=== PATIENT | female | born 1945 | race Caucasian/White ===

== ENCOUNTER 2018-03-20 14:24 | Outpatient (REF) | payer MEDICAID, SELFPAY ==
[2018-03-20 21:57] LABS: Abs Immature Grans 0.01 k/cumm (0.0-0.09); Absolute Basophil Count 0.04 k/cumm (0.0-0.2); Absolute Eosinophil Count 0.07 k/cumm (0.0-0.7); Absolute Lymphocyte Count 1.84 k/cumm (1.2-3.4); Absolute Monocyte Count 0.64 k/cumm (0.11-0.7); Absolute Neutrophil Count 4.08 k/cumm (1.2-6.7); Basophils % 0.6; HCT 48.3 % (36.0-46.0); HGB 15.4 g/dL (12.0-15.5); Immature Grans % 0.1; Lymphocytes % 27.5; Mean Corp. HGB Concentration 31.9 g/dL (32.0-36.0); Mean Corpuscular Hemoglobin 30.2 pg (27.0-33.0); Mean Corpuscular Volume 94.7 fL (80-95); Mean Platelet Volume 11.5 fL (8.0-11.0); Monocytes % 9.6; Neutrophils % 61.2; Platelet Count 162 x1000/uL (130-400); RBC Distribution Width 14.6 % (11.7-14.6); White Blood Cell Count 6.68 k/cumm (4.4-10.8)
[2018-03-20 22:22] LABS: ALT 25 U/L (12-78); AST 19 U/L (15-37); Albumin 3.6 g/dL (3.4-5.0); Alkaline Phosphatase 115 U/L (46-116); Anion Gap 8.5 mmol/L (3-11); BUN 20 mg/dL (7-18); Bilirubin, Total 0.3 mg/dL (0.2-1.0); CO2 30.5 mmol/L (21.0-32.0); CREATININE 0.79 mg/dL (0.55-1.02); Calcium 9.3 mg/dL (8.5-10.1); Chloride 104 mmol/L (98-107); Glucose 116 mg/dL (70-100); Potassium 4.1 mmol/L (3.5-5.1); Sodium 143 mmol/L (136-145); Total Protein 7.4 g/dL (6.4-8.2)
== END 2018-03-20 14:44 ==
LOC: NCHCN 14:24
PROVIDERS: PCP Family Medicine; Visit Provider Nurse Practitioner
DX: R63.0 Anorexia (principal); J06.9 Acute upper respiratory infection, unspecified
CPT/HCPCS: 80053; 85025

== ENCOUNTER 2018-03-21 15:18 | Outpatient (CLI) | payer MEDICAID, SELFPAY ==
--- NOTE | 2018-03-21 14:50 | DI.RAD_ITS ---
SYMPTOMS/DIAGNOSIS: RECENT UPPER RESPIRATORY INFECTION, J06.9 PA AND LATERAL CHEST: Comparison is made with November,. The heart size is normal. The aorta is tortuous but normal in diameter. The lungs appear clear. No infiltrate, effusion or pulmonary edema is seen. IMPRESSION: No acute abnormality.
== END 2018-03-21 15:38 ==
PROVIDERS: PCP Family Medicine; Visit Provider Nurse Practitioner
DX: J06.9 Acute upper respiratory infection, unspecified (principal)
CPT/HCPCS: 71046

== ENCOUNTER 2018-03-21 18:14 | Outpatient (REF) | payer MEDICAID, SELFPAY ==
[2018-03-21 21:02] LABS: Bilirubin Negative (Negative); Blood Moderate (Negative); Clarity Clear; Glucose Negative (Negative); Ketones Negative (Negative); Leukocyte Esterase Negative (Negative); Nitrite Negative (Negative); Specific Gravity >= 1.030 (1.005-1.025); Urobilinogen 0.2 EU/dL (Up TO 0.2); pH 5.5 (5-8)
[2018-03-21 21:16] LABS: Bacteria Moderate HPF (Negative); Epithelial Cells Moderate HPF (Negative); RBC 0-2 (0-2); WBC 0-2 HPF (0-5)
[2018-03-21 21:17] LABS: C & S Indicated? No/Sq. Contamination; Crystals Many Calcium Oxalate HPF (Negative); Mucus Moderate (Negative)
== END 2018-03-21 18:34 ==
LOC: NCHCN 18:14
PROVIDERS: PCP Family Medicine; Visit Provider Nurse Practitioner
DX: R63.0 Anorexia (principal)
CPT/HCPCS: 81003; 81015

== ENCOUNTER 2018-04-23 15:19 | Outpatient (CLI) | payer MEDICAID, SELFPAY ==
--- NOTE | 2018-04-23 15:24 | DI.RAD_ITS ---
SYMPTOM/DIAGNOSIS: RT XR ANKLE T14.90XA RIGHT ANKLE: Three views were obtained. The ankle mortise appears well maintained. There are minimal degenerative changes of the joints of the ankle. No other significant bony abnormality seen.
== END 2018-04-23 15:39 ==
PROVIDERS: PCP Family Medicine; Visit Provider Nurse Practitioner
DX: M25.571 Pain in right ankle and joints of right foot (principal); M19.071 Primary osteoarthritis, right ankle and foot
CPT/HCPCS: 73610

== ENCOUNTER 2018-06-25 09:02 | Emergency (ER) | payer MEDICAID, SELFPAY ==
--- NOTE | 2018-06-25 08:57 | ED.GENADUL_ITS ---
Discharge Plan Disposition Patient Disposition: HOME Condition: Good Discharge Details Chief Complaint: Laceration Clinical Impression: Laceration, Fall Reason For Visit: MEGAN Primary Care Provider: Heather Rinaldi ED Provider: Harrison Ceja Home Meds and New Rx's Prescriptions: No Action food supplemt, lactose-reduced [Ensure High Protein] liquid 120 ml PO DAILY RF: 0 acetaminophen 325 mg capsule 650 mg PO TID PRNRF: 0 trazodone 50 MG tablet 50 mg PO TID RF: 0 omeprazole 40 MG capsule,delayed release(DR/EC) 40 mg PO HS RF: 0 lorazepam 0.5 MG tablet 0.5 mg PO TID RF: 0 divalproex 125 MG tablet,delayed release (DR/EC) 2 tab PO BID RF: 0 docusate sodium [Colace] 100 MG capsule 100 mg PO PRN PRNRF: 0 cholecalciferol (vitamin D3) 1,000 UNITS tablet 2 tab PO QAM RF: 0 Discharge Instructions Instructions: Care For Your Stitches (ED), Laceration (ED) Additional Instructions: Please return in 7-10 days to have your sutures reevaluated and potentially removed. If you notice any redness, drainage, or other significant abnormalities please return immediately for reassessment. If you notice any worsening of your symptoms, or any new symptoms such as vomiting, diarrhea, fever, chills, shortness of breath, chest pain, numbness, weakness, or fainting , please return immediately to the emergency department for reevaluation. Please follow up with your primary care provider as soon as possible for reassessment and reevaluation. As always, it was a pleasure participating in your medical care today. Referrals: Heather Rinaldi [Primary Care Provider] - Medical Decision Making This is a 72-year-old female who presents today for follow-up. She had a mechanical trip and fall and hit the windowsill on her left forehead. A linear laceration is present over the left forehead just below the hairline. She suffered no loss of consciousness per the home health care provider. The patient has no complaints, and at baseline is pleasantly demented. She follows all commands at this time, demonstrates a GCS of 15. No focal neurologic deficits that can be appreciated on exam. Tetanus is up-to-date. We will suture the laceration site, get a CT to rule out any acute bleed. 10:07am Patient CT scan results have returned and per Dr. Amaya there is no acute process, fracture, or bleed noted on the CT head or C-spine of the patient. Patient's laceration has been repaired with 7 simple interrupted sutures. She is tolerated this well. No neurologic deficits, no concerning physical exam findings aside for the laceration. No evidence of altered mental status or significant concussion. She is not on blood thinners. This time I feel that her clinical history is consistent with a mechanical fall, and subsequent laceration. The patient's care provider and health specialists are both at bedside. I had a long and thorough discussion with him regarding the plan for the patient the need for return for suture removal. As well as red flags which to return. I have extensively reviewed the treatment plan and discharge instructions with the patient and their family. I have addressed all patient concerns at this time. The patient and family was made aware of what symptoms to monitor for that would warrant a return to the emergency department. Discussed the plan with the patient and family, they demonstrate verbal understanding and agreement with our assessment and plan at this time. Procedure: Suture Patient was positioned appropriately, 10cc lidocaine with/without epinephrine> was used as a local anesthetic. Copious amounts of normal saline used for irrigation. Patient was sterile draped with wound exposed. 5-0 Ethilon 7 simple interrupted sutures were placed with good approximation. Wound dressed with sterile gauze. Estimated Blood Loss: 1ml The patient tolerated the procedure well and there were no complications. HPI General Date/Time Provider Initiated Documentation: 06/25/18 09:07 . HPI Narrative: This is a 72-year-old female with a past medical history of Alzheimer's, previous CVA, hypertension, is on no blood thinners, who presents t [facility] for evaluation of fall. Patient was at home when she tripped on a towel, she hit her left forehead on the window sill. It was witnessed by her home care provider. Per the home care provider she had no loss of consciousness. She had some difficulty ambulating around after this event, but otherwise has no complaints. Bleeding was controlled by the time EMS arrived. She has a notable laceration on her left forehead. No other complaints, no other modifying factors at this time. Tetanus is up-to-date. She is on no blood thinners. Related Data Home Medications Medication Instructions Recorded Confirmed divalproex 2 tab PO BID 09/30/17 06/25/18 docusate sodium [Colace] 100 mg PO PRN PRN 09/30/17 06/25/18 lorazepam 0.5 mg PO TID 09/30/17 06/25/18 omeprazole 40 mg PO HS 09/30/17 06/25/18 trazodone 50 mg PO TID 09/30/17 06/25/18 cholecalciferol (vitamin D3) 2 tab PO QAM 11/21/17 06/25/18 acetaminophen 325 mg capsule 650 mg PO TID PRN cap 05/14/18 06/25/18 food supplement, lactose-reduced 120 ml PO DAILY ml 05/14/18 06/25/18 oral liquid Allergies Allergy/AdvReac Type Severity Reaction Status Date / Time No Known Allergies Allergy Unverified 06/25/18 09:15 Review of Systems Review of Systems All systems reviewed & are unremarkable except as noted in HPI and below PFSH Social History Smoking/Tobacco Use Status: Unknown Exam Narrative Exam Narrative: 1.Const: Well-nourished, Well-developed, appearing stated age 2.Eyes: PERRL, no conjunctival injection, and symmetrical lids. 3.ENT: Atraumatic external nose and ears. Moist MM. Neck: Symmetric, trachea midline, No thyromegaly. Patient demonstrates intact dentition with no signs of tooth avulsion or fracture, no signs of jaw deformity, no evidence of a LeFort's fracture, with an intact palate, nose and orbital region. There is no evidence of a nasal septal hematoma. No proptosis. Jaw closes symmetrically. Airway is clear. There is no evidence of raccoon eyes, olguin sign, CSF rhinorrhea, mastoid tenderness, cranial crepitus, hemotympanum, exophthalmos, or hyphema. 4.CVS: +S1/S2, No murmurs or gallops. Peripheral pulses 2+ and equal in all extremities. Brisk capillary refill in all extremities. 5.RESP: Unlabored respiratory effort. Clear to auscultation bilaterally. No wheezes rales or rhonchi 6.GI: Soft, Nontender/Nondistended, No hepatosplenomegaly. No guarding or rebound. 7.MSK: Normocephalic/Atraumatic, Extremities w/o deformity or ttp No cyanosis or clubbing, no midline tenderness to palpation over the CTLS spine. Normal ROM in flexion, extension, side bend, and rotation. Patient has +5 out of 5 strength in the lower extremities in dorsiflexion and plantarflexion, knee flexion and extension, hip flexion and extension. There is +2 over 2 dorsalis pedis pulses bilaterally. There is normal sensation to the skin with light touch at the foot, knee, and hip. Normal saddle sensation. Good sensation over the deep sural nerve area bilaterally. Rectal exam deferred. Reflexes are +2 over 4 in the patellar reflex bilaterally. +5 out of 5 strength in the medial, ulnar, radial nerve distribution bilaterally in the hands as well as intact light touch sensation to these dermatomes on the hands 8.Skin: Warm, Dry. Notable linear laceration over the patient's left forehead just below the hairline. This is linear, and roughly 4-1/2-5 cm in length. No evidence of calvarial involvement. 9.Neuro: e marketing specialist II-XII grossly intact. Sensation grossly intact, no focal neurologic deficits. Exam is slightly limited by the patient's mental baseline with her Alzheimer's. 10.Psych: (AAO) x3. Appropriate mood and affect. Pleasantly demented.
[2018-06-25 09:04] VITALS: BP 147/91; PULSE 91; RESP 16; TEMP 36.7; O2SAT 92
--- NOTE | 2018-06-25 09:07 | DI.CT_ITS ---
SYMPTOM/DIAGNOSIS: FELL, ? BLEED, FOREHEAD LACERATION NONCONTRAST HEAD CT: The exam is somewhat limited by patient motion. There are no prior comparison exams. Atrophy is seen. There is ventricular dilatation proportional to the degree of atrophy. White matter changes are seen consistent with small vessel disease. IMPRESSION: Limited exam due to patient motion. Small hemorrhages could be missed, especially along the sulci. No acute abnormality is identified. CERVICAL SPINE CT: There is no evidence of fracture. The alignment is normal. Degenerative disc changes are seen greatest at C 5-6 and C 6-7. Face degenerative changes are also present, greater on the right side. The airway appears intact. The visualized portions of the upper lobes appear clear. IMPRESSION: Degenerative changes. No acute abnormality.
[2018-06-25 10:16] VITALS: BP 164/85; PULSE 74; RESP 14; TEMP 37.8; O2SAT 94
== END 2018-06-25 10:23 | disposition home or self-care (01) ==
PROVIDERS: Emergency Provider Student in an Organized Health Care Education/Training Program; PCP Family Medicine
DX: S01.81XA Laceration without foreign body of other part of head, initial encounter (principal); W01.198A Fall on same level from slipping, tripping and stumbling with subsequent striking against other object, initial encounter; I10 Essential (primary) hypertension
CPT/HCPCS: 12002; 99284; 70450; 72125

== ENCOUNTER 2018-07-04 16:55 | Emergency (ER) | payer MEDICAID, MEDICARE, SELFPAY ==
--- NOTE | 2018-07-04 17:14 | W.ED.GENAD ---
Discharge Plan Disposition Patient Disposition: HOME Condition: Stable Discharge Details Chief Complaint: SutureRem Clinical Impression: Visit for suture removal Primary Care Provider: Heather Rinaldi ED Provider: Anastasiia Lantigua Home Meds and New Rx's Prescriptions: Continued food supplemt, lactose-reduced [Ensure High Protein] liquid 120 ml PO DAILY RF: 0 acetaminophen 325 mg capsule 650 mg PO TID PRNRF: 0 trazodone 50 MG tablet 50 mg PO TID RF: 0 omeprazole 40 MG capsule,delayed release(DR/EC) 40 mg PO HS RF: 0 lorazepam 0.5 MG tablet 0.5 mg PO TID RF: 0 divalproex 125 MG tablet,delayed release (DR/EC) 2 tab PO BID RF: 0 docusate sodium [Colace] 100 MG capsule 100 mg PO PRN PRNRF: 0 cholecalciferol (vitamin D3) 1,000 UNITS tablet 2 tab PO QAM RF: 0 Discharge Instructions Instructions: Stitches Removal (ED) Additional Instructions: Keep wound clean and dry. Cover wound with bandage if any risk of infection. If you notice any redness or swelling or pain, apply antibiotic ointment. Follow-up with primary care doctor in 1 week for reevaluation. Return immediately to the emergency department any worsening or new concerning symptoms. Discharge Data Discharge Date/Time-TO BE ENTERED AT DEPARTURE: 07/04/18 17:25 Discharge Physician: Anastasiia Lantigua Medical Decision Making 72-year-old female who presents for suture removal for forehead laceration status post mechanical fall 9 days ago. Denies any complaints of headache or infection. [address] No evidence of infection. 7 sutures were removed by nurse at bedside. Instructed on importance of wound care and that wound is most vulnerable once sutures removed. Instructed to return to the ED with any worsening or new concerning symptoms. HPI General Mode of arrival: ambulatory. Date/Time Provider Initiated Documentation: 07/04/18 17:07. Limitations to Documentation: no limitations. Information obtained by: patient. HPI Narrative: Patient is a 72-year-old female w/ a h/o dementia who presents with caregiver for suture removal of forehead laceration status post mechanical fall 9 days ago. Denies any complaints of headache or infection. Related Data Home Medications Medication Instructions Recorded Confirmed divalproex 2 tab PO BID 09/30/17 06/25/18 docusate sodium [Colace] 100 mg PO PRN PRN 09/30/17 06/25/18 lorazepam 0.5 mg PO TID 09/30/17 06/25/18 omeprazole 40 mg PO HS 09/30/17 06/25/18 trazodone 50 mg PO TID 09/30/17 06/25/18 cholecalciferol (vitamin D3) 2 tab PO QAM 11/21/17 06/25/18 acetaminophen 325 mg capsule 650 mg PO TID PRN cap 05/14/18 06/25/18 food supplement, lactose-reduced 120 ml PO DAILY ml 05/14/18 06/25/18 oral liquid Allergies Allergy/AdvReac Type Severity Reaction Status Date / Time No Known Allergies Allergy Unverified 06/25/18 09:15 General Stated Complaint: SutureRem GOLDIE: 5 Review of Systems Review of Systems All systems reviewed & are unremarkable except as noted in HPI and below PFSH Medical History Chronic colitis (Acute) Vitamin B 12 deficiency (Acute) Anxiety (Chronic) CVA (cerebral vascular accident) (Chronic) Dementia (Chronic) Depression (Chronic) HTN (hypertension) (Chronic) Surgical History Surgical history unknown (Acute) Social History Smoking/Tobacco Use Status: Never alcohol intake: never substance use type: does not use Exam Const General: cooperative, healthy appearing and no acute distress [facility] Head images: 1. 3cm straight laceration healing well with [address] No erythema, edema, ecchymoses, drainage or bleeding. Ears: hearing grossly normal bilaterally General nose exam: external nose normal Face and sinus: normal facial exam Eyes General: appearance normal, both eyes and all related structures Neck Neck: normal visual inspection Resp Effort & Inspection: normal respiratory effort and able to speak in complete sentences Cardio Rate: regular rate Skin General skin exam: no rashes or lesions noted Neuro General: alert, awake and oriented x3 Motor: muscle tone normal throughout Extrem General: full ROM Psych Appearance: grossly normal Affect: other (flat affect)
[2018-07-04 17:16] VITALS: BP 157/84; PULSE 91; RESP 18; TEMP 36.8; O2SAT 95
== END 2018-07-04 17:25 | disposition home or self-care (01) ==
LOC: ER 17:29
PROVIDERS: Emergency Provider Physician Assistant; PCP Family Medicine
DX: S01.81XD Laceration without foreign body of other part of head, subsequent encounter (principal); W01.198A Fall on same level from slipping, tripping and stumbling with subsequent striking against other object, initial encounter

== ENCOUNTER 2018-08-07 11:13 | Outpatient (REF) | payer MEDICAID, SELFPAY ==
[2018-08-07 22:03] LABS: Vitamin B12 465 pg/mL (193-986)
== END 2018-08-07 11:33 ==
LOC: NCHCN 11:13
PROVIDERS: PCP Family Medicine; Visit Provider Family Medicine
DX: F02.80 Dementia in other diseases classified elsewhere, unspecified severity, without behavioral disturbance, psychotic disturbance, mood disturbance, and anxiety (principal); E53.8 Deficiency of other specified B group vitamins
CPT/HCPCS: 82607

== ENCOUNTER 2018-09-06 17:05 | Inpatient (IN) | payer MEDICARE, MEDICAID, SELFPAY ==
[2018-09-06] VITALS (30 sets, daily range): BP systolic 76–183; BP diastolic 42–118; PULSE 67–123; RESP 2–31; TEMP 36.7–37.7; O2SAT 83–100
--- NOTE | 2018-09-06 17:15 | NUR.NOTE ---
entrepreneur of pt has brought in pt because of SOB with exercise and hypertension
--- NOTE | 2018-09-06 17:21 | DI.RAD_ITS ---
SYMPTOM/DIAGNOSIS: SOB AP AND LATERAL CHEST: There is a mild biconvex thoracolumbar scoliosis. Heart is not enlarged. The lungs are grossly clear. No pleural effusion is seen. CONCLUSION: No evidence of acute disease.
--- NOTE | 2018-09-06 17:27 | W.ED.GENAD ---
Discharge Plan Disposition Patient Disposition: [facility] Condition: Fair Discharge Details Chief Complaint: RespSymp Clinical Impression: COPD with acute exacerbation Primary Care Provider: Heather Rinaldi ED Provider: Anastasiia Lantigua Home Meds and New Rx's Prescriptions: No Action food supplemt, lactose-reduced [Ensure High Protein] liquid 120 ml PO DAILY RF: 0 acetaminophen 325 mg capsule 650 mg PO TID PRNRF: 0 quetiapine [Seroquel] 25 mg tablet 25 mg PO DIRECTED Qty: 90 RF: 5 lorazepam 0.5 mg tablet 0.5 mg PO .COMPLEX RF: 0 trazodone 50 mg tablet 50 mg PO DIRECTED RF: 0 omeprazole 40 MG capsule,delayed release(DR/EC) 40 mg PO HS RF: 0 docusate sodium [Colace] 100 MG capsule 100 mg PO PRN PRNRF: 0 cholecalciferol (vitamin D3) 1,000 UNITS tablet 2 tab PO QAM RF: 0 doxycycline hyclate 100 mg Tablet 100 mg PO BID RF: 0 Medical Decision Making 73-year-old female with a history of COPD, dementia, CVA, hypertension who presents with shortness of breath for the past few days and worse since yesterday. Mild labored breathing. Temp 99.8. Respiratory rate noted to be 20 on arrival but appears increased upon my evaluation. O2 saturation 95% on room air. Diminished breath sounds with minimal wheezing and rhonchi throughout. Wet sounding breath sounds in upper airways. EKG notes a rate of 97, sinus, no acute ST findings. 1829 --labs and imaging reviewed. Normal white blood cell count. Normal electrolytes. Troponin negative. BNP 568. Chest x-ray negative. 1839 --reassessment notes increasing wheezing and rhonchi. Patient still with some tachypnea. Will give a 7.5 mg neb and reassess. 1934 --patient still tachypneic after 7.5 mg neb. Her bowel sounds are improved. Will place on BiPAP and admit for acute COPD exacerbation. 1949 --d/w hospitalist - accepts pt for admission. We will give a dose of Levaquin. Medical Records Medical records reviewed: Yes I reviewed the patient's medical records. Imaging Data Radiologic Study: Radiologist's impression: Patient Name: Valentin DOE #: [id number]: ER Ordering Provider: : REG ER Primary Care Provider: Heather Rinaldi Date of Exam: 09/06/18Sex: F : 4Age: 73 XR Chest, 2 Views EXAM DATE/TIME: 09/06/2018 5:24 PM FINDINGS: Lungs: Right basilar atelectasis . No focal opacity Pleural space: Unremarkable. No pleural effusion. No pneumothorax. Heart/Mediastinum: Unremarkable. No cardiomegaly. Vasculature: Tortuous aorta Bones/joints: Unremarkable. Other findings: Patient is leaning to the right IMPRESSION: No focal opacity Lab Data Lab results reviewed: Yes I reviewed the patient's lab results. Laboratory Tests Range/Units 09/06/18 09/06/18 09/06/18 17:30 17:30 17:30 WBC (4.4-10.8) k/cumm 5.59 RBC (4.00-5.20) m/cumm 5.50 H Hgb (12.0-15.5) g/dL 16.8 H Hct (36.0-46.0) % 50.9 H MCV (80-95) fL 92.5 MCH (27.0-33.0) pg 30.5 MCHC (32.0-36.0) g/dL 33.0 RDW (11.7-14.6) % 14.3 Plt Count (130-400) x1000/uL 198 MPV (8.0-11.0) fL 10.8 Immature Gran % 0.2 Neutrophils % 69.7 Lymphocytes % 18.8 Monocytes % 10.7 Eosinophils % 0.2 Basophils % 0.4 Absolute Neutrophils (1.2-6.7) k/cumm 3.90 Absolute Lymphocytes (1.2-3.4) k/cumm 1.05 L Absolute Monocytes (0.11-0.7) k/cumm 0.60 Absolute Eosinophils (0.0-0.7) k/cumm 0.01 Absolute Basophils (0.0-0.2) k/cumm 0.02 Sodium (136-145) mmol/L 140 Potassium (3.5-5.1) mmol/L 4.0 Chloride (98-107) mmol/L 101 Carbon Dioxide (21.0-32.0) mmol/L 29.6 Anion Gap (3-11) mmol/L 9.4 BUN (7-18) mg/dL 19 H Creatinine (0.55-1.02) mg/dL 0.97 Estimated GFR/1.73 m2 (mL/min/1.73m2) 55.98 Glucose (70-100) mg/dL 147 H Calcium (8.5-10.1) mg/dL 9.4 Magnesium (1.8-2.4) mg/dL 1.8 Total Bilirubin (0.2-1.0) mg/dL 0.3 AST (15-37) U/L 23 ALT (12-78) U/L 29 Alkaline Phosphatase (46-116) U/L 171 H Troponin I (0.00-0.06) ng/mL < 0.02 NT-Pro-B Natriuret Pep ( - 299) pg/mL 568 H Total Protein (6.4-8.2) g/dL 8.2 Albumin (3.4-5.0) g/dL 3.8 ECG Data Attestation: I personally reviewed and interpreted this ECG (s) as follows: Interpretation: Rate of 97, sinus, no acute ST elevation or depression. QTc 432. QRS 86. HPI General Mode of arrival: ambulatory. Date/Time Provider Initiated Documentation: 09/06/18 17:21. Limitations to Documentation: no limitations. Information obtained by: patient and family (animal caretaker). HPI Narrative: Patient is a 73-year-old female with history of CVA, hypertension, anxiety depression, GERD, dementia and COPD who presents with shortness of breath for the past few days, and worse since last night. Patient did receive the flu shot this year. Caregiver whom patient lives with states that she has been eating and drinking normally. She admits to congested cough. She denies any known fever, vomiting, diarrhea or chest pain. Related Data Home Medications Medication Instructions Recorded Confirmed docusate sodium [Colace] 100 mg PO PRN PRN 09/30/17 09/06/18 omeprazole 40 mg PO HS 09/30/17 09/06/18 cholecalciferol (vitamin D3) 2 tab PO QAM 11/21/17 09/06/18 acetaminophen 325 mg capsule 650 mg PO TID PRN cap 05/14/18 09/06/18 food supplement, lactose-reduced 120 ml PO DAILY ml 05/14/18 09/06/18 oral liquid lorazepam 0.5 mg tablet 0.5 mg PO .COMPLEX 08/25/18 09/06/18 quetiapine 25 mg tablet 25 mg PO DIRECTED #90 tab 08/25/18 09/06/18 trazodone 50 mg tablet 50 mg PO DIRECTED tab 08/25/18 09/06/18 doxycycline hyclate 100 mg PO BID 09/06/18 09/06/18 Previous Rx's Medication Instructions Recorded quetiapine 25 mg tablet 25 mg PO DIRECTED #90 tab 08/25/18 Allergies Allergy/AdvReac Type Severity Reaction Status Date / Time No Known Allergies Allergy Unverified 09/06/18 17:18 General Stated Complaint: RespSymp GOLDIE: 3 Review of Systems Review of Systems All systems reviewed & are unremarkable except as noted in HPI and below Constitutional Reports as per HPI, Denies chills and Denies fever(s) Eyes Denies blurry vision ENT Denies dizziness, Denies sore throat and Denies throat swelling Cardiovascular Denies chest pain and Reports dyspnea Respiratory Denies cough and Reports dyspnea Gastrointestinal Denies abdominal pain, Denies diarrhea and Denies vomiting Genitourinary Denies hematuria and Denies dysuria Musculoskeletal Denies back pain and Denies numbness Integumentary/Breasts Denies lesions and Denies rash Neurologic Denies dizziness, Denies focal weakness and Denies numbness Allergic/Immunologic Denies throat swelling [facility] Medical History GERD (gastroesophageal reflux disease) (Chronic) Alzheimer's dementia (Chronic) Drug-induced Parkinsonism (Acute) Chronic colitis (Acute) Vitamin B 12 deficiency (Acute) Anxiety (Chronic) CVA (cerebral vascular accident) (Chronic) Depression (Chronic) HTN (hypertension) (Chronic) Dementia (Resolved) Surgical History Surgical history unknown (Acute) Social History Smoking/Tobacco Use Status: Former Tobacco Use Alcohol Intake: never Substance use type: does not use Household members: caregiver Number of Children: 3 current occupation: Nurse Do you feel safe in your relationship?: Yes Additional Social history: Has 2 children in [place] who are her guardians. Has another son in [place] who is not in charge of care. Has lives with caregiver Makayla since Jun 2017. Attends [employer] 5 days per week. CM is Meliza. Exam Const General: cooperative and no acute distress Orientation: alert and awake HENMT Head: normal to inspection Ears: hearing grossly normal bilaterally, external ears normal and TM's normal bilaterally General nose exam: external nose normal Face and sinus: normal facial exam Mouth: oral mucosae normal Teeth and gingiva: dentition normal Throat: posterior oropharynx normal Eyes General: appearance normal, both eyes and all related structures Eyelids: eyelids normal EOM: EOM intact bilaterally Neck Neck: normal visual inspection Lymphatic: no lymphadenopathy noted Chest Chest: normal inspection of the chest Resp Effort & Inspection: audible wheezes, tachypneic and other (wet lung sounds) Auscultation: diminished lung sounds bilaterally, rhonchi and wheezes Cardio Rate: regular rate Rhythm: regular rhythm GI Inspection: normal to inspection Palpation: soft, not firm, no guarding, no hepatosplenomegaly, no masses and nontender Auscultation: normal bowel sounds Skin General skin exam: no rashes or lesions noted Neuro General: alert and awake Cognition: normal cognition Speech: speech normal Gait: normal gait Motor: muscle tone normal throughout Sensory Exam: no sensory deficits noted Extrem General: normal to inspection, full ROM, normal capillary refill and no edema Psych Appearance: grossly normal Mental Status: mental status grossly normal Speech and Movement: speech and movement normal Affect: normal affect Thought Process: normal Course Vital Signs Temperature 99.8 F H 09/06/18 17:16 Pulse 96 H 09/06/18 17:16 Respiratory Rate 09/06/18 17:16 Blood Pressure 167/118 H 09/06/18 17:16 Pulse Oximetry 95 09/06/18 17:16 Temperature 99.8 F H 09/06/18 17:16 Temperature Source Skin 09/06/18 17:16 Pulse 96 H 09/06/18 17:16 Respiratory Rate 09/06/18 17:16 Blood Pressure 167/118 H 09/06/18 17:16 Blood Pressure Position Sitting 09/06/18 17:16 Pulse Oximetry 95 09/06/18 17:16 Oxygen Delivery Method Bi-pap 09/06/18 17:16 Oxygen Flow Rate 0 09/06/18 17:16 Pain Level 0 09/06/18 17:16
[2018-09-06 17:53] LABS: Abs Immature Grans 0.01 k/cumm (0.0-0.09); Absolute Basophil Count 0.02 k/cumm (0.0-0.2); Absolute Eosinophil Count 0.01 k/cumm (0.0-0.7); Absolute Lymphocyte Count 1.05 k/cumm (1.2-3.4); Basophils % 0.4; Eosinophils % 0.2; HCT 50.9 % (36.0-46.0); HGB 16.8 g/dL (12.0-15.5); Immature Grans % 0.2; Lymphocytes % 18.8; Mean Corpuscular Hemoglobin 30.5 pg (27.0-33.0); Mean Corpuscular Volume 92.5 fL (80-95); Mean Platelet Volume 10.8 fL (8.0-11.0); Monocytes % 10.7; Neutrophils % 69.7; Platelet Count 198 x1000/uL (130-400); RBC Distribution Width 14.3 % (11.7-14.6); White Blood Cell Count 5.59 k/cumm (4.4-10.8)
[2018-09-06 18:10] LABS: ALT 29 U/L (12-78); AST 23 U/L (15-37); Albumin 3.8 g/dL (3.4-5.0); Alkaline Phosphatase 171 U/L (46-116); Anion Gap 9.4 mmol/L (3-11); BUN 19 mg/dL (7-18); Bilirubin, Total 0.3 mg/dL (0.2-1.0); CO2 29.6 mmol/L (21.0-32.0); CREATININE 0.97 mg/dL (0.55-1.02); Calcium 9.4 mg/dL (8.5-10.1); Chloride 101 mmol/L (98-107); Estimated GFR 55.98 (mL/min/1.73m2); Glucose 147 mg/dL (70-100); Sodium 140 mmol/L (136-145); Total Protein 8.2 g/dL (6.4-8.2)
[2018-09-06 18:16] LABS: Magnesium 1.8 mg/dL (1.8-2.4); NT-proBNP 568 pg/mL
[2018-09-06 18:18] LABS: Troponin I < 0.02 ng/mL (0.00-0.06)
--- NOTE | 2018-09-06 18:27 | DI.VRAD_ITS ---
EXAM: XR Chest, 2 Views EXAM DATE/TIME: 09/06/2018 5:24 PM CLINICAL HISTORY: 73 years old, female; Signs and symptoms; Cough and shortness of breath and wheezing TECHNIQUE: Imaging protocol: XR of the chest, 2 views. COMPARISON: CR XR CHEST 2V PA LATERAL 03/21/2018 2:44 PM FINDINGS: Lungs: Right basilar atelectasis . No focal opacity Pleural space: Unremarkable. No pleural effusion. No pneumothorax. Heart/Mediastinum: Unremarkable. No cardiomegaly. Vasculature: Tortuous aorta Bones/joints: Unremarkable. Other findings: Patient is leaning to the right IMPRESSION: No focal opacity Dictated and Authenticated by: Nicholas Trejo MD. Ordering:TERRY Laurent MD
[2018-09-06] MEDS: Albuterol/Ipratropium 3 ML UPD VIAL UPD ×2 (18:43→22:51)
[2018-09-06] MEDS: methylPREDNISolone SUCC 125 MG VIAL IVP (18:44)
[2018-09-06] MEDS: Albuterol 2.5 MG/3 ML INH SOLN VIAL 7.5 MG UPD ×2 (18:45→20:31)
[2018-09-06 20:23] LABS: Lactate-non-spesis 2.6 mmol/l (0.6-1.4)
[2018-09-06] MEDS: levoFLOXacin 750 MG/150 ML BAG 100 MG IVPB (20:31)
--- NOTE | 2018-09-06 21:08 | HPE_ITS ---
Date of service: 09/06/18 Time of Service: 21:07 Assessment and Plan (1) Bronchopneumonia: Current visit: Yes Status: Acute Although no distinct consolidation is seen on her CXR, she has right basilar atelectasis, low grade fever, elevated blood lactate in setting of purulent cough. At minimum she has COPD exacerbation w/ acute bacterial bronchitis and I suspect she has incipient pneumonia. Patient's severe dyspnea and bronchospasm will continue to be treated w/ scheduled and prn nebulized bronchodilators, iv corticosteroids, and parenteral antibiotics will be given for bronchopneumonia in setting of COPD. I have changed her Levaquin to Cefepime for continued coverage of gram negatives, I have ordered doxycycline. I have not ordered Vancomycin as she has not had hx of MRSA and not been recently institutionalized. I will keep her on BIPAP overnight and try to wean her off this in the a.m. for now will keep npo except ice chips and meds. I will ask S.T. to evaluate her in the a.m. for possible dysphagia given her Parkinsonism although there has been no clear hx of aspiration/choking. (2) COPD (chronic obstructive pulmonary disease): Current visit: Yes Status: Suspected iv corticosteroids, aerosolized B.D. and antibiotics as above (3) Alzheimer's dementia: Current visit: No Status: Chronic continue current meds for her behavioral issues (Seroquel and Trazodone) (4) GERD (gastroesophageal reflux disease): Current visit: No Status: Chronic cont. her home dose of omeprazole; consult S.T. to evaluate for any potential dysphagia related to her P.D. 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 Patient developed cough last week that became progressively worse and developed into productive cough of purulent green sputum along w/ low grade fevers to 100 as well as dyspnea. She saw her PCP last and was prescribed doxycycline but despite this her cough and dyspnea have become worse. Upon presentation she hypoxic (SPO2 89%), tachypneic RR 30 and tachycardic 100. Workup in the ER included CXR that shows flattening of her diaphragms and right basilar atelectasis but no focal consolidation, pleural effusions or cardiomegaly. Labs including CBC, CMP were unremarkable except she has an elevated blood lactate of 2.6 without an increased anion gap. BNP was 568 and troponin was <0.02. WBC were 5890. Treatment in the ER included DuoNeb and albuterol aerosol treatments, Solumedrol 125 mg IVP, and Levaquin 750 mg IVPB. Because of her increased workup of breathing and persistent hypoxemia on supplemental nasl oxygen, she was put on BIPAP mask which improved her dyspnea and hypoxemia. She is now admitted to ICU for aggressive pulmonary toiletry, DuoNeb treatments and parenteral antibiotics. Because of her use of Seroquel and Trazodone, I have switched her Levaquin to Cefepime and Doxycycline. Review of Systems Review of Systems Unobtainable due to mental condition [facility] Medical History GERD (gastroesophageal reflux disease) (Chronic) Alzheimer's dementia (Chronic) Drug-induced Parkinsonism (Acute) Chronic colitis (Acute) Vitamin B 12 deficiency (Acute) Anxiety (Chronic) CVA (cerebral vascular accident) (Chronic) Depression (Chronic) HTN (hypertension) (Chronic) Dementia (Resolved) Surgical History Surgical history unknown (Acute) Social History Smoking/Tobacco Use Status: Former Tobacco Use Alcohol Intake: never Substance use type: does not use Household members: caregiver Number of Children: 3 current occupation: Nurse Do you feel safe in your relationship?: Yes Additional Social history: Has 2 children in [place] who are her guardians. Has another son in [place] who is not in charge of care. Has lives with caregiver Ozzie galindo since Jun 2017. Attends [employer] 5 days per week. TRISTAN is Meliza. Meds Home Medications Medication Instructions Recorded Confirmed Type docusate sodium [Colace] 100 mg PO PRN PRN 09/30/17 09/06/18 History omeprazole 40 mg PO HS 09/30/17 09/06/18 History cholecalciferol (vitamin D3) 2 tab PO QAM 11/21/17 09/06/18 History acetaminophen 325 mg capsule 650 mg PO TID PRN cap 05/14/18 09/06/18 History food supplement, lactose-reduced 120 ml PO DAILY ml 05/14/18 09/06/18 History oral liquid lorazepam 0.5 mg tablet 0.5 mg PO .COMPLEX 08/25/18 09/06/18 History quetiapine 25 mg tablet 25 mg PO DIRECTED #90 tab 08/25/18 09/06/18 Rx trazodone 50 mg tablet 50 mg PO DIRECTED tab 08/25/18 09/06/18 History doxycycline hyclate 100 mg PO BID 09/06/18 09/06/18 History Allergies Allergy/AdvReac Type Severity Reaction Status Date / Time No Known Allergies Allergy Unverified 09/06/18 17:18 Exam Const General: cooperative and ill appearing acutely Nutritional Appearance: average body habitus Orientation: alert, awake and oriented to person Limitations: behavioral limitations HENMT Head: normal to inspection, no palpable skull fracture, normocephalic and at raumatic Face and sinus: normal facial exam Mouth: other (oropharynx not examined d/t patient being on bipap) Neck Neck: normal visual inspection, full ROM, no lymphadenopathy, trachea midline, supple, no JVD and other (not using accessory muscles) Thyroid: thyroid normal Carotids: normal carotid upstroke Resp Effort & Inspection: tachypneic and no use of accessory muscles Auscultation: rhonchi upper bilaterally and lower bilaterally and wheezes scattered wheezes Cardio Jugular venous pressure: no JVD Palpation: normal PMI Rate: regular rate Rhythm: regular rhythm Heart Sounds: no murmurs Pulses: posterior tibial pulses present bilaterally diminished and dorsalis pedis pulses present bilaterally diminished GI Inspection: normal to inspection Palpation: soft, no hepatosplenomegaly, no guarding and nontender Percussion: normal to percussion Auscultation: normal bowel sounds Back/Spine/Pelvis Back: no CVA tenderness Cervical Spine: normal cervical lordosis Thoracic/Lumbar Spine: thoracic and lumbar spine normal to inspection Skin General skin exam: no rashes or lesions noted, elasticity normal and turgor normal Neuro General: alert, awake, oriented Patient Orientation: Person, moves all extremities and confused Cranial Nerves: no nystagmus Cognition: abnormal cognition Speech: speech normal Motor: muscle tone normal throughout, strength 5/5 throughout and tremor bilateral upper extremity Sensory Exam: no sensory deficits noted Extrem General: normal to inspection, full ROM and no clubbing, cyanosis or edema Psych Appearance: well kempt Speech and Movement: restless and slowed movement Mood: anxious mood Affect: anxious affect Attitude: cooperative Thought Process: other Other: unable to assess her thought processes, content nor her insight and judg ement; her cognition is impaired to point that she is unable to carry any meaningful conversation Results Imaging Chest x-ray: report reviewed (FINDINGS: Lungs: Right basilar atelectasis . No focal opacity Pleural space: Unremarkable. No pleural effusion. No pneumothorax. Heart/Mediastinum: Unremarkable. No cardiomegaly. Vasculature: Tortuous aorta Bones/joints: Unremarkable. Other findings: Patient is leaning to the right I) and image reviewed Labs : 09/06/18 17:30 09/06/18 17:30 Laboratory Results - last 24 hr 09/06/18 09/06/18 09/06/18 17:30 17:30 17:30 WBC 5.59 RBC 5.50 H Hgb 16.8 H Hct 50.9 H MCV 92.5 MCH 30.5 MCHC 33.0 RDW 14.3 Plt Count 198 MPV 10.8 Immature Gran % 0.2 Neutrophils % 69.7 Lymphocytes % 18.8 Monocytes % 10.7 Eosinophils % 0.2 Basophils % 0.4 Absolute Neutrophils 3.90 Absolute Lymphocytes 1.05 L Absolute Monocytes 0.60 Absolute Eosinophils 0.01 Absolute Basophils 0.02 Sodium 140 Potassium 4.0 Chloride 101 Carbon Dioxide 29.6 Anion Gap 9.4 BUN 19 H Creatinine 0.97 Estimated GFR/1.73 m2 55.98 Glucose 147 H Lactate Calcium 9.4 Magnesium 1.8 Total Bilirubin 0.3 AST 23 ALT 29 Alkaline Phosphatase 171 H Troponin I < 0.02 NT-Pro-B Natriuret Pep 568 H Total Protein 8.2 Albumin 3.8 09/06/18 20:02 WBC RBC Hgb Hct MCV MCH MCHC RDW Plt Count MPV Immature Gran % Neutrophils % Lymphocytes % Monocytes % Eosinophils % Basophils % Absolute Neutrophils Absolute Lymphocytes Absolute Monocytes Absolute Eosinophils Absolute Basophils Sodium Potassium Chloride Carbon Dioxide Anion Gap BUN Creatinine Estimated GFR/1.73 m2 Glucose Lactate 2.6 H Calcium Magnesium Total Bilirubin AST ALT Alkaline Phosphatase Troponin I NT-Pro-B Natriuret Pep Total Protein Albumin Last Vital Signs Temp 37.7 C H 09/06/18 17:16 Pulse 115 H 09/06/18 20:33 Resp 31 H 09/06/18 20:33 BP 159/82 H 09/06/18 19:01 Pulse Ox 97 09/06/18 20:33
[2018-09-06] MEDS: Lactated Ringers 1,000 ML 100 ML IV (22:49)
[2018-09-06] MEDS: Enoxaparin 40 MG/0.4 ML SYR SC (22:51)
[2018-09-06] MEDS: Acetaminophen 325 MG TAB PO (22:53)
[2018-09-06] MEDS: LORazepam 0.5 MG TAB PO (22:55)
[2018-09-06] MEDS: QUEtiapine 25 MG TAB PO (22:55)
[2018-09-06] MEDS: DOXYCYCLINE 100 MG in Normal Saline 100 ML IVPB (23:01)
[2018-09-06] MEDS: Benzonatate 200 MG CAP PO (23:05)
[2018-09-06] MEDS: guaiFENesin 600 MG TABCR 1200 MG PO (23:09)
[2018-09-06] MEDS: Omeprazole 20 MG CAPCR 40 MG PO (23:44)
[2018-09-06] MEDS: CEFEPIME 2 GM in Normal Saline 100 ML IVPB (23:48)
[2018-09-06] MEDS: Hydrocortisone SOD SUC. 100 MG VIAL 50 MG IVP (23:50)
[2018-09-07] VITALS (51 sets, daily range): BP systolic 80–165; BP diastolic 51–125; PULSE 82–123; RESP 4–33; TEMP 36.6–37.3; O2SAT 3–99
[2018-09-07 00:10] LABS: Lactate 3.8 mmol/L (0.6-1.4)
[2018-09-07 00:25] LABS: Troponin I < 0.02 ng/mL (0.00-0.06)
[2018-09-07] MEDS: Normal Saline 500 ML IV (01:45)
[2018-09-07] MEDS: Albuterol/Ipratropium 3 ML UPD VIAL UPD ×2 (03:40→17:02)
[2018-09-07 05:55] LABS: Lactate-non-spesis 2.2 mmol/l (0.6-1.4)
[2018-09-07 05:57] LABS: Abs Immature Grans 0.01 k/cumm (0.0-0.09); Absolute Eosinophil Count 0.01 k/cumm (0.0-0.7); Absolute Lymphocyte Count 0.75 k/cumm (1.2-3.4); Absolute Monocyte Count 0.09 k/cumm (0.11-0.7); Eosinophils % 0.3; HCT 40.5 % (36.0-46.0); HGB 13.2 g/dL (12.0-15.5); Immature Grans % 0.3; Lymphocytes % 25.3; Mean Corp. HGB Concentration 32.6 g/dL (32.0-36.0); Mean Corpuscular Hemoglobin 30.6 pg (27.0-33.0); Mean Platelet Volume 10.4 fL (8.0-11.0); Neutrophils % 71.1; Platelet Count 169 x1000/uL (130-400); RBC 4.31 m/cumm (4.00-5.20); RBC Distribution Width 14.4 % (11.7-14.6); White Blood Cell Count 2.96 k/cumm (4.4-10.8)
[2018-09-07 06:12] LABS: Anion Gap 9.4 mmol/L (3-11); BUN 23 mg/dL (7-18); CO2 25.6 mmol/L (21.0-32.0); CREATININE 1.17 mg/dL (0.55-1.02); Calcium 8.4 mg/dL (8.5-10.1); Chloride 106 mmol/L (98-107); Estimated GFR 45.09 (mL/min/1.73m2); Glucose 161 mg/dL (70-100); Potassium 4.1 mmol/L (3.5-5.1); Sodium 141 mmol/L (136-145)
[2018-09-07] MEDS: Hydrocortisone SOD SUC. 100 MG VIAL 50 MG IVP ×2 (06:32→12:14)
--- NOTE | 2018-09-07 07:29 | PDOC.CMIN ---
- If Service Date Differs Date of service: 09/07/18 Time of Service: 07:29 Care Management Initial Assess REASON FOR HOSPITALIZATION:: Bronchopneumonia, COPD PAST MEDICAL HISTORY/PAST SURGICAL HISTORY:: GERD (gastroesophageal reflux disease) (Chronic). Alzheimer's dementia (Chronic). Drug-induced Parkinsonism (Acute). Chronic colitis (Acute). Vitamin B 12 deficiency (Acute). Anxiety (Chronic). CVA (cerebral vascular accident) (Chronic). Depression (Chronic). HTN (hypertension) (Chronic). Dementia (Resolved) PREVIOUS FUNCTIONAL STATUS/SOCIAL/FAMILY SUPPORTS:: Jayne Sandoval) resides with her caregiver Makayla in [facility]. CM spoke with Makayla in regards to current home situation. Makayla reports that Sherine has resided with her for over a year and that she has another person that she cares for in the home. At baseline Makayla provides the majority of the care for Sherine, and states that she does ambulate independently without ambulatory aids. Sherine has a son and daughter whom reside in [place], whom are her guardians, as well as a son in [place]. CURRENT FUNCTIONAL STATUS:: Currently Sherine is lying in bed with the bipap on. She attempts to speak with this proposal manager writer through the bipap and nods her head when CM asks how she is doing. ADVANCE DIRECTIVES:: Guardians - Chen Keith (Children). CM obtained guardianship paperwork, faxed to access and placed a copy on physical chart. Has patient been provided with information about the portal?: Yes Did the patient sign up for the portal?: No CODE STATUS:: Full Code INSURANCE COVERAGE / FINANCIAL ISSUES:: MARTA KAUFFMAN CURRENT HOME/COMMUNITY SERVICES/EQUIPMENT:: Currently Jayne receives all care needs through her caregiver Makayla. Makayla reports that she has a gait belt, though this does not need to be used often. PRIMARY CARE PHYSICIAN:: Heather Rinaldi POTENTIAL DISCHARGE NEEDS:: F/U appointment with PCP PATIENT/FAMILY EDUCATION NEEDS:: Review DC instructions, any limitations, and ongoing DC planning discussion. Discuss 'Ask Me three' ANTICIPATED BARRIERS TO DISCHARGE:: None identified at this time. TRANSPORTATION:: Via private vehicle with caregiver Makayla PLAN:: Sherine will return home to her caregiver Makayla's with no anticipated services. She will F/U with PCP and plan of care as prescribed. Makayla to transport home when ready
--- NOTE | 2018-09-07 07:33 | INITIAL_ITS ---
- If Service Date Differs Date of service: 09/07/18 Time of Service: 07:29 Care Management Initial Assess REASON FOR HOSPITALIZATION:: Bronchopneumonia, COPD PAST MEDICAL HISTORY/PAST SURGICAL HISTORY:: GERD (gastroesophageal reflux disease) (Chronic). Alzheimer's dementia (Chronic). Drug-induced Parkinsonism (Acute). Chronic colitis (Acute). Vitamin B 12 deficiency (Acute). Anxiety (Chronic). CVA (cerebral vascular accident) (Chronic). Depression (Chronic). HTN (hypertension) (Chronic). Dementia (Resolved) PREVIOUS FUNCTIONAL STATUS/SOCIAL/FAMILY SUPPORTS:: Jayne Sandoval) resides with her caregiver Makayla in [facility]. CM spoke with Makayla in regards to current home situation. Makayla reports that Sherine has resided with her for over a year and that she has another person that she cares for in the home. At baseline Makayla provides the majority of the care for Sherine, and states that she does ambulate independently without ambulatory aids. Sherine has a son and daughter whom reside in [place], whom are her guardians, as well as a son in [place]. CURRENT FUNCTIONAL STATUS:: Currently Sherine is lying in bed with the bipap on. She attempts to speak with this engineering technical writer through the bipap and nods her head when CM asks how she is doing. ADVANCE DIRECTIVES:: Guardians - Chen Keith (Children). CM obtained guardianship paperwork, faxed to access and placed a copy on physical chart. Has patient been provided with information about the portal?: Yes Did the patient sign up for the portal?: No CODE STATUS:: Full Code INSURANCE COVERAGE / FINANCIAL ISSUES:: MARTA KAUFFMAN CURRENT HOME/COMMUNITY SERVICES/EQUIPMENT:: Currently Jayne receives all care needs through her caregiver Makayla. Makayla reports that she has a gait belt, though this does not need to be used often. PRIMARY CARE PHYSICIAN:: Heather Rinaldi POTENTIAL DISCHARGE NEEDS:: F/U appointment with PCP PATIENT/FAMILY EDUCATION NEEDS:: Review DC instructions, any limitations, and on going DC planning discussion. Discuss 'Ask Me three' ANTICIPATED BARRIERS TO DISCHARGE:: None identified at this time. TRANSPORTATION:: Via private vehicle with caregiver Makayla PLAN:: Sherine will return home to her caregiver Makayla's with no anticipated services. She will F/U with PCP and plan of care as prescribed. Makayla to transport home when ready
[2018-09-07] MEDS: Benzonatate 200 MG CAP PO ×3 (09:24→20:10)
[2018-09-07] MEDS: guaiFENesin 600 MG TABCR 1200 MG PO ×2 (09:24→20:11)
[2018-09-07] MEDS: QUEtiapine 25 MG TAB PO ×2 (09:25→20:11)
[2018-09-07] MEDS: DOXYCYCLINE 100 MG in Normal Saline 100 ML IVPB ×2 (09:54→21:42)
--- NOTE | 2018-09-07 11:14 | W.PM.PROGNOT ---
Date of Service Date of service: 09/07/18 Time of Service: 11:14 Assessment and Plan (1) Tracheobronchitis: Current visit: Yes Status: Acute No evidence of definitive infiltrate, although CXR with noted right basilar atelectasis. Patient however presented with low grade fevers, hypoxia, tachycardia, tachypnea, and elevated lactate. Suspect either bacterial Tracheobronchitis or Pneumonia. Continue initiated antibiotics with Ceftriaxone and continuation of Doxycycline, and await Sputum and Blood culture results. Continue stress dose steroids and nebs as well as patient appears to have an acute exacerbation of likely underlying COPD. Utilize BiPAP as needed. Speech eval to ensure lack of aspiration/dysphagia given underlying Parkinsonism. (2) COPD (chronic obstructive pulmonary disease): Current visit: Yes Status: Suspected Treatment as above. (3) Alzheimer's dementia: Current visit: No Status: Chronic Underlying dementia noted. Apparent concurrent neuropsychiatric symptoms as well as underlying history of anxiety and bipolar disorder. Continue home regimen of low dose Lorazepam, Seroquel, and Trazodone. 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 (5) GERD (gastroesophageal reflux disease): Current visit: No Status: Chronic Continue PPI therapy. (6) DVT prophylaxis: Current visit: Yes Status: Acute SC Lovenox. (7) Advanced directives, counseling/discussion: Current visit: Yes Status: Acute Full Code. Will discuss with DPOA (children) when able. Subjective Interval history since last seen: 73 year old woman with a prior history of tobacco abuse and dementia, admitted from [facility] Emergency Department with a diagnosis of COPD exacerbation in the setting of potential bacterial Tracheobronchitis. Ms. 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 She lives with a caregiver due to her disability from Parkinsonism - she reportedly has ambulatory dysfunction, tremors, and inability to bathe or feed herself. She also has cognitive dysfunction in the form of Alzheimer's Dementia. She presented to the ED with complaints of a worsening cough over the prior week, with reported purulent appearing sputum, low grade fevers, and dyspnea. She saw her PCP last and was prescribed doxycycline, but with reported continued symptoms despite this. Upon evaluation she was found to be tachycardic, tachypneic, and hypoxic, with an elevated lactate. The remainder of her blood work was unremarkable, as was her CXR. The patient was admitted for further evaluation and treatment. Exam Narrative Exam Narrative: General: Patient is ill appearing but not toxic, awake and alert, oriented to person only. Neck: Supple CV: Distant heart sounds. Regular, tachycardic, S1S2, No rubs, murmurs, or gallops. Pulmonary: Decreased breath sounds with scattered rhonchi and wheezing on exam limited by poor inspiratory effort and cooperation Abdomen: + Bowel Sounds, soft, nontender, nondistended Vascular: No lower extremity edema Objective Objective Clinical Data: Abnormal lab results 09/06/18 09/06/18 09/06/18 Range/Units 17:30 17:30 17:30 WBC (4.4-10.8) k/cumm RBC 5.50 H (4.00-5.20) m/cumm Hgb 16.8 H (12.0-15.5) g/dL Hct 50.9 H (36.0-46.0) % Absolute Lymphocytes 1.05 L (1.2-3.4) k/cumm Absolute Monocytes (0.11-0.7) k/cumm BUN 19 H (7-18) mg/dL Creatinine (0.55-1.02) mg/dL Glucose 147 H (70-100) mg/dL Lactate (0.6-1.4) mmol/l Calcium (8.5-10.1) mg/dL Alkaline Phosphatase 171 H (46-116) U/L NT-Pro-B Natriuret Pep 568 H ( - 299) pg/mL 09/06/18 09/06/18 09/07/18 Range/Units 20:02 23:00 05:46 WBC (4.4-10.8) k/cumm RBC (4.00-5.20) m/cumm Hgb (12.0-15.5) g/dL Hct (36.0-46.0) % Absolute Lymphocytes (1.2-3.4) k/cumm Absolute Monocytes (0.11-0.7) k/cumm BUN 23 H (7-18) mg/dL Creatinine 1.17 H (0.55-1.02) mg/dL Glucose 161 H (70-100) mg/dL Lactate 2.6 H 3.8 H* (0.6-1.4) mmol/l Calcium 8.4 L (8.5-10.1) mg/dL Alkaline Phosphatase (46-116) U/L NT-Pro-B Natriuret Pep ( - 299) pg/mL 09/07/18 09/07/18 Range/Units 05:46 05:46 WBC 2.96 L D (4.4-10.8) k/cumm RBC (4.00-5.20) m/cumm Hgb (12.0-15.5) g/dL Hct (36.0-46.0) % Absolute Lymphocytes 0.75 L (1.2-3.4) k/cumm Absolute Monocytes 0.09 L (0.11-0.7) k/cumm BUN (7-18) mg/dL Creatinine (0.55-1.02) mg/dL Glucose (70-100) mg/dL Lactate 2.2 H (0.6-1.4) mmol/l Calcium (8.5-10.1) mg/dL Alkaline Phosphatase (46-116) U/L NT-Pro-B Natriuret Pep ( - 299) pg/mL Vital Signs Temperature 37.2 C 09/07/18 09:49 Temperature Source Tympanic 09/07/18 09:49 Pulse 107 H 09/07/18 10:22 Pulse 87 09/07/18 09:01 Respiratory Rate 23 09/07/18 10:22 Respiratory Effort 09/07/18 04:00 Respiratory Depth Normal 09/07/18 04:00 Respiratory Pattern Normal 09/07/18 04:00 Blood Pressure 119/76 09/07/18 09:01 Blood Pressure Mean 84 09/07/18 09:01 Blood Pressure Position Supine 09/07/18 04:00 Pulse Oximetry 95 09/07/18 06:08 Oxygen Delivery Method Bi-pap 09/07/18 04:00 Oxygen Flow Rate 0 09/06/18 17:16 Fraction of Inspired Oxygen (FIO2) 30 09/07/18 10:22 Pain Level 0 09/07/18 04:00 Intake & Output 09/06/18 09/06/18 09/07/18 11:59 23:59 11:59 Intake Total 150 / 150 900 / 900 Balance 150 / 150 900 / 900 Weight 53.2 kg 54.5 kg Intake: IV 150 / 150 900 / 900 Other: Urine Odor Normal Normal Comment Skin care done s/p urinary incont. Voiding Methods Bedside Commode Incontinent Incontinent Laboratory Results WBC 2.96 k/cumm (4.4-10.8) L D 09/07/18 05:46 RBC 4.31 m/cumm (4.00-5.20) 09/07/18 05:46 Hgb 13.2 g/dL (12.0-15.5) D 09/07/18 05:46 Hct 40.5 % (36.0-46.0) D 09/07/18 05:46 MCV 94.0 fL (80-95) 09/07/18 05:46 MCH 30.6 pg (27.0-33.0) 09/07/18 05:46 MCHC 32.6 g/dL (32.0-36.0) 09/07/18 05:46 RDW 14.4 % (11.7-14.6) 09/07/18 05:46 Plt Count 169 x1000/uL (130-400) 09/07/18 05:46 MPV 10.4 fL (8.0-11.0) 09/07/18 05:46 Immature Gran % 0.3 09/07/18 05:46 Neutrophils % 71.1 09/07/18 05:46 Lymphocytes % 25.3 09/07/18 05:46 Monocytes % 3.0 09/07/18 05:46 Eosinophils % 0.3 09/07/18 05:46 Basophils % 0.0 09/07/18 05:46 Absolute Neutrophils 2.10 k/cumm (1.2-6.7) 09/07/18 05:46 Absolute Lymphocytes 0.75 k/cumm (1.2-3.4) L 09/07/18 05:46 Absolute Monocytes 0.09 k/cumm (0.11-0.7) L 09/07/18 05:46 Absolute Eosinophils 0.01 k/cumm (0.0-0.7) 09/07/18 05:46 Absolute Basophils 0.00 k/cumm (0.0-0.2) 09/07/18 05:46 Sodium 141 mmol/L (136-145) 09/07/18 05:46 Potassium 4.1 mmol/L (3.5-5.1) 09/07/18 05:46 Chloride 106 mmol/L (98-107) 09/07/18 05:46 Carbon Dioxide 25.6 mmol/L (21.0-32.0) 09/07/18 05:46 Anion Gap 9.4 mmol/L (3-11) 09/07/18 05:46 BUN 23 mg/dL (7-18) H 09/07/18 05:46 Creatinine 1.17 mg/dL (0.55-1.02) H 09/07/18 05:46 Estimated GFR/1.73 m2 45.09 (mL/min/1.73m2) 09/07/18 05:46 Glucose 161 mg/dL (70-100) H 09/07/18 05:46 Lactate 2.2 mmol/l (0.6-1.4) H 09/07/18 05:46 Calcium 8.4 mg/dL (8.5-10.1) L 09/07/18 05:46 Magnesium 1.8 mg/dL (1.8-2.4) 09/06/18 17:30 Total Bilirubin 0.3 mg/dL (0.2-1.0) 09/06/18 17:30 AST 23 U/L (15-37) 09/06/18 17:30 ALT 29 U/L (12-78) 09/06/18 17:30 Alkaline Phosphatase 171 U/L (46-116) H 09/06/18 17:30 Troponin I < 0.02 ng/mL (0.00-0.06) 09/06/18 23:00 NT-Pro-B Natriuret Pep 568 pg/mL (-299) H 09/06/18 17:30 Total Protein 8.2 g/dL (6.4-8.2) 09/06/18 17:30 Albumin 3.8 g/dL (3.4-5.0) 09/06/18 17:30
[2018-09-07] MEDS: traZODone 50 MG TAB PO (12:15)
[2018-09-07] MEDS: cefTRIAXone 2 GM/50 ML BAG IVPB (12:15)
[2018-09-07 15:07] LABS: Lactate-non-spesis 1.5 mmol/l (0.6-1.4)
[2018-09-07] MEDS: Enoxaparin 40 MG/0.4 ML SYR SC (20:10)
[2018-09-07] MEDS: Normal Saline Flush 10 ML SYR IVP (21:42)
[2018-09-07] MEDS: Omeprazole 20 MG CAPCR 40 MG PO (21:42)
[2018-09-07] MEDS: LORazepam 0.5 MG TAB PO (21:42)
[2018-09-08] VITALS (41 sets, daily range): BP systolic 114–174; BP diastolic 61–96; PULSE 67–145; RESP 14–31; TEMP 36.4–37.2; O2SAT 88–99
[2018-09-08] MEDS: Hydrocortisone SOD SUC. 100 MG VIAL 50 MG IVP ×2 (02:57→07:39)
[2018-09-08 06:22] LABS: Abs Immature Grans 0.01 k/cumm (0.0-0.09); Absolute Basophil Count 0.01 k/cumm (0.0-0.2); Absolute Lymphocyte Count 1.37 k/cumm (1.2-3.4); Absolute Monocyte Count 0.63 k/cumm (0.11-0.7); Absolute Neutrophil Count 7.26 k/cumm (1.2-6.7); Basophils % 0.1; HCT 42.7 % (36.0-46.0); HGB 13.8 g/dL (12.0-15.5); Immature Grans % 0.1; Lymphocytes % 14.8; Mean Corp. HGB Concentration 32.3 g/dL (32.0-36.0); Mean Corpuscular Hemoglobin 30.7 pg (27.0-33.0); Mean Corpuscular Volume 94.9 fL (80-95); Monocytes % 6.8; Neutrophils % 78.2; Platelet Count 173 x1000/uL (130-400); RBC Distribution Width 14.8 % (11.7-14.6); White Blood Cell Count 9.28 k/cumm (4.4-10.8)
[2018-09-08 06:30] LABS: Anion Gap 7.7 mmol/L (3-11); BUN 21 mg/dL (7-18); CO2 29.3 mmol/L (21.0-32.0); CREATININE 0.83 mg/dL (0.55-1.02); Calcium 8.7 mg/dL (8.5-10.1); Chloride 110 mmol/L (98-107); Glucose 110 mg/dL (70-100); Magnesium 1.8 mg/dL (1.8-2.4); Potassium 4.1 mmol/L (3.5-5.1); Sodium 147 mmol/L (136-145)
[2018-09-08] MEDS: Normal Saline Flush 10 ML SYR IVP ×2 (08:59→14:56)
[2018-09-08] MEDS: QUEtiapine 25 MG TAB PO ×2 (09:00→20:50)
[2018-09-08] MEDS: Normal Saline 1,000 ML 75 ML IV (09:00)
[2018-09-08] MEDS: Benzonatate 200 MG CAP PO ×3 (09:00→20:49)
[2018-09-08] MEDS: guaiFENesin 600 MG TABCR 1200 MG PO ×2 (09:00→20:50)
[2018-09-08] MEDS: Magnesium Oxide 400 MG TAB PO (09:00)
--- NOTE | 2018-09-08 10:23 | W.SPEECHEVAL ---
Date of service: 09/08/18 Time of Service: 07:00 Speech Therapy Evaluation Note: ORDERING PROVIDER:Dr. Jorge BACKGROUND This is a 73 year old female who presented to the ED on 09/06/18 with a multi-day h/o cough with subsequent fever and dyspnea. A CXR showed right basilar atelectasis but no focal opacity. She was admitted to the ICU for tx of a COPD exacerbation and possible tracheobronchitis or pneumonia. PMH: Alzheimer's disease, bipolar disorder, anxiety disorder, depression, drug-induced Parkinsonism, GERD, HTN, colitis, h/o smoking, h/o CVA. The patient (pt) is unable to give any additional background information regarding p.o. consistencies taken in the weeks prior to this admission due to her dementia. OBJECTIVE Nursing reports: - T: 36.6 - O2 sat: 97% on 2L via NC - LS: bilateral (B) expiratory rhonchi in the presence of ABX - Pt is npo. The pt is sitting up in bed twirling her ID bracelet around in her fingers. She greets me with slightly delayed direct eye contact and an appropriate verbal greeting. There is a paucity of conversational speech. She initially attempts to answer questions but her responses are always off-topic and consist of unfinished sentences. She is A & O x 1 (person) and able to follow 1-step directions only occasionally. Oral Sensorimotor Exam The pt is totally edentulous but has both a full upper denture (FUD) and a full lower denture (FLD). The dentures are in very good condition. It looks like there is left-over denture adhesive in the FUD as I take them out of the denture cup. Once cleaned they are assessed for fit, which is quite good. Consequently, no adhesive is put in for this visit. The FLD fits as expected. The pt appears comfortable with both dentures in place and occlusal bite is good. Most of the remainder of this exam is unable to be done due to the pt's inability to follow directions, however, the following is noted. The smile is symmetrical. No lingual deviation is seen on protrusion in a setting of very limited excursion. Speech intelligibility to this unfamiliar listener in a setting of mild background noise is 100% despite mildly decreased vocal intensity. Vocal quality is WNL. The pt is noted to produce an occasional wet-sounding nonproductive cough. Swallowing: - Honey-thick liquid: Good bolus control & posterior oral transit (POT), no willi signs/symptoms (s/s) aspiration/penetration (A/P); oral clearance 100%; no oral escape. These results are true for single swallows by cup. The pt is unresponsive to requests for consecutive swallows. - [place]-thick liquid: Results are the same as for Honey-thick liquid. These results are true for single swallows by cup & straw. - Thin liquid: Results are the same as for [place]--thick liquid, again, for single swallows by cup & straw. - Puree food: Good bolus control & linguopalatal bolus compression; POT WNL; no willi s/s A/P; oral clearance 100%; no oral escape. - Mechanically Altered food: Good mastication quality, bolus control & POT; no willi s/s A/P; oral clearance 100%; no oral escape. - Dysphagia Advanced food: Decreased mastication quality with use of increased mastication time; decreased bolus control; POT mildly delayed; no willi s/s A/P; oral clearance 80%; no oral escape. Pt is observed to self-feed finger-food with her RUE, but responds inappropriately to cueing for self-feeing with use of regular utensil. Self-feeding of liquids is inconsistent. INTERPRETATION Pt shows a mild-moderate oral-prep dysphagia due primarily to severe dementia and secondarily to having full upper and lower dentures. RECOMMENDATIONS 1. Change to p.o. with the following consistencies: a) Thin liquids b) Mechanically Altered diet with moistened fine-chopped meats c) crushed pills in puree, dissolved pills or nonoral meds 2. Aided feeding 3. Speech therapy to monitor pt's toleration of above p.o. consistencies. Thank you for referring this pt.
--- NOTE | 2018-09-08 10:26 | CMPROGNOTE_ITS ---
- If Service Date Differs Date of service: 09/08/18 Time of Service: 10:25 Care Management Progress Note S/O: Jayne Basurto is sitting up in bed this morning. She is sleeping when this blurb writer visits, though easily awakes. Sherine is receptive to conversation this morning, and is pleasant throughout visit. Her caregiver Makayla called the nursing staff this morning for an update. No change in DC plan. A: 73 y/o female admitted 09/06/18 for Acute COPD Exacerbation P: Sherine will return to her caregiver Makayla's home once medically cleared. She will F/U with PCP and plan of care as prescribed. Makayla to transport when ready.
[2018-09-08] MEDS: DOXYCYCLINE 100 MG in Normal Saline 100 ML IVPB ×2 (10:56→21:00)
--- NOTE | 2018-09-08 11:04 | EVALE_ITS ---
Date of service: 09/08/18 Time of Service: 07:00 Speech Therapy Evaluation Note: ORDERING PROVIDER:Dr. Jorge BACKGROUND This is a 73 year old female who presented to the ED on 09/06/18 with a multi-day h/o cough with subsequent fever and dyspnea. A CXR showed right basilar atelectasis but no focal opacity. She was admitted to the ICU for tx of a COPD exacerbation and possible tracheobronchitis or pneumonia. PMH: Alzheimer's disease, bipolar disorder, anxiety disorder, depression, drug- induced Parkinsonism, GERD, HTN, colitis, h/o smoking, h/o CVA. The patient (pt) is unable to give any additional background information regarding p.o. consistencies taken in the weeks prior to this admission due to her dementia. OBJECTIVE Nursing reports: - T: 36.6 - O2 sat: 97% on 2L via NC - LS: bilateral (B) expiratory rhonchi in the presence of ABX - Pt is npo. The pt is sitting up in bed twirling her ID bracelet around in her fingers. She greets me with slightly delayed direct eye contact and an appropriate verbal greeting. There is a paucity of conversational speech. She initially attempts to answer questions but her responses are always off-topic and consist of unfinished sentences. She is A & O x 1 (person) and able to follow 1-step directions only occasionally. Oral Sensorimotor Exam The pt is totally edentulous but has both a full upper denture (FUD) and a full lower denture (FLD). The dentures are in very good condition. It looks like there is left-over denture adhesive in the FUD as I take them out of the denture cup. Once cleaned they are assessed for fit, which is quite good. Consequently, no adhesive is put in for this visit. The FLD fits as expected. The pt appears comfortable with both dentures in place and occlusal bite is good. Most of the remainder of this exam is unable to be done due to the pt's inability to follow directions, however, the following is noted. The smile is symmetrical. No lingual deviation is seen on protrusion in a setting of very limited excursion. Speech intelligibility to this unfamiliar listener in a setting of mild background noise is 100% despite mildly decreased vocal intensity. Vocal quality is WNL. The pt is noted to produce an occasional wet- sounding nonproductive cough. Swallowing: - Honey-thick liquid: Good bolus control & posterior oral transit (POT), no willi signs/symptoms (s/s) aspiration/penetration (A/P); oral clearance 100%; no oral escape. These results are true for single swallows by cup. The pt is unresponsive to requests for consecutive swallows. - [place]-thick liquid: Results are the same as for Honey-thick liquid. These results are true for single swallows by cup & straw. - Thin liquid: Results are the same as for [place]--thick liquid, again, for single swallows by cup & straw. - Puree food: Good bolus control & linguopalatal bolus compression; POT WNL; no willi s/s A/P; oral clearance 100%; no oral escape. - Mechanically Altered food: Good mastication quality, bolus control & POT; no willi s/s A/P; oral clearance 100%; no oral escape. - Dysphagia Advanced food: Decreased mastication quality with use of increased mastication time; decreased bolus control; POT mildly delayed; no willi s/s A/P; oral clearance 80%; no oral escape. Pt is observed to self-feed finger-food with her RUE, but responds inappropriately to cueing for self-feeing with use of regular utensil. Self- feeding of liquids is inconsistent. INTERPRETATION Pt shows a mild-moderate oral-prep dysphagia due primarily to severe dementia and secondarily to having full upper and lower dentures. RECOMMENDATIONS 1. Change to p.o. with the following consistencies: a) Thin liquids b) Mechanically Altered diet with moistened fine-chopped meats c) crushed pills in puree, dissolved pills or nonoral meds 2. Aided feeding 3. Speech therapy to monitor pt's toleration of above p.o. consistencies. Thank you for referring this pt.
[2018-09-08] MEDS: cefTRIAXone 2 GM/50 ML BAG IVPB (12:07)
[2018-09-08] MEDS: traZODone 50 MG TAB PO (12:08)
--- NOTE | 2018-09-08 13:34 | PHARADMIT ---
Addendum entered by Shona Dunn 09/14/18 11:55: Pharmacy Note Subjective MEDS CRUSHED PER SPEECH REPORT Objective BP 162/89, Afebrile, Sats 91% on zero to 2 L oxygen/min lytes ok Assessment Repeat chest xray today: negative Amlodipine dose increase few days ago Tapering steroids but currently 40mg po BID, Anbx therapy complete IVF's dc'd Plan SNF referrals Addendum entered by Bea Randolph 09/09/18 15:39: Pharmacy Note Subjective improving per morning report Objective BP-178/108 HR-102 RR-27 weight-55.3(up) Assessment abx continue; day 3 ceftriaxone and day 6 of doxycycline BC- no growth @48 hours duonebs and levalbuterol ordered PRN, budesonide scheduled Q12H, one time lasix drip ordered Plan continue to watch VS, labs and for med changes Original Note: Admission Pharmacy Clinical Review Acute COPD exacerbation, h/o dementia Code Status Full Code Current Weight 54.5 kg Renally Cleared and Narrow Therapeutic Index Meds Crcl ~50.30 mL/min current meds okay QTc Value / Action Taken QTc 432 BP Control, Fever BP 171/93 afebrile Electrolytes reviewed Na 147 Cl 110 DVT Prophylaxis enoxaparin Opiate Usage / Scheduled Bowel Regimen Ordered no/prn Plt/SCr for Heparin / Enoxaparin plt 173 SCr 0.83 INR for Warfarin n/a H/H stable, WBC/Bands h/h 13.8/42.7 wbc 9.28 Antibiotic appropriateness ceftriaxone (day 2) and doxycycline (day 3 starts late tonight) Cultures and Sensitivities blood cultures no growth @24 hours rapid flu negative Surgical ABX d/c within 24 hr n/a DM control / Insulin Dosing BG 110 Heart Failure (Check EF%) (MILAN's, B-Block, Diuretics) none IV to PO Switch n/a Home Meds Reviewed yes Home Meds Not Ordered cholecalciferol Comments
[2018-09-08] MEDS: methylPREDNISolone SUCC 40 MG VIAL IVP ×2 (14:55→20:58)
--- NOTE | 2018-09-08 16:58 | PGE_ITS ---
Date of Service Date of service: 09/08/18 Time of Service: 16:51 Assessment and Plan (1) Tracheobronchitis: Current visit: Yes Status: Acute No evidence of definitive infiltrate, although CXR with noted right basilar atelectasis. Patient however presented with low grade fevers, hypoxia, tachycardia, tachypnea, and elevated lactate. Suspect either bacterial Tracheobronchitis or Pneumonia. Continue antibiotics with Ceftriaxone and continuation of Doxycycline, and await Sputum and Blood culture results. Continue but change steroids to Solumedrol, and continue nebs as well as patient appears to have an acute exacerbation of likely underlying COPD. Utilize BiPAP as needed. Speech evaluation provided and diet changed accordingly to ensure lack of aspiration/dysphagia given underlying Parkinsonism. (2) COPD (chronic obstructive pulmonary disease): Current visit: Yes Status: Suspected Treatment as above. (3) Alzheimer's dementia: Current visit: No Status: Chronic Underlying dementia noted. Apparent concurrent neuropsychiatric symptoms as well as underlying history of anxiety and bipolar disorder. Continue home regimen of low dose Lorazepam, Seroquel, and Trazodone. 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 (5) GERD (gastroesophageal reflux disease): Current visit: No Status: Chronic Continue PPI therapy. (6) DVT prophylaxis: Current visit: Yes Status: Acute SC Lovenox. (7) Advanced directives, counseling/discussion: Current visit: Yes Status: Acute Full Code. Will discuss with DPOA (children) who live out of state when able - Full Code status is accurate per discussion with caregiver. Subjective Interval history since last seen: 73 year old woman with a prior history of tobacco abuse and dementia, admitted from [facility] Emergency Department with a diagnosis of COPD exacerbation in the setting of potential bacterial Tracheobronchitis. Ms. 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 She lives with a caregiver due to her disability from Parkinsonism - she reportedly has ambulatory dysfunction, tremors, and inability to bathe or feed herself. She also has cognitive dysfunction in the form of Alzheimer's Dementia. She presented to the ED with complaints of a worsening cough over the prior week, with reported purulent appearing sputum, low grade fevers, and dyspnea. She saw her PCP last and was prescribed doxycycline, but with reported continued symptoms despite this. Upon evaluation she was found to be tachycardic, tachypneic, and hypoxic, with an elevated lactate. The remainder of her blood work was unremarkable, as was her CXR. The patient was admitted for further evaluation and treatment. SThe patient initially required BiPAP, but has since improved and remains on supplemental oxygen. No overnight events reported. Remains afebrile. Exam Narrative Exam Narrative: General: Patient is ill appearing but not toxic, awake and alert, oriented to person only. Neck: Supple CV: Distant heart sounds. Regular, tachycardic, S1S2, No rubs, murmurs, or gallops. Pulmonary: Improved air entry with present breath sounds, with scattered rhonchi and wheezing. Mild bibasilar crackles. Abdomen: + Bowel Sounds, soft, nontender, nondistended Vascular: No lower extremity edema Objective Objective Clinical Data: Abnormal lab results 09/08/18 09/08/18 Range/Units 05:40 05:40 RDW 14.8 H (11.7-14.6) % Absolute Neutrophils 7.26 H (1.2-6.7) k/cumm Sodium 147 H (136-145) mmol/L Chloride 110 H (98-107) mmol/L BUN 21 H (7-18) mg/dL Glucose 110 H D (70-100) mg/dL Vital Signs Temperature 36.5 C 09/08/18 15:15 Temperature Source Temporal Artery Scan 09/08/18 11:55 Pulse 82 09/08/18 15:02 Pulse 80 09/08/18 15:02 Respiratory Rate 26 H 09/08/18 15:02 Respiratory Effort 09/08/18 15:15 Respiratory Depth Normal 09/08/18 15:15 Respiratory Pattern Normal 09/08/18 15:15 Blood Pressure 162/87 H 09/08/18 15:02 Blood Pressure Mean 105 09/08/18 15:02 Blood Pressure Position Supine 09/08/18 00:00 Pulse Oximetry 95 09/08/18 15:02 Oxygen Delivery Method Nasal Cannula 09/08/18 11:55 Oxygen Flow Rate 1 09/08/18 11:55 Fraction of Inspired Oxygen (FIO2) 30 09/07/18 10:22 Pain Level 0 09/08/18 15:15 Intake & Output 03/09/08/18 09/08/18 23:59 11:59 23:59 Intake Total 150 / 2150 255 / 255 Output Total 285 / 285 Balance 150 / 0 255 / -30 -285 / -30 Weight 54.5 kg Intake: IV 150 / 0 255 / 255 Output: Urine 285 / 285 Other: Comment Incontinent large amounts. Incontinent large amounts. Stool Occult Blood Negative Stool Size Moderate Stool Characteristics Soft Voiding Methods Incontinent Incontinent Laboratory Results WBC 9.28 k/cumm (4.4-10.8) D 09/08/18 05:40 RBC 4.50 m/cumm (4.00-5.20) 09/08/18 05:40 Hgb 13.8 g/dL (12.0-15.5) 09/08/18 05:40 Hct 42.7 % (36.0-46.0) 09/08/18 05:40 MCV 94.9 fL (80-95) 09/08/18 05:40 MCH 30.7 pg (27.0-33.0) 09/08/18 05:40 MCHC 32.3 g/dL (32.0-36.0) 09/08/18 05:40 RDW 14.8 % (11.7-14.6) H 09/08/18 05:40 Plt Count 173 x1000/uL (130-400) 09/08/18 05:40 MPV 11.0 fL (8.0-11.0) 09/08/18 05:40 Immature Gran % 0.1 09/08/18 05:40 Neutrophils % 78.2 09/08/18 05:40 Lymphocytes % 14.8 09/08/18 05:40 Monocytes % 6.8 09/08/18 05:40 Eosinophils % 0.0 09/08/18 05:40 Basophils % 0.1 09/08/18 05:40 Absolute Neutrophils 7.26 k/cumm (1.2-6.7) H 09/08/18 05:40 Absolute Lymphocytes 1.37 k/cumm (1.2-3.4) 09/08/18 05:40 Absolute Monocytes 0.63 k/cumm (0.11-0.7) 09/08/18 05:40 Absolute Eosinophils 0.00 k/cumm (0.0-0.7) 09/08/18 05:40 Absolute Basophils 0.01 k/cumm (0.0-0.2) 09/08/18 05:40 Sodium 147 mmol/L (136-145) H 09/08/18 05:40 Potassium 4.1 mmol/L (3.5-5.1) 09/08/18 05:40 Chloride 110 mmol/L (98-107) H 09/08/18 05:40 Carbon Dioxide 29.3 mmol/L (21.0-32.0) 09/08/18 05:40 Anion Gap 7.7 mmol/L (3-11) 09/08/18 05:40 BUN 21 mg/dL (7-18) H 09/08/18 05:40 Creatinine 0.83 mg/dL (0.55-1.02) 09/08/18 05:40 Estimated GFR/1.73 m2 >= 60.00 (mL/min/1.73m2) 09/08/18 05:40 Glucose 110 mg/dL (70-100) H D 09/08/18 05:40 Lactate 1.5 mmol/l (0.6-1.4) H 09/07/18 14:37 Calcium 8.7 mg/dL (8.5-10.1) 09/08/18 05:40 Magnesium 1.8 mg/dL (1.8-2.4) 09/08/18 05:40 Total Bilirubin 0.3 mg/dL (0.2-1.0) 09/06/18 17:30 AST 23 U/L (15-37) 09/06/18 17:30 ALT 29 U/L (12-78) 09/06/18 17:30 Alkaline Phosphatase 171 U/L (46-116) H 09/06/18 17:30 Troponin I < 0.02 ng/mL (0.00-0.06) 09/06/18 23:00 NT-Pro-B Natriuret Pep 568 pg/mL (-299) H 09/06/18 17:30 Total Protein 8.2 g/dL (6.4-8.2) 09/06/18 17:30 Albumin 3.8 g/dL (3.4-5.0) 09/06/18 17:30
[2018-09-08] MEDS: Normal Saline 1,000 ML 100 ML IV (20:49)
[2018-09-08] MEDS: Enoxaparin 40 MG/0.4 ML SYR SC (20:50)
[2018-09-08] MEDS: LORazepam 0.5 MG TAB PO (20:57)
[2018-09-08] MEDS: Omeprazole 20 MG CAPCR 40 MG PO (20:58)
[2018-09-09] VITALS (37 sets, daily range): BP systolic 118–194; BP diastolic 61–108; PULSE 60–117; RESP 17–35; TEMP 36.9; O2SAT 84–96
[2018-09-09] MEDS: methylPREDNISolone SUCC 40 MG VIAL IVP ×3 (05:22→22:00)
[2018-09-09 07:20] LABS: Abs Immature Grans 0.01 k/cumm (0.0-0.09); Absolute Basophil Count 0.01 k/cumm (0.0-0.2); Absolute Eosinophil Count 0.02 k/cumm (0.0-0.7); Absolute Lymphocyte Count 1.14 k/cumm (1.2-3.4); Absolute Monocyte Count 0.21 k/cumm (0.11-0.7); Absolute Neutrophil Count 3.54 k/cumm (1.2-6.7); Basophils % 0.2; Eosinophils % 0.4; HCT 46.1 % (36.0-46.0); HGB 14.9 g/dL (12.0-15.5); Immature Grans % 0.2; Lymphocytes % 23.1; Mean Corp. HGB Concentration 32.3 g/dL (32.0-36.0); Mean Corpuscular Hemoglobin 30.1 pg (27.0-33.0); Mean Corpuscular Volume 93.1 fL (80-95); Mean Platelet Volume 10.7 fL (8.0-11.0); Monocytes % 4.3; Neutrophils % 71.8; Platelet Count 227 x1000/uL (130-400); RBC 4.95 m/cumm (4.00-5.20); RBC Distribution Width 14.6 % (11.7-14.6); White Blood Cell Count 4.93 k/cumm (4.4-10.8)
[2018-09-09 07:32] LABS: BUN 18 mg/dL (7-18); CO2 27.4 mmol/L (21.0-32.0); CREATININE 0.75 mg/dL (0.55-1.02); Calcium 8.5 mg/dL (8.5-10.1); Glucose 133 mg/dL (70-100)
[2018-09-09 07:59] LABS: Anion Gap 10.6 mmol/L (3-11); Chloride 106 mmol/L (98-107); Potassium 3.5 mmol/L (3.5-5.1); Sodium 144 mmol/L (136-145)
--- NOTE | 2018-09-09 08:45 | PDOC.CMPRO ---
Care Management Progress Note S/O: Jayne was lying in bed, oxygen on when CM met with her. She was pleasant in interaction and shared no concerns at this time. She felt she was much improved and reported feeling better. CM will continue to follow. A: 73 year old female admitted to [facility] 09/06/18 for Acute COPD Exacerbation P: Sherine will return to her caregiver, Makayla's home once medically cleared. She will follow up with her PCP and plan of care as prescribed. Makayla will transport via private vehicle.
[2018-09-09] MEDS: Benzonatate 200 MG CAP PO ×2 (09:20→19:48)
[2018-09-09] MEDS: guaiFENesin 600 MG TABCR 1200 MG PO ×2 (09:20→19:48)
[2018-09-09] MEDS: QUEtiapine 25 MG TAB PO ×2 (09:20→19:53)
[2018-09-09] MEDS: DOXYCYCLINE 100 MG in Normal Saline 100 ML IVPB ×2 (09:21→23:00)
[2018-09-09] MEDS: Normal Saline 1,000 ML 100 ML IV (09:35)
--- NOTE | 2018-09-09 10:53 | W.SPEECHPG ---
Date of service: 09/09/18 Time of Service: 10:15 Speech Therpy Note Note: SUBJECTIVE Patient (pt) greets me with delayed direct eye contact, a smile and an appropriate intelligible verbal greeting. OBJECTIVE - T: 36.1 - O2 sat: 95% 1L NC - LS: diminished bilaterally in the presence of ABX - Nursing gave pt whole pills in puree this morning and felt it went well. - Nursing did not give pt some of her breakfast meal because she felt she wouldn't tolerate it well; instead she gave her Ensure, orange juice. Swallowing - Thin liquid: Good bolus control & posterior oral transit (POT); no willi signs/symptoms (s/s) aspiration/penetration (A/P); oral clearance 100%; no oral escape. These results are true for single swallows by cup. - Puree food: Good bolus control & linguopalatal bolus compression; no willi s/s A/P; oral clearance 100%; no oral escape. - Mechanically Altered food: Good mastication quality, bolus control & POT; no willi s/s A/P; oral clearance 100%; no oral escape. - Moistened fine-chopped meat: Results are the same as for M. A. food. - Trial Dysphagia Advanced food: Decreased mastication quality despite use of increased mastication time; I removed bolus from pt's mouth. During the period of p.o. intake, a medium-sized whole pill was discovered underneath the pt's full lower denture. The pt showed no awareness of this. Her full upper denture remained in place throughout the visit, despite talking, eating & drinking. Nursing is instructed in yesterday's evaluation recommendation of pills either crushed in puree or dissolved or nonoral meds. Also, instructed nursing in pt's continued ability to tolerate Mechanically Altered food. ASSESSMENT Pt continues to tolerate current p. o. consistencies of Thin liquids and a Mechanically Altered diet with moistened fine-chopped meats. She will not be able to tolerate a diet advancement to Dysphagia Advanced due primarily to her dementia and secondarily to her full upper and lower dentures. PLAN 1. Continue current p.o. consistencies: a) Thin liquids b) Mechanically Altered diet with moistened fine-chopped meats c) pills either crushed in puree or dissolved or nonoral meds 2. Continue aided feeding. 3. d/c ST at this time
[2018-09-09] MEDS: traZODone 50 MG TAB PO (12:58)
[2018-09-09] MEDS: cefTRIAXone 2 GM/50 ML BAG IVPB (12:58)
--- NOTE | 2018-09-09 13:33 | W.PM.PROGNOT ---
Date of Service Date of service: 09/09/18 Time of Service: 13:33 Assessment and Plan (1) Tracheobronchitis: Current visit: Yes Status: Acute No evidence of definitive infiltrate, although CXR with noted basilar atelectasis. Patient however presented with low grade fevers, hypoxia, tachycardia, tachypnea, and elevated lactate. Suspect either bacterial Tracheobronchitis or Pneumonia. Continue antibiotics with Ceftriaxone and continuation of Doxycycline (day #3 for CTx, #6 for Doxy). Blood cultures remain negative. Continue steroids with Solumedrol and nebs as well as patient appears to have an acute exacerbation of likely underlying COPD. Utilize BiPAP as needed. Speech evaluation provided and diet changed accordingly to ensure lack of aspiration/dysphagia given underlying Parkinsonism. (2) COPD (chronic obstructive pulmonary disease): Current visit: Yes Status: Suspected Treatment as above. (3) Alzheimer's dementia: Current visit: No Status: Chronic Underlying dementia noted. Apparent concurrent neuropsychiatric symptoms as well as underlying history of anxiety and bipolar disorder. Continue home regimen of low dose Lorazepam, Seroquel, and Trazodone. 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 (5) GERD (gastroesophageal reflux disease): Current visit: No Status: Chronic Continue PPI therapy. (6) DVT prophylaxis: Current visit: Yes Status: Acute SC Lovenox. (7) Advanced directives, counseling/discussion: Current visit: Yes Status: Acute Full Code. Will discuss with DPOA (children) who live out of state when able - Full Code status is accurate per discussion with caregiver. Subjective Interval history since last seen: 73 year old woman with a prior history of tobacco abuse and dementia, admitted from [facility] Emergency Department with a diagnosis of COPD exacerbation in the setting of potential bacterial Tracheobronchitis. Ms. 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 She lives with a caregiver due to her disability from Parkinsonism - she reportedly has ambulatory dysfunction, tremors, and inability to bathe or feed herself. She also has cognitive dysfunction in the form of Alzheimer's Dementia. She presented to the ED with complaints of a worsening cough over the prior week, with reported purulent appearing sputum, low grade fevers, and dyspnea. She saw her PCP last and was prescribed doxycycline, but with reported continued symptoms despite this. Upon evaluation she was found to be tachycardic, tachypneic, and hypoxic, with an elevated lactate. The remainder of her blood work was unremarkable, as was her CXR. The patient was admitted for further evaluation and treatment. Ms. Osorio initially required BiPAP, but has since improved and remains on supplemental oxygen. Her exam has improved this morning, but she is still requiring O2. No overnight events reported. Remains afebrile. Exam Narrative Exam Narrative: General: Patient is ill appearing but not toxic, awake and alert, oriented to person only. Neck: Supple CV: Distant heart sounds. Regular, tachycardic, S1S2, No rubs, murmurs, or gallops. Pulmonary: Improved air entry, with scattered though improved wheezing. Mild left basilar crackles. Abdomen: + Bowel Sounds, soft, nontender, nondistended Vascular: No lower extremity edema Objective Objective Clinical Data: Abnormal lab results 09/09/18 09/09/18 Range/Units 06:10 06:10 Hct 46.1 H (36.0-46.0) % Absolute Lymphocytes 1.14 L (1.2-3.4) k/cumm Glucose 133 H (70-100) mg/dL Vital Signs Temperature 37.2 C 09/08/18 23:00 Temperature Source Tympanic 09/08/18 23:00 Pulse 93 H 09/09/18 13:01 Pulse Rhythm Regular 09/09/18 00:00 Pulse 93 H 09/09/18 13:01 Respiratory Rate 19 09/09/18 13:01 Respiratory Effort 09/09/18 12:13 Respiratory Depth Normal 09/09/18 12:13 Respiratory Pattern Normal 09/09/18 00:00 Blood Pressure 155/87 H 09/09/18 13:01 Blood Pressure Mean 104 09/09/18 13:01 Blood Pressure Position Supine 09/08/18 00:00 Pulse Oximetry 95 09/09/18 13:03 Oxygen Delivery Method Nasal Cannula 09/09/18 13:03 Oxygen Flow Rate 1 09/09/18 13:03 Fraction of Inspired Oxygen (FIO2) 30 09/07/18 10:22 Pain Level 0 09/08/18 15:15 Intake & Output 09/08/18 09/09/18 09/09/18 23:59 11:59 23:59 Intake Total 1075 / 1510 1400 / 1690 290 / 1690 Output Total 285 / 285 Balance 790 / 1225 1400 / 1690 290 / 1690 Weight 55.3 kg Intake: IV 955 / 1210 1000 / 1050 50 / 1050 Oral 120 / 300 400 / 640 240 / 640 Output: Urine 285 / 285 Other: Comment Incontinent large amounts. large incontinence in attends Large amount of urine incontinence,saturating diaper. Stool Size Moderate Stool Characteristics Soft Brown Voiding Methods Diaper Diaper Diaper Incontinent Incontinent Incontinent Laboratory Results WBC 4.93 k/cumm (4.4-10.8) D 09/09/18 06:10 RBC 4.95 m/cumm (4.00-5.20) 09/09/18 06:10 Hgb 14.9 g/dL (12.0-15.5) 09/09/18 06:10 Hct 46.1 % (36.0-46.0) H 09/09/18 06:10 MCV 93.1 fL (80-95) 09/09/18 06:10 MCH 30.1 pg (27.0-33.0) 09/09/18 06:10 MCHC 32.3 g/dL (32.0-36.0) 09/09/18 06:10 RDW 14.6 % (11.7-14.6) 09/09/18 06:10 Plt Count 227 x1000/uL (130-400) 09/09/18 06:10 MPV 10.7 fL (8.0-11.0) 09/09/18 06:10 Immature Gran % 0.2 09/09/18 06:10 Neutrophils % 71.8 09/09/18 06:10 Lymphocytes % 23.1 09/09/18 06:10 Monocytes % 4.3 09/09/18 06:10 Eosinophils % 0.4 09/09/18 06:10 Basophils % 0.2 09/09/18 06:10 Absolute Neutrophils 3.54 k/cumm (1.2-6.7) 09/09/18 06:10 Absolute Lymphocytes 1.14 k/cumm (1.2-3.4) L 09/09/18 06:10 Absolute Monocytes 0.21 k/cumm (0.11-0.7) 09/09/18 06:10 Absolute Eosinophils 0.02 k/cumm (0.0-0.7) 09/09/18 06:10 Absolute Basophils 0.01 k/cumm (0.0-0.2) 09/09/18 06:10 Sodium 144 mmol/L (136-145) 09/09/18 06:10 Potassium 3.5 mmol/L (3.5-5.1) 09/09/18 06:10 Chloride 106 mmol/L (98-107) 09/09/18 06:10 Carbon Dioxide 27.4 mmol/L (21.0-32.0) 09/09/18 06:10 Anion Gap 10.6 mmol/L (3-11) 09/09/18 06:10 BUN 18 mg/dL (7-18) 09/09/18 06:10 Creatinine 0.75 mg/dL (0.55-1.02) 09/09/18 06:10 Estimated GFR/1.73 m2 >= 60.00 (mL/min/1.73m2) 09/09/18 06:10 Glucose 133 mg/dL (70-100) H 09/09/18 06:10 Lactate 1.5 mmol/l (0.6-1.4) H 09/07/18 14:37 Calcium 8.5 mg/dL (8.5-10.1) 09/09/18 06:10 Magnesium 2.0 mg/dL (1.8-2.4) 09/09/18 06:10 Total Bilirubin 0.3 mg/dL (0.2-1.0) 09/06/18 17:30 AST 23 U/L (15-37) 09/06/18 17:30 ALT 29 U/L (12-78) 09/06/18 17:30 Alkaline Phosphatase 171 U/L (46-116) H 09/06/18 17:30 Troponin I < 0.02 ng/mL (0.00-0.06) 09/06/18 23:00 NT-Pro-B Natriuret Pep 568 pg/mL (-299) H 09/06/18 17:30 Total Protein 8.2 g/dL (6.4-8.2) 09/06/18 17:30 Albumin 3.8 g/dL (3.4-5.0) 09/06/18 17:30
--- NOTE | 2018-09-09 14:55 | CHAPLAIN ---
Sherine was in bed resting when I visited. She was pleasant and responded to my questions but it was difficult to follow her train of thought. We covered a few topics and sometimes her responses made sense, at other times they did not. She seems to be comfortable being here.
[2018-09-09] MEDS: Furosemide 40 MG/4 ML VIAL IVP (14:59)
[2018-09-09] MEDS: Normal Saline Flush 10 ML SYR IVP (15:00)
[2018-09-09] MEDS: Budesonide 0.5 MG/2 ML UPD VIAL UPD (18:43)
[2018-09-09] MEDS: LORazepam 0.5 MG TAB PO (19:54)
[2018-09-09] MEDS: Enoxaparin 40 MG/0.4 ML SYR SC (19:54)
[2018-09-09] MEDS: Omeprazole 20 MG CAPCR 40 MG PO (22:00)
[2018-09-10] VITALS (26 sets, daily range): BP systolic 124–174; BP diastolic 72–100; PULSE 67–107; RESP 16–36; TEMP 36.4–37.1; O2SAT 90–96
[2018-09-10] MEDS: methylPREDNISolone SUCC 40 MG VIAL IVP ×3 (06:13→21:24)
[2018-09-10] MEDS: Budesonide 0.5 MG/2 ML UPD VIAL UPD ×2 (06:13→18:47)
[2018-09-10 07:12] LABS: Abs Immature Grans 0.01 k/cumm (0.0-0.09); Absolute Basophil Count 0.01 k/cumm (0.0-0.2); Absolute Eosinophil Count 0.01 k/cumm (0.0-0.7); Absolute Lymphocyte Count 0.95 k/cumm (1.2-3.4); Absolute Monocyte Count 0.29 k/cumm (0.11-0.7); Basophils % 0.2; Eosinophils % 0.2; HCT 47.6 % (36.0-46.0); HGB 15.6 g/dL (12.0-15.5); Immature Grans % 0.2; Lymphocytes % 14.9; Mean Corp. HGB Concentration 32.8 g/dL (32.0-36.0); Mean Corpuscular Hemoglobin 30.4 pg (27.0-33.0); Mean Corpuscular Volume 92.8 fL (80-95); Mean Platelet Volume 11.2 fL (8.0-11.0); Monocytes % 4.6; Neutrophils % 79.9; Platelet Count 209 x1000/uL (130-400); RBC 5.13 m/cumm (4.00-5.20); RBC Distribution Width 14.6 % (11.7-14.6); White Blood Cell Count 6.37 k/cumm (4.4-10.8)
[2018-09-10 07:23] LABS: Anion Gap 7.3 mmol/L (3-11); BUN 28 mg/dL (7-18); CO2 33.7 mmol/L (21.0-32.0); CREATININE 0.87 mg/dL (0.55-1.02); Chloride 106 mmol/L (98-107); Glucose 152 mg/dL (70-100); Magnesium 2.2 mg/dL (1.8-2.4); Potassium 3.7 mmol/L (3.5-5.1); Sodium 147 mmol/L (136-145)
[2018-09-10] MEDS: POTASSIUM CHLORIDE 20 MEQ, POTASSIUM CHLORIDE 10 MEQ 30 MEQ PO (09:57)
[2018-09-10] MEDS: Benzonatate 200 MG CAP PO ×2 (09:57→19:05)
[2018-09-10] MEDS: QUEtiapine 25 MG TAB PO ×2 (09:57→19:05)
[2018-09-10] MEDS: Normal Saline Flush 10 ML SYR IVP ×2 (09:58→21:24)
[2018-09-10] MEDS: guaiFENesin 600 MG TABCR 1200 MG PO ×2 (09:58→19:04)
[2018-09-10] MEDS: DOXYCYCLINE 100 MG in Normal Saline 100 ML IVPB ×2 (10:02→21:23)
[2018-09-10] MEDS: traZODone 50 MG TAB PO (12:11)
[2018-09-10] MEDS: cefTRIAXone 2 GM/50 ML BAG IVPB (12:11)
--- NOTE | 2018-09-10 13:56 | PDOC.CMPRO ---
- If Service Date Differs Date of service: 09/10/18 Time of Service: 13:56 Care Management Progress Note S/O: Sherine continues to be a med/surg overflow in the ICU, she continues to require oxygen at this time. Sherine's caregiver Makayla continues to offer support throughout her stay, and checks in with her frequently. No change in DC plan at this time. A: 73 year old female admitted to [facility] 09/06/18 for Acute COPD Exacerbation P: Sherine will return to her caregiver, Makyala's home once medically cleared. She will follow up with her PCP and plan of care as prescribed. Makayla will transport via private vehicle.
--- NOTE | 2018-09-10 14:08 | CMPROGNOTE_ITS ---
- If Service Date Differs Date of service: 09/10/18 Time of Service: 13:56 Care Management Progress Note S/O: Sherine continues to be a med/surg overflow in the ICU, she continues to require oxygen at this time. Sherine's caregiver Makayla continues to offer support throughout her stay, and checks in with her frequently. No change in DC plan at this time. A: 73 year old female admitted to [facility] 09/06/18 for Acute COPD Exacerbation P: Sherine will return to her caregiver, Makayla's home once medically cleared. She will follow up with her PCP and plan of care as prescribed. Makayla will transport via private vehicle.
--- NOTE | 2018-09-10 15:06 | W.PM.PROGNOT ---
Date of Service Date of service: 09/10/18 Time of Service: 15:06 Assessment and Plan (1) Tracheobronchitis: Current visit: Yes Status: Acute No evidence of definitive infiltrate, although CXR with noted basilar atelectasis. Patient however presented with low grade fevers, hypoxia, tachycardia, tachypnea, and elevated lactate. Suspect either bacterial Tracheobronchitis or Pneumonia. Continue antibiotics with Ceftriaxone and continuation of Doxycycline (day #4 for CTx, #7 for Doxy). Blood cultures remain negative. Continue steroids with Solumedrol and nebs as well as patient appears to have an acute exacerbation of likely underlying COPD. Utilize BiPAP as needed. Speech evaluation provided and diet changed accordingly to ensure lack of aspiration/dysphagia given underlying Parkinsonism. (2) COPD (chronic obstructive pulmonary disease): Current visit: Yes Status: Suspected Treatment as above. (3) Alzheimer's dementia: Current visit: No Status: Chronic Underlying dementia noted. Apparent concurrent neuropsychiatric symptoms as well as underlying history of anxiety and bipolar disorder. Continue home regimen of low dose Lorazepam, Seroquel, and Trazodone. 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 (5) GERD (gastroesophageal reflux disease): Current visit: No Status: Chronic Continue PPI therapy. (6) DVT prophylaxis: Current visit: Yes Status: Acute SC Lovenox. (7) Advanced directives, counseling/discussion: Current visit: Yes Status: Acute Full Code. Will discuss with DPOA (children) who live out of state if able - Full Code status is accurate per prior discussion with caregiver. Subjective Interval history since last seen: 73 year old woman with a prior history of tobacco abuse and dementia, admitted from [facility] Emergency Department with a diagnosis of COPD exacerbation in the setting of potential bacterial Tracheobronchitis. Ms. 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 She lives with a caregiver due to her disability from Parkinsonism - she reportedly has ambulatory dysfunction, tremors, and inability to bathe or feed herself. She also has cognitive dysfunction in the form of Alzheimer's Dementia. She presented to the ED with complaints of a worsening cough over the prior week, with reported purulent appearing sputum, low grade fevers, and dyspnea. She saw her PCP last and was prescribed doxycycline, but with reported continued symptoms despite this. Upon evaluation she was found to be tachycardic, tachypneic, and hypoxic, with an elevated lactate. The remainder of her blood work was unremarkable, as was her CXR. The patient was admitted for further evaluation and treatment. Ms. Osorio initially required BiPAP, but has since improved and remains on supplemental oxygen. Her exam has improved with treatment including antibiotics, steroids, and nebs. She also received a dose of diuretic therapy yesterday. No overnight events reported. Remains afebrile. Exam Narrative Exam Narrative: General: Patient is ill appearing but not toxic, awake and alert, oriented to person only. Neck: Supple CV: Distant heart sounds. Regular, tachycardic, S1S2, No rubs, murmurs, or gallops. Pulmonary: Improved air entry, with scattered though improved wheezing. Mild left basilar crackles. Abdomen: + Bowel Sounds, soft, nontender, nondistended Vascular: No lower extremity edema Objective Objective Clinical Data: Abnormal lab results 09/10/18 09/10/18 Range/Units 06:20 06:20 Hgb 15.6 H (12.0-15.5) g/dL Hct 47.6 H (36.0-46.0) % MPV 11.2 H (8.0-11.0) fL Absolute Lymphocytes 0.95 L (1.2-3.4) k/cumm Sodium 147 H (136-145) mmol/L Carbon Dioxide 33.7 H (21.0-32.0) mmol/L BUN 28 H D (7-18) mg/dL Glucose 152 H (70-100) mg/dL Vital Signs Temperature 36.7 C 09/10/18 07:53 Temperature Source Temporal Artery Scan 09/10/18 07:53 Pulse 101 H 09/10/18 13:00 Pulse Rhythm Regular 09/09/18 00:00 Pulse 102 H 09/10/18 13:00 Respiratory Rate 28 H 09/10/18 13:00 Respiratory Effort 09/10/18 07:53 Respiratory Depth Normal 09/10/18 07:53 Respiratory Pattern Tachypnea 09/10/18 07:53 Blood Pressure 148/92 H 09/10/18 13:00 Blood Pressure Mean 107 09/10/18 13:00 Blood Pressure Position Supine 09/08/18 00:00 Pulse Oximetry 91 L 09/10/18 12:01 Oxygen Delivery Method Nasal Cannula 09/10/18 07:53 Oxygen Flow Rate 1 09/10/18 07:53 Fraction of Inspired Oxygen (FIO2) 30 09/07/18 10:22 Pain Level 0 09/10/18 07:53 Intake & Output 09/09/18 09/10/18 09/10/18 23:59 11:59 23:59 Intake Total 730 / 2230 330 / 570 240 / 570 Output Total 450 / 450 900 / 900 Balance 280 / 1780 -570 / -330 240 / -330 Weight 55.1 kg Intake: IV 100 / 1200 250 / 250 Oral 630 / 1030 80 / 320 240 / 320 Output: Urine 450 / 450 900 / 900 Other: Comment Large amount of urine incontinence,saturating diaper. Large amount of urine incontinence,saturating diaper. Stool Size Moderate Stool Characteristics Soft Brown Voiding Methods Diaper Diaper Incontinent Incontinent Laboratory Results WBC 6.37 k/cumm (4.4-10.8) 09/10/18 06:20 RBC 5.13 m/cumm (4.00-5.20) 09/10/18 06:20 Hgb 15.6 g/dL (12.0-15.5) H 09/10/18 06:20 Hct 47.6 % (36.0-46.0) H 09/10/18 06:20 MCV 92.8 fL (80-95) 09/10/18 06:20 MCH 30.4 pg (27.0-33.0) 09/10/18 06:20 MCHC 32.8 g/dL (32.0-36.0) 09/10/18 06:20 RDW 14.6 % (11.7-14.6) 09/10/18 06:20 Plt Count 209 x1000/uL (130-400) 09/10/18 06:20 MPV 11.2 fL (8.0-11.0) H 09/10/18 06:20 Immature Gran % 0.2 09/10/18 06:20 Neutrophils % 79.9 09/10/18 06:20 Lymphocytes % 14.9 09/10/18 06:20 Monocytes % 4.6 09/10/18 06:20 Eosinophils % 0.2 09/10/18 06:20 Basophils % 0.2 09/10/18 06:20 Absolute Neutrophils 5.10 k/cumm (1.2-6.7) 09/10/18 06:20 Absolute Lymphocytes 0.95 k/cumm (1.2-3.4) L 09/10/18 06:20 Absolute Monocytes 0.29 k/cumm (0.11-0.7) 09/10/18 06:20 Absolute Eosinophils 0.01 k/cumm (0.0-0.7) 09/10/18 06:20 Absolute Basophils 0.01 k/cumm (0.0-0.2) 09/10/18 06:20 Sodium 147 mmol/L (136-145) H 09/10/18 06:20 Potassium 3.7 mmol/L (3.5-5.1) 09/10/18 06:20 Chloride 106 mmol/L (98-107) 09/10/18 06:20 Carbon Dioxide 33.7 mmol/L (21.0-32.0) H 09/10/18 06:20 Anion Gap 7.3 mmol/L (3-11) 09/10/18 06:20 BUN 28 mg/dL (7-18) H D 09/10/18 06:20 Creatinine 0.87 mg/dL (0.55-1.02) 09/10/18 06:20 Estimated GFR/1.73 m2 >= 60.00 (mL/min/1.73m2) 09/10/18 06:20 Glucose 152 mg/dL (70-100) H 09/10/18 06:20 Lactate 1.5 mmol/l (0.6-1.4) H 09/07/18 14:37 Calcium 9.0 mg/dL (8.5-10.1) 09/10/18 06:20 Magnesium 2.2 mg/dL (1.8-2.4) 09/10/18 06:20 Total Bilirubin 0.3 mg/dL (0.2-1.0) 09/06/18 17:30 AST 23 U/L (15-37) 09/06/18 17:30 ALT 29 U/L (12-78) 09/06/18 17:30 Alkaline Phosphatase 171 U/L (46-116) H 09/06/18 17:30 Troponin I < 0.02 ng/mL (0.00-0.06) 09/06/18 23:00 NT-Pro-B Natriuret Pep 568 pg/mL (-299) H 09/06/18 17:30 Total Protein 8.2 g/dL (6.4-8.2) 09/06/18 17:30 Albumin 3.8 g/dL (3.4-5.0) 09/06/18 17:30
[2018-09-10] MEDS: LORazepam 0.5 MG TAB PO (19:04)
[2018-09-10] MEDS: Enoxaparin 40 MG/0.4 ML SYR SC (21:24)
[2018-09-10] MEDS: Omeprazole 20 MG CAPCR 40 MG PO (21:24)
[2018-09-11] VITALS (9 sets, daily range): BP systolic 146–182; BP diastolic 85–98; PULSE 75–98; RESP 18–20; TEMP 36.3–37.1; O2SAT 2–95
[2018-09-11] MEDS: Normal Saline Flush 10 ML SYR IVP ×3 (06:06→19:42)
[2018-09-11] MEDS: methylPREDNISolone SUCC 40 MG VIAL IVP ×2 (06:06→19:43)
[2018-09-11] MEDS: Budesonide 0.5 MG/2 ML UPD VIAL UPD ×2 (06:06→19:13)
[2018-09-11 07:01] LABS: Abs Immature Grans 0.03 k/cumm (0.0-0.09); Absolute Lymphocyte Count 1.02 k/cumm (1.2-3.4); Absolute Monocyte Count 0.37 k/cumm (0.11-0.7); Absolute Neutrophil Count 6.18 k/cumm (1.2-6.7); HCT 46.3 % (36.0-46.0); HGB 14.9 g/dL (12.0-15.5); Immature Grans % 0.4; Lymphocytes % 13.4; Mean Corp. HGB Concentration 32.2 g/dL (32.0-36.0); Mean Corpuscular Hemoglobin 30.3 pg (27.0-33.0); Mean Corpuscular Volume 94.3 fL (80-95); Mean Platelet Volume 11.1 fL (8.0-11.0); Monocytes % 4.9; Neutrophils % 81.3; Platelet Count 239 x1000/uL (130-400); RBC 4.91 m/cumm (4.00-5.20); RBC Distribution Width 15.1 % (11.7-14.6)
[2018-09-11 07:21] LABS: Anion Gap 3.7 mmol/L (3-11); BUN 33 mg/dL (7-18); CO2 35.3 mmol/L (21.0-32.0); CREATININE 0.78 mg/dL (0.55-1.02); Calcium 8.9 mg/dL (8.5-10.1); Chloride 110 mmol/L (98-107); Glucose 145 mg/dL (70-100); Magnesium 2.2 mg/dL (1.8-2.4); Potassium 4.2 mmol/L (3.5-5.1); Sodium 149 mmol/L (136-145)
[2018-09-11] MEDS: QUEtiapine 25 MG TAB PO ×2 (08:51→19:42)
[2018-09-11] MEDS: Normal Saline 1,000 ML 75 ML IV ×2 (10:42→21:22)
--- NOTE | 2018-09-11 11:38 | PDOC.CMPRO ---
- If Service Date Differs Date of service: 09/11/18 Time of Service: 11:38 Care Management Progress Note S/O: Sherine is lying in bed when this press writer visits this morning, she is pleasant and receptive to discussion. Sherine's caregiver Makayla checks in with her frequently and offers support. Sherine continues to have an oxygen requirement at this time, and continues on IV antibiotics. A: 73 year old female admitted to [facility] 09/06/18 for Acute COPD Exacerbation P: Sherine will return to her caregiver, Makayla's home once medically cleared. She will follow up with her PCP and plan of care as prescribed. Makayla will transport via private vehicle.
--- NOTE | 2018-09-11 12:09 | CMPROGNOTE_ITS ---
- If Service Date Differs Date of service: 09/11/18 Time of Service: 11:38 Care Management Progress Note S/O: Sherine is lying in bed when this signwriter visits this morning, she is pleasant and receptive to discussion. Sherine's caregiver Makayla checks in with her frequently and offers support. Sherine continues to have an oxygen requirement at this time, and continues on IV antibiotics. A: 73 year old female admitted to [facility] 09/06/18 for Acute COPD Exacerbation P: Sherine will return to her caregiver, Makayla's home once medically cleared. She will follow up with her PCP and plan of care as prescribed. Makayla will transport via private vehicle.
--- NOTE | 2018-09-11 12:17 | W.PM.PROGNOT ---
Date of Service Date of service: 09/11/18 Time of Service: 12:17 Assessment and Plan (1) Tracheobronchitis: Current visit: Yes Status: Acute No evidence of definitive infiltrate, although CXR with noted basilar atelectasis. Patient however presented with low grade fevers, hypoxia, tachycardia, tachypnea, and elevated lactate. Suspect either bacterial Tracheobronchitis or Pneumonia. Continue antibiotics with Ceftriaxone day #5 - discontinue Doxycycline as now has received a 7 day course. Blood cultures remain negative X96 hours. Continue but wean steroids as patient appears to have an acute exacerbation of likely underlying COPD. Utilize BiPAP as needed. Speech evaluation provided and diet changed accordingly to ensure lack of aspiration/dysphagia given underlying Parkinsonism. Continue nebs. Will also ensure PT evaluation. (2) COPD (chronic obstructive pulmonary disease): Current visit: Yes Status: Suspected Treatment as above. (3) Alzheimer's dementia: Current visit: No Status: Chronic Underlying dementia noted. Apparent concurrent neuropsychiatric symptoms as well as underlying history of anxiety and bipolar disorder. Continue home regimen of low dose Lorazepam, Seroquel, and Trazodone. 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 (5) GERD (gastroesophageal reflux disease): Current visit: No Status: Chronic Continue PPI therapy. (6) DVT prophylaxis: Current visit: Yes Status: Acute SC Lovenox. (7) Advanced directives, counseling/discussion: Current visit: Yes Status: Acute Full Code. Will discuss with DPOA (children) who live out of state if able - Full Code status is accurate per prior discussion with caregiver. Subjective Interval history since last seen: 73 year old woman with a prior history of tobacco abuse and dementia, admitted from [facility] Emergency Department with a diagnosis of COPD exacerbation in the setting of potential bacterial Tracheobronchitis. Ms. 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 She lives with a caregiver due to her disability from Parkinsonism - she reportedly has ambulatory dysfunction, tremors, and inability to bathe or feed herself. She also has cognitive dysfunction in the form of Alzheimer's Dementia. She presented to the ED with complaints of a worsening cough over the prior week, with reported purulent appearing sputum, low grade fevers, and dyspnea. She saw her PCP last and was prescribed doxycycline, but with reported continued symptoms despite this. Upon evaluation she was found to be tachycardic, tachypneic, and hypoxic, with an elevated lactate. The remainder of her blood work was unremarkable, as was her CXR. The patient was admitted for further evaluation and treatment. Ms. Osorio initially required BiPAP, but has since improved and remains on supplemental oxygen only. Her exam has improved as well with treatment including antibiotics, steroids, and nebs. She also received a dose of diuretic therapy previously. No overnight events reported. Remains afebrile. Exam Narrative Exam Narrative: General: Patient appears comfortable, asleep but easily arousable. Oriented to person only. NAD. Neck: Supple CV: Distant heart sounds. Regular, nontachycardic, S1S2, No rubs, murmurs, or gallops. Pulmonary: Improved air entry, with wheezing resolved. Mild persistent left basilar crackles. Abdomen: + Bowel Sounds, soft, nontender, nondistended Vascular: No lower extremity edema Objective Objective Clinical Data: Abnormal lab results 09/11/18 09/11/18 Range/Units 06:21 06:21 Hct 46.3 H (36.0-46.0) % RDW 15.1 H (11.7-14.6) % MPV 11.1 H (8.0-11.0) fL Absolute Lymphocytes 1.02 L (1.2-3.4) k/cumm Sodium 149 H (136-145) mmol/L Chloride 110 H (98-107) mmol/L Carbon Dioxide 35.3 H (21.0-32.0) mmol/L BUN 33 H (7-18) mg/dL Glucose 145 H (70-100) mg/dL Vital Signs Temperature 36.8 C 09/11/18 07:30 Temperature Source Tympanic 09/11/18 07:30 Pulse 82 09/11/18 07:30 Pulse Rhythm Regular 09/11/18 07:45 Pulse 107 H 09/10/18 14:41 Respiratory Rate 18 09/11/18 07:30 Respiratory Effort Non-Labored 09/11/18 07:45 Respiratory Depth Normal 09/11/18 07:45 Respiratory Pattern Normal 09/11/18 07:45 Blood Pressure 171/89 H 09/11/18 07:30 Blood Pressure Mean 107 09/10/18 14:41 Blood Pressure Position Supine 09/08/18 00:00 Pulse Oximetry 93 L 09/11/18 08:00 Oxygen Delivery Method Nasal Cannula 09/11/18 08:00 Oxygen Flow Rate 2 09/11/18 08:00 Fraction of Inspired Oxygen (FIO2) 30 09/07/18 10:22 Pain Level 0 09/11/18 04:03 Comment 09/11/18 04:03 Intake & Output 09/10/18 09/11/18 09/11/18 23:59 11:59 23:59 Intake Total 400 / 840 120 / 120 Output Total 120 / 1170 Balance 280 / -330 120 / 120 Weight 55 kg Intake: IV 160 / 420 Oral 240 / 420 120 / 120 Output: Urine 120 / 1170 Other: Urine Appearance Clear Urine Odor None Normal Comment diaper saturated with urine Stool Size Moderate Moderate Stool Characteristics Soft Soft Brown Brown Voiding Methods Diaper Diaper Laboratory Results WBC 7.60 k/cumm (4.4-10.8) 09/11/18 06:21 RBC 4.91 m/cumm (4.00-5.20) 09/11/18 06:21 Hgb 14.9 g/dL (12.0-15.5) 09/11/18 06:21 Hct 46.3 % (36.0-46.0) H 09/11/18 06:21 MCV 94.3 fL (80-95) 09/11/18 06:21 MCH 30.3 pg (27.0-33.0) 09/11/18 06:21 MCHC 32.2 g/dL (32.0-36.0) 09/11/18 06:21 RDW 15.1 % (11.7-14.6) H 09/11/18 06:21 Plt Count 239 x1000/uL (130-400) 09/11/18 06:21 MPV 11.1 fL (8.0-11.0) H 09/11/18 06:21 Immature Gran % 0.4 09/11/18 06:21 Neutrophils % 81.3 09/11/18 06:21 Lymphocytes % 13.4 09/11/18 06:21 Monocytes % 4.9 09/11/18 06:21 Eosinophils % 0.0 09/11/18 06:21 Basophils % 0.0 09/11/18 06:21 Absolute Neutrophils 6.18 k/cumm (1.2-6.7) 09/11/18 06:21 Absolute Lymphocytes 1.02 k/cumm (1.2-3.4) L 09/11/18 06:21 Absolute Monocytes 0.37 k/cumm (0.11-0.7) 09/11/18 06:21 Absolute Eosinophils 0.00 k/cumm (0.0-0.7) 09/11/18 06:21 Absolute Basophils 0.00 k/cumm (0.0-0.2) 09/11/18 06:21 Sodium 149 mmol/L (136-145) H 09/11/18 06:21 Potassium 4.2 mmol/L (3.5-5.1) 09/11/18 06:21 Chloride 110 mmol/L (98-107) H 09/11/18 06:21 Carbon Dioxide 35.3 mmol/L (21.0-32.0) H 09/11/18 06:21 Anion Gap 3.7 mmol/L (3-11) 09/11/18 06:21 BUN 33 mg/dL (7-18) H 09/11/18 06:21 Creatinine 0.78 mg/dL (0.55-1.02) 09/11/18 06:21 Estimated GFR/1.73 m2 >= 60.00 (mL/min/1.73m2) 09/11/18 06:21 Glucose 145 mg/dL (70-100) H 09/11/18 06:21 Lactate 1.5 mmol/l (0.6-1.4) H 09/07/18 14:37 Calcium 8.9 mg/dL (8.5-10.1) 09/11/18 06:21 Magnesium 2.2 mg/dL (1.8-2.4) 09/11/18 06:21 Total Bilirubin 0.3 mg/dL (0.2-1.0) 09/06/18 17:30 AST 23 U/L (15-37) 09/06/18 17:30 ALT 29 U/L (12-78) 09/06/18 17:30 Alkaline Phosphatase 171 U/L (46-116) H 09/06/18 17:30 Troponin I < 0.02 ng/mL (0.00-0.06) 09/06/18 23:00 NT-Pro-B Natriuret Pep 568 pg/mL (-299) H 09/06/18 17:30 Total Protein 8.2 g/dL (6.4-8.2) 09/06/18 17:30 Albumin 3.8 g/dL (3.4-5.0) 09/06/18 17:30
[2018-09-11] MEDS: amLODIPine 5 MG TAB PO (12:38)
[2018-09-11] MEDS: traZODone 50 MG TAB PO (12:39)
[2018-09-11] MEDS: cefTRIAXone 2 GM/50 ML BAG IVPB (12:40)
[2018-09-11] MEDS: Acetaminophen Solution 650 MG/20.3 ML CUP PO (13:33)
[2018-09-11] MEDS: Mylanta Suspension 30 ML CUP PO (13:34)
--- NOTE | 2018-09-11 17:07 | PT.INIE ---
Date of service: 09/11/18 Time of Service: 13:05 PT Notes Inpatient Physical Therapy Evaluation Date: 09/11/2018 Referring Doctor: Manuel Win MD PT Orders: PT CONSULT: Deconditioning Precautions: Fall. Standard. Impaired safety awareness due to Alzheimer's type dementia. Patient Profile/Admitting Diagnosis: Patient is a 73-year-old female with Alzheimer's type Dementia who presented to the ED with caregiver on 08/20/2018 with chief presentation of cough and shortness of breath. Patient was diagnosed with bronchopneumonia with right basilar atelectasis and COPD exacerbation with acute bacterial bronchitis. Physical therapy referral is received for functional mobility training, gait and balance training, progressive strengthening, caregiver education and training in order to reduce fall risk. PMHX: Medical History GERD (gastroesophageal reflux disease) (Chronic) Alzheimer's dementia (Chronic) Drug-induced Parkinsonism (Acute) Chronic colitis (Acute) Vitamin B 12 deficiency (Acute) Anxiety (Chronic) CVA (cerebral vascular accident) (Chronic) Depression (Chronic) HTN (hypertension) (Chronic) Dementia (Resolved) Social History/Home Situation: Patient is a poor historian due to Alzheimer's type dementia. Per chart review, patient has lived with caregiver Makayla since May 2017. Patient attends [facility] [place] 5 times a week. She has 2 children in [place] who are her guardians. She has another son in [place] who is not in charge of care. Per initial case management note, caregiver Makayla did say that patient was ambulatory inside the house without an assistive device prior to admission. Current Functional Limitations: Dependent bed mobility, transfer, and ambulation performance. Impaired ability to follow instructions. Impaired safety awareness. Subjective: Facial grimacing was observed when PT and MEDICAL GENETICIST was rolling patient on her right side with her right hand on the area close to her left shoulder. Patient only able to respond with words yes or no with PT not fully knowing that patient understood the question. Nurse was immediately notified. Objective: General Observation: Patient seen lying in bed with HOB elevated to about 45 degrees with MEDICAL GENETICIST who stated that he just got done feeding the patient. Patient with oxygen at 2 L/min via nasal cannula. IV in left UE. Contusions noted on BUE and LE. TEDS on bilateral legs. Telemetry wires on. Mental Status: Alert but disoriented as to person, place, time Pain: None reported and verbalized but facial grimacing was observed when patient was rolled to right with right hand trying to hold onto the left shoulder at the start of the session. No moaning, groaning, and labored breathing observed throughout the rest of this PT session. Vital Signs: 164/90 7 mmHg, 91% at 2 L/min. ROM: Unable to formally test range of motion to BUE/LE due to cognitive status. Patient was able to sit up and use both arms and legs to stand up from edge of bed with no indication of bodily discomfort nor pain. Strength: Unable to formally test strength on BUE LE due to cognitive status. Right Upper Extremity: Grossly 3-/5 Left Upper Extremity: Grossly 3-/5 Right Lower Extremity: Grossly 3-/5 Left Lower Extremity: Grossly 3-/5 Bed Mobility/Transfers: Patient requires moderate to maximal verbal tactile and visual cueing due to cognitive status Rolling moderate assist Supine to sit moderate assist Sit to supine moderate assist Sit to stand moderate assist x2 Stand to sit moderate assist x2 Bed to chair moderate assist x2 Chair to bed moderate assist x2 Gait: Patient was able to tolerate in-room ambulation about 20-25 feet with moderate assist of this PT and an LMA on each side of the patient holding onto her forearms and gait belt while managing IV pole and oxygen tank. Patient has tendency to retropulse and requires frequent shifting of center of gravity forward for safety. Patient was able to turn and back up on to chair with extensive cueing for safety. Balance: Static Sitting: Fair Dynamic Sitting: Fair Static Standing: Poor Dynamic Standing: Poor Special Tests: Mobility Limitations Standardized Measure [facility] AM-PAC 6 clicks Basic Mobility Inpatient Short Form: Raw Score: 12 CMS Score: 69% deficit Informed Consent/Education: Patient instructed in purpose of PT consult and plan of care. Assessment: Patient is a 73 year old female with pre-existing Alzheimer's type dementia referred to physical therapy services with the diagnosis of Bronchopneumonia with the right basilar atelectasis and exacerbation of chronic obstructive pulmonary disease with acute bacterial bronchitis. Patient presents with clinical signs and symptoms consistent with current/admitting diagnoses that have resulted to mobility limitations, gait instability, generalized weakness, and lack of motor control as demonstrated by the following impairment level findings: 1. Decreased strength to B LE major muscle groups 2. Impaired balance 3. Impaired activity tolerance Impairments are contributing to the following functional limitations: 1. Dependent bed mobility skills 2. Increased dependence with transfers 3. Inability to safely ambulate without assistive device and physical assistance 4. Increase completion time for mobility ADL performance 5. Increased fall risk 6. Inability to negotiate steps alone safely Patient is assessed as a Moderate 91709 complexity based on the following: History: 73-year-old female with Alzheimer's type dementia who is currently diagnosed with bronchopneumonia with R basilar atelectasis and COPD exacerbation with acute bacterial bronchitis Examination: Underlying impairments and functional limitations resulting to an AMPAC score of 12 and an equivalent CMS score of 69% deficit Presentation: Evolving Decision Makin moderate complexity Goals: Goals X1 week 1. Supine-Sit independent 2. Sit-Supine independent 3. Sit-Stand independent 4. Stand-Sit independent 5. Bed-Chair independent 6. Chair-Bed independent 7. Gait on level surface ambulation with use of least restrictive device for at least 300 feet without report of pain nor dyspnea 8. Stairs independent while holding onto bilateral rails for at least 10 steps without report of pain nor dyspnea 9. Independent with home exercise program 10. Balance good for static and dynamic standing Plan of Care/Treatment Plan: 1-2x/day, 7 days/week x 1 week. Plan of care has been reviewed with the HAUNTED HISTORY TOUR GUIDE providing the service under Physical Therapy direction. Initiate Physical Therapy intervention for strengthening, bed mobility, transfers, gait, stairs, balance training, use of assistive device. DISCHARGE RECOMMENDATIONS: Patient will benefit from home health physical therapy services in order to maximize functional mobility level, reassess home safety, improve activity tolerance, facilitate caregiver/family education and training, and establish/implement a functional maintenance program to increase ability to remain at home with caregiver Makayla. May require a front wheeled walker for return to home. TREATMENT CODE/TIME: 9716 225 minutes, 40195 25 minutes, beginning at 13:04 PM. Thank you for this referral. Moni Richardson, PT, DPT, CLT [facility]
--- NOTE | 2018-09-11 17:11 | IN_ITS ---
Date of service: 09/11/18 Time of Service: 13:05 PT Notes Inpatient Physical Therapy Evaluation Date: 09/11/2018 Referring Doctor: Manuel Win MD PT Orders: PT CONSULT: Deconditioning Precautions: Fall. Standard. Impaired safety awareness due to Alzheimer's type dementia. Patient Profile/Admitting Diagnosis: Patient is a 73-year-old female with Alzheimer's type Dementia who presented to the ED with caregiver on 08/20/2018 with chief presentation of cough and shortness of breath. Patient was diagnosed with bronchopneumonia with right basilar atelectasis and COPD exacerbation with acute bacterial bronchitis. Physical therapy referral is received for functional mobility training, gait and balance training, progressive strengthening, caregiver education and training in order to reduce fall risk. PMHX: Medical History GERD (gastroesophageal reflux disease) (Chronic) Alzheimer's dementia (Chronic) Drug-induced Parkinsonism (Acute) Chronic colitis (Acute) Vitamin B 12 deficiency (Acute) Anxiety (Chronic) CVA (cerebral vascular accident) (Chronic) Depression (Chronic) HTN (hypertension) (Chronic) Dementia (Resolved) Social History/Home Situation: Patient is a poor historian due to Alzheimer's type dementia. Per chart review, patient has lived with caregiver Makayla since May 2017. Patient attends [facility] 5 times a week. She has 2 children in [place] who are her guardians. She has another son in [place] who is not in charge of care. Per initial case management note, caregiver Makayla did say that patient was ambulatory inside the house without an assistive device prior to admission. Current Functional Limitations: Dependent bed mobility, transfer, and ambulation performance. Impaired ability to follow instructions. Impaired safety awareness. Subjective: Facial grimacing was observed when PT and VETERINARY MEDICINE TEACHER was rolling patient on her right side with her right hand on the area close to her left shoulder. Patient only able to respond with words yes or no with PT not fully knowing that patient understood the question. Nurse was immediately notified. Objective: General Observation: Patient seen lying in bed with HOB elevated to about 45 degrees with VETERINARY MEDICINE TEACHER who stated that he just got done feeding the patient. Patient with oxygen at 2 L/min via nasal cannula. IV in left UE. Contusions noted on BUE and LE. TEDS on bilateral legs. Telemetry wires on. Mental Status: Alert but disoriented as to person, place, time Pain: None reported and verbalized but facial grimacing was observed when patient was rolled to right with right hand trying to hold onto the left shoulder at the start of the session. No moaning, groaning, and labored breathing observed throughout the rest of this PT session. Vital Signs: 164/90 7 mmHg, 91% at 2 L/min. ROM: Unable to formally test range of motion to BUE/LE due to cognitive status. Patient was able to sit up and use both arms and legs to stand up from edge of bed with no indication of bodily discomfort nor pain. Strength: Unable to formally test strength on BUE LE due to cognitive status. Right Upper Extremity: Grossly 3-/5 Left Upper Extremity: Grossly 3-/5 Right Lower Extremity: Grossly 3-/5 Left Lower Extremity: Grossly 3-/5 Bed Mobility/Transfers: Patient requires moderate to maximal verbal tactile and visual cueing due to cognitive status Rolling moderate assist Supine to sit moderate assist Sit to supine moderate assist Sit to stand moderate assist x2 Stand to sit moderate assist x2 Bed to chair moderate assist x2 Chair to bed moderate assist x2 Gait: Patient was able to tolerate in-room ambulation about 20-25 feet with moderate assist of this PT and an LMA on each side of the patient holding onto her forearms and gait belt while managing IV pole and oxygen tank. Patient has tendency to retropulse and requires frequent shifting of center of gravity forward for safety. Patient was able to turn and back up on to chair with extensive cueing for safety. Balance: Static Sitting: Fair Dynamic Sitting: Fair Static Standing: Poor Dynamic Standing: Poor Special Tests: Mobility Limitations Standardized Measure [facility] AM-PAC 6 clicks Basic Mobility Inpatient Short Form: Raw Score: 12 CMS Score: 69% deficit Informed Consent/Education: Patient instructed in purpose of PT consult and plan of care. Assessment: Patient is a 73 year old female with pre-existing Alzheimer's type dementia referred to physical therapy services with the diagnosis of Bronchopneumonia with the right basilar atelectasis and exacerbation of chronic obstructive pulmonary disease with acute bacterial bronchitis. Patient presents with clinical signs and symptoms consistent with current/admitting diagnoses that have resulted to mobility limitations, gait instability, generalized weakness, and lack of motor control as demonstrated by the following impairment level findings: 1. Decreased strength to B LE major muscle groups 2. Impaired balance 3. Impaired activity tolerance Impairments are contributing to the following functional limitations: 1. Dependent bed mobility skills 2. Increased dependence with transfers 3. Inability to safely ambulate without assistive device and physical assistance 4. Increase completion time for mobility ADL performance 5. Increased fall risk 6. Inability to negotiate steps alone safely Patient is assessed as a Moderate [id number] complexity based on the following: History: 73-year-old female with Alzheimer's type dementia who is currently diagnosed with bronchopneumonia with R basilar atelectasis and COPD exacerbation with acute bacterial bronchitis Examination: Underlying impairments and functional limitations resulting to an AMPAC score of 12 and an equivalent CMS score of 69% deficit Presentation: Evolving Decision Makin moderate complexity Goals: Goals X1 week 1. Supine-Sit independent 2. Sit-Supine independent 3. Sit-Stand independent 4. Stand-Sit independent 5. Bed-Chair independent 6. Chair-Bed independent 7. Gait on level surface ambulation with use of least restrictive device for at least 300 feet without report of pain nor dyspnea 8. Stairs independent while holding onto bilateral rails for at least 10 steps without report of pain nor dyspnea 9. Independent with home exercise program 10. Balance good for static and dynamic standing Plan of Care/Treatment Plan: 1-2x/day, 7 days/week x 1 week. Plan of care has been reviewed with the INFORMATION SYSTEMS TECHNICIAN providing the service under Physical Therapy direction. Initiate Physical Therapy intervention for strengthening, bed mobility, transfers, gait, stairs, balance training, use of assistive device. DISCHARGE RECOMMENDATIONS: Patient will benefit from home health physical therapy services in order to maximize functional mobility level, reassess home safety, improve activity tolerance, facilitate caregiver/family education and training, and establish/implement a functional maintenance program to increase ability to remain at home with caregiver Makayla. May require a front wheeled walker for return to home. TREATMENT CODE/TIME: 9716 225 minutes, 66746 25 minutes, beginning at 13:04 PM. Thank you for this referral. Moni Richardson, PT, DPT, CLT [facility]
[2018-09-11] MEDS: Omeprazole 20 MG CAPCR 40 MG PO (21:13)
[2018-09-11] MEDS: Enoxaparin 40 MG/0.4 ML SYR SC (21:14)
[2018-09-11] MEDS: LORazepam 0.5 MG TAB PO (21:14)
[2018-09-12] VITALS (9 sets, daily range): BP systolic 153–181; BP diastolic 72–103; PULSE 71–88; RESP 16–24; TEMP 36–37.3; O2SAT 93–97
[2018-09-12] MEDS: Budesonide 0.5 MG/2 ML UPD VIAL UPD ×2 (06:01→18:37)
[2018-09-12 07:10] LABS: Abs Immature Grans 0.04 k/cumm (0.0-0.09); Absolute Basophil Count 0.02 k/cumm (0.0-0.2); Absolute Eosinophil Count 0.02 k/cumm (0.0-0.7); Absolute Lymphocyte Count 0.87 k/cumm (1.2-3.4); Absolute Monocyte Count 0.52 k/cumm (0.11-0.7); Absolute Neutrophil Count 5.89 k/cumm (1.2-6.7); Basophils % 0.3; Eosinophils % 0.3; HCT 46.7 % (36.0-46.0); HGB 14.7 g/dL (12.0-15.5); Immature Grans % 0.5; Lymphocytes % 11.8; Mean Corp. HGB Concentration 31.5 g/dL (32.0-36.0); Mean Corpuscular Hemoglobin 29.9 pg (27.0-33.0); Mean Corpuscular Volume 94.9 fL (80-95); Mean Platelet Volume 11.3 fL (8.0-11.0); Monocytes % 7.1; Platelet Count 197 x1000/uL (130-400); RBC 4.92 m/cumm (4.00-5.20); RBC Distribution Width 14.9 % (11.7-14.6); White Blood Cell Count 7.36 k/cumm (4.4-10.8)
[2018-09-12 07:37] LABS: Anion Gap 5.2 mmol/L (3-11); BUN 26 mg/dL (7-18); CO2 31.8 mmol/L (21.0-32.0); CREATININE 0.68 mg/dL (0.55-1.02); Calcium 8.5 mg/dL (8.5-10.1); Chloride 110 mmol/L (98-107); Glucose 143 mg/dL (70-100); Magnesium 2.3 mg/dL (1.8-2.4); Potassium 4.2 mmol/L (3.5-5.1); Sodium 147 mmol/L (136-145)
[2018-09-12] MEDS: QUEtiapine 25 MG TAB PO ×2 (08:38→19:07)
[2018-09-12] MEDS: Normal Saline Flush 10 ML SYR IVP (08:56)
[2018-09-12] MEDS: methylPREDNISolone SUCC 40 MG VIAL IVP (08:56)
[2018-09-12] MEDS: amLODIPine 5 MG TAB 10 MG PO (09:23)
--- NOTE | 2018-09-12 10:42 | PDOC.CMPRO ---
- If Service Date Differs Date of service: 09/12/18 Time of Service: 10:42 Care Management Progress Note S/O: Sherine is lying in bed when this contract technical writer visits this morning. CM spoke with Sherine's caregiver Makayla to notify that she is a 2 assist at this time and may require a SNF stay prior to returning home. CM spoke with Jayne's daughter/guardian Chen to discuss DC plans. Chen states that the preferred plan would be for Sherine to return to Makayla's however that she is receptive to CM sending referrals to [facility] and [facility]. 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 A: 73 year old female admitted to [facility] 09/06/18 for Acute COPD Exacerbation P: ? SNF placement at time of DC. Referrals sent to [facility] and [facility].
[2018-09-12] MEDS: Normal Saline 1,000 ML 75 ML IV ×2 (10:50→22:28)
--- NOTE | 2018-09-12 11:50 | PT.INTREAT ---
Date of service: 09/12/18 Time of Service: 11:50 PT Notes Inpatient Physical Therapy Treatment Note [facility] Date: 09/12/18 PRECAUTIONS: Fall, dementia SUBJECTIVE: Jose Alejandro is pleasant and agreeable to participating in PT. OBJECTIVE: PAIN: No c/o pain BED MOBILITY/TRANSFERS Rolling L/R: Mod A Supine-sit: Min A Sit-stand: Min A x2 in a.m.; CGA in p.m. Stand-sit: Min A x2 in a.m.; CGA in p.m. GAIT Assistive Device: SUPERVISOR ENGINE ASSEMBLY x2 Weight bearing: Full Assist: CGA x2 Distance: 100' x2 in a.m.; 200' in p.m. Static standing x1 minute with SUPERVISOR ENGINE ASSEMBLY x2 and CGA x2 in a.m.; static standing x3 minutes with SUPERVISOR ENGINE ASSEMBLY x2 and CGA x2 in p.m. STAIRS: Up 3x4 and down 2x6 using 1 rail/SUPERVISOR ENGINE ASSEMBLY and a step to pattern with CGA THEREX: Patient completed ankle pump exercise x20 ASSESSMENT: Patient tolerated session well, without complaint. Patient needs significant verbal and occasional tactile cueing due to confusion, although is easily redirected. Patient would benefit from continued gait and transfer training, for increased independence with transfers and gait. PLAN: Continue with PT's POC TREATMENT CODE/TIME: Session 1: 35 minutes; 21221 x2 Session 2: 30 minutes; [id number] x2
--- NOTE | 2018-09-12 11:54 | PTTR_ITS ---
Date of service: 09/12/18 Time of Service: 11:50 PT Notes Inpatient Physical Therapy Treatment Note [facility] Date: 09/12/18 PRECAUTIONS: Fall, dementia SUBJECTIVE: Jose Alejandro is pleasant and agreeable to participating in PT. OBJECTIVE: PAIN: No c/o pain BED MOBILITY/TRANSFERS Rolling L/R: Mod A Supine-sit: Min A Sit-stand: Min A x2 in a.m.; CGA in p.m. Stand-sit: Min A x2 in a.m.; CGA in p.m. GAIT Assistive Device: FELT PAD CUTTER x2 Weight bearing: Full Assist: CGA x2 Distance: 100' x2 in a.m.; 200' in p.m. Static standing x1 minute with FELT PAD CUTTER x2 and CGA x2 in a.m.; static standing x3 minutes with FELT PAD CUTTER x2 and CGA x2 in p.m. STAIRS: Up 3x4 and down 2x6 using 1 rail/FELT PAD CUTTER and a step to pattern with CGA THEREX: Patient completed ankle pump exercise x20 ASSESSMENT: Patient tolerated session well, without complaint. Patient needs significant verbal and occasional tactile cueing due to confusion, although is easily redirected. Patient would benefit from continued gait and transfer training, for increased independence with transfers and gait. PLAN: Continue with PT's POC TREATMENT CODE/TIME: Session 1: 35 minutes; 93882 x2 Session 2: 30 minutes; 79533 x2
--- NOTE | 2018-09-12 14:43 | W.PM.PROGNOT ---
Date of Service Date of service: 09/12/18 Time of Service: 14:43 Assessment and Plan (1) Tracheobronchitis: Current visit: Yes Status: Acute No evidence of definitive infiltrate, although CXR with noted basilar atelectasis. Patient however presented with low grade fevers, hypoxia, tachycardia, tachypnea, and elevated lactate. Suspect either bacterial Tracheobronchitis or Pneumonia. Patient was on Doxycycline as outpatient, and had Ceftriaxone added to her regimen - now concluded antibiotic therapy with a 7day course of Doxy and 5 days total of Ceftriaxone. Blood cultures remain negative X120 hours. Continue but wean steroids as patient appears to have an acute exacerbation of likely underlying COPD. Speech evaluation provided and diet changed accordingly to ensure lack of aspiration/dysphagia given underlying Parkinsonism. Continue nebs. Influenza checked and negative. (2) COPD (chronic obstructive pulmonary disease): Current visit: Yes Status: Suspected Treatment as above. (3) Alzheimer's dementia: Current visit: No Status: Chronic Underlying dementia noted. Apparent concurrent neuropsychiatric symptoms as well as underlying history of anxiety and bipolar disorder. Continue home regimen of low dose Lorazepam, Seroquel, and Trazodone. 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 (5) GERD (gastroesophageal reflux disease): Current visit: No Status: Chronic Continue PPI therapy. (6) DVT prophylaxis: Current visit: Yes Status: Acute SC Lovenox. (7) Advanced directives, counseling/discussion: Current visit: Yes Status: Acute Full Code. DPOA (children) live out of state - Full Code status is accurate per prior discussion with caregiver. Subjective Interval history since last seen: 73 year old woman with a prior history of tobacco abuse and dementia, admitted from [facility] Emergency Department with a diagnosis of COPD exacerbation in the setting of potential bacterial Tracheobronchitis. Ms. 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 She lives with a caregiver due to her disability from Parkinsonism - she reportedly has ambulatory dysfunction, tremors, and inability to bathe or feed herself. She also has cognitive dysfunction in the form of Alzheimer's Dementia. She presented to the ED with complaints of a worsening cough over the prior week, with reported purulent appearing sputum, low grade fevers, and dyspnea. She saw her PCP last and was prescribed doxycycline, but with reported continued symptoms despite this. Upon evaluation she was found to be tachycardic, tachypneic, and hypoxic, with an elevated lactate. The remainder of her blood work was unremarkable, as was her CXR. The patient was admitted for further evaluation and treatment. Ms. Osorio initially required BiPAP, but has since improved and remains on supplemental oxygen only. Her exam has improved as well with treatment including antibiotics, steroids, and nebs. She also received a dose of diuretic therapy previously. She is now working with PT, and beginning to ambulate. No overnight events reported. Remains afebrile. Exam Narrative Exam Narrative: General: Patient appears comfortable, asleep but easily arousable. Oriented to person only. NAD. Neck: Supple CV: Distant heart sounds. Regular, nontachycardic, S1S2, No rubs, murmurs, or gallops. Pulmonary: Improved air entry, with wheezing resolved. Mild persistent left basilar crackles. Abdomen: + Bowel Sounds, soft, nontender, nondistended Vascular: No lower extremity edema Objective Objective Clinical Data: Abnormal lab results 09/12/18 09/12/18 Range/Units 06:40 06:40 Hct 46.7 H (36.0-46.0) % MCHC 31.5 L (32.0-36.0) g/dL RDW 14.9 H (11.7-14.6) % MPV 11.3 H (8.0-11.0) fL Absolute Lymphocytes 0.87 L (1.2-3.4) k/cumm Sodium 147 H (136-145) mmol/L Chloride 110 H (98-107) mmol/L BUN 26 H (7-18) mg/dL Glucose 143 H (70-100) mg/dL Vital Signs Temperature 36.7 C 09/12/18 11:29 Temperature Source Tympanic 09/12/18 11:29 Pulse 77 09/12/18 11:29 Pulse Rhythm Regular 09/12/18 08:56 Pulse 107 H 09/10/18 14:41 Respiratory Rate 18 09/12/18 11:29 Respiratory Effort Non-Labored 09/12/18 08:56 Respiratory Depth Shallow 09/12/18 08:56 Respiratory Pattern Normal 09/12/18 08:56 Blood Pressure 155/72 H 09/12/18 11:29 Blood Pressure Mean 107 09/10/18 14:41 Blood Pressure Position Supine 09/08/18 00:00 Pulse Oximetry 96 09/12/18 14:25 Oxygen Delivery Method Nasal Cannula 09/12/18 14:25 Oxygen Flow Rate 2 09/12/18 14:25 Fraction of Inspired Oxygen (FIO2) 30 09/07/18 10:22 Pain Level 0 09/12/18 03:50 Comment 09/12/18 03:50 Intake & Output 09/11/18 09/12/18 09/12/18 23:59 11:59 23:59 Intake Total 1390 / 1510 1360 / 1480 120 / 1480 Balance 1390 / 1510 1360 / 1480 120 / 1480 Weight 53.2 kg Intake: IV 850 / 850 1000 / 1000 Oral 540 / 660 360 / 480 120 / 480 Other: Urine Color Yellow Yellow Urine Appearance Clear Cloudy Urine Odor Normal None Stool Size Moderate Moderate Stool Characteristics Soft Soft Brown Formed Voiding Methods Diaper Diaper Diaper Incontinent Incontinent Incontinent Laboratory Results WBC 7.36 k/cumm (4.4-10.8) 09/12/18 06:40 RBC 4.92 m/cumm (4.00-5.20) 09/12/18 06:40 Hgb 14.7 g/dL (12.0-15.5) 09/12/18 06:40 Hct 46.7 % (36.0-46.0) H 09/12/18 06:40 MCV 94.9 fL (80-95) 09/12/18 06:40 MCH 29.9 pg (27.0-33.0) 09/12/18 06:40 MCHC 31.5 g/dL (32.0-36.0) L 09/12/18 06:40 RDW 14.9 % (11.7-14.6) H 09/12/18 06:40 Plt Count 197 x1000/uL (130-400) 09/12/18 06:40 MPV 11.3 fL (8.0-11.0) H 09/12/18 06:40 Immature Gran % 0.5 09/12/18 06:40 Neutrophils % 80.0 09/12/18 06:40 Lymphocytes % 11.8 09/12/18 06:40 Monocytes % 7.1 09/12/18 06:40 Eosinophils % 0.3 09/12/18 06:40 Basophils % 0.3 09/12/18 06:40 Absolute Neutrophils 5.89 k/cumm (1.2-6.7) 09/12/18 06:40 Absolute Lymphocytes 0.87 k/cumm (1.2-3.4) L 09/12/18 06:40 Absolute Monocytes 0.52 k/cumm (0.11-0.7) 09/12/18 06:40 Absolute Eosinophils 0.02 k/cumm (0.0-0.7) 09/12/18 06:40 Absolute Basophils 0.02 k/cumm (0.0-0.2) 09/12/18 06:40 Sodium 147 mmol/L (136-145) H 09/12/18 06:40 Potassium 4.2 mmol/L (3.5-5.1) 09/12/18 06:40 Chloride 110 mmol/L (98-107) H 09/12/18 06:40 Carbon Dioxide 31.8 mmol/L (21.0-32.0) 09/12/18 06:40 Anion Gap 5.2 mmol/L (3-11) 09/12/18 06:40 BUN 26 mg/dL (7-18) H 09/12/18 06:40 Creatinine 0.68 mg/dL (0.55-1.02) 09/12/18 06:40 Estimated GFR/1.73 m2 >= 60.00 (mL/min/1.73m2) 09/12/18 06:40 Glucose 143 mg/dL (70-100) H 09/12/18 06:40 Lactate 1.5 mmol/l (0.6-1.4) H 09/07/18 14:37 Calcium 8.5 mg/dL (8.5-10.1) 09/12/18 06:40 Magnesium 2.3 mg/dL (1.8-2.4) 09/12/18 06:40 Total Bilirubin 0.3 mg/dL (0.2-1.0) 09/06/18 17:30 AST 23 U/L (15-37) 09/06/18 17:30 ALT 29 U/L (12-78) 09/06/18 17:30 Alkaline Phosphatase 171 U/L (46-116) H 09/06/18 17:30 Troponin I < 0.02 ng/mL (0.00-0.06) 09/06/18 23:00 NT-Pro-B Natriuret Pep 568 pg/mL (-299) H 09/06/18 17:30 Total Protein 8.2 g/dL (6.4-8.2) 09/06/18 17:30 Albumin 3.8 g/dL (3.4-5.0) 09/06/18 17:30
[2018-09-12] MEDS: predniSONE 20 MG TAB 40 MG PO (19:07)
[2018-09-12] MEDS: LORazepam 0.5 MG TAB PO (21:39)
[2018-09-12] MEDS: Omeprazole 20 MG CAPCR 40 MG PO (21:39)
[2018-09-12] MEDS: Enoxaparin 40 MG/0.4 ML SYR SC (21:39)
[2018-09-13] VITALS (10 sets, daily range): BP systolic 126–165; BP diastolic 72–100; PULSE 66–98; RESP 18–20; TEMP 36.2–36.8; O2SAT 90–97
[2018-09-13] MEDS: Budesonide 0.5 MG/2 ML UPD VIAL UPD ×2 (06:15→17:57)
[2018-09-13 07:04] LABS: Abs Immature Grans 0.05 k/cumm (0.0-0.09); Absolute Basophil Count 0.01 k/cumm (0.0-0.2); Absolute Monocyte Count 0.56 k/cumm (0.11-0.7); Absolute Neutrophil Count 6.72 k/cumm (1.2-6.7); Basophils % 0.1; HCT 45.7 % (36.0-46.0); HGB 14.5 g/dL (12.0-15.5); Immature Grans % 0.6; Mean Corp. HGB Concentration 31.7 g/dL (32.0-36.0); Mean Corpuscular Hemoglobin 30.3 pg (27.0-33.0); Mean Corpuscular Volume 95.4 fL (80-95); Monocytes % 6.7; Neutrophils % 80.6; Platelet Count 188 x1000/uL (130-400); RBC 4.79 m/cumm (4.00-5.20); RBC Distribution Width 14.8 % (11.7-14.6); White Blood Cell Count 8.34 k/cumm (4.4-10.8)
[2018-09-13 07:12] LABS: Anion Gap 5.5 mmol/L (3-11); BUN 24 mg/dL (7-18); CO2 32.5 mmol/L (21.0-32.0); CREATININE 0.55 mg/dL (0.55-1.02); Calcium 8.6 mg/dL (8.5-10.1); Chloride 107 mmol/L (98-107); Glucose 129 mg/dL (70-100); Magnesium 2.2 mg/dL (1.8-2.4); Potassium 4.6 mmol/L (3.5-5.1); Sodium 145 mmol/L (136-145)
[2018-09-13] MEDS: Acetaminophen Solution 650 MG/20.3 ML CUP PO (08:48)
[2018-09-13] MEDS: predniSONE 20 MG TAB 40 MG PO ×2 (08:49→20:18)
[2018-09-13] MEDS: amLODIPine 5 MG TAB 10 MG PO (08:49)
[2018-09-13] MEDS: QUEtiapine 25 MG TAB PO ×2 (09:20→20:18)
--- NOTE | 2018-09-13 10:32 | PT.INTREAT ---
Date of service: 09/13/18 Time of Service: 10:32 PT Notes Inpatient Physical Therapy Treatment Note [facility] Date: 09/13/18 PRECAUTIONS: Fall, Dementia SUBJECTIVE: Jose Alejandro states that she had a good nights sleep and feels good this morning. OBJECTIVE: PAIN: No c/o pain BED MOBILITY/TRANSFERS Supine-sit: Mod A Sit-stand: Min A x2 Stand-sit: Min A x2 GAIT Assistive Device: SECURITY ROVER x2 Weight bearing: Full Assist: CGA x2 Distance: 400' THEREX: Patient performed ankle pump and SAQ exercises, although was unable to follow further instruction. ASSESSMENT: Patient tolerated a progression in gait distance. She would benefit from continued gait and transfer training for continued improvement in activity tolerance. PLAN: Continue with PT's POC TREATMENT CODE/TIME: 25 minutes; 16636 x2
--- NOTE | 2018-09-13 12:32 | W.PM.PROGNOT ---
Date of Service Date of service: 09/13/18 Time of Service: 12:36 Assessment and Plan (1) Tracheobronchitis: Current visit: Yes Status: Acute No evidence of definitive infiltrate, although CXR with noted basilar atelectasis. Patient however presented with low grade fevers, hypoxia, tachycardia, tachypnea, and elevated lactate. Suspect either bacterial Tracheobronchitis or Pneumonia. Concluded antibiotic therapy of doxycycline and ceftriaxone after 7 days of doxy and 5 of ceftriaxone. Blood cultures were negative. Continue to wean steroids from COPD exacerbation. Currently 91% on RA (2) COPD (chronic obstructive pulmonary disease): Start date: 09/13/18 Start time: 12:35 Current visit: Yes Status: Suspected Treatment as above. (3) Alzheimer's dementia: Start date: 09/13/18 Start time: 12:35 Current visit: No Status: Chronic Underlying dementia noted. Apparent concurrent neuropsychiatric symptoms as well as underlying history of anxiety and bipolar disorder. Continue home regimen of low dose Lorazepam, Seroquel, and Trazodone. Does not really answer questions, vaguely states yes and no to random questions, not really eating or drinking at this time. Will continue IVF until patient drinking. (4) Drug-induced Parkinsonism: Start date: 09/13/18 Start time: 12:35 Current visit: No Status: Chronic Noted. (5) GERD (gastroesophageal reflux disease): Start date: 09/13/18 Start time: 12:35 Current visit: No Status: Chronic Continue PPI therapy. (6) DVT prophylaxis: Start date: 09/13/18 Start time: 12:35 Current visit: Yes Status: Acute SC Lovenox. (7) Advanced directives, counseling/discussion: Start date: 09/13/18 Start time: 12:35 Current visit: Yes Status: Acute Full Code. DPOA (children) live out of state - Full Code status is accurate per prior discussion with caregiver. Subjective Patient reports: no new complaints Interval history since last seen: Ms. Osorio is a 73 y.o F with PMH of depression, dementia, Bipolar, who was admitted for pnuemonia and COPD. She finished a 7 day course of doxycycline and 5 day course of Ceftriaxone. Today she is sleeping when entering the room. When asked questions she vaguely states yes or no. She is a poor indicator of what is going on as she will answer yes or no to any question. She does not follow commands very well, when asked to take a deep breath several times she states ok but does not even when demonstrating what to do she does not follow commands. Her lungs are clear from what could be heard, she is afebrile and oxygen level on RA is 91%. She does not appear in any distress. She is on prednisone PO BID and will be tapered slowly. IVF continued as per nursing she is not taking much PO, encourage food and fluid, she is however working with PT/OT and getting out of bed and to the shower. Exam Const General: cooperative and no acute distress Nutritional Appearance: thin Orientation: alert, awake and confused Neck Lymphatic: no lymphadenopathy noted and no lymphedema noted Resp Effort & Inspection: normal respiratory effort and able to speak in complete sentences Auscultation: clear to auscultation bilaterally Cardio Jugular venous pressure: no JVD Rate: regular rate Rhythm: regular rhythm Heart Sounds: S1 normal and S2 normal GI Inspection: normal to inspection Auscultation: normal bowel sounds Skin General skin exam: no rashes or lesions noted Neuro General: alert and awake Cognition: abnormal cognition Extrem General: normal to inspection Objective Objective Clinical Data: Abnormal lab results 09/13/18 09/13/18 Range/Units 06:35 06:35 MCV 95.4 H (80-95) fL MCHC 31.7 L (32.0-36.0) g/dL RDW 14.8 H (11.7-14.6) % Absolute Neutrophils 6.72 H (1.2-6.7) k/cumm Absolute Lymphocytes 1.00 L (1.2-3.4) k/cumm Carbon Dioxide 32.5 H (21.0-32.0) mmol/L BUN 24 H (7-18) mg/dL Glucose 129 H (70-100) mg/dL Vital Signs Temperature 36.3 C L 09/13/18 07:32 Temperature Source Tympanic 09/13/18 07:32 Pulse 68 09/13/18 07:32 Pulse Rhythm Regular 09/13/18 07:45 Pulse 107 H 09/10/18 14:41 Respiratory Rate 18 09/13/18 07:32 Respiratory Effort 09/13/18 07:45 Respiratory Depth Normal 09/13/18 07:45 Respiratory Pattern Normal 09/13/18 07:45 Blood Pressure 148/89 H 09/13/18 07:32 Blood Pressure Mean 107 09/10/18 14:41 Blood Pressure Position Supine 09/08/18 00:00 Pulse Oximetry 90 L 09/13/18 10:30 Oxygen Delivery Method Room Air 09/13/18 10:30 Oxygen Flow Rate 0 09/13/18 10:30 Fraction of Inspired Oxygen (FIO2) 30 09/07/18 10:22 Pain Level 0 09/12/18 03:50 Comment 09/13/18 07:32 Intake & Output 09/12/18 09/13/18 09/13/18 23:59 11:59 23:59 Intake Total 1232.5 / 2592.5 240 / 240 Balance 1232.5 / 2592.5 240 / 240 Weight 54.5 kg Intake: IV 872.5 / 1872.5 Oral 360 / 720 240 / 240 Other: Urine Color Yellow Comment Incontinent of a large amount Voiding Methods Diaper Diaper Incontinent Incontinent Laboratory Results WBC 8.34 k/cumm (4.4-10.8) 09/13/18 06:35 RBC 4.79 m/cumm (4.00-5.20) 09/13/18 06:35 Hgb 14.5 g/dL (12.0-15.5) 09/13/18 06:35 Hct 45.7 % (36.0-46.0) 09/13/18 06:35 MCV 95.4 fL (80-95) H 09/13/18 06:35 MCH 30.3 pg (27.0-33.0) 09/13/18 06:35 MCHC 31.7 g/dL (32.0-36.0) L 09/13/18 06:35 RDW 14.8 % (11.7-14.6) H 09/13/18 06:35 Plt Count 188 x1000/uL (130-400) 09/13/18 06:35 MPV 11.0 fL (8.0-11.0) 09/13/18 06:35 Immature Gran % 0.6 09/13/18 06:35 Neutrophils % 80.6 09/13/18 06:35 Lymphocytes % 12.0 09/13/18 06:35 Monocytes % 6.7 09/13/18 06:35 Eosinophils % 0.0 09/13/18 06:35 Basophils % 0.1 09/13/18 06:35 Absolute Neutrophils 6.72 k/cumm (1.2-6.7) H 09/13/18 06:35 Absolute Lymphocytes 1.00 k/cumm (1.2-3.4) L 09/13/18 06:35 Absolute Monocytes 0.56 k/cumm (0.11-0.7) 09/13/18 06:35 Absolute Eosinophils 0.00 k/cumm (0.0-0.7) 09/13/18 06:35 Absolute Basophils 0.01 k/cumm (0.0-0.2) 09/13/18 06:35 Sodium 145 mmol/L (136-145) 09/13/18 06:35 Potassium 4.6 mmol/L (3.5-5.1) 09/13/18 06:35 Chloride 107 mmol/L (98-107) 09/13/18 06:35 Carbon Dioxide 32.5 mmol/L (21.0-32.0) H 09/13/18 06:35 Anion Gap 5.5 mmol/L (3-11) 09/13/18 06:35 BUN 24 mg/dL (7-18) H 09/13/18 06:35 Creatinine 0.55 mg/dL (0.55-1.02) 09/13/18 06:35 Estimated GFR/1.73 m2 >= 60.00 (mL/min/1.73m2) 09/13/18 06:35 Glucose 129 mg/dL (70-100) H 09/13/18 06:35 Lactate 1.5 mmol/l (0.6-1.4) H 09/07/18 14:37 Calcium 8.6 mg/dL (8.5-10.1) 09/13/18 06:35 Magnesium 2.2 mg/dL (1.8-2.4) 09/13/18 06:35 Total Bilirubin 0.3 mg/dL (0.2-1.0) 09/06/18 17:30 AST 23 U/L (15-37) 09/06/18 17:30 ALT 29 U/L (12-78) 09/06/18 17:30 Alkaline Phosphatase 171 U/L (46-116) H 09/06/18 17:30 Troponin I < 0.02 ng/mL (0.00-0.06) 09/06/18 23:00 NT-Pro-B Natriuret Pep 568 pg/mL (-299) H 09/06/18 17:30 Total Protein 8.2 g/dL (6.4-8.2) 09/06/18 17:30 Albumin 3.8 g/dL (3.4-5.0) 09/06/18 17:30
[2018-09-13] MEDS: traZODone 50 MG TAB PO (13:25)
--- NOTE | 2018-09-13 16:53 | PDOC.CMPRO ---
Care Management Progress Note S/O: Sherine is lying in bed when CM enters; she remains pleasantly confused. CM spoke with Sherine's caregiver Makayla to notify that she is a 2 assist at this time and may require a SNF stay prior to returning home. CM spoke with Jayne's daughter/guardian Chen to discuss DC plans. Chen states that the preferred plan would be for Sherine to return to [facility]'s however that she is receptive to CM sending referrals to [facility] and [facility]. 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 A: 73 year old female admitted to [facility] 09/06/18 for Acute COPD Exacerbation P: Jayne will return to her caregiver; Makayla's home when ready per MD. Due to Sherine requiring two assist with ambulation, placement is also being coordinated in the event SNF is recommended upon discharge; referrals faxed to [facility] as well as the [facility] awaiting determination 09/15/18.
--- NOTE | 2018-09-13 16:57 | CMPROGNOTE_ITS ---
Care Management Progress Note S/O: Sherine is lying in bed when CM enters; she remains pleasantly confused. CM spoke with Sherine's caregiver Makayla to notify that she is a 2 assist at this time and may require a SNF stay prior to returning home. CM spoke with Jayne's daughter/guardian Chen to discuss DC plans. Chen states that the preferred plan would be for Sherine to return to [facility]'s however that she is receptive to CM sending referrals to [facility] and [facility]. 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 A: 73 year old female admitted to [facility] 09/06/18 for Acute COPD Exacerbation P: Jayne will return to her caregiver; Makayla's home when ready per MD. Due to Sherine requiring two assist with ambulation, placement is also being coordinated in the event SNF is recommended upon discharge; referrals faxed to [facility] as well as the [facility] awaiting determination 09/15/18.
[2018-09-13] MEDS: Enoxaparin 40 MG/0.4 ML SYR SC (20:18)
[2018-09-13] MEDS: LORazepam 0.5 MG TAB PO (21:35)
[2018-09-13] MEDS: Omeprazole 20 MG CAPCR 40 MG PO (21:35)
[2018-09-14] VITALS (9 sets, daily range): BP systolic 120–165; BP diastolic 79–90; PULSE 77–103; RESP 16–19; TEMP 36.6–36.7; O2SAT 80–94
[2018-09-14] MEDS: Budesonide 0.5 MG/2 ML UPD VIAL UPD ×2 (05:23→18:17)
[2018-09-14 07:05] LABS: Abs Immature Grans 0.06 k/cumm (0.0-0.09); Absolute Basophil Count 0.01 k/cumm (0.0-0.2); Absolute Monocyte Count 0.82 k/cumm (0.11-0.7); Absolute Neutrophil Count 6.85 k/cumm (1.2-6.7); Basophils % 0.1; HCT 47.6 % (36.0-46.0); HGB 15.5 g/dL (12.0-15.5); Immature Grans % 0.7; Lymphocytes % 15.3; Mean Corp. HGB Concentration 32.6 g/dL (32.0-36.0); Mean Corpuscular Hemoglobin 30.2 pg (27.0-33.0); Mean Corpuscular Volume 92.8 fL (80-95); Mean Platelet Volume 10.8 fL (8.0-11.0); Neutrophils % 74.9; Platelet Count 186 x1000/uL (130-400); RBC 5.13 m/cumm (4.00-5.20); RBC Distribution Width 14.4 % (11.7-14.6); White Blood Cell Count 9.14 k/cumm (4.4-10.8)
[2018-09-14 07:16] LABS: Anion Gap 5.2 mmol/L (3-11); BUN 23 mg/dL (7-18); CO2 32.8 mmol/L (21.0-32.0); Calcium 8.7 mg/dL (8.5-10.1); Chloride 105 mmol/L (98-107); Glucose 129 mg/dL (70-100); Magnesium 2.1 mg/dL (1.8-2.4); Sodium 143 mmol/L (136-145)
--- NOTE | 2018-09-14 08:14 | CMPROGNOTE_ITS ---
Care Management Progress Note S/O: Sherine remains pleasantly confused, she has referrals pending for SNF, her guardian and daughter's preference would be for Sherine to return to [facility]' if clinically able. CM met with PT and ROAD MENDER who felt Sherine would be ready to discharge back to her caregiver's home tomorrow, if stable through the night. CM attempted to notify caregiver Makayla without success, Chen, Sherine's daughter did return this functional tester typewriters's voicemail, was agreeable to discharge plan and reported she would outreach to Makayla to notify as well. CM will continue to follow. A: 73 year old female admitted to [facility] 09/06/18 for Acute COPD Exacerbation P: Jayne will return to her caregiver; Makayla's home when ready per MD, anticipated discharge tomorrow; 09/15/18. Sherine will transport via private vehicle with Makalya.
[2018-09-14] MEDS: QUEtiapine 25 MG TAB PO ×2 (09:20→20:48)
[2018-09-14] MEDS: predniSONE 20 MG TAB 40 MG PO ×2 (09:21→20:48)
[2018-09-14] MEDS: amLODIPine 5 MG TAB 10 MG PO (09:21)
--- NOTE | 2018-09-14 09:45 | DI.RAD_ITS ---
SYMPTOM/DIAGNOSIS: CRACKLES FRONTAL AND LATERAL CHEST: Comparison is made with 09/06/18. Heart size is within normal limits. There is tortuosity of the thoracic aorta. Pulmonary vasculature is otherwise unremarkable. There is linear atelectasis or scarring again seen in the right lung base. No focal consolidating infiltrates, effusions or pneumothoraces are identified. The bones are intact. There is a scoliotic curvature of the thoracolumbar spine again noted. IMPRESSION: No acute pulmonary process.
--- NOTE | 2018-09-14 10:25 | DI.VRAD_ITS ---
EXAM: XR Chest, 2 Views EXAM DATE/TIME: 09/14/2018 9:46 AM CLINICAL HISTORY: 73 years old, female; Signs and symptoms; Other: Crackles TECHNIQUE: Imaging protocol: XR of the chest, 2 views. COMPARISON: CR XR CHEST 2V PA LATERAL 09/06/2018 5:57 PM FINDINGS: Lungs: Unremarkable. No consolidation. Pleural space: Unremarkable. No pleural effusion. No pneumothorax. Heart/Mediastinum: Stable cardiac silhouette Diaphragm: Elevated right hemidiaphragm Vasculature: Tortuous aorta Bones/joints: Stable IMPRESSION: No acute process Dictated and Authenticated by: Nicholas Trejo MD. Ordering:MADELAINE Lazaro MD
--- NOTE | 2018-09-14 11:23 | W.PM.PROGNOT ---
Date of Service Date of service: 09/14/18 Time of Service: 11: Assessment and Plan (1) Tracheobronchitis: Start date: 09/14/18 Start time: 11:25 Current visit: Yes Status: Acute Resolved (2) COPD (chronic obstructive pulmonary disease): Start date: 09/14/18 Start time: 11:26 Current visit: Yes Status: Suspected Received a 7 day treatment of antibiotics for pneumonia, continue to taper steroids for exacerbation (3) Alzheimer's dementia: Start date: 09/14/18 Start time: 11: Current visit: No Status: Chronic Underlying dementia noted. Apparent concurrent neuropsychiatric symptoms as well as underlying history of anxiety and bipolar disorder. Continue home regimen of low dose Lorazepam, Seroquel, and Trazodone. Does not really answer questions, vaguely states yes and no to random questions, continue to encourage PO intake, does need to be fed. (4) Drug-induced Parkinsonism: Start date: 09/14/18 Start time: 11: Current visit: No Status: Chronic Noted. (5) GERD (gastroesophageal reflux disease): Start date: 09/14/18 Start time: 11:28 Current visit: No Status: Chronic Continue PPI therapy. (6) DVT prophylaxis: Start date: 09/14/18 Start time: 11:28 Current visit: Yes Status: Acute SC Lovenox. (7) Advanced directives, counseling/discussion: Start date: 09/14/18 Start time: 11:31 Current visit: Yes Status: Acute Full Code. DPOA (children) live out of state - Full Code status is accurate per prior discussion with caregiver. Subjective Patient reports: no new complaints Interval history since last seen: Ms. Osorio is a 73 y.o F with PMH of depression, dementia, Bipolar, who was admitted for pnuemonia and COPD. She finished a 7 day course of doxycycline and 5 day course of Ceftriaxone. She is being tapered on steroids for COPD, she does have confusion from her dementia and does not answer questions appropriatley. Her lungs are clear. She is not requiring oxygen. Per PT she is at baseline and she could be discharged tomorrow home with her caregivers. Exam Const General: cooperative and no acute distress Nutritional Appearance: thin Orientation: alert, awake and confused Neck Lymphatic: no lymphadenopathy noted and no lymphedema noted Resp Effort & Inspection: normal respiratory effort and able to speak in complete sentences Auscultation: clear to auscultation bilaterally Cardio Jugular venous pressure: no JVD Rate: regular rate Rhythm: regular rhythm Heart Sounds: S1 normal and S2 normal GI Inspection: normal to inspection Auscultation: normal bowel sounds Skin General skin exam: no rashes or lesions noted Neuro General: alert and awake Cognition: abnormal cognition Extrem General: normal to inspection Objective Objective Clinical Data: Abnormal lab results 09/14/18 09/14/18 Range/Units 06:30 06:30 Hct 47.6 H (36.0-46.0) % Absolute Neutrophils 6.85 H (1.2-6.7) k/cumm Absolute Monocytes 0.82 H (0.11-0.7) k/cumm Carbon Dioxide 32.8 H (21.0-32.0) mmol/L BUN 23 H (7-18) mg/dL Glucose 129 H (70-100) mg/dL Vital Signs Temperature 36.7 C 09/14/18 07:51 Temperature Source Tympanic 09/14/18 07:51 Pulse 83 09/14/18 07:51 Pulse Rhythm Regular 09/13/18 22:17 Pulse 107 H 09/10/18 14:41 Respiratory Rate 19 09/14/18 07:51 Respiratory Effort Non-Labored 09/13/18 22:17 Respiratory Depth Normal 09/13/18 22:17 Respiratory Pattern Normal 09/13/18 07:45 Blood Pressure 162/89 H 09/14/18 07:51 Blood Pressure Mean 107 09/10/18 14:41 Blood Pressure Position Supine 09/08/18 00:00 Pulse Oximetry 91 L 09/14/18 10:05 Oxygen Delivery Method Room Air 09/14/18 10:05 Oxygen Flow Rate 0 09/14/18 10:05 Fraction of Inspired Oxygen (FIO2) 30 09/07/18 10:22 Pain Level 0 09/14/18 03:10 Comment 09/14/18 03:10 Intake & Output 09/13/18 09/13/18 09/14/18 11:59 23:59 11:59 Intake Total 240 / 710 470 / 710 450 / 450 Balance 240 / 710 470 / 710 450 / 450 Weight 54.5 kg 54.6 kg Intake: Oral 240 / 710 470 / 710 450 / 450 Other: Urine Color Yellow Yellow Yellow Urine Appearance Clear Clear Comment Incontinent of a large amount pt was incontinent with voiding Stool Size Small Moderate Stool Characteristics Soft Soft Formed Voiding Methods Diaper Diaper Diaper Incontinent Incontinent Incontinent Laboratory Results WBC 9.14 k/cumm (4.4-10.8) 09/14/18 06:30 RBC 5.13 m/cumm (4.00-5.20) 09/14/18 06:30 Hgb 15.5 g/dL (12.0-15.5) 09/14/18 06:30 Hct 47.6 % (36.0-46.0) H 09/14/18 06:30 MCV 92.8 fL (80-95) 09/14/18 06:30 MCH 30.2 pg (27.0-33.0) 09/14/18 06:30 MCHC 32.6 g/dL (32.0-36.0) 09/14/18 06:30 RDW 14.4 % (11.7-14.6) 09/14/18 06:30 Plt Count 186 x1000/uL (130-400) 09/14/18 06:30 MPV 10.8 fL (8.0-11.0) 09/14/18 06:30 Immature Gran % 0.7 09/14/18 06:30 Neutrophils % 74.9 09/14/18 06:30 Lymphocytes % 15.3 09/14/18 06:30 Monocytes % 9.0 09/14/18 06:30 Eosinophils % 0.0 09/14/18 06:30 Basophils % 0.1 09/14/18 06:30 Absolute Neutrophils 6.85 k/cumm (1.2-6.7) H 09/14/18 06:30 Absolute Lymphocytes 1.40 k/cumm (1.2-3.4) 09/14/18 06:30 Absolute Monocytes 0.82 k/cumm (0.11-0.7) H 09/14/18 06:30 Absolute Eosinophils 0.00 k/cumm (0.0-0.7) 09/14/18 06:30 Absolute Basophils 0.01 k/cumm (0.0-0.2) 09/14/18 06:30 Sodium 143 mmol/L (136-145) 09/14/18 06:30 Potassium 4.0 mmol/L (3.5-5.1) 09/14/18 06:30 Chloride 105 mmol/L (98-107) 09/14/18 06:30 Carbon Dioxide 32.8 mmol/L (21.0-32.0) H 09/14/18 06:30 Anion Gap 5.2 mmol/L (3-11) 09/14/18 06:30 BUN 23 mg/dL (7-18) H 09/14/18 06:30 Creatinine 0.60 mg/dL (0.55-1.02) 09/14/18 06:30 Estimated GFR/1.73 m2 >= 60.00 (mL/min/1.73m2) 09/14/18 06:30 Glucose 129 mg/dL (70-100) H 09/14/18 06:30 Lactate 1.5 mmol/l (0.6-1.4) H 09/07/18 14:37 Calcium 8.7 mg/dL (8.5-10.1) 09/14/18 06:30 Magnesium 2.1 mg/dL (1.8-2.4) 09/14/18 06:30 Total Bilirubin 0.3 mg/dL (0.2-1.0) 09/06/18 17:30 AST 23 U/L (15-37) 09/06/18 17:30 ALT 29 U/L (12-78) 09/06/18 17:30 Alkaline Phosphatase 171 U/L (46-116) H 09/06/18 17:30 Troponin I < 0.02 ng/mL (0.00-0.06) 09/06/18 23:00 NT-Pro-B Natriuret Pep 568 pg/mL (-299) H 09/06/18 17:30 Total Protein 8.2 g/dL (6.4-8.2) 09/06/18 17:30 Albumin 3.8 g/dL (3.4-5.0) 09/06/18 17:30
[2018-09-14] MEDS: traZODone 50 MG TAB PO (12:01)
--- NOTE | 2018-09-14 12:11 | PT.INTREAT ---
Date of service: 09/14/18 Time of Service: 12:11 PT Notes Inpatient Physical Therapy Treatment Note [facility] Date: 09/14/18 PRECAUTIONS: Fall, dementia SUBJECTIVE: Jose Alejandro is agreeable to participating in PT this morning. She states that she did not sleep well last night. OBJECTIVE: PAIN: No complaints of pain. BED MOBILITY/TRANSFERS Sit?supine: Mod A Sit-stand: Mod A (due to confusion) Stand-sit: CGA GAIT Assistive Device: [employer] Weight bearing: Full Assist: CGA Distance: 150' VITALS: SaO2: 92% on RA at rest Static standing x2 minutes with [employer] and CGA ASSESSMENT: Patient tolerated session without complaint, although demonstrates confusion and inability to follow direction without tactile and max verbal cueing. PLAN: Continue with PT's POC TREATMENT CODE/TIME: 20 minutes; [id number]
--- NOTE | 2018-09-14 12:15 | PTTR_ITS ---
Date of service: 09/14/18 Time of Service: 12:11 PT Notes Inpatient Physical Therapy Treatment Note [facility] Date: 09/14/18 PRECAUTIONS: Fall, dementia SUBJECTIVE: Jose Alejandro is agreeable to participating in PT this morning. She states that she did not sleep well last night. OBJECTIVE: PAIN: No complaints of pain. BED MOBILITY/TRANSFERS Sit?supine: Mod A Sit-stand: Mod A (due to confusion) Stand-sit: CGA GAIT Assistive Device: [employer] Weight bearing: Full Assist: CGA Distance: 150' VITALS: SaO2: 92% on RA at rest Static standing x2 minutes with [employer] and CGA ASSESSMENT: Patient tolerated session without complaint, although demonstrates confusion and inability to follow direction without tactile and max verbal cueing. PLAN: Continue with PT's POC TREATMENT CODE/TIME: 20 minutes; [id number]
[2018-09-14] MEDS: Enoxaparin 40 MG/0.4 ML SYR SC (20:48)
[2018-09-14] MEDS: Omeprazole 20 MG CAPCR 40 MG PO (22:12)
[2018-09-14] MEDS: LORazepam 0.5 MG TAB PO (22:12)
[2018-09-15] VITALS (7 sets, daily range): BP systolic 111–139; BP diastolic 67–93; PULSE 56–125; RESP 16–20; TEMP 36.2–36.9; O2SAT 89–98
[2018-09-15] MEDS: Budesonide 0.5 MG/2 ML UPD VIAL UPD (05:45)
[2018-09-15 07:36] LABS: Anion Gap 6.9 mmol/L (3-11); BUN 31 mg/dL (7-18); CO2 33.1 mmol/L (21.0-32.0); CREATININE 0.74 mg/dL (0.55-1.02); Calcium 8.8 mg/dL (8.5-10.1); Chloride 109 mmol/L (98-107); Glucose 133 mg/dL (70-100); Magnesium 2.2 mg/dL (1.8-2.4); Potassium 4.5 mmol/L (3.5-5.1); Sodium 149 mmol/L (136-145)
[2018-09-15 07:45] LABS: Absolute Basophil Count 0.01 k/cumm (0.0-0.2); Absolute Lymphocyte Count 1.28 k/cumm (1.2-3.4); Absolute Monocyte Count 0.62 k/cumm (0.11-0.7); Absolute Neutrophil Count 6.69 k/cumm (1.2-6.7); Basophils % 0.1; HCT 48.4 % (36.0-46.0); HGB 16.1 g/dL (12.0-15.5); Immature Grans % 1.1; Lymphocytes % 14.7; Mean Corp. HGB Concentration 33.3 g/dL (32.0-36.0); Mean Corpuscular Hemoglobin 30.5 pg (27.0-33.0); Mean Corpuscular Volume 91.7 fL (80-95); Mean Platelet Volume 11.3 fL (8.0-11.0); Monocytes % 7.1; Platelet Count 155 x1000/uL (130-400); RBC 5.28 m/cumm (4.00-5.20); RBC Distribution Width 14.5 % (11.7-14.6)
[2018-09-15] MEDS: predniSONE 20 MG TAB 40 MG PO (08:20)
[2018-09-15] MEDS: QUEtiapine 25 MG TAB PO (08:21)
[2018-09-15] MEDS: amLODIPine 5 MG TAB 10 MG PO (08:21)
[2018-09-15] MEDS: SODIUM CHLORIDE 0.45% 1,000 ML 100 ML IV (10:44)
--- NOTE | 2018-09-15 12:19 | W.NUTCONSULT ---
Date of service: 09/15/18 Time of Service: 12:20 Nutritional Consult ASSESSMENT: Nutrition consult for poor PO intake. Ms. Osorio is on a regular nutrition therapy with mechanically altered consistency of moist fine chopped meats. She also requires being fed. Per documentation in EHR, her intake is increasing somewhat, however generally speaking she eats between 25% and 50% of her meals. She is getting high protein high calorie liquid nutrition supplements and is not taking them well either. She is 64 and 53.6 kg which gives her a BMI of 19.1 kg/2 which is WNL. Her weight has been fairly stable throughout her admission. NUTRITIONAL DIAGNOSIS: Inadequate intake of oral foods and fluids related to multi-factorial issues including decreased appetite and dementia as evidenced by verbal reports and documentation in EHR. INTERVENTION: RD and or CDM will continue to encourage nutrient dense PO as well as try different supplements. Unsure if an appetite stimulant would be helfpful for this patient. If Ms. Osorio continues to decline with her oral intake, would consider nutrition support if it is consistent with patient and family wishes. MONITORING AND EVALUATION: 1. Will continue to monitor PO intake and weight and progress. 2. Will evaluate nutrition care pland ongoing and adjust as needed. Thank you for the consult. Time Spent in Nutritional Counseling and Treatment: ERIC
[2018-09-15] MEDS: traZODone 50 MG TAB PO (13:11)
--- NOTE | 2018-09-15 14:46 | DSE_ITS ---
Date of service: 09/15/18 Time of Service: 14:41 DS: Diagnosis Discharge Diagnosis (1) Tracheobronchitis: Status: Acute (2) COPD (chronic obstructive pulmonary disease): Status: Suspected (3) Alzheimer's dementia: Status: Chronic (4) Drug-induced Parkinsonism: Status: Chronic (5) GERD (gastroesophageal reflux disease): Status: Chronic (6) DVT prophylaxis: Status: Acute (7) Advanced directives, counseling/discussion: Status: Acute Discharge Plan Disposition Patient Disposition: HOME Condition: Stable Discharge Details Chief Complaint: RespSymp Reason For Visit: ACUTE COPD EXACERBATION,H/O DEMENTIA Admit Date/Time: 09/06/18 20:23 Admit Provider: Juan Jorge Attending Provider: Juan Jorge Primary Care Provider: Heather Rinaldi ED Provider: Anastasiia Lantigua Hospital Course Hospital Course: 73 yr old female former smoker w/ PMH of drug induced Parkinsonism (secondary to depakote), GERD, bipolar disorder, hypertension, anxiety disorder who lives w/ a caregiver, Makayla since 2016 because the patient is disabled from her Parkinsonism (slow shuffling gait, tremors at rest and with activity, unable to bather or feed herself, she has cognitive as well as motor deficits). Patient developed cough last week that became progressively worse and developed into productive cough of purulent green sputum along w/ low grade fevers to 100 as well as dyspnea. She saw her PCP last and was prescribed doxycycline but despite this her cough and dyspnea have become worse. Upon presentation she hypoxic (SPO2 89%), tachypneic RR 30 and tachycardic 100. Workup in the ER included CXR that shows flattening of her diaphragms and right basilar atelectasis but no focal consolidation, pleural effusions or cardiomegaly. Labs including CBC, CMP were unremarkable except she has an elevated blood lactate of 2.6 without an increased anion gap. BNP was 568 and t roponin was <0.02. WBC were 5890. Treatment in the ER included DuoNeb and albuterol aerosol treatments, Solumedrol 125 mg IVP, and Levaquin 750 mg IVPB. Because of her increased workup of breathing and persistent hypoxemia on supplemental nasl oxygen, she was put on BIPAP mask which improved her dyspnea and hypoxemia. She is now admitted to ICU for aggressive pulmonary toiletry, DuoNeb treatments and parenteral antibiotics. Because of her use of Seroquel and Trazodone, I have switched her Levaquin to Cefepime and Doxycycline. She finished a 7 day course of antibiotics and was tapered on steroids. Today she is at baseline, oxygen 95% on RA when ambulating does not get lower than 89% in the setting of COPD this is acceptable. Per PT she is at baseline and they feel she will function better at home given her dementia and she is out of her surroundings. She will need direction. She is afebrile, wbc in normal range. She will be sent with a tapering steroid dose. Continue to encourage po intake. Repeat labs in 1 week and follow up with PCP in 1 week. She did look a little dry today by labs she received 200 ml IV before infilitration, and she has been drinking large amounts of liquid per nursing. Recommend follow up labs in one week to make sure hydrated. (1) Tracheobronchitis: Resolved (2) COPD (chronic obstructive pulmonary disease): Received a 7 day treatment of antibiotics for pneumonia, continue to taper steroids for exacerbation (3) Alzheimer's dementia: Underlying dementia noted. Apparent concurrent neuropsychiatric symptoms as well as underlying history of anxiety and bipolar disorder. Continue home regimen of low dose Lorazepam, Seroquel, and Trazodone. Does not really answer questions, vaguely states yes and no to random questions, continue to encourage PO intake, does need to be fed. (4) Drug-induced Parkinsonism: Noted. (5) GERD (gastroesophageal reflux disease): Continue PPI therapy. (6) DVT prophylaxis: SC Lovenox. (7) Advanced directives, counseling/discussion: Full Code. DPOA (children) live out of state - Full Code status is accurate per prior discussion with caregiver. Home Meds and New Rx's Prescriptions: New amlodipine 5 mg Tablet 10 mg PO DAILY Qty: 30 RF: 0 prednisone 10 mg tablet 10 mg PO DAILY Qty: 30 RF: 0 Continued food supplemt, lactose-reduced [Ensure High Protein] liquid 120 ml PO DAILY RF: 0 acetaminophen 325 mg capsule 650 mg PO TID PRNRF: 0 quetiapine [Seroquel] 25 mg tablet 25 mg PO DIRECTED Qty: 90 RF: 5 lorazepam 0.5 mg tablet 0.5 mg PO .COMPLEX RF: 0 trazodone 50 mg tablet 50 mg PO DIRECTED RF: 0 omeprazole 40 MG capsule,delayed release(DR/EC) 40 mg PO HS RF: 0 docusate sodium [Colace] 100 MG capsule 100 mg PO PRN PRNRF: 0 cholecalciferol (vitamin D3) 1,000 UNITS tablet 2 tab PO QAM RF: 0 Discontinued doxycycline hyclate 100 mg Tablet 100 mg PO BID RF: 0 Discharge Instructions Instructions: Dementia (GEN), COPD (Chronic Obstructive Pulmonary Disease) (GEN), Chronic Bronchitis (GEN), Bronchospasm (GEN) Additional Instructions: Follow up with your primary doctor in one week. Get you blood checked in one week. Encourage lots of drinking and food intake. Encourage walking around. If you have chest pain, shortness of breath, or fever or worsening symptoms return to the emergency room immediately. Stand Alone Forms: Nursing Discharge Form Referrals: Heather Rinaldi [Primary Care Provider] - 09/24/18 9:35 am Activity:: Activity as Tolerated Equipment/Supplies:: No Equipment Needed Diet:: Normal Diet Discharge Orders Discharge Orders: Discharge Order (Routine); Ordered 09/15/18 Ordered By: Iveth Avila Other Ambulatory Orders: Basic Metabolic Panel (Routine) Location: Determined by Patient Ordered By: Iveth Avila Complete Blood Count No Diff (Routine) Location: Determined by Patient Ordered By: Iveth Avila Exam Const General: cooperative and no acute distress Nutritional Appearance: thin Orientation: alert, awake and confused Neck Lymphatic: no lymphadenopathy noted and no lymphedema noted Resp Effort & Inspection: normal respiratory effort and able to speak in complete sentences Auscultation: clear to auscultation bilaterally Cardio Jugular venous pressure: no JVD Rate: regular rate Rhythm: regular rhythm Heart Sounds: S1 normal and S2 normal GI Inspection: normal to inspection Auscultation: normal bowel sounds Skin General skin exam: no rashes or lesions noted Neuro General: alert and awake Cognition: abnormal cognition Extrem General: normal to inspection DS: Data Vitals/I&O Vitals and I&O: Vital Signs Temperature 36.9 C 09/15/18 12:24 Temperature Source Tympanic 09/15/18 12:24 Pulse 92 H 09/15/18 12:24 Pulse Rhythm Regular 09/15/18 08:30 Pulse 107 H 09/10/18 14:41 Respiratory Rate 16 04/08/19 12:24 Respiratory Effort Non-Labored 09/15/18 08:30 Respiratory Depth Normal 09/15/18 08:30 Respiratory Pattern Normal 09/15/18 08:30 Blood Pressure 115/78 09/15/18 12:24 Blood Pressure Mean 107 09/10/18 14:41 Blood Pressure Position Supine 09/08/18 00:00 Pulse Oximetry 92 L 09/15/18 12:24 Oxygen Delivery Method Room Air 09/15/18 12:24 Oxygen Flow Rate 0 09/15/18 12:24 Fraction of Inspired Oxygen (FIO2) 30 09/07/18 10:22 Pain Level 0 09/14/18 03:10 Comment 09/14/18 03:10 Intake & Output 09/14/18 09/15/18 09/15/18 23:59 11:59 23:59 Intake Total 480 / 930 360 / 1225 865 / 1225 Balance 480 / 930 360 / 1225 865 / 1225 Weight 53.6 kg Intake: IV 385 / 385 Oral 480 / 930 360 / 840 480 / 840 Other: Urine Color Yellow Urine Appearance Clear Clear Comment pt did not void at this time Stool Size Small Moderate Stool Characteristics Soft Soft Brown Voiding Methods Diaper Diaper Incontinent Incontinent Completed studies during hospitalization [Text1]: xam(s) EXAM: XR Chest, 2 Views EXAM DATE/TIME: 09/06/2018 5:24 PM CLINICAL HISTORY: 73 years old, female; Signs and symptoms; Cough and shortness of breath and wheezing TECHNIQUE: Imaging protocol: XR of the chest, 2 views. COMPARISON: CR XR CHEST 2V PA LATERAL 03/21/2018 2:44 PM FINDINGS: Lungs: Right basilar atelectasis . No focal opacity Pleural space: Unremarkable. No pleural effusion. No pneumothorax. Heart/Mediastinum: Unremarkable. No cardiomegaly. Vasculature: Tortuous aorta Bones/joints: Unremarkable. Other findings: Patient is leaning to the right IMPRESSION: No focal opacity Exam(s) a RAD:XR chest 2V PA & lateral SYMPTOM/DIAGNOSIS: CRACKLES FRONTAL AND LATERAL CHEST: Comparison is made with 09/06/18. Heart size is within normal limits. There is tortuosity of the thoracic aorta. Pulmonary vasculature is otherwise unremarkable. There is linear atelectasis or scarring again seen in the right lung base. No focal consolidating infiltrates, effusions or pneumothoraces are identified. The bones are intact. There is a scoliotic curvature of the thoracolumbar spine again noted. IMPRESSION: No acute pulmonary process. EXAM DATE/TIME: 09/14/2018 9:46 AM CLINICAL HISTORY: 73 years old, female; Signs and symptoms; Other: Crackles TECHNIQUE: Imaging protocol: XR of the chest, 2 views. COMPARISON: CR XR CHEST 2V PA LATERAL 09/06/2018 5:57 PM FINDINGS: Lungs: Unremarkable. No consolidation. Pleural space: Unremarkable. No pleural effusion. No pneumothorax. Heart/Mediastinum: Stable cardiac silhouette Diaphragm: Elevated right hemidiaphragm Vasculature: Tortuous aorta Bones/joints: Stable IMPRESSION: No acute process Labs on day of discharge: Labs from last 24 hours 09/15/18 09/15/18 07:00 07:00 WBC 8.70 RBC 5.28 H Hgb 16.1 H Hct 48.4 H MCV 91.7 MCH 30.5 MCHC 33.3 RDW 14.5 Plt Count 155 MPV 11.3 H Immature Gran % 1.1 Neutrophils % 77.0 Lymphocytes % 14.7 Monocytes % 7.1 Eosinophils % 0.0 Basophils % 0.1 Absolute Neutrophils 6.69 Absolute Lymphocytes 1.28 Absolute Monocytes 0.62 Absolute Eosinophils 0.00 Absolute Basophils 0.01 Sodium 149 H Potassium 4.5 Chloride 109 H Carbon Dioxide 33.1 H Anion Gap 6.9 BUN 31 H Creatinine 0.74 Estimated GFR/1.73 m2 >= 60.00 Glucose 133 H Calcium 8.8 Magnesium 2.2 PFSH Medical History Bipolar disorder (Suspected) Essential hypertension (Chronic) COPD (chronic obstructive pulmonary disease) (Suspected) Mood disorder (Chronic) GERD (gastroesophageal reflux disease) (Chronic) Alzheimer's dementia (Chronic) Drug-induced Parkinsonism (Chronic) Chronic colitis (Acute) Vitamin B 12 deficiency (Acute) Anxiety (Chronic) CVA (cerebral vascular accident) (Chronic) Depression (Chronic) HTN (hypertension) (Chronic) Dementia (Resolved) Surgical History Surgical history unknown (Acute) Social History (Reviewed 09/15/18 @ 14:41 by CEDRICK Hawkins Smoking/Tobacco Use Status: Former Tobacco Use Alcohol Intake: never Substance use type: does not use Household members: caregiver Number of Children: 3 current occupation: Nurse Do you feel safe in your relationship?: Yes Additional Social history: Has 2 children in [place] who are her guardians. Has another son in [place] who is not in charge of care. Has lives with caregiver Makayla since Jun 2017. Attends [employer] 5 days per week. TRISTAN Haider.
--- NOTE | 2018-09-15 14:51 | PDOC.CMDIS ---
- If Service Date Differs Date of service: 09/15/18 Time of Service: 14:51 LACE Index Scoring Tool - Questions: Length of Stay (in days): 7 - 13 Acuity (Admit via E.D.?): Yes Comorbidities: Cerebrovascular Disease, Dementia E.D. Visits: 5 - Answers: Total Score: 17 Risk of Readmission: High Risk Care Management Discharge Reason for Hospitalization: Bronchopneumonia, COPD Discharge Plan: Sherine will return to her caregiver Makayla's home today. She will F/U with PCP and plan of care as prescribed. Her caregiver will transport when ready. Patient/Family Education Needs: Review DC instructions, any limitations, and Discuss 'Ask Me three'
--- NOTE | 2018-09-15 15:06 | OT.INIE ---
Occupational Therapy Notes Inpatient Occupational Therapy Evaluation Date: 09/15/18 Referring Doctor:Iveth Avila NP OT Orders: Improve mobility Precautions: Fall, standard PATIENT PROFILE/ADMITTING DIAGNOSIS: Pt is a 73 year old female who was admitted with Alzheimer's through the ED with caregiver on 08/20/2018 with c/o of cough and shortness of breath. Patient was later dx with bronchopneumonia with right basilar atelectasis and COPD exacerbation with acute bacterial bronchitis. Past Medical History: Medical History GERD (gastroesophageal reflux disease) (Chronic) Alzheimer's dementia (Chronic) Drug-induced Parkinsonism (Acute) Chronic colitis (Acute) Vitamin B 12 deficiency (Acute) Anxiety (Chronic) CVA (cerebral vascular accident) (Chronic) Depression (Chronic) HTN (hypertension) (Chronic) Dementia (Resolved) Social History/Home Situation: Pt is unable to recall at this time due to dementia. Per chart review and pts EMR patient has lived with caregiver Makayla since May 2017. Patient attends [employer] [facility] [place] 5x/week. Equipment owned/DME: Pt was unable to answer question. SUBJECTIVE: Pt was sitting in chair when OT arrived. She is unable to follow 1 step commands and is confused when asked a question. She is very pleasant. OBJECTIVE: General Observation: O2 nasal cannula, IV (L) UE not connected Mental Status: Confused, dementia Pain: no c/o pain ROM: RUE AROM WFL L UE AROM WFL STRENGTH: RUE 3-/5 throughout LUE 3-/5 throughout FUNCTIONAL MOBILITY/ADLS: Pt was max (A) for donning and doffing (B) socks while sitting in chair. Pt was max (A) brushing teeth with [place] to bring hand to mouth. Unable to perform functional mobility without max (A) at todays session. BALANCE: Static sitting Normal Dynamic Sitting Good Static Standing Fair Dynamic Standing poor SPECIAL TESTS: Daily Activity Limitations Standardized Measure [facility] AM -PAC ?6 clicks? Daily Activity Inpatient Short Form: Raw score: 7 CMS score: 92.44% INFORMED CONSENT/EDUCATION: Pt instructed in purpose of OT Consult and plan of care. ASSESSMENT: Patient is a 73-year-old female referred to occupational therapy services with diagnosis of Alzheimer's with bronchopneumonia with (R) basilar atelectasis and COPD exacerbation with acute bacterial bronchitis. Patient presents with clinical signs and symptoms consistent with dx, as demonstrated by the following impairment level findings/functional limitations: decreased mental status due to dementia, decreased ability to follow 1 step demands, decreased functional activity tolerance, decreased functional mobility, max (A) for all ADLs/IADLs. AMPAC score 7, CMS score 92.44% Patient is assessed as a high 66968 complexity based on the following: History: See Above Examination: See Above Presentation: Evolving Decision Making: AMPAC score 7, CMS score 92.44% GOALS N/A PLAN OF CARE/TREATMENT PLAN: OT consult only DISCHARGE RECOMMENDATIONS Home with 24 hour caregiver services TREATMENT TIME/MINUTES/CODES [id number], 20 minutes (09:05) Carmen Grace OTR/L [facility]
--- NOTE | 2018-09-15 15:17 | OTIE_ITS ---
Occupational Therapy Notes Inpatient Occupational Therapy Evaluation Date: 09/15/18 Referring Doctor:Iveth Avila NP OT Orders: Improve mobility Precautions: Fall, standard PATIENT PROFILE/ADMITTING DIAGNOSIS: Pt is a 73 year old female who was admitted with Alzheimer's through the ED with caregiver on 08/20/2018 with c/o of cough and shortness of breath. Patient was later dx with bronchopneumonia with right basilar atelectasis and COPD exacerbation with acute bacterial bronchitis. Past Medical History: Medical History GERD (gastroesophageal reflux disease) (Chronic) Alzheimer's dementia (Chronic) Drug-induced Parkinsonism (Acute) Chronic colitis (Acute) Vitamin B 12 deficiency (Acute) Anxiety (Chronic) CVA (cerebral vascular accident) (Chronic) Depression (Chronic) HTN (hypertension) (Chronic) Dementia (Resolved) Social History/Home Situation: Pt is unable to recall at this time due to dementia. Per chart review and pts EMR patient has lived with caregiver Makayla since May 2017. Patient attends [facility] 5x/week. Equipment owned/DME: Pt was unable to answer question. SUBJECTIVE: Pt was sitting in chair when OT arrived. She is unable to follow 1 step commands and is confused when asked a question. She is very pleasant. OBJECTIVE: General Observation: O2 nasal cannula, IV (L) UE not connected Mental Status: Confused, dementia Pain: no c/o pain ROM: RUE AROM WFL L UE AROM WFL STRENGTH: RUE 3-/5 throughout LUE 3-/5 throughout FUNCTIONAL MOBILITY/ADLS: Pt was max (A) for donning and doffing (B) socks while sitting in chair. Pt was max (A) brushing teeth with TLINGIT & HAIDA to bring hand to mouth. Unable to perform functional mobility without max (A) at todays session. BALANCE: Static sitting Normal Dynamic Sitting Good Static Standing Fair Dynamic Standing poor SPECIAL TESTS: Daily Activity Limitations Standardized Measure [facility] AM -PAC ?6 clicks? Daily Activity Inpatient Short Form: Raw score: 7 CMS score: 92.44% INFORMED CONSENT/EDUCATION: Pt instructed in purpose of OT Consult and plan of care. ASSESSMENT: Patient is a 73-year-old female referred to occupational therapy services with diagnosis of Alzheimer's with bronchopneumonia with (R) basilar atelectasis and COPD exacerbation with acute bacterial bronchitis. Patient presents with clinical signs and symptoms consistent with dx, as demonstrated by the following impairment level findings/functional limitations: decreased mental status due to dementia, decreased ability to follow 1 step demands, decreased functional activity tolerance, decreased functional mobility, max (A) for all ADLs/IADLs. AMPAC score 7, CMS score 92.44% Patient is assessed as a high 54504 complexity based on the following: History: See Above Examination: See Above Presentation: Evolving Decision Making: AMPAC score 7, CMS score 92.44% GOALS N/A PLAN OF CARE/TREATMENT PLAN: OT consult only DISCHARGE RECOMMENDATIONS Home with 24 hour caregiver services TREATMENT TIME/MINUTES/CODES 72038, 20 minutes (09:05) Carmen Grace OTR/L [facility]
--- NOTE | 2018-09-17 18:14 | INDS_ITS ---
Date of service: 09/15/18 PT Notes Inpatient Physical Therapy Discharge Summary Dates: 09/15/2018 Dates of Service: 09/11/18 through 09/14/18 Referring Doctor: Manuel Win MD PT Orders: PT CONSULT: Deconditioning Precautions: Fall. Standard. Impaired safety awareness due to Alzheimer's type dementia. Patient Profile/Admitting Diagnosis: Patient is a 73-year-old female with Alzheimer's type Dementia who presented to the ED with caregiver on 08/20/2018 with chief presentation of cough and shortness of breath. Patient was diagnosed with bronchopneumonia with right basilar atelectasis and COPD exacerbation with acute bacterial bronchitis. Physical therapy referral is received for functional mobility training, gait and balance training, progressive strengthening, caregiver education and training in order to reduce fall risk. PMHX: Medical History GERD (gastroesophageal reflux disease) (Chronic) Alzheimer's dementia (Chronic) Drug-induced Parkinsonism (Acute) Chronic colitis (Acute) Vitamin B 12 deficiency (Acute) Anxiety (Chronic) CVA (cerebral vascular accident) (Chronic) Depression (Chronic) HTN (hypertension) (Chronic) Dementia (Resolved) Social History/Home Situation: Patient is a poor historian due to Alzheimer's type dementia. Per chart review, patient has lived with caregiver Makayla since May 2017. Patient attends [facility] 5 times a week. She has 2 children in [place] who are her guardians. She has another son in [place] who is not in charge of care. Per initial case management note, caregiver Makayla did say that patient was ambulatory inside the house without an assistive device prior to admission. Current Functional Limitations: Dependent bed mobility, transfer, and ambulation performance. Impaired ability to follow instructions. Impaired safety awareness. This is a clinical summary of physical therapy services provided on the duration of dates listed above. No charge was made in the completion of this documentation. Subjective: NT Objective: General Observation: NT Mental Status: Alert but disoriented as to person, place, time Pain: None reported and verbalized but facial grimacing was observed when patient was rolled to right with right hand trying to hold onto the left shoulder at the start of the session. No moaning, groaning, and labored breathing observed throughout the rest of this PT session. ROM: Unable to formally test range of motion to BUE/LE due to cognitive status. Patient was able to sit up and use both arms and legs to stand up from edge of bed with no indication of bodily discomfort nor pain. Strength: Unable to formally test strength on BUE LE due to cognitive status. Right Upper Extremity: Grossly 3-/5 Left Upper Extremity: Grossly 3-/5 Right Lower Extremity: Grossly 3-/5 Left Lower Extremity: Grossly 3-/5 Bed Mobility/Transfers: Patient requires moderate to maximal verbal tactile and visual cueing due to cognitive status Rolling moderate assist Supine to sit moderate assist Sit to supine moderate assist Sit to stand moderate assist Stand to sit moderate assist Bed to chair moderate assist Chair to bed moderate assist Gait: Patient was able to tolerate in-room ambulation about 150 feet with moderate assist of this PT and an REGISTERED NURSE TEACHER on each side of the patient holding onto her forearms and gait belt while managing IV pole and oxygen tank. Patient has tendency to retropulse and requires frequent shifting of center of gravity forward for safety. Patient was able to turn and back up on to chair with extensive cueing for safety. Balance: Static Sitting: Fair Dynamic Sitting: Fair Static Standing: Poor Dynamic Standing: Poor Special Tests: Mobility Limitations Standardized Measure [facility] AM-PAC 6 clicks Basic Mobility Inpatient Short Form: Raw Score: 12 CMS Score: 69% deficit Assessment: Patient is a 73 year old female with pre-existing Alzheimer's type dementia referred to physical therapy services with the diagnosis of Bronchopneumonia with the right basilar atelectasis and exacerbation of chronic obstructive pulmonary disease with acute bacterial bronchitis. Patient presents with clinical signs and symptoms consistent with current/admitting diagnoses that have resulted to mobility limitations, gait instability, generalized weakness, and lack of motor control as demonstrated by the following impairment level findings: 1. Decreased strength to B LE major muscle groups 2. Impaired balance 3. Impaired activity tolerance Impairments are contributing to the following functional limitations: 1. Dependent bed mobility skills 2. Increased dependence with transfers 3. Inability to safely ambulate without assistive device and physical assistance 4. Increase completion time for mobility ADL performance 5. Increased fall risk 6. Inability to negotiate steps alone safely Patient is assessed as a Moderate 65175 complexity based on the following: History: 73-year-old female with Alzheimer's type dementia who is currently diagnosed with bronchopneumonia with R basilar atelectasis and COPD exacerbation with acute bacterial bronchitis Examination: Underlying impairments and functional limitations resulting to an AMPAC score of 12 and an equivalent CMS score of 69% deficit Presentation: Evolving Decision Makin moderate complexity Goals: Goals X1 week 1. Supine-Sit independent NOT MET 2. Sit-Supine independent NOT MET 3. Sit-Stand independent NOT MET 4. Stand-Sit independent NOT MET 5. Bed-Chair independent NOT MET 6. Chair-Bed independent NOT MET 7. Gait on level surface ambulation with use of least restrictive device for at least 300 feet without report of pain nor dyspnea NOT MET 8. Stairs independent while holding onto bilateral rails for at least 10 steps without report of pain nor dyspnea NOT MET 9. Independent with home exercise program NOT MET 10. Balance good for static and dynamic standing NOT MET DISCHARGE RECOMMENDATIONS: Patient will benefit from home health physical therapy services in order to maximize functional mobility level, reassess home safety, improve activity tolerance, facilitate caregiver/family education and training, and establish/implement a functional maintenance program to increase ability to remain at home with caregiver Makayla. May require a front wheeled walker for return to home. TREATMENT CODE/TIME: N/A Thank you for this referral. Moni Richardson, PT, DPT, CLT [facility]
== END 2018-09-15 17:10 | disposition home or self-care (01) | DRG 190 ==
LOC: ER 21:50 → ICU 09-07 11:21 → MS 09-15 00:41 → ICU 09-19 12:19
PROVIDERS: Internal Medicine; Nurse Practitioner Family; Admitting Provider Internal Medicine; Emergency Provider Physician Assistant; PCP Family Medicine; Visit Provider Internal Medicine
DX: J44.0 Chronic obstructive pulmonary disease with (acute) lower respiratory infection (principal); J18.0 Bronchopneumonia, unspecified organism; J40 Bronchitis, not specified as acute or chronic; F02.81 Dementia in other diseases classified elsewhere, unspecified severity, with behavioral disturbance; R09.02 Hypoxemia; J44.1 Chronic obstructive pulmonary disease with (acute) exacerbation; G30.9 Alzheimer's disease, unspecified; T42.6X5A Adverse effect of other antiepileptic and sedative-hypnotic drugs, initial encounter; K21.9 Gastro-esophageal reflux disease without esophagitis; R13.11 Dysphagia, oral phase; I10 Essential (primary) hypertension; F31.9 Bipolar disorder, unspecified; F41.8 Other specified anxiety disorders; Z71.3 Dietary counseling and surveillance; Z87.891 Personal history of nicotine dependence; G21.19 Other drug induced secondary parkinsonism
CPT/HCPCS: 36410; 36415; 80048; 80053; 87040; 87449; 92610; 93005; 94640; 96365; 97162; 97167; 97530; 99223; 99232; 99233; 99239; 99285; J1650; 71046; 83605; 83735; 83880; 84484; 85025; 87450; 87581; 92507; 93010; 94660; J1720; J1940; J1956; J2930; J7512; J7613; J7620; J7626

== ENCOUNTER 2018-09-25 08:47 | Outpatient (CLI) | payer MEDICAID, SELFPAY ==
[2018-09-25 14:20] LABS: HCT 46.9 % (36.0-46.0); HGB 15.1 g/dL (12.0-15.5); Mean Corp. HGB Concentration 32.2 g/dL (32.0-36.0); Mean Corpuscular Hemoglobin 30.4 pg (27.0-33.0); Mean Corpuscular Volume 94.6 fL (80-95); Mean Platelet Volume 10.5 fL (8.0-11.0); Platelet Count 149 x1000/uL (130-400); RBC 4.96 m/cumm (4.00-5.20); RBC Distribution Width 15.5 % (11.7-14.6); White Blood Cell Count 14.28 k/cumm (4.4-10.8)
[2018-09-25 15:28] LABS: Anion Gap 7.5 mmol/L (3-11); BUN 32 mg/dL (7-18); CO2 29.5 mmol/L (21.0-32.0); CREATININE 0.91 mg/dL (0.55-1.02); Calcium 9.1 mg/dL (8.5-10.1); Chloride 105 mmol/L (98-107); Glucose 216 mg/dL (70-100); Sodium 142 mmol/L (136-145)
[2018-09-25 16:04] LABS: Vitamin B12 684 pg/mL (193-986)
== END 2018-09-25 09:07 ==
PROVIDERS: Nurse Practitioner Family; Psychiatry & Neurology Neurology; PCP Family Medicine; Visit Provider Family Medicine
DX: E53.8 Deficiency of other specified B group vitamins (principal); G30.9 Alzheimer's disease, unspecified; F02.80 Dementia in other diseases classified elsewhere, unspecified severity, without behavioral disturbance, psychotic disturbance, mood disturbance, and anxiety; J44.9 Chronic obstructive pulmonary disease, unspecified
CPT/HCPCS: 36415; 80048; 85027; 82607

== ENCOUNTER → 2018-09-30 13:27 | Outpatient (BNVA) | payer MEDICAID, SELFPAY ==
--- NOTE | 2018-10-31 17:00 | PT.INDS ---
Date of service: 10/31/18 PT Notes Inpatient Physical Therapy Discharge Summary Dates: 10/31/2018 Dates of Service: 10/26/2018 through 10/30/2018 This is a clinical summary of care provided on the duration of dates listed above. No charge was made in the completion of this documentation. Referring Doctor: Ashleigh Patel MD PT Orders: PT CONSULT: Eval and treat Precautions: Standard Patient Profile/Admitting Diagnosis: Patient presented to ER on 10/25/18 with SOB. ER evaluation confirmed health care associated pneumonia, and exacerbation of chronic COPD. She had a prior admission 6 weeks prior for pneumonia and COPD exacerbation, as well. PMHX: Bipolar disorder (Suspected) Essential hypertension (Chronic) COPD (chronic obstructive pulmonary disease) (Suspected) Mood disorder (Chronic) GERD (gastroesophageal reflux disease) (Chronic) Alzheimer's dementia (Chronic) Drug-induced Parkinsonism (Chronic) Chronic colitis (Acute) Vitamin B 12 deficiency (Acute) Anxiety (Chronic) CVA (cerebral vascular accident) (Chronic) Depression (Chronic) HTN (hypertension) (Chronic) Dementia (Resolved) Social History/Home Situation: Per EMR review, Has 2 children in [place] who are her guardians. Has another son in [place] who is not in charge of care. She lives with caregiver Makayla since Jun 2017. Attends [employer] 5 days per week. Premorbid level of function: Unclear, as patient's dementia contributed to poor history reporting. Current Functional Limitations: CGx1, Min A x 1 with functional sit to stand and static standing. Equipment Owned/DME: Unknown, patient unable to accurately report. Subjective: NT Objective: General Observation: NT Mental Status: NT ROM: Right Upper Extremity: WFL Left Upper Extremity: WFL Right Lower Extremity: WFL Left Lower Extremity: WFL Strength: Unable to assess throughout due to patient's inability to follow direction. Sensation: Patient poor desk reporter, unable to assess. Bed Mobility/Transfers: CGx1, Min A x1 sit<>stand at RW Static stand x 5 minutes. Patient becomes agitated, with attempt of further activity - sits and does not respond to encouragement. Gait: See PHYSICAL EDUCATION AIDE notes dated 10/30/2018 where patient was able to tolerate 150 feet of level surface ambulation with hand-held assist x2 for weightbearing with moderate to maximal verbal cueing for breathing and overall safety. Balance: Static Sitting: Good Dynamic Sitting: Good Static Standing: Fair Dynamic Standing: Not able to assess Assessment: Patient is a 73 year old female referred to physical therapy services with the diagnosis of pneumonia and COPD exacerbation. Patient presents with clinical signs and symptoms consistent with admitting diagnosis, in the presence of Alzheimer's disease, PD, and mood/bipolar disorder, negatively influencing patient's participation with PT. Impairment level findings: Poor balance, generalized weakness, poor O2 metabolism, and progressive mental and physical degeneration. Impairments are contributing to the following functional limitations: Assist with transfers, unsteady with transfers, assumed need for assist with attempt of gait considering instsability identified with static activities today and her overall weakened state. AMPAC score of 57% disability. Goals: Goals X1 week 1. Supine-Sit CG 2. Sit-Supine CG 3. Sit-Stand CG 4. Stand-Sit CG 5. Bed-Chair CG with FWW 6. Chair-Bed CG with FWW 7. Gait 20ft with FWW 8. Balance Fair with standing activities, static and dynamic DISCHARGE RECOMMENDATIONS: Patient will benefit from home health PT services in order to progress mobility level using least restrictive assistive ambulatory device/using no device, assess home safety, identify additional equipment needs, and establish a functional maintenance program that will increase ability of patient to remain at home. TREATMENT CODE/TIME: NT Thank you very much for this referral. Moni Richardson PT, DPT, CLT [facility]
--- NOTE | 2018-11-05 09:47 | INDS_ITS ---
Date of service: 10/31/18 PT Notes Inpatient Physical Therapy Discharge Summary Dates: 10/31/2018 Dates of Service: 10/26/2018 through 10/30/2018 This is a clinical summary of care provided on the duration of dates listed above. No charge was made in the completion of this documentation. Referring Doctor: Ashleigh Patel MD PT Orders: PT CONSULT: Eval and treat Precautions: Standard Patient Profile/Admitting Diagnosis: Patient presented to ER on 10/25/18 with SOB. ER evaluation confirmed health care associated pneumonia, and exacerbation of chronic COPD. She had a prior admission 6 weeks prior for pneumonia and COPD exacerbation, as well. PMHX: Bipolar disorder (Suspected) Essential hypertension (Chronic) COPD (chronic obstructive pulmonary disease) (Suspected) Mood disorder (Chronic) GERD (gastroesophageal reflux disease) (Chronic) Alzheimer's dementia (Chronic) Drug-induced Parkinsonism (Chronic) Chronic colitis (Acute) Vitamin B 12 deficiency (Acute) Anxiety (Chronic) CVA (cerebral vascular accident) (Chronic) Depression (Chronic) HTN (hypertension) (Chronic) Dementia (Resolved) Social History/Home Situation: Per EMR review, Has 2 children in [place] who are her guardians. Has another son in [place] who is not in charge of care. She lives with caregiver Makayla since Jun 2017. Attends [employer] 5 days per week. Premorbid level of function: Unclear, as patient's dementia contributed to poor history reporting. Current Functional Limitations: CGx1, Min A x 1 with functional sit to stand and static standing. Equipment Owned/DME: Unknown, patient unable to accurately report. Subjective: NT Objective: General Observation: NT Mental Status: NT ROM: Right Upper Extremity: WFL Left Upper Extremity: WFL Right Lower Extremity: WFL Left Lower Extremity: WFL Strength: Unable to assess throughout due to patient's inability to follow direction. Sensation: Patient poor cane loader, unable to assess. Bed Mobility/Transfers: CGx1, Min A x1 sit<>stand at RW Static stand x 5 minutes. Patient becomes agitated, with attempt of further activity - sits and does not respond to encouragement. Gait: See TRAIN SYSTEM OPERATOR notes dated 10/30/2018 where patient was able to tolerate 150 feet of level surface ambulation with hand-held assist x2 for weightbearing with moderate to maximal verbal cueing for breathing and overall safety. Balance: Static Sitting: Good Dynamic Sitting: Good Static Standing: Fair Dynamic Standing: Not able to assess Assessment: Patient is a 73 year old female referred to physical therapy services with the diagnosis of pneumonia and COPD exacerbation. Patient presents with clinical signs and symptoms consistent with admitting diagnosis, in the presence of Alzheimer's disease, PD, and mood/bipolar disorder, negatively influencing patient's participation with PT. Impairment level findings: Poor balance, generalized weakness, poor O2 metabolism, and progressive mental and physical degeneration. Impairments are contributing to the following functional limitations: Assist with transfers, unsteady with transfers, assumed need for assist with attempt of gait considering instsability identified with static activities today and her overall weakened state. AMPAC score of 57% disability. Goals: Goals X1 week 1. Supine-Sit CG 2. Sit-Supine CG 3. Sit-Stand CG 4. Stand-Sit CG 5. Bed-Chair CG with FWW 6. Chair-Bed CG with FWW 7. Gait 20ft with FWW 8. Balance Fair with standing activities, static and dynamic DISCHARGE RECOMMENDATIONS: Patient will benefit from home health PT services in order to progress mobility level using least restrictive assistive ambulatory device/using no device, assess home safety, identify additional equipment needs, and establish a functional maintenance program that will increase ability of patient to remain at home. TREATMENT CODE/TIME: NT Thank you very much for this referral. Moni Richardson PT, DPT, CLT [facility]
== END ==
PROVIDERS: PCP Family Medicine; Visit Provider Psychiatry & Neurology Neurology
DX: G21.19 Other drug induced secondary parkinsonism (principal); E53.8 Deficiency of other specified B group vitamins; F39 Unspecified mood [affective] disorder; J44.9 Chronic obstructive pulmonary disease, unspecified; I10 Essential (primary) hypertension; Z87.891 Personal history of nicotine dependence
CPT/HCPCS: 99214

== ENCOUNTER 2018-10-25 12:54 | Inpatient (IN) | payer MEDICARE, MEDICAID, SELFPAY ==
[2018-10-25] VITALS (18 sets, daily range): BP systolic 101–130; BP diastolic 58–98; PULSE 82–99; RESP 2–26; TEMP 36.4–37.6; O2SAT 90–95
--- NOTE | 2018-10-25 13:04 | NUR.NOTE ---
returned case inspector visited PT this morning and noted that she was extremely short of breath with exertion. upon ER admit o2 76 on room air placed on 4 L and o2 increased to 93 pt has history of COPD will titrate o2 to 90. loud crackles bilateral noted returned case inspector is with PT in room
--- NOTE | 2018-10-25 13:16 | DI.RAD_ITS ---
SYMPTOMS/DIAGNOSIS: COUGH, SOB, ? ACUTE DISEASE PORTABLE CHEST: Comparison is made with [id number]. The patient is rotated. Mildly increased densities are again seen at the right lung base. The right diaphragm is mildly elevated. There are mild underlying fibrotic changes. IMPRESSION: Question of right basilar infiltrate vs atelectasis.
--- NOTE | 2018-10-25 13:19 | ED.GENADUL_ITS ---
Discharge Plan Disposition Patient Disposition: [facility] INPATIENT Condition: Fair Discharge Details Chief Complaint: SOB Clinical Impression: HCAP (healthcare-associated pneumonia), Acute exacerbation of chronic obstructive pulmonary disease (COPD) Admit Date/Time: 10/25/18 14:50 Admit Provider: Ashleigh Patel Attending Provider: Ashleigh Patel Primary Care Provider: Heather Rinaldi ED Provider: Anastasiia Lantigua Discharge Data Discharge Date/Time-TO BE ENTERED AT DEPARTURE: 10/25/18 16:02 Medical Decision Making 73-year-old female with a history of COPD, hypertension, bipolar and dementia presents with shortness of breath and weakness for the past 3 days. Admitted here 6 weeks ago for pneumonia and COPD exacerbation. Oxygen saturation 76% on room air on arrival. Increased to mid 90s on 3 L. She has significant wheezing noted on entry to room even without stethoscope. Coarse breath sounds with rhonchi and wheezing throughout. No crackles or leg edema noted. Cardiac work-up ordered on arrival and notes a white blood cell count of 5, troponin negative. BNP 212. Chest x-ray notes a right lower lobe pneumonia. Patient was given solu-medrol, DuoNeb and 5 mg albuterol neb on arrival and still with wheezing and mild work of breathing. Will give another 5 mg albuterol neb and admit for HCAP and COPD exacerbation. Dose of Vanco and Zosyn ordered. 1440 --discussed with hospitalist -accepts patient for admission. Medical Records Medical records reviewed: Yes I reviewed the patient's medical records. Imaging Data Radiologic Study: Radiologist's impression: XR Chest, 1 View EXAM DATE/TIME: 10/25/2018 1:17 PM CLINICAL HISTORY: 73 years old, female; Signs and symptoms; Cough and shortness of breath TECHNIQUE: Imaging protocol: XR of the chest, 1 view. Other technique: Portable exam. COMPARISON: CR XR CHEST 2V PA LATERAL 09/14/2018 9:42 AM FINDINGS: Lungs: Coarse increased markings right lower lobe. Pleural space: Unremarkable. No pleural effusion. No pneumothorax. Heart/Mediastinum: Borderline cardiomegaly. Diaphragm: Mild elevation right hemidiaphragm. Vasculature: Aortic ectasia. Bones/joints: Unremarkable. Other findings: The patient is rotated to the right. IMPRESSION: Coarse markings right lower lobe, atelectasis versus early consolidation. Lab Data Lab results reviewed: Yes I reviewed the patient's lab results. 10/25/18 14:52 Blood Blood Culture - Pending 10/25/18 14:52 Blood Blood Culture - Pending Laboratory Tests Range/Units 10/25/18 10/25/18 10/25/18 13:42 13:42 13:42 WBC (4.4-10.8) k/cumm 5.13 RBC (4.00-5.20) m/cumm 4.74 Hgb (12.0-15.5) g/dL 14.2 Hct (36.0-46.0) % 44.6 MCV (80-95) fL 94.1 MCH (27.0-33.0) pg 30.0 MCHC (32.0-36.0) g/dL 31.8 L RDW (11.7-14.6) % 16.7 H Plt Count (130-400) x1000/uL 297 D MPV (8.0-11.0) fL 9.8 Immature Gran % 0.2 Neutrophils % 72.3 Lymphocytes % 19.9 Monocytes % 7.2 Eosinophils % 0.2 Basophils % 0.2 Absolute Neutrophils (1.2-6.7) k/cumm 3.71 Absolute Lymphocytes (1.2-3.4) k/cumm 1.02 L Absolute Monocytes (0.11-0.7) k/cumm 0.37 Absolute Eosinophils (0.0-0.7) k/cumm 0.01 Absolute Basophils (0.0-0.2) k/cumm 0.01 Sodium (136-145) mmol/L 141 Potassium (3.5-5.1) mmol/L 3.9 Chloride (98-107) mmol/L 103 Carbon Dioxide (21.0-32.0) mmol/L 27.7 Anion Gap (3-11) mmol/L 10.3 BUN (7-18) mg/dL 20 H Creatinine (0.55-1.02) mg/dL 1.01 Estimated GFR/1.73 m2 (mL/min/1.73m2) 53.43 Glucose (70-100) mg/dL 100 Lactate (0.6-1.4) mmol/l Calcium (8.5-10.1) mg/dL 9.0 Magnesium (1.8-2.4) mg/dL 2.0 Total Bilirubin (0.2-1.0) mg/dL 0.3 AST (15-37) U/L 17 ALT (12-78) U/L 26 Alkaline Phosphatase (46-116) U/L 110 Troponin I (0.00-0.06) ng/mL < 0.02 NT-Pro-B Natriuret Pep ( - 299) pg/mL 212 Total Protein (6.4-8.2) g/dL 7.4 Albumin (3.4-5.0) g/dL 3.3 L Range/Units 10/25/18 14:47 WBC (4.4-10.8) k/cumm RBC (4.00-5.20) m/cumm Hgb (12.0-15.5) g/dL Hct (36.0-46.0) % MCV (80-95) fL MCH (27.0-33.0) pg MCHC (32.0-36.0) g/dL RDW (11.7-14.6) % Plt Count (130-400) x1000/uL MPV (8.0-11.0) fL Immature Gran % Neutrophils % Lymphocytes % Monocytes % Eosinophils % Basophils % Absolute Neutrophils (1.2-6.7) k/cumm Absolute Lymphocytes (1.2-3.4) k/cumm Absolute Monocytes (0.11-0.7) k/cumm Absolute Eosinophils (0.0-0.7) k/cumm Absolute Basophils (0.0-0.2) k/cumm Sodium (136-145) mmol/L Potassium (3.5-5.1) mmol/L Chloride (98-107) mmol/L Carbon Dioxide (21.0-32.0) mmol/L Anion Gap (3-11) mmol/L BUN (7-18) mg/dL Creatinine (0.55-1.02) mg/dL Estimated GFR/1.73 m2 (mL/min/1.73m2) Glucose (70-100) mg/dL Lactate (0.6-1.4) mmol/l 0.6 Calcium (8.5-10.1) mg/dL Magnesium (1.8-2.4) mg/dL Total Bilirubin (0.2-1.0) mg/dL AST (15-37) U/L ALT (12-78) U/L Alkaline Phosphatase (46-116) U/L Troponin I (0.00-0.06) ng/mL NT-Pro-B Natriuret Pep ( - 299) pg/mL Total Protein (6.4-8.2) g/dL Albumin (3.4-5.0) g/dL ECG Data Attestation: I personally reviewed and interpreted this ECG (s) as follows: Interpretation: Rate of 94, sinus. No acute ST elevation or depression. QTc 435. QRS 86. HPI General Mode of arrival: ambulatory . Date/Time Provider Initiated Documentation: 10/25/18 13:14 . Limitations to Documentation: altered mental status . Information obtained by: family . HPI Narrative: Patient is a 73-year-old female with a history of hypertension, COPD, GERD, bipolar and dementia who presents with increasing shortness of breath and weakness over the past few days. Patient was admitted here 6 weeks ago for pneumonia and discharged early last month and has had shortness of breath since then but this became worse over the past few days. Caregiver states she has noted a congested cough but no sputum production. She states she has been eating and drinking less than usual. She states she is having difficulty walking due to shortness of breath and weakness. She denies any known fever, vomiting, diarrhea. Patient is unable to provide history at baseline. Related Data Home Medications Medication Instructions Recorded Confirmed docusate sodium [Colace] 100 mg PO PRN PRN 09/30/17 10/25/18 omeprazole 40 mg PO HS 09/30/17 10/25/18 cholecalciferol (vitamin D3) 2 tab PO QAM 11/21/17 10/25/18 acetaminophen 325 mg capsule 650 mg PO TID PRN cap 05/14/18 10/25/18 food supplement, lactose-reduced 120 ml PO DAILY ml 05/14/18 10/25/18 oral liquid amlodipine 10 mg PO DAILY #30 tab 09/15/18 10/25/18 quetiapine 25 mg tablet 25 mg PO DIRECTED #450 tab 10/21/18 10/25/18 Previous Rx's Medication Instructions Recorded amlodipine 10 mg PO DAILY #30 tab 09/15/18 quetiapine 25 mg tablet 25 mg PO DIRECTED #450 tab 10/21/18 Allergies Allergy/AdvReac Type Severity Reaction Status Date / Time No Known Allergies Allergy Unverified 10/25/18 13:09 General Stated Complaint: SOB GOLDIE: 3 Review of Systems Review of Systems All systems reviewed & are unremarkable except as noted in HPI and below Constitutional Reports as per HPI, Denies chills and Denies fever(s) Eyes Denies blurry vision ENT Denies dizziness, Denies sore throat and Denies throat swelling Cardiovascular Denies chest pain and Reports dyspnea Respiratory Reports cough and Reports dyspnea Gastrointestinal Denies abdominal pain, Denies diarrhea and Denies vomiting Genitourinary Denies hematuria and Denies dysuria Musculoskeletal Denies back pain and Denies numbness Integumentary/Breasts Denies lesions and Denies rash Neurologic Denies dizziness, Denies focal weakness and Denies numbness Allergic/Immunologic Denies throat swelling [facility] Medical History Bipolar disorder (Suspected) Essential hypertension (Chronic) COPD (chronic obstructive pulmonary disease) (Suspected) Mood disorder (Chronic) GERD (gastroesophageal reflux disease) (Chronic) Alzheimer's dementia (Chronic) Drug-induced Parkinsonism (Chronic) Chronic colitis (Acute) Vitamin B 12 deficiency (Acute) Anxiety (Chronic) CVA (cerebral vascular accident) (Chronic) Depression (Chronic) HTN (hypertension) (Chronic) Dementia (Resolved) Surgical History Surgical history unknown (Acute) Social History Smoking/Tobacco Use Status: Former Tobacco Use Alcohol Intake: never Substance use type: does not use Household members: caregiver Number of Children: 3 current occupation: Nurse Do you feel safe at home: Yes Do you feel safe in your relationship?: Yes Additional Social history: Has 2 children in [place] who are her guardians. Has another son in [place] who is not in charge of care. Has lives with caregiver Makayla since Jun 2017. Attends [employer] 5 days per week. CM is Meliza. Exam Const General: cooperative, healthy appearing and no acute distress HENMT Head: normal to inspection Face and sinus: normal facial exam Eyes General: appearance normal, both eyes and all related structures EOM: EOM intact bilaterally Neck Neck: normal visual inspection and No submandibular swelling Lymphatic: no lymphadenopathy noted Chest Chest: normal inspection of the chest and no tenderness Resp Effort & Inspection: normal respiratory effort Auscultation: rhonchi upper bilaterally and lower bilaterally and wheezes lower bilaterally and upper bilaterally Cardio Rate: regular rate Rhythm: regular rhythm GI Inspection: normal to inspection Palpation: soft, not firm, not rigid and nontender Auscultation: normal bowel sounds Skin General skin exam: no rashes or lesions noted Neuro General: alert, awake and oriented x3 Cognition: normal cognition Speech: speech normal Motor: muscle tone normal throughout Sensory Exam: no sensory deficits noted Extrem General: normal to inspection, full ROM and no edema Psych Appearance: grossly normal Mental Status: mental status grossly normal Speech and Movement: speech and movement normal Affect: normal affect Course Vital Signs Temperature 99.6 F 10/25/18 13:07 Pulse 98 H 10/25/18 13:07 Respiratory Rate 16 10/25/18 13:07 Blood Pressure 101/58 L 10/25/18 13:07 Pulse Oximetry 93 L 10/25/18 13:07 Temperature 99.6 F 10/25/18 13:07 Temperature Source Skin 10/25/18 13:07 Pulse 98 H 10/25/18 13:07 Respiratory Rate 18 10/25/18 13:10 Respiratory Effort 10/25/18 13:10 Respiratory Depth Normal 10/25/18 13:10 Blood Pressure 101/58 L 10/25/18 13:07 Blood Pressure Position Sitting 10/25/18 13:07 Pulse Oximetry 93 L 10/25/18 13:07 Oxygen Delivery Method Room Air 10/25/18 13:07 Oxygen Flow Rate 0 10/25/18 13:07 Pain Level 0 10/25/18 13:07
[2018-10-25] MEDS: Albuterol/Ipratropium 3 ML UPD VIAL (13:29)
[2018-10-25] MEDS: Albuterol 2.5 MG/3 ML INH SOLN VIAL ×2 (13:29→14:13)
[2018-10-25 13:54] LABS: Abs Immature Grans 0.01 k/cumm (0.0-0.09); Absolute Basophil Count 0.01 k/cumm (0.0-0.2); Absolute Eosinophil Count 0.01 k/cumm (0.0-0.7); Absolute Lymphocyte Count 1.02 k/cumm (1.2-3.4); Absolute Monocyte Count 0.37 k/cumm (0.11-0.7); Absolute Neutrophil Count 3.71 k/cumm (1.2-6.7); Basophils % 0.2; Eosinophils % 0.2; HCT 44.6 % (36.0-46.0); HGB 14.2 g/dL (12.0-15.5); Immature Grans % 0.2; Lymphocytes % 19.9; Mean Corp. HGB Concentration 31.8 g/dL (32.0-36.0); Mean Corpuscular Volume 94.1 fL (80-95); Mean Platelet Volume 9.8 fL (8.0-11.0); Monocytes % 7.2; Neutrophils % 72.3; Platelet Count 297 x1000/uL (130-400); RBC 4.74 m/cumm (4.00-5.20); RBC Distribution Width 16.7 % (11.7-14.6); White Blood Cell Count 5.13 k/cumm (4.4-10.8)
--- NOTE | 2018-10-25 13:56 | NUR.NOTE ---
sob has decreased post neb
[2018-10-25 14:09] LABS: ALT 26 U/L (12-78); AST 17 U/L (15-37); Albumin 3.3 g/dL (3.4-5.0); Alkaline Phosphatase 110 U/L (46-116); Anion Gap 10.3 mmol/L (3-11); BUN 20 mg/dL (7-18); Bilirubin, Total 0.3 mg/dL (0.2-1.0); CO2 27.7 mmol/L (21.0-32.0); CREATININE 1.01 mg/dL (0.55-1.02); Chloride 103 mmol/L (98-107); Estimated GFR 53.43 (mL/min/1.73m2); Glucose 100 mg/dL (70-100); Potassium 3.9 mmol/L (3.5-5.1); Sodium 141 mmol/L (136-145); Total Protein 7.4 g/dL (6.4-8.2)
[2018-10-25] MEDS: methylPREDNISolone SUCC 125 MG VIAL (14:12)
[2018-10-25 14:22] LABS: Troponin I < 0.02 ng/mL (0.00-0.06)
--- NOTE | 2018-10-25 14:34 | DI.VRAD_ITS ---
EXAM: XR Chest, 1 View EXAM DATE/TIME: 10/25/2018 1:17 PM CLINICAL HISTORY: 73 years old, female; Signs and symptoms; Cough and shortness of breath TECHNIQUE: Imaging protocol: XR of the chest, 1 view. Other technique: Portable exam. COMPARISON: CR XR CHEST 2V PA LATERAL 09/14/2018 9:42 AM FINDINGS: Lungs: Coarse increased markings right lower lobe. Pleural space: Unremarkable. No pleural effusion. No pneumothorax. Heart/Mediastinum: Borderline cardiomegaly. Diaphragm: Mild elevation right hemidiaphragm. Vasculature: Aortic ectasia. Bones/joints: Unremarkable. Other findings: The patient is rotated to the right. IMPRESSION: Coarse markings right lower lobe, atelectasis versus early consolidation. COMMENT: Preliminary interpretation is based on receipt of 1 image(s). A final report will be issued subsequently. Dictated and Authenticated by: Mary Treviño MD. Ordering:TERRY Laurent MD
[2018-10-25 14:44] LABS: NT-proBNP 212 pg/mL
[2018-10-25 14:55] LABS: Lactate-non-spesis 0.6 mmol/l (0.6-1.4)
--- NOTE | 2018-10-25 17:35 | W.PM.HP.N ---
Date of service: 10/25/18 Time of Service: 17:35 Assessment and Plan (1) Aspiration pneumonia: Current visit: Yes Status: Acute with mild hypoxia. Will reconsult speech therapy (seen in the past). For now, I am placing the patient on pureed diet with nectar thickened fluids. Continue zosyn initiated in the ED. Hold off of vancomcyin. Obtain sputum culture. Await blood culture. Provide gentle IV hydration. (2) Acute exacerbation of chronic obstructive pulmonary disease (COPD): Current visit: Yes Status: Acute As above. In addition, provide nebs and systemic steroid therapy (3) Dysphagia: Current visit: Yes Status: Acute As above (4) Alzheimer's dementia: Current visit: No Status: Chronic Continue home seroquel (5) GERD (gastroesophageal reflux disease): Current visit: No Status: Chronic Continue PPI (6) Essential hypertension: Current visit: No Status: Chronic Continue norvasc - verifying latest med rec with caregivers, however (7) Bipolar disorder: Current visit: No Status: Suspected Continue home seroquel (8) DVT prophylaxis: Current visit: No Status: Acute lovenox SC (9) Discharge planning issues: Current visit: Yes Status: Acute Full code PT/OT consults History of Present Illness Chief Complaint: shortness of breath/cough Narrative: Ms Osorio is a 73 year old female with PMHx of non-oxygen dependent COPD, dysphagia, GERD, Alzheimer's dementia, who for the last week has been getting progressively shorter of breath with a productive cough at the home with a director biomedical engineering. Today, she was short of breath on minimal exertion. In the ED, she was reportedly hypoxic to the 80's on room air, improved to 90% on 2L. She was found to be audibly wheezing. She was treated with vancomycin and zosyn for what appears to be a RLL pneumonia on her imaging, as well as with nebulizers and steroids. We were asked to admit the patient for further care. The patient states she is not short of breath laying down, denies pain, dizziness. She stated she had nausea earlier, but does not at this time. She is forgetful and cannot provide a reliable history - the history is being provided by her rn case management, who has been watching her for the last couple of days. The rn case management does not have the latest medication list with her, but will be providing it to us shortly. Review of Systems Review of Systems 12 systems were attempted to be reviewed. Pertinent positives and negatives are as per HPI [facility] Medical History Bipolar disorder (Suspected) Essential hypertension (Chronic) COPD (chronic obstructive pulmonary disease) (Suspected) Mood disorder (Chronic) GERD (gastroesophageal reflux disease) (Chronic) Alzheimer's dementia (Chronic) Drug-induced Parkinsonism (Chronic) Chronic colitis (Acute) Vitamin B 12 deficiency (Acute) Anxiety (Chronic) CVA (cerebral vascular accident) (Chronic) Depression (Chronic) HTN (hypertension) (Chronic) Dementia (Resolved) Surgical History Surgical history unknown (Acute) Social History Smoking/Tobacco Use Status: Former Tobacco Use Alcohol Intake: never Substance use type: does not use Household members: caregiver Number of Children: 3 current occupation: Nurse Do you feel safe at home: Yes Do you feel safe in your relationship?: Yes Additional Social history: Has 2 children in [place] who are her guardians. Has another son in [place] who is not in charge of care. Has lives with caregiver Makayla since Jun 2017. Attends [employer] 5 days per week. TRISTAN is Meliza. Meds Home Medications Medication Instructions Recorded Confirmed Type docusate sodium [Colace] 100 mg PO PRN PRN 09/30/17 10/25/18 History omeprazole 40 mg PO HS 09/30/17 10/25/18 History cholecalciferol (vitamin D3) 2 tab PO QAM 11/21/17 10/25/18 History acetaminophen 325 mg capsule 650 mg PO TID PRN cap 05/14/18 10/25/18 History food supplement, lactose-reduced 120 ml PO DAILY ml 05/14/18 10/25/18 History oral liquid amlodipine 10 mg PO DAILY #30 tab 09/15/18 10/25/18 Rx quetiapine 25 mg tablet 25 mg PO DIRECTED #450 tab 10/21/18 10/25/18 Rx Allergies Allergy/AdvReac Type Severity Reaction Status Date / Time No Known Allergies Allergy Unverified 10/25/18 13:09 Exam Narrative Exam Narrative: General: Very pleasant but confused frail elderly female, mildly anxious, cooperative, A&Ox1, laying comfortably in bed, audibly wheezing - can be heard from the doorway Neurological: A&Ox1, no focal deficits Psychiatric: mildly anxious Skin: intact HEENT: Atraumatic, normocephalic, EOMI, dry MM, clear oropharynx, no submandibular or cervical lymphadenopathy, no goiter or JVD Cardiovascular: RRR, no m/r/g Lungs: Loud rhonchi/rales B Gastrointestinal: abdomen is soft, nontender, nondistended Extremities: no e/c/c BLE's Results Imaging Additional studies: CXR: Coarse markings right lower lobe, atelectasis versus early consolidation. Labs : 10/25/18 13:42 10/25/18 13:42 Laboratory Results - last 24 hr 10/25/18 10/25/18 10/25/18 13:42 13:42 13:42 WBC 5.13 RBC 4.74 Hgb 14.2 Hct 44.6 MCV 94.1 MCH 30.0 MCHC 31.8 L RDW 16.7 H Plt Count 297 D MPV 9.8 Immature Gran % 0.2 Neutrophils % 72.3 Lymphocytes % 19.9 Monocytes % 7.2 Eosinophils % 0.2 Basophils % 0.2 Absolute Neutrophils 3.71 Absolute Lymphocytes 1.02 L Absolute Monocytes 0.37 Absolute Eosinophils 0.01 Absolute Basophils 0.01 Sodium 141 Potassium 3.9 Chloride 103 Carbon Dioxide 27.7 Anion Gap 10.3 BUN 20 H Creatinine 1.01 Estimated GFR/1.73 m2 53.43 Glucose 100 Lactate Calcium 9.0 Magnesium 2.0 Total Bilirubin 0.3 AST 17 ALT 26 Alkaline Phosphatase 110 Troponin I < 0.02 NT-Pro-B Natriuret Pep 212 Total Protein 7.4 Albumin 3.3 L 10/25/18 14:47 WBC RBC Hgb Hct MCV MCH MCHC RDW Plt Count MPV Immature Gran % Neutrophils % Lymphocytes % Monocytes % Eosinophils % Basophils % Absolute Neutrophils Absolute Lymphocytes Absolute Monocytes Absolute Eosinophils Absolute Basophils Sodium Potassium Chloride Carbon Dioxide Anion Gap BUN Creatinine Estimated GFR/1.73 m2 Glucose Lactate 0.6 Calcium Magnesium Total Bilirubin AST ALT Alkaline Phosphatase Troponin I NT-Pro-B Natriuret Pep Total Protein Albumin Last Vital Signs Temp 37.6 C 10/25/18 16:34 Pulse 96 H 05/18/19 16:34 Resp 18 10/25/18 16:34 BP 130/98 H 10/25/18 16:34 Pulse Ox 90 L 10/25/18 17:00
[2018-10-25] MEDS: Normal Saline 500 ML IV (17:38)
--- NOTE | 2018-10-25 17:43 | HPE_ITS ---
Date of service: 10/25/18 Time of Service: 17:35 Assessment and Plan (1) Aspiration pneumonia: Current visit: Yes Status: Acute with mild hypoxia. Will reconsult speech therapy (seen in the past). For now, I am placing the patient on pureed diet with nectar thickened fluids. Continue zosyn initiated in the ED. Hold off of vancomcyin. Obtain sputum culture. Await blood culture. Provide gentle IV hydration. (2) Acute exacerbation of chronic obstructive pulmonary disease (COPD): Current visit: Yes Status: Acute As above. In addition, provide nebs and systemic steroid therapy (3) Dysphagia: Current visit: Yes Status: Acute As above (4) Alzheimer's dementia: Current visit: No Status: Chronic Continue home seroquel (5) GERD (gastroesophageal reflux disease): Current visit: No Status: Chronic Continue PPI (6) Essential hypertension: Current visit: No Status: Chronic Continue norvasc - verifying latest med rec with caregivers, however (7) Bipolar disorder: Current visit: No Status: Suspected Continue home seroquel (8) DVT prophylaxis: Current visit: No Status: Acute lovenox SC (9) Discharge planning issues: Current visit: Yes Status: Acute Full code PT/OT consults History of Present Illness Chief Complaint: shortness of breath/cough Narrative: Ms Osorio is a 73 year old female with PMHx of non-oxygen dependent COPD, dysphagia, GERD, Alzheimer's dementia, who for the last week has been getting progressively shorter of breath with a productive cough at the home with a water and fire technician. Today, she was short of breath on minimal exertion. In the ED, she was reportedly hypoxic to the 80's on room air, improved to 90% on 2L. She was found to be audibly wheezing. She was treated with vancomycin and zosyn for what appears to be a RLL pneumonia on her imaging, as well as with nebulizers and steroids. We were asked to admit the patient for further care. The patient states she is not short of breath laying down, denies pain, dizziness. She stated she had nausea earlier, but does not at this time. She is forgetful and cannot provide a reliable history - the history is being provided by her heel caser, who has been watching her for the last couple of days. The heel caser does not have the latest medication list with her, but will be providing it to us shortly. Review of Systems Review of Systems 12 systems were attempted to be reviewed. Pertinent positives and negatives are as per HPI [facility] Medical History Bipolar disorder (Suspected) Essential hypertension (Chronic) COPD (chronic obstructive pulmonary disease) (Suspected) Mood disorder (Chronic) GERD (gastroesophageal reflux disease) (Chronic) Alzheimer's dementia (Chronic) Drug-induced Parkinsonism (Chronic) Chronic colitis (Acute) Vitamin B 12 deficiency (Acute) Anxiety (Chronic) CVA (cerebral vascular accident) (Chronic) Depression (Chronic) HTN (hypertension) (Chronic) Dementia (Resolved) Surgical History Surgical history unknown (Acute) Social History Smoking/Tobacco Use Status: Former Tobacco Use Alcohol Intake: never Substance use type: does not use Household members: caregiver Number of Children: 3 current occupation: Nurse Do you feel safe at home: Yes Do you feel safe in your relationship?: Yes Additional Social history: Has 2 children in [place] who are her guardians. Has another son in [place] who is not in charge of care. Has lives with caregiver Makayla since Jun 2017. Attends [employer] 5 days per week. TRISTAN is Meliza. Meds Home Medications Medication Instructions Recorded Confirmed Type docusate sodium [Colace] 100 mg PO PRN PRN 09/30/17 10/25/18 History omeprazole 40 mg PO HS 09/30/17 10/25/18 History cholecalciferol (vitamin D3) 2 tab PO QAM 11/21/17 10/25/18 History acetaminophen 325 mg capsule 650 mg PO TID PRN cap 05/14/18 10/25/18 History food supplement, lactose-reduced 120 ml PO DAILY ml 05/14/18 10/25/18 History oral liquid amlodipine 10 mg PO DAILY #30 tab 09/15/18 10/25/18 Rx quetiapine 25 mg tablet 25 mg PO DIRECTED #450 tab 10/21/18 10/25/18 Rx Allergies Allergy/AdvReac Type Severity Reaction Status Date / Time No Known Allergies Allergy Unverified 10/25/18 13:09 Exam Narrative Exam Narrative: General: Very pleasant but confused frail elderly female, mildly anxious, cooperative, A&Ox1, laying comfortably in bed, audibly wheezing - can be heard from the doorway Neurological: A&Ox1, no focal deficits Psychiatric: mildly anxious Skin: intact HEENT: Atraumatic, normocephalic, EOMI, dry MM, clear oropharynx, no submandib ular or cervical lymphadenopathy, no goiter or JVD Cardiovascular: RRR, no m/r/g Lungs: Loud rhonchi/rales B Gastrointestinal: abdomen is soft, nontender, nondistended Extremities: no e/c/c BLE's Results Imaging Additional studies: CXR: Coarse markings right lower lobe, atelectasis versus early consolidation. Labs : 10/25/18 13:42 10/25/18 13:42 Laboratory Results - last 24 hr 10/25/18 10/25/18 10/25/18 13:42 13:42 13:42 WBC 5.13 RBC 4.74 Hgb 14.2 Hct 44.6 MCV 94.1 MCH 30.0 MCHC 31.8 L RDW 16.7 H Plt Count 297 D MPV 9.8 Immature Gran % 0.2 Neutrophils % 72.3 Lymphocytes % 19.9 Monocytes % 7.2 Eosinophils % 0.2 Basophils % 0.2 Absolute Neutrophils 3.71 Absolute Lymphocytes 1.02 L Absolute Monocytes 0.37 Absolute Eosinophils 0.01 Absolute Basophils 0.01 Sodium 141 Potassium 3.9 Chloride 103 Carbon Dioxide 27.7 Anion Gap 10.3 BUN 20 H Creatinine 1.01 Estimated GFR/1.73 m2 53.43 Glucose 100 Lactate Calcium 9.0 Magnesium 2.0 Total Bilirubin 0.3 AST 17 ALT 26 Alkaline Phosphatase 110 Troponin I < 0.02 NT-Pro-B Natriuret Pep 212 Total Protein 7.4 Albumin 3.3 L 10/25/18 14:47 WBC RBC Hgb Hct MCV MCH MCHC RDW Plt Count MPV Immature Gran % Neutrophils % Lymphocytes % Monocytes % Eosinophils % Basophils % Absolute Neutrophils Absolute Lymphocytes Absolute Monocytes Absolute Eosinophils Absolute Basophils Sodium Potassium Chloride Carbon Dioxide Anion Gap BUN Creatinine Estimated GFR/1.73 m2 Glucose Lactate 0.6 Calcium Magnesium Total Bilirubin AST ALT Alkaline Phosphatase Troponin I NT-Pro-B Natriuret Pep Total Protein Albumin Last Vital Signs Temp 37.6 C 10/25/18 16:34 Pulse 96 H 10/25/18 16:34 Resp 18 10/25/18 16:34 BP 130/98 H 10/25/18 16:34 Pulse Ox 90 L 10/25/18 17:00
[2018-10-25] MEDS: PIPERACILLIN/TAZO 3.375 GM in Normal Saline 50 ML IVPB ×2 (17:56→23:30)
[2018-10-25] MEDS: Enoxaparin 30 MG/0.3 ML SYR SC (18:05)
[2018-10-25] MEDS: Normal Saline Flush 10 ML SYR IVP (18:08)
[2018-10-25] MEDS: methylPREDNISolone SUCC 125 MG VIAL 80 MG IVP (18:08)
[2018-10-25] MEDS: Albuterol/Ipratropium 3 ML UPD VIAL UPD ×2 (18:14→23:29)
[2018-10-25] MEDS: QUEtiapine 25 MG TAB PO (20:23)
[2018-10-26] VITALS (16 sets, daily range): BP systolic 102–137; BP diastolic 61–80; PULSE 75–101; RESP 2–31; TEMP 36.6–37.3; O2SAT 83–95
[2018-10-26] MEDS: Normal Saline 1,000 ML 75 ML IV ×2 (00:38→16:30)
[2018-10-26] MEDS: Normal Saline Flush 10 ML SYR IVP ×3 (01:40→16:35)
[2018-10-26] MEDS: methylPREDNISolone SUCC 125 MG VIAL 80 MG IVP ×2 (01:40→10:23)
[2018-10-26] MEDS: Albuterol/Ipratropium 3 ML UPD VIAL UPD ×4 (05:51→23:34)
[2018-10-26] MEDS: PIPERACILLIN/TAZO 3.375 GM in Normal Saline 50 ML IVPB (05:52)
[2018-10-26 07:31] LABS: Abs Immature Grans 0.02 k/cumm (0.0-0.09); Absolute Lymphocyte Count 0.49 k/cumm (1.2-3.4); Absolute Monocyte Count 0.03 k/cumm (0.11-0.7); Absolute Neutrophil Count 4.05 k/cumm (1.2-6.7); HCT 39.3 % (36.0-46.0); HGB 12.4 g/dL (12.0-15.5); Immature Grans % 0.4; Lymphocytes % 10.7; Mean Corp. HGB Concentration 31.6 g/dL (32.0-36.0); Mean Corpuscular Hemoglobin 29.7 pg (27.0-33.0); Mean Platelet Volume 9.9 fL (8.0-11.0); Monocytes % 0.7; Neutrophils % 88.2; Platelet Count 289 x1000/uL (130-400); RBC 4.18 m/cumm (4.00-5.20); RBC Distribution Width 16.4 % (11.7-14.6); White Blood Cell Count 4.59 k/cumm (4.4-10.8)
[2018-10-26 07:43] LABS: Anion Gap 13.5 mmol/L (3-11); BUN 20 mg/dL (7-18); CO2 22.5 mmol/L (21.0-32.0); CREATININE 0.82 mg/dL (0.55-1.02); Calcium 8.1 mg/dL (8.5-10.1); Chloride 107 mmol/L (98-107); Glucose 161 mg/dL (70-100); Sodium 143 mmol/L (136-145)
--- NOTE | 2018-10-26 08:18 | EVALE_ITS ---
Date of service: 10/26/18 Time of Service: 07:00 Speech Therapy Evaluation Note: REFERRING PROVIDER: Dr. Patel BACKGROUND This is a 73 year old female who presented to the ED on 10/25/18 iwth a 1-week h/o dyspnea and productive cough. A CXR of that date revealed course markings of the RLL. She was admitted for tx of possible pneumonia and a swallow evaluation was requested to assess for appropriate p.o. consistencies. PMH: Alzheimer's dementia, drug-induced Parkinsonism, bipolar disorder, anxiety, depression, COPD, essential HTN, GERD, colitis, a h/o smoking, h/o CVA. The patient (pt) is unable to provide any additional background information due to her dementia. However, I did see her on 09/08/18 as an inpatient at [facility], at which time it was recommended that she be on a Mechanically Altered (i.e., Minced & Moist) diet consistency, Thin liquids and crushed pills in puree, dissolved pills in liquid or nonoral medications. She was inappropriate for any diet advancement during that admission stay. OBJECTIVE Nursing reports: - T: 37.3 - O2 sat: 92% on 2.5L via NC - LS: crackles L base, otherwise CTA in the presence of ABX - Pt is currently on a Puree diet, Moderately-thick liquids and whole pills with a liquid wash. The pt is sitting in her chair and greets me with immediate but brief direct eye contact & a smile but no verbal greeting. Spontaneous speech consists of automatic utterances such as Okay and multiple unfinished sentences as answers to questions. She is alert but not oriented and able to follow basic 1-step directions only occasionally. This is a decreased functional status as compared to her 09/08/18 visit. Oral Sensorimotor Exam The pt has full upper & full lower dentures. Oral hygiene is poor. She is unable to follow directions sufficiently for most of the exam but the following is noted. Smile is symmetrical. No lingual deviation on limited protrusion. Speech intelligibility to this mildly familiar listener in a setting of mild background noise is 90%. Vocal quality is WNL and vocal intensity is mildly decreased. Swallowing - Moderately-thick liquid: Good bolus control & posterior oral transit (POT); no willi signs/symptoms (s/s) of aspiration/penetration (A/P); oral clearance 100%; no oral escape. These results are true for both single & consecutive swallows by cup. - Mildly-thick liquid: Results are the same as for Moderately-thick liquid. These results are true for both single & consecutive swallows by both cup & straw. - Thin liquid: Results are the same as for Mildly-thick liquid. - Puree food: Good bolus control & linguopalatal bolus compression; POT WNL; no willi s/s A/P; oral clearance 100%; no oral escape. - Minced & Moist food: Decreased mastication quality despite cueing for use of increased mastication time; bolus control & POT WNL; no willi s/s A/P; oral clearance 80% increasing to 100% with use of a liquid wash; no oral escape. - Soft & Bite-sized: No mastication; bolus is removed from pt's mouth by me. Pt is observed to feed herself but requires some assistance due to upper extremity intentional tremor. INTERPRETATION The pt shows a moderate-severe oral-prep dysphagia in a setting of significant dementia, but no clinical signs of a pharyngeal dysphagia. Her overall functional status appears decreased from that of early September 2018. It is possible that with improved health during the course of this admission stay, she may be able to tolerate a diet advancement. RECOMMENDATIONS 1. Continue Puree diet. 2. Change to: - Thin liquids - crushed pills in puree, dissolved pills in liquid, or nonoral medications 3. Aided feeding 4. F/u ST to monitor pt for possible diet advancement Thank you for referring this pt.
[2018-10-26] MEDS: QUEtiapine 25 MG TAB PO ×4 (08:33→20:11)
[2018-10-26] MEDS: amLODIPine 5 MG TAB 10 MG PO (08:33)
[2018-10-26] MEDS: Cholecalciferol (Vitamin D3) 1,000 UNIT TAB 2000 UNITS PO (08:33)
--- NOTE | 2018-10-26 10:28 | PHARADMIT ---
Addendum entered by Bea Randolph 10/28/18 13:17: Pharmacy Note Subjective Objective BP-144/75 HR-98 RR-28 Na-152 Cl-114 SCr-0.74 Assessment methylprednisolone changed to PO prednisone zosyn continues (day 4) furosemide ordered as pt was fluid overloaded repeat chest xray ordered Plan continue to watch VS labs and for med changes Original Note: Admission Pharmacy Clinical Review Aspiration Pneumonia, COPD Exacerbation Code Status Full Code Current Weight 55.4 kg Renally Cleared and Narrow Therapeutic Index Meds CrCl~51.8ml/min QTc Value / Action Taken QTC 435 BP Control, Fever BP 123/71 Afebrile Electrolytes reviewed in range DVT Prophylaxis Lovenox increased from 30mg to 40mg per protocol Opiate Usage / Scheduled Bowel Regimen Ordered no/yes Plt/SCr for Heparin / Enoxaparin Plt 289 SCr 0.82 INR for Warfarin H/H stable, WBC/Bands H/H 12.4/39.3 WBC 4.59 Antibiotic appropriateness Zosyn increased to 4.5gram for Aspiration Pneumonia per pharmacy recommendation Vanco 1.25gram IV x1 in ED only....doc did not want to continue Cultures and Sensitivities Blood pending Surgical ABX d/c within 24 hr DM control / Insulin Dosing BG 161 Heart Failure (Check EF%) (MILAN's, B-Block, Diuretics) Amlodipine, IV to PO Switch IV steroids Home Meds Reviewed Home Meds Not Ordered all ok Comments Dimentia, may need sitter, Hx of dysphagi, speech consult: crushed pills in puree or dissolved in liquid (may need Protonix changed to IV-MD aware)
--- NOTE | 2018-10-26 11:18 | PT.INIE ---
Date of service: 10/26/18 Time of Service: 10:30 PT Notes Inpatient Physical Therapy Evaluation Date: 10/26/18 Referring Doctor: Ashleigh Patel MD PT Orders: PT CONSULT: Eval and treat Precautions: Standard Patient Profile/Admitting Diagnosis: Patient presented to ER on 10/25/18 with SOB. ER evaluation confirmed health care associated pneumonia, and exacerbation of chronic COPD. She had a prior admission 6 weeks prior for pneumonia and COPD exacerbation, as well. PMHX: Bipolar disorder (Suspected) Essential hypertension (Chronic) COPD (chronic obstructive pulmonary disease) (Suspected) Mood disorder (Chronic) GERD (gastroesophageal reflux disease) (Chronic) Alzheimer's dementia (Chronic) Drug-induced Parkinsonism (Chronic) Chronic colitis (Acute) Vitamin B 12 deficiency (Acute) Anxiety (Chronic) CVA (cerebral vascular accident) (Chronic) Depression (Chronic) HTN (hypertension) (Chronic) Dementia (Resolved) Social History/Home Situation: Per EMR review, Has 2 children in [place] who are her guardians. Has another son in [place] who is not in charge of care. She lives with caregiver Makayla since Jun 2017. Attends [employer] 5 days per week. Premorbid level of function: Unclear, as patient's dementia contributed to poor history reporting. Current Functional Limitations: CGx1, Min A x 1 with functional sit to stand and static standing. Equipment Owned/DME: Unknown, patient unable to accurately report. Subjective: Unproductive communication, without appropriate response to my attempt of conversation with her. Objective: General Observation: Sitting in recliner, IV R cubital fossa, 2 L 02 via NC Mental Status: Unoriented to person, place, , date, secondary to advanced Dementia, now diagnosed with Alzheimer's Pain: Denies Vital Signs: BP: 112/64, HR 64, O2 sat on 2L NC 91%. O2 decreases to 87%, remaining on 2 L, after sit to stand, with 5 second static stance. ROM: Right Upper Extremity: WFL Left Upper Extremity: WFL Right Lower Extremity: WFL Left Lower Extremity: WFL Strength: Unable to assess throughout due to patient's inability to follow direction. Sensation: Patient poor square cutter, unable to assess. Bed Mobility/Transfers: CGx1, Min A x1 sit<>stand at RW Static stand x 5 minutes. Patient becomes agitated, with attempt of further activity - sits and does not respond to encouragement. Gait: Not Attempted, as above. Balance: Static Sitting: Good Dynamic Sitting: Good Static Standing: Fair Dynamic Standing: Not able to assess Special Tests: Mobility Limitations Standardized Measure [facility] AM-PAC 6 clicks Basic Mobility Inpatient Short Form: Raw Score: 12 CMS Score: 57% disability Informed Consent/Education: Patient instructed in purpose of PT consult and plan of care. Assessment: Patient is a 73 year old female referred to physical therapy services with the diagnosis of pneumonia and COPD exacerbation. Patient presents with clinical signs and symptoms consistent with admitting diagnosis, in the presence of Alzheimer's disease, PD, and mood/bipolar disorder, negatively influencing patient's participation with PT. Impairment level findings: Poor balance, generalized weakness, poor O2 metabolism, and progressive mental and physical degeneration. Impairments are contributing to the following functional limitations: Assist with transfers, unsteady with transfers, assumed need for assist with attempt of gait considering instsability identified with static activities today and her overall weakened state. [facility] score of 57% disability Patient is assessed as a Low 70733 Moderate 13724 x High 14911 complexity based on the following: History: See comorbidities Examination: See above impairments and functional limitations Presentation: Evolving Decision Making: Moderate, 57% disability per [facility] assessment. Goals: Goals X1 week 1. Supine-Sit CG 2. Sit-Supine CG 3. Sit-Stand CG 4. Stand-Sit CG 5. Bed-Chair CG with FWW 6. Chair-Bed CG with FWW 7. Gait 20ft with FWW 8. Balance Fair with standing activities, static and dynamic Plan of Care/Treatment Plan: 1-2x/day, 7 days/week x 1 week. Plan of care has been reviewed with the GLASS FINISHER providing the service under Physical Therapy direction. Initiate Physical Therapy intervention for strengthening, bed mobility, transfers, gait, stairs, balance training, use of assistive device. DISCHARGE RECOMMENDATIONS: Home with caregiver TREATMENT CODE/TIME: 21957, 30 minutes direct/total. Olya Bonner, MPT
--- NOTE | 2018-10-26 11:21 | IN_ITS ---
Date of service: 10/26/18 Time of Service: 10:30 PT Notes Inpatient Physical Therapy Evaluation Date: 10/26/18 Referring Doctor: Ashleigh Patel MD PT Orders: PT CONSULT: Eval and treat Precautions: Standard Patient Profile/Admitting Diagnosis: Patient presented to ER on 10/25/18 with SOB. ER evaluation confirmed health care associated pneumonia, and exacerbation of chronic COPD. She had a prior admission 6 weeks prior for pneumonia and COPD exacerbation, as well. PMHX: Bipolar disorder (Suspected) Essential hypertension (Chronic) COPD (chronic obstructive pulmonary disease) (Suspected) Mood disorder (Chronic) GERD (gastroesophageal reflux disease) (Chronic) Alzheimer's dementia (Chronic) Drug-induced Parkinsonism (Chronic) Chronic colitis (Acute) Vitamin B 12 deficiency (Acute) Anxiety (Chronic) CVA (cerebral vascular accident) (Chronic) Depression (Chronic) HTN (hypertension) (Chronic) Dementia (Resolved) Social History/Home Situation: Per EMR review, Has 2 children in [place] who are her guardians. Has another son in [place] who is not in charge of care. She lives with caregiver Makayla since Jun 2017. Attends [employer] 5 days per week. Premorbid level of function: Unclear, as patient's dementia contributed to poor history reporting. Current Functional Limitations: CGx1, Min A x 1 with functional sit to stand and static standing. Equipment Owned/DME: Unknown, patient unable to accurately report. Subjective: Unproductive communication, without appropriate response to my attempt of conversation with her. Objective: General Observation: Sitting in recliner, IV R cubital fossa, 2 L 02 via NC Mental Status: Unoriented to person, place, , date, secondary to advanced Dementia, now diagnosed with Alzheimer's Pain: Denies Vital Signs: BP: 112/64, HR 64, O2 sat on 2L NC 91%. O2 decreases to 87%, remaining on 2 L, after sit to stand, with 5 second static stance. ROM: Right Upper Extremity: WFL Left Upper Extremity: WFL Right Lower Extremity: WFL Left Lower Extremity: WFL Strength: Unable to assess throughout due to patient's inability to follow direction. Sensation: Patient poor acreage reporter, unable to assess. Bed Mobility/Transfers: CGx1, Min A x1 sit<>stand at RW Static stand x 5 minutes. Patient becomes agitated, with attempt of further activity - sits and does not respond to encouragement. Gait: Not Attempted, as above. Balance: Static Sitting: Good Dynamic Sitting: Good Static Standing: Fair Dynamic Standing: Not able to assess Special Tests: Mobility Limitations Standardized Measure [facility] AM-PAC 6 clicks Basic Mobility Inpatient Short Form: Raw Score: 12 CMS Score: 57% disability Informed Consent/Education: Patient instructed in purpose of PT consult and plan of care. Assessment: Patient is a 73 year old female referred to physical therapy services with the diagnosis of pneumonia and COPD exacerbation. Patient presents with clinical signs and symptoms consistent with admitting diagnosis, in the presence of Alzheimer's disease, PD, and mood/bipolar disorder, negativ zina influencing patient's participation with PT. Impairment level findings: Poor balance, generalized weakness, poor O2 metabolism, and progressive mental and physical degeneration. Impairments are contributing to the following functional limitations: Assist with transfers, unsteady with transfers, assumed need for assist with attempt of gait considering instsability identified with static activities today and her overall weakened state. [facility] score of 57% disability Patient is assessed as a Low 55407 Moderate 67632 x High 15007 complexity based on the following: History: See comorbidities Examination: See above impairments and functional limitations Presentation: Evolving Decision Making: Moderate, 57% disability per [facility] assessment. Goals: Goals X1 week 1. Supine-Sit CG 2. Sit-Supine CG 3. Sit-Stand CG 4. Stand-Sit CG 5. Bed-Chair CG with FWW 6. Chair-Bed CG with FWW 7. Gait 20ft with FWW 8. Balance Fair with standing activities, static and dynamic Plan of Care/Treatment Plan: 1-2x/day, 7 days/week x 1 week. Plan of care has been reviewed with the CASUALTY CLAIMS SUPERVISOR providing the service under Physical Therapy direction. Initiate Physical Therapy intervention for strengthening, bed mobility, transfers, gait, stairs, balance training, use of assistive device. DISCHARGE RECOMMENDATIONS: Home with caregiver TREATMENT CODE/TIME: 22399, 30 minutes direct/total. Olya Bonner, MPT
--- NOTE | 2018-10-26 11:37 | PGE_ITS ---
Date of Service Date of service: 10/26/18 Time of Service: 11:29 Assessment and Plan (1) Aspiration pneumonia: Start date: 10/26/18 Start time: 11:35 Current visit: Yes Status: Acute with mild hypoxia. scattered expiratory wheezing Speech therapy evaluated a pureed diet with thin liquids, crush meds in pureed thick food. Day 2 of zosyn Obtain sputum culture. blood culture results pending Provide gentle IV hydration. (2) Acute exacerbation of chronic obstructive pulmonary disease (COPD): Start date: 10/26/18 Start time: 11:36 Current visit: Yes Status: Acute As above. In addition, provide nebs and systemic steroid therapy (3) Dysphagia: Start date: 10/26/18 Start time: 11:37 Current visit: Yes Status: Acute As above (4) Alzheimer's dementia: Start date: 10/26/18 Start time: 11:37 Current visit: No Status: Chronic Continue home seroquel (5) GERD (gastroesophageal reflux disease): Start date: 10/26/18 Start time: 11:37 Current visit: No Status: Chronic Continue PPI (6) Essential hypertension: Start date: 10/26/18 Start time: 11:37 Current visit: No Status: Chronic Continue norvasc - 10 mg (7) Bipolar disorder: Start date: 10/26/18 Start time: 11:37 Current visit: No Status: Suspected Continue home seroquel (8) DVT prophylaxis: Start date: 10/26/18 Start time: 11:37 Current visit: No Status: Acute lovenox SC (9) Discharge planning issues: Start date: 10/26/18 Start time: 11:37 Current visit: Yes Status: Acute Full code PT/OT consults Subjective Interval history since last seen: Patient has dementia and recently diagnosed Parkinson that she has not started taking any medication for. She is a 73 y.o lady that was admitted for aspiration pneumonia. She had a speech evaluation today and was placed on pureed diet with thin liquids. She is being treated for aspiration pneumonia with zosyn day 2. She is 91% on 2 L at this time. Her lungs have scattered wheezes and she has 1+ pitting edema to bilateral extremities. She does not answer questions when asked and will talk at random times. She has a caregiver that takes care of her at her home. She is afebrile without leukocytosis, we will continue to monitor. Exam Narrative Exam Narrative: General: confused frail elderly female, cooperative, A&Ox1, sitting comfortably in chair, Neurological: A&Ox1, no focal deficits Psychiatric: calm with mild tremors Skin: intact HEENT: Atraumatic, normocephalic, EOMI, dry MM, clear oropharynx, no submandib ular or cervical lymphadenopathy, no goiter or JVD Cardiovascular: RRR, no m/r/g Lungs: scattered wheezing on expiration Gastrointestinal: abdomen is soft, nontender, nondistended Extremities: no e/c/c BLE's/ + 1 pitting edema Objective Objective Clinical Data: Abnormal lab results 10/25/18 10/25/18 10/26/18 Range/Units 13:42 13:42 07:16 MCHC 31.8 L (32.0-36.0) g/dL RDW 16.7 H (11.7-14.6) % Absolute Lymphocytes 1.02 L (1.2-3.4) k/cumm Absolute Monocytes (0.11-0.7) k/cumm Anion Gap 13.5 H (3-11) mmol/L BUN 20 H 20 H (7-18) mg/dL Glucose 161 H (70-100) mg/dL Calcium 8.1 L (8.5-10.1) mg/dL Albumin 3.3 L (3.4-5.0) g/dL 10/26/18 Range/Units 07:16 MCHC 31.6 L (32.0-36.0) g/dL RDW 16.4 H (11.7-14.6) % Absolute Lymphocytes 0.49 L (1.2-3.4) k/cumm Absolute Monocytes 0.03 L (0.11-0.7) k/cumm Anion Gap (3-11) mmol/L BUN (7-18) mg/dL Glucose (70-100) mg/dL Calcium (8.5-10.1) mg/dL Albumin (3.4-5.0) g/dL Vital Signs Temperature 37.3 C 10/26/18 07:20 Temperature Source Tympanic 10/26/18 07:20 Pulse 99 H 10/26/18 07:20 Pulse Rhythm Regular 10/26/18 07:23 Respiratory Rate 31 H 10/26/18 07:20 Respiratory Effort 10/26/18 07:23 Respiratory Depth Shallow 10/26/18 07:23 Respiratory Pattern Tachypnea 10/26/18 07:23 Blood Pressure 123/71 10/26/18 07:20 Blood Pressure Mean 106 10/25/18 15:16 Blood Pressure Position Sitting 10/25/18 13:07 Pulse Oximetry 88 L 10/26/18 11:06 Oxygen Delivery Method Nasal Cannula 10/26/18 11:06 Oxygen Flow Rate 2.5 10/26/18 11:06 Pain Level 0 10/25/18 13:07 Comment 10/25/18 23:29 Intake & Output 10/25/18 10/25/18 10/26/18 11:59 23:59 11:59 Intake Total 420.011 / 470.011 719.989 / 719.989 Output Total 500 / 500 Balance 420.011 / 470.011 219.989 / 219.989 Weight 54.431 kg 55.4 kg Intake: IV 300.011 / 350.011 599.989 / 599.989 Oral 120 / 120 120 / 120 Output: Urine 500 / 500 Other: Urine Color Yellow Urine Appearance Clear Urine Odor Normal Comment pt toileted when she first got here. Has refused going to bed and toileting since. Will try again later. pt missed the hat Stool Size Small Stool Characteristics Soft Voiding Methods Toilet Toilet Laboratory Results WBC 4.59 k/cumm (4.4-10.8) 10/26/18 07:16 RBC 4.18 m/cumm (4.00-5.20) 10/26/18 07:16 Hgb 12.4 g/dL (12.0-15.5) 10/26/18 07:16 Hct 39.3 % (36.0-46.0) 10/26/18 07:16 MCV 94.0 fL (80-95) 10/26/18 07:16 MCH 29.7 pg (27.0-33.0) 10/26/18 07:16 MCHC 31.6 g/dL (32.0-36.0) L 10/26/18 07:16 RDW 16.4 % (11.7-14.6) H 10/26/18 07:16 Plt Count 289 x1000/uL (130-400) 10/26/18 07:16 MPV 9.9 fL (8.0-11.0) 10/26/18 07:16 Immature Gran % 0.4 10/26/18 07:16 Neutrophils % 88.2 10/26/18 07:16 Lymphocytes % 10.7 10/26/18 07:16 Monocytes % 0.7 10/26/18 07:16 Eosinophils % 0.0 10/26/18 07:16 Basophils % 0.0 10/26/18 07:16 Absolute Neutrophils 4.05 k/cumm (1.2-6.7) 10/26/18 07:16 Absolute Lymphocytes 0.49 k/cumm (1.2-3.4) L 10/26/18 07:16 Absolute Monocytes 0.03 k/cumm (0.11-0.7) L 10/26/18 07:16 Absolute Eosinophils 0.00 k/cumm (0.0-0.7) 10/26/18 07:16 Absolute Basophils 0.00 k/cumm (0.0-0.2) 10/26/18 07:16 Sodium 143 mmol/L (136-145) 10/26/18 07:16 Potassium 4.0 mmol/L (3.5-5.1) 10/26/18 07:16 Chloride 107 mmol/L (98-107) 10/26/18 07:16 Carbon Dioxide 22.5 mmol/L (21.0-32.0) 10/26/18 07:16 Anion Gap 13.5 mmol/L (3-11) H 10/26/18 07:16 BUN 20 mg/dL (7-18) H 10/26/18 07:16 Creatinine 0.82 mg/dL (0.55-1.02) 10/26/18 07:16 Estimated GFR/1.73 m2 >= 60.00 (mL/min/1.73m2) 10/26/18 07:16 Glucose 161 mg/dL (70-100) H 10/26/18 07:16 Lactate 0.6 mmol/l (0.6-1.4) 10/25/18 14:47 Calcium 8.1 mg/dL (8.5-10.1) L 10/26/18 07:16 Magnesium 2.0 mg/dL (1.8-2.4) 10/26/18 07:16 Total Bilirubin 0.3 mg/dL (0.2-1.0) 10/25/18 13:42 AST 17 U/L (15-37) 10/25/18 13:42 ALT 26 U/L (12-78) 10/25/18 13:42 Alkaline Phosphatase 110 U/L (46-116) 10/25/18 13:42 Troponin I < 0.02 ng/mL (0.00-0.06) 10/25/18 13:42 NT-Pro-B Natriuret Pep 212 pg/mL (-299) 10/25/18 13:42 Total Protein 7.4 g/dL (6.4-8.2) 10/25/18 13:42 Albumin 3.3 g/dL (3.4-5.0) L 10/25/18 13:42
[2018-10-26] MEDS: PIPERACILLIN/TAZO 4.5 GM in Normal Saline 100 ML IVPB ×3 (12:04→23:33)
--- NOTE | 2018-10-26 14:57 | PDOC.CMIN ---
- If Service Date Differs Date of service: 10/26/18 Time of Service: 14:57 Care Management Initial Assess REASON FOR HOSPITALIZATION:: Aspiration pneumonia PAST MEDICAL HISTORY/PAST SURGICAL HISTORY:: GERD (gastroesophageal reflux disease) (Chronic). Alzheimer's dementia (Chronic). Drug-induced Parkinsonism (Acute). Chronic colitis (Acute). Vitamin B 12 deficiency (Acute). Anxiety (Chronic). CVA (cerebral vascular accident) (Chronic). Depression (Chronic). HTN (hypertension) (Chronic). Dementia (Resolved) PREVIOUS FUNCTIONAL STATUS/SOCIAL/FAMILY SUPPORTS:: Jayne Sandoval) resides with her caregiver Makayla in [facility]. CM spoke with Makayla in regards to current home situation. Makayla reports that Sherine has resided with her for over a year and that she has another person that she cares for in the home. At baseline Makayla provides the majority of the care for Sherine, and states that she does ambulate independently without ambulatory aids. Sherine has a son and daughter whom reside in [place], whom are her guardians, as well as a son in [place]. CURRENT FUNCTIONAL STATUS:: Sherine is sitting up in the chair she is kind and smiles frequently during assessment. She does have a patient observer at the chair side. She is redirectable and patient observer she has required minimal cueing. CM did review Sherine's chart and level of functioning. She has a PT eval and speech eval in the chart. She was admitted with hypoxia with a sao2 70's upon arrival to the ED. Today on 2l she is in the 90's. ADVANCE DIRECTIVES:: Guardians - Chen Keith (Children). Has patient been provided with information about the portal?: No Did the patient sign up for the portal?: No CODE STATUS:: Full Code INSURANCE COVERAGE / FINANCIAL ISSUES:: Medicare and Medicaid CURRENT HOME/COMMUNITY SERVICES/EQUIPMENT:: Caregiver is not present and unable to contact by phone. Per chart review caregiver provides the majority of her care and she is indepedent with ambulation. PRIMARY CARE PHYSICIAN:: POTENTIAL DISCHARGE NEEDS:: Follow up with primary care provider scheduled prior to discharge. PATIENT/FAMILY EDUCATION NEEDS:: Discharge education, with patient and caregiver including limitations and follow up plan of care, medication changes and supports. ANTICIPATED BARRIERS TO DISCHARGE:: None TRANSPORTATION:: Via private caregiver at time of discharge. PLAN:: Sherine is receiving IV antibiotics and resp supports. Consults in place for speech and PT. Anticipate she will be disharged home with caregiver when medically ready. CM to continue to assess for addtional supports at home.
--- NOTE | 2018-10-26 15:10 | INITIAL_ITS ---
- If Service Date Differs Date of service: 10/26/18 Time of Service: 14:57 Care Management Initial Assess REASON FOR HOSPITALIZATION:: Aspiration pneumonia PAST MEDICAL HISTORY/PAST SURGICAL HISTORY:: GERD (gastroesophageal reflux disease) (Chronic). Alzheimer's dementia (Chronic). Drug-induced Parkinsonism (Acute). Chronic colitis (Acute). Vitamin B 12 deficiency (Acute). Anxiety (Chronic). CVA (cerebral vascular accident) (Chronic). Depression (Chronic). HTN (hypertension) (Chronic). Dementia (Resolved) PREVIOUS FUNCTIONAL STATUS/SOCIAL/FAMILY SUPPORTS:: Jayne Sandoval) resides with her caregiver Makayla in [facility]. CM spoke with Makayla in regards to current home situation. Makayla reports that Sherine has resided with her for over a year and that she has another person that she cares for in the home. At baseline Makayla provides the majority of the care for Sherine, and states that she does ambulate independently without ambulatory aids. Sherine has a son and daughter whom reside in [place], whom are her guardians, as well as a son in [place]. CURRENT FUNCTIONAL STATUS:: Sherine is sitting up in the chair she is kind and smiles frequently during assessment. She does have a patient observer at the chair side. She is redirectable and patient observer she has required minimal cueing. CM did review Sherine's chart and level of functioning. She has a PT eval and speech eval in the chart. She was admitted with hypoxia with a sao2 70's upon arrival to the ED. Today on 2l she is in the 90's. ADVANCE DIRECTIVES:: Guardians - Chen Keith (Children). Has patient been provided with information about the portal?: No Did the patient sign up for the portal?: No CODE STATUS:: Full Code INSURANCE COVERAGE / FINANCIAL ISSUES:: Medicare and Medicaid CURRENT HOME/COMMUNITY SERVICES/EQUIPMENT:: Caregiver is not present and unable to contact by phone. Per chart review caregiver provides the majority of her care and she is indepedent with ambulation. PRIMARY CARE PHYSICIAN:: POTENTIAL DISCHARGE NEEDS:: Follow up with primary care provider scheduled prior to discharge. PATIENT/FAMILY EDUCATION NEEDS:: Discharge education, with patient and caregiver including limitations and follow up plan of care, medication changes and supports. ANTICIPATED BARRIERS TO DISCHARGE:: None TRANSPORTATION:: Via private caregiver at time of discharge. PLAN:: Sherine is receiving IV antibiotics and resp supports. Consults in place for speech and PT. Anticipate she will be disharged home with caregiver when medically ready. CM to continue to assess for addtional supports at home.
[2018-10-26] MEDS: Enoxaparin 40 MG/0.4 ML SYR SC (18:02)
[2018-10-26] MEDS: methylPREDNISolone SUCC 125 MG VIAL 60 MG IVP (18:02)
[2018-10-27] VITALS (7 sets, daily range): BP systolic 106–128; BP diastolic 72–82; PULSE 88–110; RESP 2–28; TEMP 36.6–37.4; O2SAT 82–96
[2018-10-27] MEDS: methylPREDNISolone SUCC 125 MG VIAL 60 MG IVP ×2 (01:58→10:33)
[2018-10-27] MEDS: PIPERACILLIN/TAZO 4.5 GM in Normal Saline 100 ML IVPB ×3 (05:36→17:58)
[2018-10-27] MEDS: Normal Saline 1,000 ML 75 ML IV (05:36)
[2018-10-27] MEDS: Albuterol/Ipratropium 3 ML UPD VIAL UPD ×3 (06:01→18:20)
[2018-10-27] MEDS: amLODIPine 5 MG TAB 10 MG PO (08:33)
[2018-10-27] MEDS: Cholecalciferol (Vitamin D3) 1,000 UNIT TAB 2000 UNITS PO (08:33)
[2018-10-27] MEDS: QUEtiapine 25 MG TAB PO ×4 (08:34→19:31)
[2018-10-27] MEDS: Pantoprazole 40 MG TABCR PO (08:34)
[2018-10-27] MEDS: Furosemide 20 MG/2 ML VIAL IVP (10:33)
[2018-10-27] MEDS: Normal Saline Flush 10 ML SYR IVP ×3 (10:34→18:53)
[2018-10-27 10:36] LABS: Abs Immature Grans 0.02 k/cumm (0.0-0.09); Absolute Lymphocyte Count 0.54 k/cumm (1.2-3.4); Absolute Monocyte Count 0.34 k/cumm (0.11-0.7); HCT 39.3 % (36.0-46.0); HGB 12.2 g/dL (12.0-15.5); Immature Grans % 0.2; Lymphocytes % 5.7; Mean Corpuscular Volume 96.6 fL (80-95); Monocytes % 3.6; Neutrophils % 90.5; Platelet Count 299 x1000/uL (130-400); RBC 4.07 m/cumm (4.00-5.20); White Blood Cell Count 9.42 k/cumm (4.4-10.8)
[2018-10-27 10:41] LABS: BUN 21 mg/dL (7-18); CREATININE 1.03 mg/dL (0.55-1.02); Calcium 8.2 mg/dL (8.5-10.1); Chloride 112 mmol/L (98-107); Estimated GFR 52.24 (mL/min/1.73m2); Glucose 203 mg/dL (70-100); Magnesium 2.2 mg/dL (1.8-2.4); Potassium 3.8 mmol/L (3.5-5.1); Sodium 147 mmol/L (136-145)
[2018-10-27 10:43] LABS: Absolute Neutrophil Count 8.53 k/cumm (1.2-6.7)
--- NOTE | 2018-10-27 10:53 | OT.INIE ---
Occupational Therapy Notes Inpatient Occupational Therapy Evaluation Date: 10/27/18 Referring Doctor:Ashleigh Patel MD OT Orders: Eval and Treat Precautions: Fall, standard PATIENT PROFILE/ADMITTING DIAGNOSIS: Pt is a 73 year old female with Alzheimer's through admitted through ED with caregiver for compliants of SOB. She is admitted with HCAP, exacerbation of COPD and hypoxia. Past Medical History: GERD (gastroesophageal reflux disease) (Chronic) Alzheimer's dementia (Chronic) Drug-induced Parkinsonism (Acute) Chronic colitis (Acute) Vitamin B 12 deficiency (Acute) Anxiety (Chronic) CVA (cerebral vascular accident) (Chronic) Depression (Chronic) HTN (hypertension) (Chronic) Dementia (Resolved) Social History/Home Situation: Pt is unable to recall at this time due to dementia and when asked where she lives states I don't know. Per chart review and pts EMR patient has lived with caregiver Makayla since May 2017. Patient attends [facility] 5x/week. Pt's caregiver provides (A) for her ADL/IADL routines. She has two children who are in [place] who are her guardians. Equipment owned/DME: Pt was unable to answer question. SUBJECTIVE: Pt was sitting in chair when OT arrived. She is unable to follow 1 step commands and is confused when asked a question. She is very pleasant. OBJECTIVE: General Observation: O2 nasal cannula, IV Mental Status: Confused, dementia Pain: no c/o pain ROM: RUE AROM WFL L UE AROM WFL STRENGTH: RUE 2/5 throughout LUE 2/5 throughout FUNCTIONAL MOBILITY/ADLS: In sitting pt required max (A) for washing face, max (A) don and doffing (B) shoes. OT handed pt a toothbrush and pt states that she wants to brush her teeth and then takes toothbrush and starts brushing her leg. OT provided tactile cues for pt who was unable to follow what was being asked. Pt is max (A) grooming routines. Functionally pt has ROM to perform ADLs/IADLs but cognitively pt is unable to follow instructions and is unable to process what is being asked of her which limits her overall functional (I). BALANCE: Static sitting Normal Dynamic Sitting Good SPECIAL TESTS: Daily Activity Limitations Standardized Measure [facility] AM -PAC ?6 clicks? Daily Activity Inpatient Short Form: Raw score: 7 CMS score: 92.44% INFORMED CONSENT/EDUCATION: Pt instructed in purpose of OT Consult and plan of care. ASSESSMENT: Patient is a 73-year-old female referred to occupational therapy services with diagnosis of Alzheimer's with complaint of SOB, HCAP, exacerbation COPD and hypoxia. Patient presents with clinical signs and symptoms consistent with dx, as demonstrated by the following impairment level findings/functional limitations: decreased mental status due to dementia, decreased ability to follow 1 step demands, decreased functional activity tolerance, decreased functional mobility, max (A) for all ADLs/IADLs. Pt has good functional ROM for her (B) UE however she is cognitively unable to follow directions and is unable to process what is being asked in terms of ADLs/IADLs. Due to this pt requires max (A) for all ADLs/IADLs, her cognitive level decreased her ability to learn new routines, follow instructions and appropriately decipher what is being asked. OT discussed with nursing who agrees that pt is max (A) for all ADLs/IADLs. OT does not feel that pt is appropriate for OT services at this time as pt is at her baseline level of function in hopsital setting. OT will discharge pt from skilled OT services. AMPAC score 7, CMS score 92.44% Patient is assessed as a high 42982 complexity based on the following: History: See Above Examination: See Above Presentation: Evolving Decision Making: AMPAC score 7, CMS score 92.44% GOALS N/A PLAN OF CARE/TREATMENT PLAN: OT consult only DISCHARGE RECOMMENDATIONS Home with 24 hour caregiver services TREATMENT TIME/MINUTES/CODES 59457, 25 minutes (10:00) Carmen Grace OTR/[facility]
--- NOTE | 2018-10-27 11:37 | W.SPEECHPG ---
Date of service: 10/27/18 Time of Service: 10:30 Speech Therpy Note Note: SUBJECTIVE Pt greets me with good but brief direct eye contact, a smile & a soft-spoken but intelligible verbal greeting. She shows some perseverative handling of her oxygen tubing. OBJECTIVE Nursing reports: - T: 37.8 - O2 sat: 96% on 4L via NC - LS: bilateral crackles in the presence of ABX - Intake of 75% of breakfast meal this morning - Toleration of: - Mildly-thick liquid - Puree food - Crushed pills in puree plus 1 uncrushable whole pill in puree - No knowlege of who put thickened liquid (water) in pt's hospital mug as well as in a small glass, both of which are on her bedside table. Swallowing: - Thin liquid (water): Good bolus control & posterior oral transit (POT); no willi signs/symptoms (s/s) of aspiration/penetration (A/P); oral clearance 100%; no oral escape. These results are true for consecutive swallows by cup. - Trial Minced & Moist food: Good mastication quality, bolus control & POT; no willi s/s A/P; oral clearance 100%; no oral escape. ASSESSMENT Pt now able to tolerate Minced & Moist consistency food (as well as whole pills in puree per nursing report). She continues to tolerate Thin liquids. PLAN 1. Change to: - Minced & Moist diet consistency - whole pills in puree 2. Continue speech therapy to monitor pt's toleration of above p.o. consistencies.
--- NOTE | 2018-10-27 12:09 | PDOC.CMPRO ---
- If Service Date Differs Date of service: 10/27/18 Time of Service: 12:09 Care Management Progress Note S/O: Sherine is lying in bed when this copywriter visits this morning, she is pleasant and receptive to CM visit, smiling frequently throughout interaction. Caregiver Makayla is not present at the time of CM visits today. Sherine to have an OT consult today and to meet with speech therapy. A: 73 y/o female admitted 10/25/18 for aspiration pneumonia. P: Sherine will return to her caregiver Makayla's with no anticipated services. She will F/U with PCP and plan of care as prescribed. Makayla to transport when ready.
--- NOTE | 2018-10-27 12:26 | CMPROGNOTE_ITS ---
- If Service Date Differs Date of service: 10/27/18 Time of Service: 12:09 Care Management Progress Note S/O: Sherine is lying in bed when this investigative writer visits this morning, she is pleasant and receptive to CM visit, smiling frequently throughout interaction. Caregiver Makayla is not present at the time of CM visits today. Sherine to have an OT consult today and to meet with speech therapy. A: 73 y/o female admitted 10/25/18 for aspiration pneumonia. P: Sherine will return to her caregiver Makayla's with no anticipated services. She will F/U with PCP and plan of care as prescribed. Makayla to transport when ready.
--- NOTE | 2018-10-27 13:08 | PT.INTREAT ---
Date of service: 10/27/18 Time of Service: 13:14 PT Notes Inpatient Physical Therapy Treatment Note [facility] Date: 10/27/18 PRECAUTIONS: Fall SUBJECTIVE: Jose Alejandro is agreeable to participating in PT. OBJECTIVE: PAIN: No c/o pain BED MOBILITY/TRANSFERS Sit-stand: CGA Stand-sit: CGA GAIT Assistive Device: WICK AND BASE ASSEMBLER x1 Weight bearing: Full Assist: CGA Distance: 50' x2 in a.m.; 20' x2 + 5' forward/backward in p.m. Deviation: SOB in both a.m. and p.m. THEREX: Patient completed ankle pump exercise x7 on R, but was unable to follow any other verbal or visual cueing for exercise completion. Static stand with UE support and CGA x5 minutes in both a.m. and p.m. TOILETING: Patient was incontinent of urine and stool in both a.m. and p.m., requiring Max A for donning/doffing pullup and gown, as well as for cleaning. ASSESSMENT: Patient tolerated sessions with increased SOB with activity. She was able to tolerate a progression in gait this morning with WICK AND BASE ASSEMBLER and CGA support. She would benefit from continued gait and transfer training as well as strengthening for improved mobility. PLAN: Continue with PT's POC TREATMENT CODE/TIME: Session 1: 30 minutes; [id number] x2 Session 2: 25 minutes; [id number] x2
--- NOTE | 2018-10-27 13:22 | PTTR_ITS ---
Date of service: 10/27/18 Time of Service: 13:14 PT Notes Inpatient Physical Therapy Treatment Note [facility] Date: 10/27/18 PRECAUTIONS: Fall SUBJECTIVE: Jose Alejandro is agreeable to participating in PT. OBJECTIVE: PAIN: No c/o pain BED MOBILITY/TRANSFERS Sit-stand: CGA Stand-sit: CGA GAIT Assistive Device: JOURNEYMAN ELECTRICIAN PV INSTALLER x1 Weight bearing: Full Assist: CGA Distance: 50' x2 in a.m.; 20' x2 + 5' forward/backward in p.m. Deviation: SOB in both a.m. and p.m. THEREX: Patient completed ankle pump exercise x7 on R, but was unable to follow any other verbal or visual cueing for exercise completion. Static stand with UE support and CGA x5 minutes in both a.m. and p.m. TOILETING: Patient was incontinent of urine and stool in both a.m. and p.m., requiring Max A for donning/doffing pullup and gown, as well as for cleaning. ASSESSMENT: Patient tolerated sessions with increased SOB with activity. She was able to tolerate a progression in gait this morning with JOURNEYMAN ELECTRICIAN PV INSTALLER and CGA dodson pport. She would benefit from continued gait and transfer training as well as strengthening for improved mobility. PLAN: Continue with PT's POC TREATMENT CODE/TIME: Session 1: 30 minutes; [id number] x2 Session 2: 25 minutes; [id number] x2
--- NOTE | 2018-10-27 14:15 | NUR.NOTE ---
Nursing Note: Patient is a very pleasant individual. Patient is very confused at this time. I asked the patient at the start of our conversation where we were. She was unable, to provide me with the answer. She was assured that it was alright. She was told that she was at [facility]. I then asked her where she lived, she told me that she lived in [place]. I asked which town she lived in, and she repeated [place]. I then asked if she had children. She said yes. But when i asked what their names were she was unable to answer that. Again she was assured that it was all right. At the end of the conversation, I again asked her where we were. She told me she did not kn ow. She was assure again that it was alrigh. She was again told that she was at [facility].
--- NOTE | 2018-10-27 14:52 | CHAPLAIN ---
Jayne was sitting up in her chair when I visited. She had just finished a speech evaluation. Jayne was confused at times during our conversation but was pleasant and seems to be comfortable here.
--- NOTE | 2018-10-27 15:25 | NUR.NOTE ---
Nursing Note: Spoke with patients caregiver and daughter. Updated them on her condition. Review CMs report of the plan for patient to return home with caregiver when medically ready. Caregiver reports that patient likes anything chocolate, especially pudding and ice cream. Also states patient usually likes watching tv and anything with animals.
[2018-10-27] MEDS: Enoxaparin 40 MG/0.4 ML SYR SC (17:58)
[2018-10-27] MEDS: methylPREDNISolone SUCC 40 MG VIAL IVP (17:58)
--- NOTE | 2018-10-27 18:39 | W.PM.PROGNOT ---
Date of Service Date of service: 10/27/18 Time of Service: 18:40 Assessment and Plan (1) Aspiration pneumonia: Current visit: Yes Status: Acute with mild hypoxia. Wheezing has essentially resolved. Taper steroids. Continue zosyn (day 3). D/c IVF - getting fluid overloaded. Lasix given this am. Blood cultures with no growth to date. (2) Acute exacerbation of chronic obstructive pulmonary disease (COPD): Current visit: Yes Status: Acute As above. (3) Dysphagia: Current visit: Yes Status: Acute As above (4) Alzheimer's dementia: Current visit: No Status: Chronic Continue home seroquel (5) GERD (gastroesophageal reflux disease): Current visit: No Status: Chronic Continue PPI (6) Essential hypertension: Current visit: No Status: Chronic Continue norvasc (7) Bipolar disorder: Current visit: No Status: Suspected Continue home seroquel (8) DVT prophylaxis: Current visit: No Status: Acute lovenox SC (9) Discharge planning issues: Current visit: Yes Status: Acute Full code PT/OT consults Likely discharge home on 10/29/18. Subjective Interval history since last seen: Ms Osorio states her breathing is short. She denies dizziness, pain, nausea. She has been pleasantly confused but cooperative today. Exam Narrative Exam Narrative: General: A&Ox1, sitting comfortably in a chair, NAD, on 2.5 L of O2 HEENT: EOMI, MMM Heart: RRR Lungs: quite rales B, no wheezing heard GI: abdomen is soft, nontender, nondistended Extremities: trace edema at the ankles B, symmetric, no clubbing or cyanosis Objective Objective Clinical Data: Abnormal lab results 10/27/18 10/27/18 Range/Units 10:25 10:25 MCV 96.6 H (80-95) fL MCHC 31.0 L (32.0-36.0) g/dL RDW 17.0 H (11.7-14.6) % Absolute Neutrophils 8.53 H (1.2-6.7) k/cumm Absolute Lymphocytes 0.54 L (1.2-3.4) k/cumm Sodium 147 H (136-145) mmol/L Chloride 112 H (98-107) mmol/L BUN 21 H (7-18) mg/dL Creatinine 1.03 H (0.55-1.02) mg/dL Glucose 203 H (70-100) mg/dL Calcium 8.2 L (8.5-10.1) mg/dL Vital Signs Temperature 36.6 C 10/27/18 12:00 Temperature Source Tympanic 10/27/18 12:00 Pulse 105 H 10/27/18 12:45 Pulse Rhythm Regular 10/27/18 16:17 Respiratory Rate 28 H 10/27/18 12:00 Respiratory Effort 10/27/18 16:17 Respiratory Depth Shallow 10/27/18 16:17 Respiratory Pattern Tachypnea 10/27/18 16:17 Blood Pressure 126/80 10/27/18 12:00 Blood Pressure Mean 106 10/25/18 15:16 Blood Pressure Position Sitting 10/25/18 13:07 Pulse Oximetry 95 10/27/18 12:45 Oxygen Delivery Method Nasal Cannula 10/27/18 12:45 Oxygen Flow Rate 2.5 10/27/18 12:45 Pain Level 0 10/25/18 13:07 Comment 10/27/18 04:09 Intake & Output 10/26/18 10/27/18 10/27/18 23:59 11:59 23:59 Intake Total 1330 / 2049.989 1182.5 / 2377.5 1195 / 2377.5 Output Total 450 / 950 Balance 880 / 8700.967 2737.5 / 2377.5 1195 / 2377.5 Weight 55.1 kg Intake: IV 970 / 6783.745 0860.5 / 2137.5 955 / 2137.5 Oral 360 / 480 240 / 240 Output: Urine 450 / 950 Other: Urine Color Straw Yellow Yellow Urine Appearance Clear Clear Clear Urine Odor Normal Strong Normal Comment pt sat on the toilet but did not void patient was found to be incontinent , she was given skin care and changed Stool Size Large Smear Stool Characteristics Soft Soft Brown Voiding Methods Toilet Incontinent Incontinent Laboratory Results WBC 9.42 k/cumm (4.4-10.8) D 10/27/18 10:25 RBC 4.07 m/cumm (4.00-5.20) 10/27/18 10:25 Hgb 12.2 g/dL (12.0-15.5) 10/27/18 10:25 Hct 39.3 % (36.0-46.0) 10/27/18 10:25 MCV 96.6 fL (80-95) H 10/27/18 10:25 MCH 30.0 pg (27.0-33.0) 10/27/18 10:25 MCHC 31.0 g/dL (32.0-36.0) L 10/27/18 10:25 RDW 17.0 % (11.7-14.6) H 10/27/18 10:25 Plt Count 299 x1000/uL (130-400) 10/27/18 10:25 MPV 10.0 fL (8.0-11.0) 10/27/18 10:25 Immature Gran % 0.2 10/27/18 10:25 Neutrophils % 90.5 10/27/18 10:25 Lymphocytes % 5.7 10/27/18 10:25 Monocytes % 3.6 10/27/18 10:25 Eosinophils % 0.0 10/27/18 10:25 Basophils % 0.0 10/27/18 10:25 Absolute Neutrophils 8.53 k/cumm (1.2-6.7) H 10/27/18 10:25 Absolute Lymphocytes 0.54 k/cumm (1.2-3.4) L 10/27/18 10:25 Absolute Monocytes 0.34 k/cumm (0.11-0.7) 10/27/18 10:25 Absolute Eosinophils 0.00 k/cumm (0.0-0.7) 10/27/18 10:25 Absolute Basophils 0.00 k/cumm (0.0-0.2) 10/27/18 10:25 Sodium 147 mmol/L (136-145) H 10/27/18 10:25 Potassium 3.8 mmol/L (3.5-5.1) 10/27/18 10:25 Chloride 112 mmol/L (98-107) H 10/27/18 10:25 Carbon Dioxide 24.0 mmol/L (21.0-32.0) 10/27/18 10:25 Anion Gap 11.0 mmol/L (3-11) 10/27/18 10:25 BUN 21 mg/dL (7-18) H 10/27/18 10:25 Creatinine 1.03 mg/dL (0.55-1.02) H 10/27/18 10:25 Estimated GFR/1.73 m2 52.24 (mL/min/1.73m2) 10/27/18 10:25 Glucose 203 mg/dL (70-100) H 10/27/18 10:25 Lactate 0.6 mmol/l (0.6-1.4) 10/25/18 14:47 Calcium 8.2 mg/dL (8.5-10.1) L 10/27/18 10:25 Magnesium 2.2 mg/dL (1.8-2.4) 10/27/18 10:25 Total Bilirubin 0.3 mg/dL (0.2-1.0) 10/25/18 13:42 AST 17 U/L (15-37) 10/25/18 13:42 ALT 26 U/L (12-78) 10/25/18 13:42 Alkaline Phosphatase 110 U/L (46-116) 10/25/18 13:42 Troponin I < 0.02 ng/mL (0.00-0.06) 10/25/18 13:42 NT-Pro-B Natriuret Pep 212 pg/mL (-299) 10/25/18 13:42 Total Protein 7.4 g/dL (6.4-8.2) 10/25/18 13:42 Albumin 3.3 g/dL (3.4-5.0) L 10/25/18 13:42
[2018-10-28] VITALS (9 sets, daily range): BP systolic 118–147; BP diastolic 74–85; PULSE 88–114; RESP 2–28; TEMP 36.5–37.1; O2SAT 91–98
[2018-10-28] MEDS: PIPERACILLIN/TAZO 4.5 GM in Normal Saline 100 ML IVPB ×5 (00:22→23:20)
[2018-10-28] MEDS: Albuterol/Ipratropium 3 ML UPD VIAL UPD ×3 (00:22→17:28)
[2018-10-28] MEDS: methylPREDNISolone SUCC 40 MG VIAL IVP ×2 (01:35→10:07)
[2018-10-28] MEDS: Normal Saline 500 ML 30 ML IV (05:43)
[2018-10-28 07:02] LABS: Abs Immature Grans 0.04 k/cumm (0.0-0.09); Absolute Eosinophil Count 0.01 k/cumm (0.0-0.7); Absolute Lymphocyte Count 0.64 k/cumm (1.2-3.4); Absolute Monocyte Count 0.17 k/cumm (0.11-0.7); Eosinophils % 0.2; HCT 39.2 % (36.0-46.0); HGB 12.3 g/dL (12.0-15.5); Immature Grans % 0.7; Lymphocytes % 10.4; Mean Corp. HGB Concentration 31.4 g/dL (32.0-36.0); Mean Corpuscular Hemoglobin 30.3 pg (27.0-33.0); Mean Corpuscular Volume 96.6 fL (80-95); Mean Platelet Volume 10.1 fL (8.0-11.0); Monocytes % 2.8; Neutrophils % 85.9; Platelet Count 296 x1000/uL (130-400); RBC 4.06 m/cumm (4.00-5.20); White Blood Cell Count 6.15 k/cumm (4.4-10.8)
[2018-10-28 07:09] LABS: Absolute Neutrophil Count 5.28 k/cumm (1.2-6.7)
[2018-10-28 07:20] LABS: BUN 21 mg/dL (7-18); CREATININE 0.74 mg/dL (0.55-1.02); Calcium 8.4 mg/dL (8.5-10.1); Chloride 114 mmol/L (98-107); Glucose 159 mg/dL (70-100); Magnesium 2.3 mg/dL (1.8-2.4); Potassium 3.8 mmol/L (3.5-5.1); Sodium 152 mmol/L (136-145)
[2018-10-28] MEDS: Cholecalciferol (Vitamin D3) 1,000 UNIT TAB 2000 UNITS PO (08:17)
[2018-10-28] MEDS: amLODIPine 5 MG TAB 10 MG PO (08:17)
[2018-10-28] MEDS: Furosemide 20 MG/2 ML VIAL IVP (08:17)
[2018-10-28] MEDS: Pantoprazole 40 MG TABCR PO (08:18)
[2018-10-28] MEDS: QUEtiapine 25 MG TAB PO ×4 (08:18→19:56)
[2018-10-28] MEDS: Normal Saline Flush 10 ML SYR IVP ×5 (08:35→23:21)
--- NOTE | 2018-10-28 09:59 | PT.INTREAT ---
Date of service: 10/28/18 Time of Service: 10:00 PT Notes Inpatient Physical Therapy Treatment Note [facility] Date: 10/28/18 PRECAUTIONS: Fall SUBJECTIVE: Jayne reports that she is tired today and that she is hungry, following a series of yes or no questions. OBJECTIVE: Patient appears to be shaky today. Her hands were noted to be continuously shaking t/o session. PAIN: No c/o pain BED MOBILITY/TRANSFERS Sit-stand: CGA Stand-sit: CGA GAIT Assistive Device: PACKAGE CRIMPER Weight bearing: Full Assist: CGA Distance: 2 steps forward/backward in a.m.; 50' in p.m. Deviation: SOB Static stand x5 minutes in a.m. and x3 minutes in p.m., with UE support and CGA VITALS: SaO2: 91-92 on 3L O2 via NC with activity. THEREX: Patient was able to complete LAQ x7, bilaterally, as well as shoulder flexion exercise x4, bilaterally. Patient was not able to follow further exercise instruction. She requires both visual and verbal cueing for ther ex initiation. TOILETING: Patient was incontinent of urine, requiring total assist in both a.m. and p.m. ASSESSMENT: Patient tolerated session with c/o increased fatigue and SOB. She would benefit from continued gait and transfer training, as well as participation in strengthening activities, as tolerated. PLAN: Continue with PT's POC TREATMENT CODE/TIME: Session 1: 25 minutes; [id number] x2 Session 2: 15 minutes; [id number]
--- NOTE | 2018-10-28 10:02 | PTTR_ITS ---
Date of service: 10/28/18 Time of Service: 10:00 PT Notes Inpatient Physical Therapy Treatment Note [facility] Date: 10/28/18 PRECAUTIONS: Fall SUBJECTIVE: Jayne reports that she is tired today and that she is hungry, following a series of yes or no questions. OBJECTIVE: Patient appears to be shaky today. Her hands were noted to be continuously shaking t/o session. PAIN: No c/o pain BED MOBILITY/TRANSFERS Sit-stand: CGA Stand-sit: CGA GAIT Assistive Device: WORDPRESS DEVELOPER Weight bearing: Full Assist: CGA Distance: 2 steps forward/backward in a.m.; 50' in p.m. Deviation: SOB Static stand x5 minutes in a.m. and x3 minutes in p.m., with UE support and CGA VITALS: SaO2: 91-92 on 3L O2 via NC with activity. THEREX: Patient was able to complete LAQ x7, bilaterally, as well as shoulder flexion exercise x4, bilaterally. Patient was not able to follow further exercise instruction. She requires both visual and verbal cueing for ther ex initiation. TOILETING: Patient was incontinent of urine, requiring total assist in both a.m. and p.m. ASSESSMENT: Patient tolerated session with c/o increased fatigue and SOB. She would benefit from continued gait and transfer training, as well as participation in strengthening activities, as tolerated. PLAN: Continue with PT's POC TREATMENT CODE/TIME: Session 1: 25 minutes; [id number] x2 Session 2: 15 minutes; [id number]
--- NOTE | 2018-10-28 11:10 | PDOC.CMPRO ---
- If Service Date Differs Date of service: 10/28/18 Time of Service: 09:11 Care Management Progress Note S/O: CM met with Sherine today in the room her caregiver Makayla was present. Sherine is alert and smiling when CM in the room. She is receiving feed assistance when CM is present. CM reviewed the plan both including continued oxygen requirement and diuretics. Sherine CM reviewed speech recommendations with the caregiver. Makayla will plan to transport Sherine home when she is medically ready. A: Jayne Sandoval) is a 73 year old female admitted with aspiration pneumonia, with a new oxygen requirement and fluid overload. P: Sherine will return home with her caregiver Makayla when medically ready. Makayla will need to be notified when Sherine is being discharged and receive discharge instructions with speech recommendation if there is any changes.CM to continue to provide support to patient and caregiver ongoing discharge planning.
--- NOTE | 2018-10-28 11:32 | W.PM.PROGNOT ---
Date of Service Date of service: 10/28/18 Time of Service: 11:32 Assessment and Plan (1) Aspiration pneumonia: Current visit: Yes Status: Acute She continues to require oxygen. She is no longer wheezing. Blood cultures have yielded no growth at 48 hours. Transition to oral steroids. Continue Zosyn, currently day #4. She is receiving Lasix for fluid overload, continues to have rales on exam. No longer on IV fluids. Repeat chest x-ray. (2) Acute exacerbation of chronic obstructive pulmonary disease (COPD): Current visit: Yes Status: Acute As above. (3) Dysphagia: Current visit: Yes Status: Acute Continue modified diet with supervised/assisted meals. (4) Alzheimer's dementia: Current visit: No Status: Chronic Continue home seroquel. (5) GERD (gastroesophageal reflux disease): Current visit: No Status: Chronic Continue PPI therapy. (6) Essential hypertension: Current visit: No Status: Chronic Blood pressure controlled, continue amlodipine per home regimen. (7) Bipolar disorder: Current visit: No Status: Suspected Continue home seroquel. (8) DVT prophylaxis: Current visit: No Status: Acute Subcutaneous Lovenox. (9) Discharge planning issues: Current visit: Yes Status: Acute She is a full code. She is working with physical therapy and Occupational Therapy. This case has been discussed with Dr. Patel who is in agreement. Subjective Interval history since last seen: Ms Osorio is pleasantly confused sitting up in the recliner with her feet elevated. She reports a continued productive cough, she is unable to describe the appearance of the sputum. She denies shortness of breath at rest, she endorses shortness of breath with activity. She denies chest pain or pressure, she reports that she is eating and drinking well, she denies any abdominal pain, nausea or vomiting. She denies diarrhea. She denies any pain otherwise. Exam Narrative Exam Narrative: General: She is alert, oriented to self only, sitting up in the chair with her feet elevated, in no acute distress, on oxygen. Speaks in complete sentences without shortness of breath. HEENT: Normocephalic, atraumatic, pupils equal round, extraocular movements intact, mucous membranes slightly dry. Heart: Heart has regular rate and rhythm, no murmur appreciated. Lungs: Respirations are even and unlabored, soft rales to bilateral bases, no wheezing. GI: Normal active bowel sounds throughout. Abdomen is soft, nontender on palpation, nondistended. Extremities: trace edema to bilateral ankles, symmetric, no calf swelling or tenderness, no clubbing or cyanosis Objective Objective Clinical Data: Abnormal lab results 10/28/18 10/28/18 Range/Units 06:42 06:42 MCV 96.6 H (80-95) fL MCHC 31.4 L (32.0-36.0) g/dL RDW 17.0 H (11.7-14.6) % Absolute Lymphocytes 0.64 L (1.2-3.4) k/cumm Sodium 152 H (136-145) mmol/L Chloride 114 H (98-107) mmol/L BUN 21 H (7-18) mg/dL Glucose 159 H (70-100) mg/dL Calcium 8.4 L (8.5-10.1) mg/dL Vital Signs Temperature 37 C 10/28/18 07:30 Temperature Source Skin 10/28/18 07:30 Pulse 98 H 10/28/18 07:30 Pulse Rhythm Regular 10/27/18 20:00 Respiratory Rate 28 H 10/28/18 07:30 Respiratory Effort 10/27/18 20:00 Respiratory Depth Deep 10/27/18 20:00 Respiratory Pattern Normal 10/27/18 20:00 Blood Pressure 144/75 H 10/28/18 07:30 Blood Pressure Mean 106 10/25/18 15:16 Blood Pressure Position Sitting 10/25/18 13:07 Pulse Oximetry 92 L 10/28/18 09:02 Oxygen Delivery Method Nasal Cannula 10/28/18 09:02 Oxygen Flow Rate 3 10/28/18 09:02 Pain Level 0 10/25/18 13:07 Comment 10/27/18 23:22 Intake & Output 10/27/18 10/27/18 10/28/18 11:59 23:59 11:59 Intake Total 1182.5 / 2477.5 1295 / 2477.5 671 / 671 Balance 1182.5 / 2477.5 1295 / 2477.5 671 / 671 Weight 55.1 kg 53.7 kg Intake: IV 1182.5 / 2237.5 1055 / 2237.5 221 / 221 Oral 240 / 240 450 / 450 Other: Urine Color Yellow Yellow Urine Appearance Clear Clear Urine Odor Strong None Comment patient was found to be incontinent , she was given skin care and changed Incontinent in Breif Stool Size Large Smear Small Stool Characteristics Soft Soft Soft Brown Voiding Methods Incontinent Diaper Diaper Incontinent Incontinent Laboratory Results WBC 6.15 k/cumm (4.4-10.8) D 10/28/18 06:42 RBC 4.06 m/cumm (4.00-5.20) 10/28/18 06:42 Hgb 12.3 g/dL (12.0-15.5) 10/28/18 06:42 Hct 39.2 % (36.0-46.0) 10/28/18 06:42 MCV 96.6 fL (80-95) H 10/28/18 06:42 MCH 30.3 pg (27.0-33.0) 10/28/18 06:42 MCHC 31.4 g/dL (32.0-36.0) L 10/28/18 06:42 RDW 17.0 % (11.7-14.6) H 10/28/18 06:42 Plt Count 296 x1000/uL (130-400) 10/28/18 06:42 MPV 10.1 fL (8.0-11.0) 10/28/18 06:42 Immature Gran % 0.7 10/28/18 06:42 Neutrophils % 85.9 10/28/18 06:42 Lymphocytes % 10.4 10/28/18 06:42 Monocytes % 2.8 10/28/18 06:42 Eosinophils % 0.2 10/28/18 06:42 Basophils % 0.0 10/28/18 06:42 Absolute Neutrophils 5.28 k/cumm (1.2-6.7) 10/28/18 06:42 Absolute Lymphocytes 0.64 k/cumm (1.2-3.4) L 10/28/18 06:42 Absolute Monocytes 0.17 k/cumm (0.11-0.7) 10/28/18 06:42 Absolute Eosinophils 0.01 k/cumm (0.0-0.7) 10/28/18 06:42 Absolute Basophils 0.00 k/cumm (0.0-0.2) 10/28/18 06:42 Sodium 152 mmol/L (136-145) H 10/28/18 06:42 Potassium 3.8 mmol/L (3.5-5.1) 10/28/18 06:42 Chloride 114 mmol/L (98-107) H 10/28/18 06:42 Carbon Dioxide 27.0 mmol/L (21.0-32.0) 10/28/18 06:42 Anion Gap 11.0 mmol/L (3-11) 10/28/18 06:42 BUN 21 mg/dL (7-18) H 10/28/18 06:42 Creatinine 0.74 mg/dL (0.55-1.02) 10/28/18 06:42 Estimated GFR/1.73 m2 >= 60.00 (mL/min/1.73m2) 10/28/18 06:42 Glucose 159 mg/dL (70-100) H 10/28/18 06:42 Lactate 0.6 mmol/l (0.6-1.4) 10/25/18 14:47 Calcium 8.4 mg/dL (8.5-10.1) L 10/28/18 06:42 Magnesium 2.3 mg/dL (1.8-2.4) 10/28/18 06:42 Total Bilirubin 0.3 mg/dL (0.2-1.0) 10/25/18 13:42 AST 17 U/L (15-37) 10/25/18 13:42 ALT 26 U/L (12-78) 10/25/18 13:42 Alkaline Phosphatase 110 U/L (46-116) 10/25/18 13:42 Troponin I < 0.02 ng/mL (0.00-0.06) 10/25/18 13:42 NT-Pro-B Natriuret Pep 212 pg/mL (-299) 10/25/18 13:42 Total Protein 7.4 g/dL (6.4-8.2) 10/25/18 13:42 Albumin 3.3 g/dL (3.4-5.0) L 10/25/18 13:42
--- NOTE | 2018-10-28 11:41 | DI.RAD_ITS ---
SYMPTOMS/DIAGNOSIS: REPEAT, ? PNEUMONIA, CHF AP AND LATERAL CHEST: No pulmonary infiltrate is seen. There is chronic mild elevation of the right hemidiaphragm. There is no pleural effusion. The cardiovascular structures are intact. SUMMARY: No evidence of an acute pneumonitis.
[2018-10-28] MEDS: Enoxaparin 40 MG/0.4 ML SYR SC (17:15)
[2018-10-28] MEDS: predniSONE 20 MG TAB 40 MG PO (19:57)
[2018-10-29 02:27] VITALS: BP 135/79; PULSE 84; RESP 17; TEMP 36.8; O2SAT 96
[2018-10-29] MEDS: PIPERACILLIN/TAZO 4.5 GM in Normal Saline 100 ML IVPB ×4 (06:44→23:12)
[2018-10-29] MEDS: Normal Saline Flush 10 ML SYR IVP ×3 (06:44→12:32)
[2018-10-29 07:20] VITALS: BP 118/74; PULSE 93; RESP 17; TEMP 37; O2SAT 95
[2018-10-29 07:32] LABS: HGB 13.4 g/dL (12.0-15.5); Mean Corp. HGB Concentration 30.5 g/dL (32.0-36.0); Mean Corpuscular Hemoglobin 29.5 pg (27.0-33.0); Mean Corpuscular Volume 96.9 fL (80-95); Mean Platelet Volume 10.4 fL (8.0-11.0); Platelet Count 330 x1000/uL (130-400); RBC 4.54 m/cumm (4.00-5.20); RBC Distribution Width 17.3 % (11.7-14.6); White Blood Cell Count 5.88 k/cumm (4.4-10.8)
[2018-10-29 07:50] LABS: Anion Gap 10.9 mmol/L (3-11); BUN 24 mg/dL (7-18); CO2 30.1 mmol/L (21.0-32.0); CREATININE 0.83 mg/dL (0.55-1.02); Calcium 8.6 mg/dL (8.5-10.1); Chloride 112 mmol/L (98-107); Glucose 117 mg/dL (70-100); Potassium 3.9 mmol/L (3.5-5.1); Sodium 153 mmol/L (136-145)
--- NOTE | 2018-10-29 08:46 | W.SPEECHPG ---
Date of service: 10/29/18 Time of Service: 08:30 Speech Therpy Note Note: SUBJECTIVE The patient (pt) is sitting in her chair having her meal with assistance from the RAW SCALES OPERATOR, She greets me with brief direct eye contact and a smile. OBJECTIVE Norsing reports: - T: 37.0 - O2 sat: 95% on 3 L via NC - LS: L crackles and wheezes; R rhonchi in the presence of ABX - Pt has been tolerating a combination of whole & crushed pills in puree. (Nursing chose to crush 1 larger pill.) Swallowing - Mildly-thick liquid: (The pt prefers Ensure vs. juice/water.) Good bolus control & posterior oral transit (POT); no willi signs/symptoms (s/s) of aspiration/penetration (A/P); oral clearance 100%; no oral escape. - Minced & Moist food: Minimal mastication; no POT; bilateral pocketing. Liquid wash unsuccessful in clearing mouth. I removed stasis from pt's mouth and instructed [facility] to alter M & M food to a Puree consistency before presenting any further boluses. - Puree food: Good bolus control & POT; no willi s/s A/P; oral clearance 100%; no oral escape. ASSESSMENT Pt unable to reliably tolerate Minced & Moist food consistency and is unable to follow directions for use of compensatory measures due to her dememtia. Nursing states that the pt's caregiver reported pocketing of food at home. Pt does reliably tolerate Puree food. PLAN 1. Change back to a Puree diet. 2. Change to whole pills in puree as tolerated with crushed pills in puree prn. 3. Continue Thin liquids. 4. Recommend a referral for follow-up speech therapy for swallowing upon pt's d/c from [facility] for instruction of caregiver in food preparation. 5. d/c speech therapy at [facility].
[2018-10-29] MEDS: predniSONE 20 MG TAB 40 MG PO ×2 (08:56→20:03)
[2018-10-29] MEDS: amLODIPine 5 MG TAB 10 MG PO (08:57)
[2018-10-29] MEDS: Pantoprazole 40 MG TABCR PO (08:57)
[2018-10-29] MEDS: QUEtiapine 25 MG TAB PO ×4 (08:57→20:03)
[2018-10-29] MEDS: Cholecalciferol (Vitamin D3) 1,000 UNIT TAB 2000 UNITS PO (08:57)
--- NOTE | 2018-10-29 09:56 | PNE_ITS ---
Date of service: 10/29/18 Time of Service: 08:30 Speech Therpy Note Note: SUBJECTIVE The patient (pt) is sitting in her chair having her meal with assistance from the MANUFACTURING QUALITY ENGINEER, She greets me with brief direct eye contact and a smile. OBJECTIVE Norsing reports: - T: 37.0 - O2 sat: 95% on 3 L via NC - LS: L crackles and wheezes; R rhonchi in the presence of ABX - Pt has been tolerating a combination of whole & crushed pills in puree. (Nursing chose to crush 1 larger pill.) Swallowing - Mildly-thick liquid: (The pt prefers Ensure vs. juice/water.) Good bolus control & posterior oral transit (POT); no willi signs/symptoms (s/s) of aspiration/penetration (A/P); oral clearance 100%; no oral escape. - Minced & Moist food: Minimal mastication; no POT; bilateral pocketing. Liquid wash unsuccessful in clearing mouth. I removed stasis from pt's mouth and instructed [facility] to alter M & M food to a Puree consistency before presenting any further boluses. - Puree food: Good bolus control & POT; no willi s/s A/P; oral clearance 100%; no oral escape. ASSESSMENT Pt unable to reliably tolerate Minced & Moist food consistency and is unable to follow directions for use of compensatory measures due to her dememtia. Nursing states that the pt's caregiver reported pocketing of food at home. Pt does reliably tolerate Puree food. PLAN 1. Change back to a Puree diet. 2. Change to whole pills in puree as tolerated with crushed pills in puree prn. 3. Continue Thin liquids. 4. Recommend a referral for follow-up speech therapy for swallowing upon pt's d/c from [facility] for instruction of caregiver in food preparation. 5. d/c speech therapy at [facility].
[2018-10-29 10:00] VITALS: O2SAT 95
--- NOTE | 2018-10-29 10:29 | PT.INTREAT ---
Date of service: 10/29/18 Time of Service: 10:29 PT Notes 10/29/18 SUBJECTIVE: Pt stating she feels good today. She does stating she feels out of breath during gait. OBJECTIVE: TRANSFERS Sit to stand: CGA, Verbal cues Stand to sit: CGA, Verbal cues GAIT Device: No device, AIRBRUSH ARTIST Weight bearing: Full Assist: CGA, AIRBRUSH ARTIST Distance: 15'x2 Deviation: 2 L NC, SOB, furniture walk THEREX: Attempt some seated LE strengthening although pt was unable to follow commands. VITALS: 94%, 109 b/m ASSESSMENT: Pt tolerated decrease in ambulation distance today due to SOB requiring several minutes to recover. Unable to perform strengthening exercises as pt could not follow commands. She was very pleasant throughout. PLAN: Continue current POC progressing functional mobility and strengthening. Direct time: 15 minutes [id number] Ginger Shahid, EXECUTIVE DIRECTOR CONTRACT SHOP
[2018-10-29 11:30] VITALS: BP 134/89; PULSE 93; RESP 20; TEMP 36.8; O2SAT 93
[2018-10-29] MEDS: Furosemide 20 MG/2 ML VIAL IVP (12:31)
--- NOTE | 2018-10-29 13:48 | PDOC.CMPRO ---
- If Service Date Differs Date of service: 10/29/18 Time of Service: 13:48 Care Management Progress Note S/O: Sherine is sitting up in the recliner when this conventional underwriter visits this afternoon, she is pleasant and smiles throughout discussion. Makayla has not been in as of yet this morning when this conventional underwriter vistis. Per BAYRON Alejo, Sherine will not be ready for DC today. A: Jayne Sandoval) is a 73 year old female admitted with aspiration pneumonia, with a new oxygen requirement and fluid overload. P: Sherine will return home with her caregiver Makayla when medically ready. Makayla will need to be notified when Sherine is being discharged and receive discharge instructions with speech recommendation if there is any changes.CM to continue to provide support to patient and caregiver ongoing discharge planning.
--- NOTE | 2018-10-29 14:11 | CMPROGNOTE_ITS ---
- If Service Date Differs Date of service: 10/29/18 Time of Service: 13:48 Care Management Progress Note S/O: Sherine is sitting up in the recliner when this junior underwriter visits this afternoon, she is pleasant and smiles throughout discussion. Makayla has not been in as of yet this morning when this junior underwriter vistis. Per BAYRON Alejo, Sherine will not be ready for DC today. A: Jayne Sandoval) is a 73 year old female admitted with aspiration pneumonia, with a new oxygen requirement and fluid overload. P: Sherine will return home with her caregiver Makayla when medically ready. Makayla will need to be notified when Sherine is being discharged and receive discharge instructions with speech recommendation if there is any changes.CM to continue to provide support to patient and caregiver ongoing discharge planning.
--- NOTE | 2018-10-29 14:37 | PT.INNT ---
Date of service: 10/29/18 Time of Service: 14:37 PT Notes 10/29/18 Refused x 2 in PM. Nursing reporting she may be tired from having a shower today. Ginger Shahid, ASSOCIATE SOFTWARE DEVELOPMENT ENGINEER
--- NOTE | 2018-10-29 14:48 | PGE_ITS ---
Date of Service Date of service: 10/29/18 Time of Service: 14:45 Assessment and Plan (1) Aspiration pneumonia: Current visit: Yes Status: Acute She continues to require oxygen. Appears mildly tachypneic. Blood cultures have yielded no growth at 72 hours. Transition to oral steroids. Currently on day #5 of Zosyn, chest x-ray shows improvement. Discontinue Zosyn after today. She is receiving Lasix for fluid overload, continues to have rales on exam. Appears dry by labs with hypernatremia- likely in the setting of diuresis and poor PO intake. Give D5w x1 liter and reassess sodium in 6 hours. (2) Hypernatremia: Current visit: Yes Status: Acute Appears dry by labs with hypernatremia- likely in the setting of diuresis and poor PO intake. Give D5w x1 liter and reassess sodium in 6 hours. (3) Acute exacerbation of chronic obstructive pulmonary disease (COPD): Current visit: Yes Status: Acute As above. (4) Dysphagia: Current visit: Yes Status: Acute Continue modified diet with assisted meals. Modified diet per speech therapy recommendations. (5) Alzheimer's dementia: Current visit: No Status: Chronic Continue home seroquel. (6) GERD (gastroesophageal reflux disease): Current visit: No Status: Chronic Continue PPI therapy. (7) Essential hypertension: Current visit: No Status: Chronic Blood pressure controlled, continue amlodipine per home regimen. (8) Bipolar disorder: Current visit: No Status: Suspected Continue home seroquel. (9) DVT prophylaxis: Current visit: No Status: Acute Subcutaneous Lovenox. (10) Discharge planning issues: Current visit: Yes Status: Acute She is a full code. She is working with physical therapy and Occupational Therapy. Consider palliative consult to discuss goals of care. This case has been discussed with Dr. Patel who is in agreement. Subjective Interval history since last seen: Ms Osorio remains pleasantly confused sitting up in the recliner with her feet elevated. She appears comfortable. She co ntinues to report a cough. Her nurse reports coughing while drinking. She had a speech consult and ST recommended placing her back on a pureed diet. She denies difficulty breathing. Her caregiver spoke to her nurse and apparently they have attempted to get home oxygen for her in the past and have been unsuccessful, indicating that she likely has some symptoms at baseline. Nursing reports some shortness of breath with activity. She denies chest pain. She is eating and drinking and tolerating her diet. She denies nausea or pain. Exam Narrative Exam Narrative: General: She is alert, oriented to self only, sitting up in the chair with her feet elevated, in no acute distress, on oxygen. Speaks in complete sentences, appears to have mild shortness of breath at rest. HEENT: Normocephalic, atraumatic, pupils equal round, extraocular movements intact, mucous membranes slightly dry. Heart: Heart has regular rate and rhythm, no murmur appreciated. Lungs: Appears mildly tachypneic at rest with wet cough. Rales to bilateral bases, few scattered wheezes noted. GI: Normal active bowel sounds throughout. Abdomen is soft, nontender on palpation, nondistended. Extremities: edema improved. No calf swelling or tenderness, no clubbing or cyanosis Objective Objective Clinical Data: Abnormal lab results 10/29/18 10/29/18 Range/Units 06:53 06:53 MCV 96.9 H (80-95) fL MCHC 30.5 L (32.0-36.0) g/dL RDW 17.3 H (11.7-14.6) % Sodium 153 H (136-145) mmol/L Chloride 112 H (98-107) mmol/L BUN 24 H (7-18) mg/dL Glucose 117 H (70-100) mg/dL Vital Signs Temperature 36.8 C 10/29/18 11:30 Temperature Source Tympanic 10/29/18 11:30 Pulse 93 H 10/29/18 11:30 Pulse Rhythm Regular 10/29/18 08:00 Respiratory Rate 20 10/29/18 11:30 Respiratory Effort 10/29/18 08:00 Respiratory Depth Normal 10/29/18 08:00 Respiratory Pattern Normal 10/29/18 08:00 Blood Pressure 134/89 10/29/18 11:30 Blood Pressure Mean 106 10/25/18 15:16 Blood Pressure Position Sitting 10/25/18 13:07 Pulse Oximetry 93 L 10/29/18 11:30 Oxygen Delivery Method Nasal Cannula 10/29/18 11:30 Oxygen Flow Rate 2 10/29/18 10:00 Pain Level 1 10/29/18 11:30 Comment 10/27/18 23:22 Intake & Output 10/28/18 10/29/18 10/29/18 23:59 11:59 23:59 Intake Total 1329 340 / 340 Output Total 400 / 400 Balance 930 / 1601 340 / 340 Weight 53.1 kg Intake: IV 400 / 621 100 / 100 Oral 930 / 1380 240 / 240 Output: Urine 400 / 400 Other: Urine Color Yellow Urine Appearance Clear Clear Urine Odor Normal Comment patient did not void at this time Patient was grossly incontinent. Stool Size Moderate Stool Characteristics Soft Formed Brown Voiding Methods Diaper Diaper Incontinent Incontinent Laboratory Results WBC 5.88 k/cumm (4.4-10.8) 10/29/18 06:53 RBC 4.54 m/cumm (4.00-5.20) 10/29/18 06:53 Hgb 13.4 g/dL (12.0-15.5) 10/29/18 06:53 Hct 44.0 % (36.0-46.0) 10/29/18 06:53 MCV 96.9 fL (80-95) H 10/29/18 06:53 MCH 29.5 pg (27.0-33.0) 10/29/18 06:53 MCHC 30.5 g/dL (32.0-36.0) L 10/29/18 06:53 RDW 17.3 % (11.7-14.6) H 10/29/18 06:53 Plt Count 330 x1000/uL (130-400) 10/29/18 06:53 MPV 10.4 fL (8.0-11.0) 10/29/18 06:53 Immature Gran % 0.7 10/28/18 06:42 Neutrophils % 85.9 10/28/18 06:42 Lymphocytes % 10.4 10/28/18 06:42 Monocytes % 2.8 10/28/18 06:42 Eosinophils % 0.2 10/28/18 06:42 Basophils % 0.0 10/28/18 06:42 Absolute Neutrophils 5.28 k/cumm (1.2-6.7) 10/28/18 06:42 Absolute Lymphocytes 0.64 k/cumm (1.2-3.4) L 10/28/18 06:42 Absolute Monocytes 0.17 k/cumm (0.11-0.7) 10/28/18 06:42 Absolute Eosinophils 0.01 k/cumm (0.0-0.7) 10/28/18 06:42 Absolute Basophils 0.00 k/cumm (0.0-0.2) 10/28/18 06:42 Sodium 153 mmol/L (136-145) H 10/29/18 06:53 Potassium 3.9 mmol/L (3.5-5.1) 10/29/18 06:53 Chloride 112 mmol/L (98-107) H 10/29/18 06:53 Carbon Dioxide 30.1 mmol/L (21.0-32.0) 10/29/18 06:53 Anion Gap 10.9 mmol/L (3-11) 10/29/18 06:53 BUN 24 mg/dL (7-18) H 10/29/18 06:53 Creatinine 0.83 mg/dL (0.55-1.02) 10/29/18 06:53 Estimated GFR/1.73 m2 >= 60.00 (mL/min/1.73m2) 10/29/18 06:53 Glucose 117 mg/dL (70-100) H 10/29/18 06:53 Lactate 0.6 mmol/l (0.6-1.4) 10/25/18 14:47 Calcium 8.6 mg/dL (8.5-10.1) 10/29/18 06:53 Magnesium 2.3 mg/dL (1.8-2.4) 10/28/18 06:42 Total Bilirubin 0.3 mg/dL (0.2-1.0) 10/25/18 13:42 AST 17 U/L (15-37) 10/25/18 13:42 ALT 26 U/L (12-78) 10/25/18 13:42 Alkaline Phosphatase 110 U/L (46-116) 10/25/18 13:42 Troponin I < 0.02 ng/mL (0.00-0.06) 10/25/18 13:42 NT-Pro-B Natriuret Pep 212 pg/mL (-299) 10/25/18 13:42 Total Protein 7.4 g/dL (6.4-8.2) 10/25/18 13:42 Albumin 3.3 g/dL (3.4-5.0) L 10/25/18 13:42
[2018-10-29 15:30] VITALS: BP 137/83; PULSE 95; RESP 20; TEMP 36.8; O2SAT 90
[2018-10-29] MEDS: DEXTROSE 5%-WATER 1,000 ML 70 ML IV (16:17)
[2018-10-29] MEDS: Enoxaparin 40 MG/0.4 ML SYR SC (17:44)
[2018-10-29 20:20] LABS: Bilirubin Negative (Negative); Blood Negative (Negative); Clarity Clear; Glucose 250 mg/dL (Negative); Ketones Negative (Negative); Leukocyte Esterase Negative (Negative); Nitrite Negative (Negative); Specific Gravity 1.015 (1.005-1.025); Urobilinogen 0.2 EU/dL (Up TO 0.2)
[2018-10-29 20:38] LABS: Anion Gap 9.3 mmol/L (3-11); BUN 27 mg/dL (7-18); CO2 30.7 mmol/L (21.0-32.0); CREATININE 0.85 mg/dL (0.55-1.02); Calcium 8.9 mg/dL (8.5-10.1); Chloride 107 mmol/L (98-107); Glucose 160 mg/dL (70-100); Potassium 3.8 mmol/L (3.5-5.1); Sodium 147 mmol/L (136-145)
[2018-10-29 23:45] VITALS: BP 144/93; PULSE 81; RESP 17; TEMP 36.6; O2SAT 88
[2018-10-30] MEDS: PIPERACILLIN/TAZO 4.5 GM in Normal Saline 100 ML IVPB ×2 (05:30→12:27)
[2018-10-30 07:43] LABS: HCT 44.4 % (36.0-46.0); HGB 13.4 g/dL (12.0-15.5); Mean Corp. HGB Concentration 30.2 g/dL (32.0-36.0); Mean Corpuscular Hemoglobin 28.7 pg (27.0-33.0); Mean Corpuscular Volume 95.1 fL (80-95); Mean Platelet Volume 10.4 fL (8.0-11.0); Platelet Count 307 x1000/uL (130-400); RBC 4.67 m/cumm (4.00-5.20); RBC Distribution Width 16.4 % (11.7-14.6)
[2018-10-30 07:49] VITALS: BP 123/78; PULSE 78; RESP 24; TEMP 37; O2SAT 94
[2018-10-30 08:24] LABS: Anion Gap 9.8 mmol/L (3-11); BUN 23 mg/dL (7-18); CO2 29.2 mmol/L (21.0-32.0); CREATININE 0.77 mg/dL (0.55-1.02); Calcium 8.3 mg/dL (8.5-10.1); Chloride 106 mmol/L (98-107); Glucose 134 mg/dL (70-100); Magnesium 2.2 mg/dL (1.8-2.4); Potassium 3.9 mmol/L (3.5-5.1); Sodium 145 mmol/L (136-145)
[2018-10-30] MEDS: predniSONE 20 MG TAB 40 MG PO (09:16)
[2018-10-30] MEDS: Cholecalciferol (Vitamin D3) 1,000 UNIT TAB 2000 UNITS PO (09:16)
[2018-10-30] MEDS: Pantoprazole 40 MG TABCR PO (09:16)
[2018-10-30] MEDS: amLODIPine 5 MG TAB 10 MG PO (09:16)
[2018-10-30] MEDS: QUEtiapine 25 MG TAB PO ×3 (09:16→16:10)
[2018-10-30 11:20] VITALS: PULSE 103; PULSE 118; PULSE 91; RESP 20; RESP 24; O2SAT 90; O2SAT 91; O2SAT 94
--- NOTE | 2018-10-30 11:57 | PT.INTREAT ---
Date of service: 10/30/18 Time of Service: 11:57 PT Notes Inpatient Physical Therapy Treatment Note [facility] Date: 10/30/2018 PRECAUTIONS: Fall, confusion SUBJECTIVE: Kailee is agreeable to participating in PT. OBJECTIVE: PAIN: No complaints of pain BED MOBILITY/TRANSFERS Sit-stand: CGA Stand-sit: CGA GAIT Assistive Device: RAD TECHNOLOGIST x2 Weight bearing: Full Assist: CGA Distance: 150' Deviation: Cueing for breathing THEREX: Patient was able to complete LAQ x5 on right, although was unable to follow further instruction for ther ex completion. STAIRS: Up 3x4 and down 2x6 using B rails and a step to pattern with CGA x2 ASSESSMENT: Patient tolerated session well without complaint. Patient was able to tolerate a progression in gait distance with RAD TECHNOLOGIST x2 support and CGA. Patient would benefit from continued gait training as well as strengthening for improved mobility and improved ability to perform daily functional tasks at a more independent level. PLAN: Continue with PTs POC TREATMENT CODE/TIME: Session 1: 30 minutes; [id number] x2
--- NOTE | 2018-10-30 12:02 | PTTR_ITS ---
Date of service: 10/30/18 Time of Service: 11:57 PT Notes Inpatient Physical Therapy Treatment Note [facility] Date: 10/30/2018 PRECAUTIONS: Fall, confusion SUBJECTIVE: Kailee is agreeable to participating in PT. OBJECTIVE: PAIN: No complaints of pain BED MOBILITY/TRANSFERS Sit-stand: CGA Stand-sit: CGA GAIT Assistive Device: TRANSPORTATION AIDE x2 Weight bearing: Full Assist: CGA Distance: 150' Deviation: Cueing for breathing THEREX: Patient was able to complete LAQ x5 on right, although was unable to follow further instruction for ther ex completion. STAIRS: Up 3x4 and down 2x6 using B rails and a step to pattern with CGA x2 ASSESSMENT: Patient tolerated session well without complaint. Patient was able to tolerate a progression in gait distance with TRANSPORTATION AIDE x2 support and CGA. Patient would benefit from continued gait training as well as strengthening for improved mobility and improved ability to perform daily functional tasks at a more independent level. PLAN: Continue with PTs POC TREATMENT CODE/TIME: Session 1: 30 minutes; [id number] x2
[2018-10-30] MEDS: Normal Saline Flush 10 ML SYR IVP (12:27)
[2018-10-30] MEDS: Normal Saline 500 ML 30 ML IV (12:28)
[2018-10-30] MEDS: Furosemide 20 MG/2 ML VIAL IVP (12:29)
[2018-10-30 12:30] VITALS: BP 127/79; PULSE 105; RESP 18; TEMP 37.2; O2SAT 93
--- NOTE | 2018-10-30 12:55 | PDOC.CMDIS ---
- If Service Date Differs Date of service: 10/30/18 Time of Service: 12:55 LACE Index Scoring Tool - Questions: Length of Stay (in days): 4 - 6 Acuity (Admit via E.D.?): Yes Comorbidities: Cerebrovascular Disease, Chronic Pulmonary Disease, Dementia E.D. Visits: 5 - Answers: Total Score: 16 Risk of Readmission: High Risk Care Management Discharge Reason for Hospitalization: Aspiration pneumonia Discharge Plan: Sherine will be discharged home with caregiver Makayla later today with new home health services of fdc, OT and PT. Transportation will be via private automobile with caregiver. Sherine, with the help of her caregiver, will follow up with her PCP and discharge plan of care. A referral was also coordinated by CM for a palliative care consult in the community. Patient/Family Education Needs: Discharge plan, limitations, follow up plan of care and Ask Me Three.
--- NOTE | 2018-10-30 12:56 | W.PM.DS.N ---
Date of service: 10/30/18 Time of Service: 12:56 DS: Diagnosis Discharge Diagnosis (1) Aspiration pneumonia: Status: Acute (2) Hypernatremia: Status: Acute (3) Acute exacerbation of chronic obstructive pulmonary disease (COPD): Status: Acute (4) Dysphagia: Status: Acute (5) Alzheimer's dementia: Status: Chronic (6) GERD (gastroesophageal reflux disease): Status: Chronic (7) Essential hypertension: Status: Chronic (8) Bipolar disorder: Status: Suspected Discharge Plan Disposition Patient Disposition: HOME W/HOME HEALTH SERVICE Condition: Improving Discharge Details Chief Complaint: SOB Reason For Visit: ASPIRATN PNEUMONIA,ACUTE EXACERBATN COPD W/HYPOXIA Admit Date/Time: 10/25/18 14:50 Admit Provider: Ashleigh Patel Attending Provider: Ashleigh Patel Primary Care Provider: Heather Rinaldi ED Provider: Anastasiia Lantigua Hospital Course Hospital Course: Jayne Osorio is a very pleasant 73 year old female with a past medical history significant for non-oxygen dependent COPD, HTN, dysphagia, GERD, Alzheimer's dementia, bipolar and parkinsonism who lives at home with a caregiver. She presented to the emergency department on 10/25/2018 with progressively worsening shortness of breath and a productive cough. In the emergency department, she was found to be hypoxic with oxygen saturations in the 80s on room air and she was wheezing. She had a chest x-ray which showed question of right basilar infiltrate versus atelectasis. She was initiated on IV vancomycin and Zosyn as well as nebulizer treatments and IV steroids. She was admitted to [facility] floor for further evaluation and monitoring. Her blood cultures yielded no growth. She was never able to produce a sputum sample. She was initially given gentle IV fluid hydration. She become fluid overloaded and required diuresis with lasix. She completed a full course of IV antibiotics for pneumonia. She had an exercise oximetry test with RT and did not qualify for home oxygen. Her oxygen saturation at rest was 92% and it went down to 90% on room air with ambulation. Her weight is down over 3 kg at the time of discharge. She denies shortness of breath. She does not appear to be short of breath at rest. Nursing reports that her cough has improved. Repeat chest x-ray showed improvement. She never had an elevated white blood cell count. She was found to have hypernatremia while she was being diuresed, but still appeared volume overloaded on exam. She was continued on lasix and initiated on one liter of D5W with improvement of her hypernatremia. At the time of discharge, her sodium was 145. She will need to taper off of steroids as an outpatient. She will remain on low dose lasix until her follow up appointment with her PCP. Consider echocardiogram if it would oil changer. She will follow up with her PCP as scheduled. She will have home health nursing, PT and OT. Her weight will need to be monitored. Home health will be instructed to contact her PCP as needed. She is a FULL CODE. Given her advanced dementia, she would benefit from a palliative care consult to discuss goals of care. A referral to palliative has been placed. Home Meds and New Rx's Prescriptions: New prednisone 10 mg tablet 10 mg PO DAILY Qty: 10 RF: 0 furosemide [Lasix] 20 mg tablet 20 mg PO DAILY Qty: 10 RF: 0 Continued food supplemt, lactose-reduced [Ensure High Protein] liquid 120 ml PO DAILY RF: 0 acetaminophen 325 mg capsule 650 mg PO TID PRNRF: 0 quetiapine [Seroquel] 25 mg tablet 25 mg PO DIRECTED Qty: 450 RF: 3 omeprazole 40 MG capsule,delayed release(DR/EC) 40 mg PO HS RF: 0 docusate sodium [Colace] 100 MG capsule 100 mg PO PRN PRNRF: 0 cholecalciferol (vitamin D3) 1,000 UNITS tablet 2 tab PO QAM RF: 0 amlodipine 5 mg Tablet 10 mg PO DAILY Qty: 30 RF: 0 Discharge Instructions Instructions: Pneumonia (DC) Additional Instructions: Take prednisone as follows: take 4 tabs tomorrow morning, then 2 tabs daily x2 days then decrease to 1 tablet x2 days then stop. Take lasix daily until your follow up appointment with your PCP. Follow up with your PCP. A referral has been sent to Palliative care. Take care! Stand Alone Forms: Nursing Discharge Form Referrals: Heather Rinaldi [Primary Care Provider] - 11/10/18 11:55 am Patti Mott MD [ [facility] STAFF PHYSICIAN] - (Follow up palliative in community. Discuss goals of care.) Activity:: Activity as Tolerated Equipment/Supplies:: No Equipment Needed Diet:: Pureed diet. Discharge Orders Discharge Orders: Discharge Order (Routine); Ordered 10/30/18 Ordered By: Sapna Herbert Exam Narrative Exam Narrative: General: She is alert, oriented to self only, sitting up in the chair with her feet elevated, in no acute distress. Speaks in complete sentences without shortness of breath. HEENT: Normocephalic, atraumatic, pupils equal round, extraocular movements intact, mucous membranes slightly dry. Heart: Heart has regular rate and rhythm, no murmur appreciated. Lungs: Respirations even and unlabored. Lung sounds clear. GI: Normal active bowel sounds throughout. Abdomen is soft, nontender on palpation, nondistended. Extremities: No edema. No calf swelling or tenderness, no clubbing or cyanosis DS: Data Vitals/I&O Vitals and I&O: Vital Signs Temperature 37 C 10/30/18 07:49 Temperature Source Tympanic 10/30/18 07:49 Pulse 78 10/30/18 07:49 Pulse Rhythm Regular 10/30/18 03:45 Respiratory Rate 24 10/30/18 07:49 Respiratory Effort 10/30/18 03:45 Respiratory Depth Normal 10/30/18 03:45 Respiratory Pattern Normal 10/30/18 03:45 Blood Pressure 123/78 10/30/18 07:49 Blood Pressure Mean 106 10/25/18 15:16 Blood Pressure Position Sitting 10/25/18 13:07 Pulse Oximetry 94 L 10/30/18 07:49 Oxygen Delivery Method Nasal Cannula 10/30/18 07:49 Oxygen Flow Rate 1 10/30/18 07:49 Pain Level 0 10/29/18 23:45 Comment 10/29/18 23:45 Intake & Output 10/29/18 10/30/18 10/30/18 23:59 11:59 23:59 Intake Total 920 / 1260 1680 / 1680 0 / 1680 Output Total 500 / 500 550 / 550 Balance 420 / 760 1130 / 1130 0 / 1130 Weight 52.1 kg Intake: IV 440 / 540 1100 / 1100 0 / 1100 Oral 480 / 720 580 / 580 Output: Urine 500 / 500 550 / 550 Other: Urine Color Yellow Yellow Urine Appearance Clear Clear Comment incontinent of BM. Stool Size Moderate Moderate Stool Characteristics Soft Formed Brown Voiding Methods Incontinent Indwelling Catheter Completed studies during hospitalization [Text1]: 10/25/18: PORTABLE CHEST: Comparison is made with [id number]. The patient is rotated. Mildly increased densities are again seen at the right lung base. The right diaphragm is mildly elevated. There are mild underlying fibrotic changes. IMPRESSION: Question of right basilar infiltrate vs atelectasis. 10/28/18: AP AND LATERAL CHEST: No pulmonary infiltrate is seen. There is chronic mild elevation of the right hemidiaphragm. There is no pleural effusion. The cardiovascular structures are intact. SUMMARY: No evidence of an acute pneumonitis. Labs on day of discharge: Labs from last 24 hours 10/30/18 10/30/18 10/29/18 07:00 07:00 20:10 WBC 5.10 RBC 4.67 Hgb 13.4 Hct 44.4 MCV 95.1 H MCH 28.7 MCHC 30.2 L RDW 16.4 H Plt Count 307 MPV 10.4 Sodium 145 Potassium 3.9 Chloride 106 Carbon Dioxide 29.2 Anion Gap 9.8 BUN 23 H Creatinine 0.77 Estimated GFR/1.73 m2 >= 60.00 Glucose 134 H Serum Osmolality Calcium 8.3 L Magnesium 2.2 Urine Color Yellow Urine Clarity Clear Urine pH 7.0 Ur Specific Thorp 1.015 Urine Protein Negative Urine Ketones Negative Urine Blood Negative Urine Nitrite Negative Urine Bilirubin Negative Urine Urobilinogen 0.2 Ur Leukocyte Esterase Negative Urine Osmolality Urine Glucose 250 H 10/29/18 10/29/18 10/29/18 20:10 20:00 19:30 WBC RBC Hgb Hct MCV MCH MCHC RDW Plt Count MPV Sodium Cancelled 147 H Potassium 3.8 Chloride 107 Carbon Dioxide 30.7 Anion Gap 9.3 BUN 27 H Creatinine 0.85 Estimated GFR/1.73 m2 >= 60.00 Glucose 160 H Serum Osmolality Calcium 8.9 Magnesium Urine Color Urine Clarity Urine pH Ur Specific Thorp Urine Protein Urine Ketones Urine Blood Urine Nitrite Urine Bilirubin Urine Urobilinogen Ur Leukocyte Esterase Urine Osmolality Pending Urine Glucose 10/29/18 06:53 WBC RBC Hgb Hct MCV MCH MCHC RDW Plt Count MPV Sodium Potassium Chloride Carbon Dioxide Anion Gap BUN Creatinine Estimated GFR/1.73 m2 Glucose Serum Osmolality Pending Calcium Magnesium Urine Color Urine Clarity Urine pH Ur Specific Thorp Urine Protein Urine Ketones Urine Blood Urine Nitrite Urine Bilirubin Urine Urobilinogen Ur Leukocyte Esterase Urine Osmolality Urine Glucose Preliminary micro results at discharge 10/25/18 15:42 Blood Culture - Preliminary Blood NO GROWTH 96 HOURS 10/25/18 15:42 Blood Culture - Preliminary Blood NO GROWTH 96 HOURS [facility] Medical History Bipolar disorder (Suspected) Essential hypertension (Chronic) COPD (chronic obstructive pulmonary disease) (Suspected) Mood disorder (Chronic) GERD (gastroesophageal reflux disease) (Chronic) Alzheimer's dementia (Chronic) Drug-induced Parkinsonism (Chronic) Chronic colitis (Acute) Vitamin B 12 deficiency (Acute) Anxiety (Chronic) CVA (cerebral vascular accident) (Chronic) Depression (Chronic) HTN (hypertension) (Chronic) Dementia (Resolved) Surgical History Surgical history unknown (Acute) Social History Smoking/Tobacco Use Status: Former Tobacco Use Alcohol Intake: never Substance use type: does not use Household members: caregiver Number of Children: 3 current occupation: Nurse Do you feel safe at home: Yes Do you feel safe in your relationship?: Yes Additional Social history: Has 2 children in [place] who are her guardians. Has another son in [place] who is not in charge of care. Has lives with caregiver Makayla since Jun 2017. Attends [employer] 5 days per week. TRISTAN [employer].
--- NOTE | 2018-10-30 13:00 | DSE_ITS ---
Date of service: 10/30/18 Time of Service: 12:56 DS: Diagnosis Discharge Diagnosis (1) Aspiration pneumonia: Status: Acute (2) Hypernatremia: Status: Acute (3) Acute exacerbation of chronic obstructive pulmonary disease (COPD): Status: Acute (4) Dysphagia: Status: Acute (5) Alzheimer's dementia: Status: Chronic (6) GERD (gastroesophageal reflux disease): Status: Chronic (7) Essential hypertension: Status: Chronic (8) Bipolar disorder: Status: Suspected Discharge Plan Disposition Patient Disposition: HOME W/HOME HEALTH SERVICE Condition: Improving Discharge Details Chief Complaint: SOB Reason For Visit: ASPIRATN PNEUMONIA,ACUTE EXACERBATN COPD W/HYPOXIA Admit Date/Time: 10/25/18 14:50 Admit Provider: Ashleigh Patel Attending Provider: Ashleigh Patel Primary Care Provider: Heather Rinaldi ED Provider: Anastasiia Lantigua Hospital Course Hospital Course: Jayne Osorio is a very pleasant 73 year old female with a past medical history significant for non-oxygen dependent COPD, HTN, dysphagia, GERD, Alzheimer's dementia, bipolar and parkinsonism who lives at home with a caregiver. She presented to the emergency department on 10/25/2018 with progressively worsening shortness of breath and a productive cough. In the emergency department, she was found to be hypoxic with oxygen saturations in the 80s on room air and she was wheezing. She had a chest x-ray which showed question of right basilar infiltrate versus atelectasis. She was initiated on IV vancomycin and Zosyn as well as nebulizer treatments and IV steroids. She was admitted to the [facility] floor for further evaluation and monitoring. Her blood cultures yielded no growth. She was never able to produce a sputum sample. She was initially given gentle IV fluid hydration. She become fluid overloaded and required diuresis with lasix. She completed a full course of IV antibiotics for pneumonia. She had an exercise oximetry test with RT and did not qualify for home oxygen. Her oxygen saturation at rest was 92% and it went down to 90% on room air with ambulation. Her weight is down over 3 kg at the time of discharge. She denies shortness of breath. She does not appear to be short of breath at rest. Nursing reports that her cough has improved. Repeat chest x-ray showed improvement. She never had an elevated white blood cell count. She was found to have hypernatremia while she was being diuresed, but still appeared volume overloaded on exam. She was continued on lasix and initiated on one liter of D5W with improvement of her hypernatremia. At the time of discharge, her sodium was 145. She will need to taper off of steroids as an outpatient. She will remain on low dose lasix until her follow up appointment with her PCP. Consider echocardiogram if it would foreign exchange trader. She will follow up with her PCP as scheduled. She will have home health nursing, PT and OT. Her weight will need to be monitored. Home health will be instructed to contact her PCP as needed. She is a FULL CODE. Given her advanced dementia, she would benefit from a [facility] care consult to discuss goals of care. A referral to palliative has been placed. Home Meds and New Rx's Prescriptions: New prednisone 10 mg tablet 10 mg PO DAILY Qty: 10 RF: 0 furosemide [Lasix] 20 mg tablet 20 mg PO DAILY Qty: 10 RF: 0 Continued food supplemt, lactose-reduced [Ensure High Protein] liquid 120 ml PO DAILY RF: 0 acetaminophen 325 mg capsule 650 mg PO TID PRNRF: 0 quetiapine [Seroquel] 25 mg tablet 25 mg PO DIRECTED Qty: 450 RF: 3 omeprazole 40 MG capsule,delayed release(DR/EC) 40 mg PO HS RF: 0 docusate sodium [Colace] 100 MG capsule 100 mg PO PRN PRNRF: 0 cholecalciferol (vitamin D3) 1,000 UNITS tablet 2 tab PO QAM RF: 0 amlodipine 5 mg Tablet 10 mg PO DAILY Qty: 30 RF: 0 Discharge Instructions Instructions: Pneumonia (DC) Additional Instructions: Take prednisone as follows: take 4 tabs tomorrow morning, then 2 tabs daily x2 days then decrease to 1 tablet x2 days then stop. Take lasix daily until your follow up appointment with your PCP. Follow up with your PCP. A referral has been sent to Palliative care. Take care! Stand Alone Forms: Nursing Discharge Form Referrals: Heather Rinaldi [Primary Care Provider] - 11/10/18 11:55 am Patti Mott MD [ [facility] STAFF PHYSICIAN] - (Follow up palliative in community. Discuss goals of care.) Activity:: Activity as Tolerated Equipment/Supplies:: No Equipment Needed Diet:: Pureed diet. Discharge Orders Discharge Orders: Discharge Order (Routine); Ordered 10/30/18 Ordered By: Sapna Herbert Exam Narrative Exam Narrative: General: She is alert, oriented to self only, sitting up in the chair with her feet elevated, in no acute distress. Speaks in complete sentences without shortness of breath. HEENT: Normocephalic, atraumatic, pupils equal round, extraocular movements intact, mucous membranes slightly dry. Heart: Heart has regular rate and rhythm, no murmur appreciated. Lungs: Respirations even and unlabored. Lung sounds clear. GI: Normal active bowel sounds throughout. Abdomen is soft, nontender on palpation, nondistended. Extremities: No edema. No calf swelling or tenderness, no clubbing or cyanosis DS: Data Vitals/I&O Vitals and I&O: Vital Signs Temperature 37 C 10/30/18 07:49 Temperature Source Tympanic 10/30/18 07:49 Pulse 78 10/30/18 07:49 Pulse Rhythm Regular 10/30/18 03:45 Respiratory Rate 24 10/30/18 07:49 Respiratory Effort 10/30/18 03:45 Respiratory Depth Normal 10/30/18 03:45 Respiratory Pattern Normal 10/30/18 03:45 Blood Pressure 123/78 10/30/18 07:49 Blood Pressure Mean 106 10/25/18 15:16 Blood Pressure Position Sitting 10/25/18 13:07 Pulse Oximetry 94 L 10/30/18 07:49 Oxygen Delivery Method Nasal Cannula 10/30/18 07:49 Oxygen Flow Rate 1 10/30/18 07:49 Pain Level 0 10/29/18 23:45 Comment 10/29/18 23:45 Intake & Output 10/29/18 10/30/18 10/30/18 23:59 11:59 23:59 Intake Total 920 / 1260 1680 / 1680 0 / 1680 Output Total 500 / 500 550 / 550 Balance 420 / 760 1130 / 1130 0 / 1130 Weight 52.1 kg Intake: IV 440 / 540 1100 / 1100 0 / 1100 Oral 480 / 720 580 / 580 Output: Urine 500 / 500 550 / 550 Other: Urine Color Yellow Yellow Urine Appearance Clear Clear Comment incontinent of BM. Stool Size Moderate Moderate Stool Characteristics Soft Formed Brown Voiding Methods Incontinent Indwelling Catheter Completed studies during hospitalization [Text1]: 10/25/18: PORTABLE CHEST: Comparison is made with [id number]. The patient is rotated. Mildly increased densities are again seen at the right lung base. The right diaphragm is mildly elevated. There are mild underlying fibrotic changes. IMPRESSION: Question of right basilar infiltrate vs atelectasis. 10/28/18: AP AND LATERAL CHEST: No pulmonary infiltrate is seen. There is chronic mild elevation of the right hemidiaphragm. There is no pleural effusion. The cardiovascular structures are intact. SUMMARY: No evidence of an acute pneumonitis. Labs on day of discharge: Labs from last 24 hours 10/30/18 10/30/18 10/29/18 07:00 07:00 20:10 WBC 5.10 RBC 4.67 Hgb 13.4 Hct 44.4 MCV 95.1 H MCH 28.7 MCHC 30.2 L RDW 16.4 H Plt Count 307 MPV 10.4 Sodium 145 Potassium 3.9 Chloride 106 Carbon Dioxide 29.2 Anion Gap 9.8 BUN 23 H Creatinine 0.77 Estimated GFR/1.73 m2 >= 60.00 Glucose 134 H Serum Osmolality Calcium 8.3 L Magnesium 2.2 Urine Color Yellow Urine Clarity Clear Urine pH 7.0 Ur Specific [facility] 1.015 Urine Protein Negative Urine Ketones Negative Urine Blood Negative Urine Nitrite Negative Urine Bilirubin Negative Urine Urobilinogen 0.2 Ur Leukocyte Esterase Negative Urine Osmolality Urine Glucose 250 H 10/29/18 10/29/18 10/29/18 20:10 20:00 19:30 WBC RBC Hgb Hct MCV MCH MCHC RDW Plt Count MPV Sodium Cancelled 147 H Potassium 3.8 Chloride 107 Carbon Dioxide 30.7 Anion Gap 9.3 BUN 27 H Creatinine 0.85 Estimated GFR/1.73 m2 >= 60.00 Glucose 160 H Serum Osmolality Calcium 8.9 Magnesium Urine Color Urine Clarity Urine pH Ur Specific [facility] Urine Protein Urine Ketones Urine Blood Urine Nitrite Urine Bilirubin Urine Urobilinogen Ur Leukocyte Esterase Urine Osmolality Pending Urine Glucose 10/29/18 06:53 WBC RBC Hgb Hct MCV MCH MCHC RDW Plt Count MPV Sodium Potassium Chloride Carbon Dioxide Anion Gap BUN Creatinine Estimated GFR/1.73 m2 Glucose Serum Osmolality Pending Calcium Magnesium Urine Color Urine Clarity Urine pH Ur Specific [facility] Urine Protein Urine Ketones Urine Blood Urine Nitrite Urine Bilirubin Urine Urobilinogen Ur Leukocyte Esterase Urine Osmolality Urine Glucose Preliminary micro results at discharge 10/25/18 15:42 Blood Culture - Preliminary Blood NO GROWTH 96 HOURS 10/25/18 15:42 Blood Culture - Preliminary Blood NO GROWTH 96 HOURS [facility] Medical History Bipolar disorder (Suspected) Essential hypertension (Chronic) COPD (chronic obstructive pulmonary disease) (Suspected) Mood disorder (Chronic) GERD (gastroesophageal reflux disease) (Chronic) Alzheimer's dementia (Chronic) Drug-induced Parkinsonism (Chronic) Chronic colitis (Acute) Vitamin B 12 deficiency (Acute) Anxiety (Chronic) CVA (cerebral vascular accident) (Chronic) Depression (Chronic) HTN (hypertension) (Chronic) Dementia (Resolved) Surgical History Surgical history unknown (Acute) Social History Smoking/Tobacco Use Status: Former Tobacco Use Alcohol Intake: never Substance use type: does not use Household members: caregiver Number of Children: 3 current occupation: Nurse Do you feel safe at home: Yes Do you feel safe in your relationship?: Yes Additional Social history: Has 2 children in [place] who are her guardians. Has another son in [place] who is not in charge of care. Has lives with caregiver Makayla since Jun 2017. Attends [employer] 5 days per week. TRISTAN Haider.
--- NOTE | 2018-10-30 13:34 | CMDISCH_ITS ---
- If Service Date Differs Date of service: 10/30/18 Time of Service: 12:55 LACE Index Scoring Tool - Questions: Length of Stay (in days): 4 - 6 Acuity (Admit via E.D.?): Yes Comorbidities: Cerebrovascular Disease, Chronic Pulmonary Disease, Dementia E.D. Visits: 5 - Answers: Total Score: 16 Risk of Readmission: High Risk Care Management Discharge Reason for Hospitalization: Aspiration pneumonia Discharge Plan: Sherine will be discharged home with caregiver Makayla later today with new home health services of snf, OT and PT. Transportation will be via private automobile with caregiver. Sherine, with the help of her caregiver, will follow up with her PCP and discharge plan of care. A referral was also coordinated by CM for a palliative care consult in the community. Patient/Family Education Needs: Discharge plan, limitations, follow up plan of care and Ask Me Three.
--- NOTE | 2018-10-30 14:27 | PDOC.HHF2F ---
1. Encounter Date and Reason I certify that IVANA DOE was seen by Sapna Herbert on 10/30/18 and that I had a [id number] encounter with this patient that meets the physician face to face encounter requirements. 2. Clinical Findings Supporting Skilled Need and Homebound Status I certify that home health services are medically necessary, include either intermittent [facility] and/or physical/speech therapy, and that this patient is homebound in that absences from the home require considerable and taxing effort and are infrequent or of short duration, or are attributable to the need to receive medical care. [X] (a) Attached documentation from encounter provides clinical findings supporting skilled need and homebound status (including what assistance patient requires to leave the home). The encounter with the patient was in whole, or in part, for the following medical condition, which is the primary reason for home health care: ASPIRATN PNEUMONIA,ACUTE EXACERBATN COPD W/HYPOXIA, fluid overload, alzheimer's dementia, parkinsonism. Assisted: Needed to monitor respiratory and cardiac status, monitor weights, vital signs, lung sounds. Assist with medication management. Contact PCP with concerns. Physical Therapy: Needed to continue to work on strength and endurance after hospitalization. OT: Needed to assess/evaluate home and make recommendations as needed. Speech Therapy: Homebound: unable to leave home without assistance. 3. Certification and Authentication I certify that I composed the above information based on my clinical judgement relating to this patient's medical condition and, if applicable, clinical findings communicated to me by the NPP or inpatient physician who performed the Home Health Referral. All further orders will be obtained through Dr. Rinaldi (Community Based Physician - PCP)
--- NOTE | 2018-10-30 14:30 | HHF2F_ITS ---
1. Encounter Date and Reason I certify that IVANA DOE was seen by Sapna Herbert on 10/30/18 and that I had a [id number] encounter with this patient that meets the physician face to face encounter requirements. 2. Clinical Findings Supporting Skilled Need and Homebound Status I certify that home health services are medically necessary, include either intermittent longterm and/or physical/speech therapy, and that this patient is homebound in that absences from the home require considerable and taxing effort and are infrequent or of short duration, or are attributable to the need to receive medical care. [X] (a) Attached documentation from encounter provides clinical findings supporting skilled need and homebound status (including what assistance patient requires to leave the home). The encounter with the patient was in whole, or in part, for the following medical condition, which is the primary reason for home health care: ASPIRATN PNEUMONIA,ACUTE EXACERBATN COPD W/HYPOXIA, fluid overload, alzheimer's dementia, parkinsonism. Halfway: Needed to monitor respiratory and cardiac status, monitor weights, vital signs, lung sounds. Assist with medication management. Contact PCP with concerns. Physical Therapy: Needed to continue to work on strength and endurance after hospitalization. OT: Needed to assess/evaluate home and make recommendations as needed. Speech Therapy: Homebound: unable to leave home without assistance. 3. Certification and Authentication I certify that I composed the above information based on my clinical judgement relating to this patient's medical condition and, if applicable, clinical findings communicated to me by the NPP or inpatient physician who performed the Home Health Referral. All further orders will be obtained through Dr. Rinaldi (Community Based Physician - PCP)
[2018-10-30 16:22] LABS: Osmolality, Urine 496 mos/kg (150-1150)
[2018-10-30 16:38] LABS: Osmolality Serum 313 mos/kg (275-295)
[2018-10-30] MEDS: Enoxaparin 40 MG/0.4 ML SYR SC (17:19)
== END 2018-10-30 17:30 | disposition home health service (06) | DRG 178 ==
LOC: ER 15:12 → MS 16:09
PROVIDERS: Internal Medicine; Nurse Practitioner; Admitting Provider Internal Medicine; Emergency Provider Physician Assistant; PCP Family Medicine; Visit Provider Internal Medicine
DX: J69.0 Pneumonitis due to inhalation of food and vomit (principal); J44.1 Chronic obstructive pulmonary disease with (acute) exacerbation; E87.0 Hyperosmolality and hypernatremia; G21.19 Other drug induced secondary parkinsonism; G30.9 Alzheimer's disease, unspecified; F02.80 Dementia in other diseases classified elsewhere, unspecified severity, without behavioral disturbance, psychotic disturbance, mood disturbance, and anxiety; K21.9 Gastro-esophageal reflux disease without esophagitis; I10 Essential (primary) hypertension; F31.9 Bipolar disorder, unspecified; R09.02 Hypoxemia; E87.70 Fluid overload, unspecified; Z87.891 Personal history of nicotine dependence; R13.11 Dysphagia, oral phase
CPT/HCPCS: 36410; 36415; 80048; 80053; 83935; 85027; 87040; 92610; 93005; 94618; 94640; 96360; 97162; 97167; 97530; 99223; 99232; 99233; 99239; 99285; J1650; 71045; 71046; 81003; 83605; 83735; 83880; 83930; 84295; 84484; 85025; 92507; 93010; J1941; J2543; J2930; J7060; J7512; J7613; J7620

== ENCOUNTER 2019-11-18 20:43 | Emergency (ER) | payer MEDICARE, MEDICAID, SELFPAY ==
[2019-11-18 20:42] VITALS: BP 109/85; PULSE 98; RESP 16; TEMP 36.6; O2SAT 92
[2019-11-18] MEDS: Lidocaine 5% Patch 1 PATCH TP (20:53)
--- NOTE | 2019-11-18 21:24 | DI.RAD_ITS ---
EXAM: XR HIP LT COMPLETE AP PELVIS CLINICAL HISTORY: dementia, fell on left hip, r/o fx. TECHNIQUE: 2D digital imaging was performed. COMPARISON: CR PELVIS AP from 11/21/2017 FINDINGS: BONES: No acute fracture is present. No bony destructive lesion is seen. JOINTS: No dislocation present. Degenerative changes are seen in the hips and lumbar spine. SOFT TISSUE: Normal. IMPRESSION: No acute fracture or dislocation. DATA REPOSITORY: RADIATION DOSE DELIVERED:
--- NOTE | 2019-11-18 21:36 | DI.VRAD_ITS ---
PROCEDURE INFORMATION: Exam: XR Left Hip with Pelvis when Performed Exam date and time: 11/18/2019 9:10 PM Age: 74 years old Clinical indication: Hip pain; Left hip; Patient HX: Dementia, fell on lt hip, R/O FX TECHNIQUE: Imaging protocol: XR Left hip with pelvis when performed. Views: 2 or 3 views. COMPARISON: CR PELVIS AP 11/21/2017 9:19 AM FINDINGS: Bones/joints: Degenerative changes of hip joints and visualized spine. No subluxation. No acute fracture. Soft tissues: Unremarkable. IMPRESSION: No acute findings. Dictated and Authenticated by: Osmar Ibanez MD. Ordering:VERA Terry MD
--- NOTE | 2019-11-18 21:43 | W.ED.GENAD ---
Discharge Plan Disposition Patient Disposition: HOME Condition: Good Discharge Details Chief Complaint: Orthopedic Clinical Impression: Alzheimer's dementia, Palliative care patient, Fall Primary Care Provider: Heather Rinaldi ED Provider: Harrison Ceja Home Meds and New Rx's Prescriptions: No Action docusate sodium [Colace] 100 MG capsule 100 mg PO PRN PRNRF: 0 acetaminophen 650 mg Suppository 650 mg NV QID RF: 0 hyoscyamine sulfate [Anaspaz] 0.125 mg Tablet,Disintegrating See Rx Instructions .ROUTE .COMPLEX PRNRF: 0 protein [Ensure High Protein] Powder 1 - 2 pwd PO DAILY RF: 0 haloperidol 2 mg Tablet 2 mg PO DAILY PRNRF: 0 Multiple Vitamin, Womens Tablet 1 tab PO DAILY RF: 0 morphine concentrate 100 mg/5 mL (20 mg/mL) Solution See Rx Instructions .ROUTE .COMPLEX RF: 0 prochlorperazine maleate 10 mg Tablet 10 mg PO QID PRNRF: 0 lorazepam 1 mg Tablet 1 mg PO Q4H PRN PRNRF: 0 quetiapine 25 mg Tablet See Rx Instructions .ROUTE .COMPLEX RF: 0 ipratropium-albuterol 0.5 mg-3 mg(2.5 mg base)/3 mL Solution For Nebulization 3 ml INHALATION PRN PRNRF: 0 ibuprofen 200 mg Tablet 200 mg PO QID RF: 0 polyethylene glycol 3350 [Miralax] 17 gram/dose Powder 17 g PO DAILY PRNRF: 0 albuterol sulfate [ProAir HFA] 90 mcg/actuation Hfa Aerosol Inhaler 1 - 2 puff INHALATION Q4-6M PRNRF: 0 Stiolto Respimat 2.5-2.5 mcg/actuation Mist 2 puff INHALATION DAILY RF: 0 quetiapine [Seroquel] 25 mg tablet 25 mg PO TID RF: 0 Discharge Instructions Instructions: Fall Prevention for Older Adults (ED) Additional Instructions: Your x-ray shows no signs of fracture. There is evidence of arthritis. This may be a cause of the pain. Jayne was able to get up and ambulate well here in the ED with her help. No signs of fracture clinically either. Jayne can take Tylenol if needed for any persistent pain. If you notice any worsening of her symptoms, or any new symptoms such as vomiting, diarrhea, fever, chills, shortness of breath, chest pain, numbness, weakness, or fainting , please return immediately to the emergency department for reevaluation. Please follow up with your primary care provider as soon as possible for reassessment and reevaluation. As always, it was a pleasure participating in your medical care today. Referrals: Heather Rinaldi [Primary Care Provider] - Discharge Data Discharge Date/Time-TO BE ENTERED AT DEPARTURE: 11/18/19 22:10 Medical Decision Making 74-year-old female with a past medical history of severe Alzheimer's dementia on palliative care, COPD, hypertension, GERD, who presents today for evaluation of potential left hip pain. Earlier this evening when the patient was at her skilled nursing she had a witnessed fall onto her left hip, she did not hit her head, it is when she was trying to lease picker a young child. No other trauma. She was complaining about questionable mild pain in the left hand side however her story is notably inconsistent secondary to her clinical state. There is no evidence of any other trauma per the bystanders, or the patient's caregivers. No other complaints at this time. Patient is brought in by EMS. Physical exam is unremarkable. No pain or tenderness on exam, she ambulates well. As of the history, as well as the patient's inability to add clinically to the exam from a history component, x-ray was ordered, x-ray shows no evidence of acute fracture. We did get the patient up and ambulated her again, she ambulates well, I did contact the patient's care provider at home Makayla, discussed the entire case with her. Patient will be discharged home, Makayla is unable to pick the patient up but she cares for other palliative care patients currently. The patient is not a candidate for CT as she has severe Alzheimer's dementia. EMS will bring the patient back to her home. I have extensively reviewed the treatment plan and discharge instructions with the patient and their family. I have addressed all patient concerns at this time. The patient and family was made aware of what symptoms to monitor for that would warrant a return to the emergency department. Discussed the plan with the patient and family, they demonstrate verbal understanding and agreement with our assessment and plan at this time. FINDINGS: Bones/joints: Degenerative changes of hip joints and visualized spine. No subluxation. No acute fracture. Soft tissues: Unremarkable. IMPRESSION: No acute findings. Thank you for allowing us to participate in the care of your patient. Dictated and Authenticated by: Osmar Ibanez DO 11/18/2019 9:36 PM Eastern Time ([place] & [place]) HPI General Date/Time Provider Initiated Documentation: 11/18/19 20:45. HPI Narrative: 74-year-old female with a past medical history of severe Alzheimer's dementia on palliative care, COPD, hypertension, GERD, who presents today for evaluation of potential left hip pain. Earlier this evening when the patient was at her skilled nursing she had a witnessed fall onto her left hip, she did not hit her head, it is when she was trying to lease picker a young child. No other trauma. She was complaining about questionable mild pain in the left hand side however her story is notably inconsistent secondary to her clinical state. There is no evidence of any other trauma per the bystanders, or the patient's caregivers. No other complaints at this time. Patient is brought in by EMS. Related Data Home Medications Medication Instructions Recorded Confirmed docusate sodium [Colace] 100 mg PO PRN PRN 09/30/17 11/18/19 acetaminophen 650 mg NV QID 11/18/19 11/18/19 albuterol sulfate [ProAir HFA] 1 - 2 puff INHALATION Q4-6M PRN 11/18/19 11/18/19 haloperidol 2 mg PO DAILY PRN 11/18/19 11/18/19 hyoscyamine sulfate [Anaspaz] See Rx Instructions .ROUTE 11/18/19 11/18/19 .COMPLEX PRN ibuprofen 200 mg PO QID 11/18/19 11/18/19 ipratropium-albuterol 3 ml INHALATION PRN PRN 11/18/19 11/18/19 lorazepam 1 mg PO Q4H PRN PRN 11/18/19 11/18/19 morphine concentrate See Rx Instructions .ROUTE .COMPLEX 11/18/19 11/18/19 [id number]-Xl-xcyx-minerals 1 tab PO DAILY 11/18/19 11/18/19 [Multiple Vitamin, Womens] polyethylene glycol 3350 [Miralax] 17 g PO DAILY PRN 11/18/19 11/18/19 prochlorperazine maleate 10 mg PO QID PRN 11/18/19 11/18/19 protein [Ensure High Protein] 1 - 2 pwd PO DAILY 11/18/19 11/18/19 quetiapine See Rx Instructions .ROUTE .COMPLEX 11/18/19 11/18/19 quetiapine [Seroquel] 25 mg PO TID 11/18/19 11/18/19 tiotropium-olodaterol [Stiolto 2 puff INHALATION DAILY 11/18/19 11/18/19 Respimat] Allergies Allergy/AdvReac Type Severity Reaction Status Date / Time No Known Allergies Allergy Unverified 11/18/19 20:57 General Stated Complaint: Orthopedic GOLDIE: 3 Review of Systems All systems reviewed & are unremarkable except as noted in HPI and below PFSH Medical History Alzheimer's dementia (Chronic) Anxiety (Chronic) Bipolar disorder (Suspected) Chronic colitis (Acute) COPD (chronic obstructive pulmonary disease) (Suspected) CVA (cerebral vascular accident) (Chronic) Dementia (Resolved) Depression (Chronic) DNI (do not intubate) (Chronic) DNR (do not resuscitate) (Chronic) Drug-induced Parkinsonism (Chronic) Essential hypertension (Chronic) GERD (gastroesophageal reflux disease) (Chronic) Goals of care, counseling/discussion (Chronic) HTN (hypertension) (Chronic) Mixed Alzheimer's and vascular dementia (Chronic) Mood disorder (Chronic) Palliative care patient (Chronic) Vitamin B 12 deficiency (Acute) Surgical History Surgical history unknown (Acute) Family History Son No problems noted. Son No problems noted. Daughter No problems noted. Father , aged lung cancer early 50s Lung cancer Mother , aged 93 of old age No problems noted. 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 Pets and animals: Yes What is your relationship status?: How often do you talk on the phone with friends or family?: never How often do you get together with friends or relatives?: never Panel score (0-1 are the most socially isolated patients): 0 What type of physical activity do you participate in: walking and irregular exercise Duration: < 15 minutes/day Frequency: 5-6 times per week Special di needs: No Agree to transfusion: No Seatbelt use: always Water heater temp set <120 deg: Yes Fire extinguisher in home: Yes Do you feel safe at home: Yes Do you feel safe in your relationship?: Yes Additional Social history: Has 2 children in [place] who are her guardians. Has another son in [place] who is not in charge of care. Has lives with caregiver Makayla since Jun 2017. Attends [employer] 5 days per week. CM at [facility] is Meliza. Exam Narrative Exam Narrative: 1.Const: Well-nourished, Well-developed, appearing stated age 2.Eyes: PERRL, no conjunctival injection, and symmetrical lids. 3.ENT: Atraumatic external nose and ears. Moist MM. Neck: Symmetric, trachea midline, No thyromegaly. There is no evidence of raccoon eyes, olguin sign, CSF rhinorrhea, mastoid tenderness, cranial crepitus, hemotympanum, exophthalmos, or hyphema. Patient demonstrates intact dentition with no signs of tooth avulsion or fracture, no signs of jaw deformity, no evidence of a LeFort's fracture, with an intact palate, nose and orbital region. There is no evidence of a nasal septal hematoma. No proptosis. Jaw closes symmetrically. Airway is clear. 4.CVS: +S1/S2, No murmurs or gallops. Peripheral pulses 2+ and equal in all extremities. Brisk capillary refill in all extremities. 5.RESP: Unlabored respiratory effort. Clear to auscultation bilaterally. No wheezes rales or rhonchi 6.GI: Soft, Nontender/Nondistended, No hepatosplenomegaly. No guarding or rebound. 7.MSK: Normocephalic/Atraumatic, Extremities w/o deformity or ttp including on palpation of the hips bilaterally. No pain with logroll of the hips, no pain with movement of the legs or hips. The no cyanosis or clubbing, Normal movement of all extremities. Patient does get up and ambulates well, no evidence of significant limp. 8.Skin: Warm, Dry. No rashes or lesions. 9.Neuro: data entry representative II-XII grossly intact. Sensation grossly intact, no focal neurologic deficits. 10.Psych: (AAO) x3. Appropriate mood and affect Course Vital Signs Vital signs: Vital Signs Temperature 36.6 C 11/18/19 20:42 Pulse 98 H 11/18/19 20:42 Respiratory Rate 16 11/18/19 20:42 Blood Pressure 109/85 11/18/19 20:42 Pulse Oximetry 92 L 11/18/19 20:42 Temperature 36.6 C 11/18/19 20:42 Temperature Source Skin 11/18/19 20:42 Pulse 98 H 11/18/19 20:42 Respiratory Rate 16 11/18/19 20:42 Blood Pressure 109/85 11/18/19 20:42 Blood Pressure Position Supine 11/18/19 20:42 Pulse Oximetry 92 L 11/18/19 20:42 Oxygen Delivery Method Room Air 11/18/19 20:42 Oxygen Flow Rate 0 11/18/19 20:42
== END 2019-11-18 22:10 | disposition home or self-care (01) ==
PROVIDERS: Emergency Provider Student in an Organized Health Care Education/Training Program; PCP Family Medicine
DX: M25.552 Pain in left hip (principal); W18.30XA Fall on same level, unspecified, initial encounter; G30.9 Alzheimer's disease, unspecified; F02.80 Dementia in other diseases classified elsewhere, unspecified severity, without behavioral disturbance, psychotic disturbance, mood disturbance, and anxiety; Z51.5 Encounter for palliative care; I10 Essential (primary) hypertension; J44.9 Chronic obstructive pulmonary disease, unspecified; Z87.891 Personal history of nicotine dependence; G20 Parkinson's disease
CPT/HCPCS: 99283; 73502

== ENCOUNTER 2021-04-20 12:14 | Outpatient (CLI) | payer MEDICAID, SELFPAY ==
--- OUTSIDE RECORDS SUMMARY | 2021-04-20 12:20 | XMS_ITS ---
:1945 Author Care Team Providers Name Role Phone [facility] Primary Care Provider [phone] CAROLINA POLO Primary Care Provider [phone] Allergies Code Code System Name Reaction Severity Status Onset NKDA ? Medications Name Status Start Date Stop Date ? ? acetaminophen 325 mg capsule Active ? Not available Take 2 capsules by oral route at bedtime. Advil 200 mg tablet Active ? Not availabl e Take 1 tablet every 6 hours by oral route. Aerochamber Mini Active ? Not available amlodipine 10 mg tablet Active ? Not avai lable amlodipine 5 mg tablet Active ? Not avail able amlodipine besylate (bulk) Active ? Not a vailable Ativan 0.5 mg tablet Active ? Not availab le Take 1 tablet 3 times a day by oral route as needed. azithromycin 250 mg tablet Completed ? 05/15 Calcium 500 Completed ? 05/15/2019 Colace 100 mg capsule Active ? Not availa ble Take 1 capsule every day by oral route. divalproex 125 mg capsule,delayed Completed ? 05/15/2019 release sprinkle doxycycline hyclate 100 mg tablet Completed ? 05/15/2019 Dulcolax (bisacodyl) 5 mg tablet,delayed release Active ? Not available Take 2 tablets every day by oral route. Ensure Active Protein-Muscle Active ? Not available furosemide 20 mg tablet Active ? Not avai lable ipratropium 0.5 mg-albuterol 2.5 mg/2.5 mL solution for nebuliza tion Active ? Not available Inhale by inhalation route. Miralax 17 gram/dose oral powder Active ? Not available Take by oral route. Nebulizer Active ? Not available omeprazole 20 mg capsule,delayed Completed ? 05/15/2019 release omeprazole 40 mg capsule,delayed release Completed ? 05/15/2019 Take 1 capsule every day by oral route at bedtime. prednisone 10 mg tablet Completed ? 05/15/20 19 Take 1 tablet every day by oral route. ProAir HFA 90 mcg/actuation aerosol inhaler Active ? Not available Inhale 2 puffs every 4 hours by inhalation route. quetiapine 25 mg tablet Active ? Not avai lable Seroquel Active ? Not available Stiolto Respimat 2.5 mcg-2.5 Active ? Not available mcg/actuation solution for inhalation trazodone 50 mg tablet Completed ? 9 Vitamin D Active ? Not available Problems Name Status Onset Date Source ? Onychomycosis Active 05/08/2019 ? Alzheimer's Disease Active 05/08/2019 ? Lacunar Infarction Active 05/08/2019 ? Peripheral Vascular Disease Active 05/08/2019 ? Acute Exacerbation of Chronic Active 05/08/2019 ? Obstructive Airways Disease Chronic Obstructive Lung Disease Active 05/08/2019 ? Constipation Active 05/08/2019 ? Rectal Hemorrhage Active 05/08/2019 ? Syncope Active 05/08/2019 ? Tremor Active 05/08/2019 ? B12 Deficiency Monitoring Active 05/08/2019 ? Dementia Active ? History Hypertensive Disorder Active ? History Inflammatory Disorder of Digestive Active ? History Tract Procedures None recorded. Results Lab Results Date Name Specimen Result Interpretation Description Value Range Status Address ? 05/24/2017 CMP, Serum or S ? g/r 92 mg/dL 74-106 [place] Plasma mg/dL [facility] [address] ? ? S High Bun 20 mg/dL 7-17 Final [place] mg/dL [facility] : [address] ? ? S ? Crea 0.70 mg/dL 0.52-1.04 Final [place] mg/dL [facility] ([facility] : [address] ? ? S ? Ca 9.2 mg/dL 8.4-10.2 Final [place] mg/dL [facility] ([facility] : [address] ? ? S ? Na 138 mmol/L 137-145 Final [place] mmol/L [facility] ([facility] : [address] ? ? S ? K 4.8 mmol/L 3.5-5.1 Final [place] mmol/L [facility] : [address] ? ? S ? Cl 103 mmol/L 98-107 Final [place] mmol/L [facility] : [address] ? ? S ? Tco2 28.0 mmol/L 22.0-30.0 Final No rth mmol/L [facility] ([facility] : [address] ? ? S ? Tp 7.1 g/dL 6.3-8.2 Final [place] g/dL [facility] : [address] ? ? S ? Alb 4.0 g/dL 3.5-5.0 Final [place] g/dL [facility] : [address] ? ? S ? Tbil 0.5 mg/dL 0.2-1.3 Final [place] mg/dL [facility] : [address] ? ? S ? Alp 78 U/L 38-126 Final [place] U/L [facility] (Internal) : [address] ? ? S ? Alt 24 U/L 9-52 U/L Final [place] (Sgpt) [facility] L ab (Internal) : [address] ? ? S ? Ast 21 U/L 14-36 U/L Final [place] (Sgot) [facility] (Internal) : [address] t 05/24/2017 CBC W/ Auto BLD ? Wbc 5.5 10*3/uL 5.0-10.0 F inal [place] Diff 10*3/uL [facility] : [address] ? ? BLD ? Rbc 4.58 4.10-5.30 Final [place] 10*6/uL 10*6/uL [facility] ([facility] : [address] ? ? BLD ? Hgb 14.4 g/dL 12.0-16.0 Final Nort [facility] g/dL [facility] : [address] ? ? BLD ? Hct 44.2 % 37.0-47.0 Final [place] % [facility] (Internal) : [address] ? ? BLD High Mcv 96.5 fL 80.0-96.0 Final [facility] L ab (Internal) : [address] ? ? BLD ? Mch 31.4 pg 26.0-32.0 Final [facility] L ab (Internal) : [address] ? ? BLD ? Mchc 32.6 g/dL 31.0-35.0 Final Nort h g/dL [facility] L ab (Internal) : [address] ? ? BLD ? Rdw 12.7 % 11.5-14.5 Final [facility] L ab (Internal) : [address] ? ? BLD Low Plt 112 10*3/uL 130-450 Final Nort h 10*3/uL [facility] (Internal) : [address] ? ? BLD ? Anc 2.82 ? Final [place] 10*3/uL [facility] L ab (Internal) : [address] ? ? BLD ? Neutro 51.1 % 40.0-75.0 Final [facility] L ab (Internal) : [address] ? ? BLD ? Lymph 37.3 % 20.0-50.0 Final [facility] L ab (Internal) : [address] ? ? BLD ? [place] 9.4 % 2.0-10.0 Final [facility] ab (Internal) : [address] ? ? BLD ? Eos 1.3 % 1.0-6.0 % Final [facility] L ab (Internal) : [address] ? ? BLD ? Baso 0.9 % 0.0-1.0 % Final [facility] ab (Internal) : [address] ? ? BLD ? Ig 0.0 % 0.0-0.9 % Final [facility] ab (Internal) : [address] 02/04/2017 Pathology TISS ? Report results ? Final N orth Study [facility] L ab (Internal) : [address] 01/22/2017 Venipuncture BLD ? Venpn* ? ? Final [facility] ab (Internal) : [address] 01/22/2017 Neutrophil BLD ? Anc-manu 2.30 ? Final [place] Count, al 10*3/uL [facility] Lab (Anc), Blood (Int ernal): [address] 01/22/2017 Differential, BLD ? Polys 46 % 40-75 % Final [facility] Blood [facility] L ab (Internal) : [address] ? ? BLD ? Bands 0 % 0-5 % Final [facility] L ab (Internal) : [address] ? ? BLD ? Lymphs 34 % 20-50 % Final [facility] L ab (Internal) : [address] ? ? BLD High [place] 13 % 2-10 % Final [facility] L ab (Internal) : [address] ? ? BLD High Eos 7 % 0-6 % Final [facility] L ab (Internal) : [address] ? ? BLD ? Baso 0 % 0-1 % Final [facility] L ab (Internal) : [address] ? ? BLD ? Atyp 0 % ? Final [facility] L ab (Internal) : [address] ? ? BLD ABNORMAL Plts, low adequate Final [facility] L ab (Internal) : [address] ? ? BLD ABNORMAL RBC abnormal normal Final [facility] Hospital L ab (Internal) : [address] ? ? BLD ? Aniso small ? Final [facility] L ab (Internal) : [address] 01/22/2017 CBC W/ Auto BLD ? Wbc 5.0 10*3/uL 5.0-10.0 F inal [place] Diff 10*3/uL [facility] L [facility] (Internal) : [address] ? ? BLD ? Rbc 4.36 4.10-5.30 Final [place] 10*6/uL 10*6/uL [facility] (Internal) : [address] ? ? BLD ? Hgb 13.5 g/dL 12.0-16.0 Final Nort h g/dL [facility] (Internal) : [address] ? ? BLD ? Hct 41.8 % 37.0-47.0 Final [facility] L ab (Internal) : [address] [place] ? ? BLD ? Mcv 95.9 fL 80.0-96.0 Final [facility] L ab (Internal) : [address] [place] ? ? BLD ? Mch 31.0 pg 26.0-32.0 Final [facility] L ab (Internal) : [address] [place] ? ? BLD ? Mchc 32.3 g/dL 31.0-35.0 Final Nort h g/dL [facility] L ab (Internal) : [address] ? ? BLD High Rdw 16.1 % 11.5-14.5 Final [facility] L ab (Internal) : [address] ? ? BLD ? Plt 146 10*3/uL 130-450 Final Nort h 10*3/uL [facility] ab (Internal) : [address] [place] 01/08/2017 Venipuncture BLD ? Venpn* ? ? Final [facility] L ab (Internal) : [address], [place] 01/08/2017 Giardia STL ? Giardia negative negative Final [place] Lamblia Ag, Count ry EIA, [facility] Lab (Internal) : [address] [place] [address] 01/08/2017 Enteric STL ? Salmonel see ? Final No rth Bacteria, la PCR comments Count ry Organism Hospital Lab Specific (Interna l): Culture, [address] [place] ? ? STL ? Shigella see ? Final [place] PCR comments [facility] L [facility] (Internal) : [address] [place] ? ? STL ? Campylob see ? Final [place] acter PCR comments Count Hospital L ab (Internal) : [address] ? ? STL ? Shiga see ? Final [place] Toxin PCR comments [facility] Hospital L ab (Internal) : [address] 01/08/2017 Plasmodium STL ? Specimen (see note) ? Fi nal [place] Sp, Light Descripti Coun try Microscopy, on Hospi nikki Lab Blood (Internal) : [address], [place] ? ? STL ? Result (see note) ? Final [facility] L ab (Internal) : [address] ? ? STL ? Report (see note) ? Final [facility] L ab (Internal) : [address] 01/08/2017 Borrelia S ? Lyme negative ? Final No rth Burgdorferi Antibody Cou ntry Ab, Qual Hospital Lab Immunoassay, (Int ernal): Serum [address] 01/08/2017 Neutrophil BLD ? Anc-manu 1.86 ? Final [place] Count, al 10*3/uL [facility] Lab (Anc), Blood (Int ernal): [address] 01/08/2017 Differential, BLD Low Polys 37 % 40-75 % Final [place] Manual, Blood Cou [facility] L [facility] (Internal) : [address] ? ? BLD High Bands 11 % 0-5 % Final [facility] L ab (Internal) : [address] ? ? BLD ? Lymphs 29 % 20-50 % Final [facility] L ab (Internal) : [address] ? ? BLD High [place] 12 % 2-10 % Final [facility] L ab (Internal) : [address] ? ? BLD High Eos 7 % 0-6 % Final [facility] L ab (Internal) : [address] ? ? BLD High Baso 4 % 0-1 % Final [facility] L ab (Internal) : [address] ? ? BLD ? Atyp 0 % ? Final [facility] Hospital L ab (Internal) : [address] ? ? BLD ? Plts, adequate adequate Final [facility] L ab (Internal) : [address] ? ? BLD ? RBC normal normal Final [facility] Hospital L ab (Internal) : [address] 01/08/2017 CBC W/ Auto BLD Low Wbc 3.9 10*3/uL 5.0-10.0 F inal [place] Diff 10*3/uL [facility] L ab (Internal) : [address] ? ? BLD Low Rbc 3.93 4.10-5.30 Final [place] 10*6/uL 10*6/uL [facility] L ab (Internal) : [address] ? ? BLD Low Hgb 11.9 g/dL 12.0-16.0 Final Nort h g/dL [facility] L ab (Internal) : [address] ? ? BLD Low Hct 36.9 % 37.0-47.0 Final [facility] L ab (Internal) : [address] ? ? BLD ? Mcv 93.9 fL 80.0-96.0 Final [facility] L ab (Internal) : [address] ? ? BLD ? Mch 30.3 pg 26.0-32.0 Final [facility] L ab (Internal) : [address] ? ? BLD ? Mchc 32.2 g/dL 31.0-35.0 Final Nort h g/dL [facility] L ab (Internal) : [address] ? ? BLD High Rdw 14.9 % 11.5-14.5 Final [facility] L ab (Internal) : [address] ? ? BLD ? Plt 159 10*3/uL 130-450 Final Nort h 10*3/uL [facility] L ab (Internal) : [address] 01/01/2017 Venipuncture BLD ? Venpn* ? ? Final [facility] L ab (Internal) : [address] 01/01/2017 CBC W/ Auto BLD ? Wbc 5.7 10*3/uL 5.0-10.0 F inal [place] Diff 10*3/uL [facility] L ab (Internal) : [address] ? ? BLD ? Rbc 4.58 4.10-5.30 Final [place] 10*6/uL 10*6/uL [facility] L ab (Internal) : [address] ? ? BLD ? Hgb 13.9 g/dL 12.0-16.0 Final Nort h g/dL [facility] L ab (Internal) : [address] ? ? BLD ? Hct 43.0 % 37.0-47.0 Final [facility] L ab (Internal) : [address] ? ? BLD ? Mcv 93.9 fL 80.0-96.0 Final [facility] Hospital L ab (Internal) : [address] ? ? BLD ? Mch 30.3 pg 26.0-32.0 Final [facility] (Internal) : [address] ? ? BLD ? Mchc 32.3 g/dL 31.0-35.0 Final Nort h g/dL [facility] L ab (Internal) : [address] ? ? BLD High Rdw 14.6 % 11.5-14.5 Final [facility] L ab (Internal) : [address] ? ? BLD ? Plt 171 10*3/uL 130-450 Final Nort h 10*3/uL [facility] L ab (Internal) : [address] ? ? BLD ? Anc 3.18 ? Final [place] 10*3/uL [facility] L ab (Internal) : [address] ? ? BLD ? Neutro 55.6 % 40.0-75.0 Final [facility] L ab (Internal) : [address] ? ? BLD ? Lymph 28.5 % 20.0-50.0 Final [facility] L ab (Internal) : [address] ? ? BLD High [place] 10.5 % 2.0-10.0 Final [facility] L ab (Internal) : [address] ? ? BLD ? Eos 4.5 % 1.0-6.0 % Final [facility] L ab (Internal) : [address] ? ? BLD ? Baso 0.7 % 0.0-1.0 % Final [facility] L ab (Internal) : [address] ? ? BLD ? Ig 0.2 % 0.0-0.9 % Final [facility] L ab (Internal) : [address] 12/26/2016 Wbc, Stool STL ? Final microbiolog ? [place] y results [facility] (Internal) : [address] 12/26/2016 C Diff Toxin STL ? C. Diff negative negative F inal [place] Genes, Qual, ([facility]) Coun try PCR, [facility] Hospit al Lab (Internal) : [address] 12/18/2016 Venipuncture BLD ? Venpn* ? ? Final [facility] L ab (Internal) : [address] 12/18/2016 BMP, Serum or S ? g/r 94 mg/dL 74-106 [place] Plasma [facility] [address] t ? ? S High Bun 18 mg/dL 7-17 Final [place] mg/dL [facility] L ab (Internal) : [address] t ? ? S ? Crea 0.70 mg/dL 0.52-1.04 Final Nor th mg/dL [facility] L ab (Internal) : [address] t ? ? S ? Ca 9.1 mg/dL 8.4-10.2 Final [place] mg/dL [facility] L ab (Internal) : [address] t ? ? S ? Na 141 mmol/L 137-145 Final [place] mmol/L [facility] L ab (Internal) : [address] ? ? S ? K 4.5 mmol/L 3.5-5.1 Final [place] mmol/L [facility] L ab (Internal) : [address] ? ? S High Cl 108 mmol/L 98-107 Final [place] mmol/L [facility] L ab (Internal) : [address] ? ? S ? Tco2 26.0 mmol/L 22.0-30.0 Final No rth mmol/L [facility] L ab (Internal) : [address] 12/18/2016 CBC W/ Auto BLD ? Wbc 5.6 10*3/uL 5.0-10.0 F inal [place] Diff 10*3/uL [facility] : [address] ? ? BLD ? Rbc 4.63 4.10-5.30 Final [place] 10*6/uL 10*6/uL [facility] L ab (Internal) : [address] ? ? BLD ? Hgb 14.1 g/dL 12.0-16.0 Final Nort h g/dL [facility] L ab (Internal) : [address] ? ? BLD ? Hct 43.5 % 37.0-47.0 Final [facility] L ab (Internal) : [address] ? ? BLD ? Mcv 94.0 fL 80.0-96.0 Final [facility] Hospital L ab (Internal) : [address] ? ? BLD ? Mch 30.5 pg 26.0-32.0 Final [facility] (Internal) : [address] ? ? BLD ? Mchc 32.4 g/dL 31.0-35.0 Final Nort h g/dL [facility] L ab (Internal) : [address] ? ? BLD High Rdw 14.6 % 11.5-14.5 Final [facility] L ab (Internal) : [address] ? ? BLD ? Plt 130 10*3/uL 130-450 Final Nort h 10*3/uL [facility] L ab (Internal) : [address] ? ? BLD ? Anc 3.67 ? Final [place] 10*3/uL [facility] L ab (Internal) : [address] ? ? BLD ? Neutro 65.6 % 40.0-75.0 Final [facility] L ab (Internal) : [address] ? ? BLD ? Lymph 21.1 % 20.0-50.0 Final [facility] L ab (Internal) : [address] ? ? BLD ? [place] 10.0 % 2.0-10.0 Final [facility] L ab (Internal) : [address] ? ? BLD ? Eos 2.0 % 1.0-6.0 % Final [facility] L ab (Internal) : [address] ? ? BLD ? Baso 0.9 % 0.0-1.0 % Final [facility] L ab (Internal) : [address] ? ? BLD ? Ig 0.4 % 0.0-0.9 % Final [facility] L ab (Internal) : [address] 11/27/2016 Venipuncture BLD ? Venpn* ? ? Final [facility] L ab (Internal) : [address] 11/27/2016 Neutrophil BLD ? Anc-manu 3.84 ? Final [place] Count, al 10*3/uL [facility] Lab (Anc), Blood (Int ernal): [address] 11/27/2016 Differential, BLD ? Polys 59 % 40-75 % Final [facility], Blood [facility] L ab (Internal) : [address] ? ? BLD ? Bands 0 % 0-5 % Final [facility] L ab (Internal) : [address] ? ? BLD ? Lymphs 23 % 20-50 % Final [facility] L ab (Internal) : [address] ? ? BLD High [place] 17 % 2-10 % Final [facility] L ab (Internal) : [address] ? ? BLD ? Eos 1 % 0-6 % Final [facility] L ab (Internal) : [address] ? ? BLD ? Baso 0 % 0-1 % Final [facility] L ab (Internal) : [address] ? ? BLD ? Atyp 0 % ? Final [facility] L ab (Internal) : [address] ? ? BLD ? Plts, adequate adequate Final [facility] Hospital L ab (Internal) : [address] ? ? BLD ? RBC normal normal Final [place] Morpholog [facility] Hospital L ab (Internal) : [address] 11/27/2016 BMP, Serum or S ? g/r 84 mg/dL 74-106 [place] Plasma mg/dL [facility] L ab (Internal) : [address] t ? ? S ? Bun 17 mg/dL 7-17 Final [place] mg/dL [facility] L ab (Internal) : [address] ? ? S ? Crea 0.70 mg/dL 0.52-1.04 Final [facility] mg/dL [facility] ([facility] : [address] t ? ? S ? Ca 8.8 mg/dL 8.4-10.2 Final [place] mg/dL [facility] L ab (Internal) : [address] t ? ? S ? Na 141 mmol/L 137-145 Final [place] mmol/L [facility] L ab (Internal) : [address] t ? ? S ? K 4.0 mmol/L 3.5-5.1 Final [place] mmol/L [facility] L ab (Internal) : [address] t ? ? S ? Cl 107 mmol/L 98-107 Final [place] mmol/L [facility] L ab (Internal) : [address] ? ? S ? Tco2 26.0 mmol/L 22.0-30.0 Final No rth mmol/L [facility] L ab (Internal) : [address] 11/27/2016 CBC W/ Auto BLD ? Wbc 6.5 10*3/uL 5.0-10.0 F inal [place] Diff 10*3/uL [facility] ([facility] : [address] t ? ? BLD ? Rbc 4.47 4.10-5.30 Final [place] 10*6/uL 10*6/uL [facility] (Internal) : [address] ? ? BLD ? Hgb 13.8 g/dL 12.0-16.0 Final Nort h g/dL [facility] L ab (Internal) : [address] ? ? BLD ? Hct 42.3 % 37.0-47.0 Final [place] % [facility] L ab (Internal) : [address] ? ? BLD ? Mcv 94.6 fL 80.0-96.0 Final [place] fL [facility] L ab (Internal) : [address] ? ? BLD ? Mch 30.9 pg 26.0-32.0 Final [place] pg [facility] L ab (Internal) : [address] ? ? BLD ? Mchc 32.6 g/dL 31.0-35.0 Final Nort [facility] g/dL [facility] L ab (Internal) : [address] ? ? BLD ? Rdw 14.0 % 11.5-14.5 Final [facility] L ab (Internal) : [address] ? ? BLD ? Plt 193 10*3/uL 130-450 Final Nort h 10*3/uL [facility] L ab (Internal) : [address] 11/20/2016 Venipuncture BLD ? Venpn* ? ? Final [facility] L ab (Internal) : [address] t 11/20/2016 Neutrophil BLD ? Anc-manu 1.66 ? Final [place] Count, al 10*3/uL [facility] Hospital Lab (Anc), Blood (Int ernal): [address] 11/20/2016 Differential, BLD ? Polys 40 % 40-75 % Final [facility], Blood [facility] Hospital L ab (Internal) : [address] ? ? BLD ? Bands 0 % 0-5 % Final [facility] L ab (Internal) : [address] ? ? BLD ? Lymphs 43 % 20-50 % Final [facility] L ab (Internal) : [address] ? ? BLD High [place] 14 % 2-10 % Final [facility] L ab (Internal) : [address] ? ? BLD ? Eos 3 % 0-6 % Final [facility] L ab (Internal) : [address] ? ? BLD ? Baso 0 % 0-1 % Final [facility] L ab (Internal) : [address] ? ? BLD ? Atyp 0 % ? Final [facility] Hospital L ab (Internal) : [address] ? ? BLD ? Plts, adequate adequate Final [facility] L ab (Internal) : [address] ? ? BLD ? RBC normal normal Final [facility] Hospital L ab (Internal) : [address] 11/20/2016 CMP, Serum or S Low g/r 67 mg/dL 74-106 [place] Plasma mg/dL [facility] : [address] ? ? S ? Bun 17 mg/dL 7-17 Final [place] mg/dL [facility] (Internal) : [address] ? ? S ? Crea 0.80 mg/dL 0.52-1.04 Final [place] [facility] mg/dL [facility] (Internal) : [address] ? ? S ? Ca 8.6 mg/dL 8.4-10.2 Final [place] mg/dL [facility] (Internal) : [address] ? ? S High Na 149 mmol/L 137-145 Final [place] mmol/L [facility] : [address] t ? ? S ? K 4.1 mmol/L 3.5-5.1 [facility] [place] mmol/L [facility] : [address] t ? ? S High Cl 109 mmol/L 98-107 Final [place] mmol/L [facility] ([facility] : [address] t ? ? S ? Tco2 29.0 mmol/L 22.0-30.0 Final No rth mmol/L [facility] ([facility] : [address] t ? ? S Low Tp 6.2 g/dL 6.3-8.2 Final [place] g/dL [facility] ([facility] : [address] t ? ? S Low Alb 3.4 g/dL 3.5-5.0 Final [place] g/dL [facility] : [address] t ? ? S ? Tbil 0.4 mg/dL 0.2-1.3 Final [place] mg/dL [facility] ([facility] : [address] t ? ? S ? Alp 97 U/L 38-126 Final [place] U/L [facility] ([facility] : [address] t ? ? S ? Alt 28 U/L 9-52 U/L Final [place] (Sgpt) [facility] ([facility] : [address] t ? ? S ? Ast 25 U/L 14-36 U/L Final [place] (Sgot) [facility] L ab (Internal) : [address] t 11/20/2016 CBC W/ Auto BLD Low Wbc 4.2 10*3/uL 5.0-10.0 F inal [place] Diff 10*3/uL [facility] (Internal) : [address] t ? ? BLD ? Rbc 4.33 4.10-5.30 Final [place] 10*6/uL 10*6/uL [facility] L ab (Internal) : [address] t ? ? BLD ? Hgb 13.5 g/dL 12.0-16.0 Final Nort h g/dL [facility] L ab (Internal) : [address] t ? ? BLD ? Hct 41.1 % 37.0-47.0 Final [facility] L ab (Internal) : [address] t ? ? BLD ? Mcv 94.9 fL 80.0-96.0 Final [facility] L ab (Internal) : [address] t ? ? BLD ? Mch 31.2 pg 26.0-32.0 Final [facility] L ab (Internal) : [address] t ? ? BLD ? Mchc 32.8 g/dL 31.0-35.0 Final Nort h g/dL [facility] L ab (Internal) : [address] t ? ? BLD ? Rdw 14.0 % 11.5-14.5 Final [facility] L ab (Internal) : [address] t ? ? BLD ? Plt 191 10*3/uL 130-450 Final Nort h 10*3/uL [facility] L ab (Internal) : [address] t 09/17/2016 Urinalysis, UR ? UA-WBC 0-3 [hpf] 0-3 [hpf] F inal [place] [facility] L [facility] (Internal) : [address] t ? ? UR ? UA-RBC 0-2 [hpf] 0-2 [hpf] Final [facility] ([facility] : [address] ? ? UR ? UA-bacte rare [hpf] none seen Final [place] marliee [hpf] [facility] ab (Internal) : [address] ? ? UR ? UA-epith rare [hpf] none seen Final [place] elial [hpf] [facility] ab (Internal) : [address] [place] [address] ? ? UR ABNORMAL UA-mucus rare [hpf] none seen Final [place] [hpf] [facility] ab (Internal) : [address] [place] [address] ? ? UR ? Amorph few [hpf] ? Final [place] Cryst [facility] ab (Internal) : [address] 09/17/2016 Urinalysis, UR ? UA-color yellow pale Final [place] Dipstick, yellow [facility] Lab (Internal) : [address] ? ? UR ABNORMAL UA-appea hazy clear Final [facility] ab (Internal) : [address] ? ? UR ? UA-spec 1.020 1.003-1.0 Final [place] Grav 35 [facility] ab (Internal) : [address] ? ? UR ? UA-pH 6.5 [pH] 4.6-8.0 Final [place] [pH] [facility] ab (Internal) : [address] ? ? UR ? UA-leuk negative negative Final Nort h [facility] ab (Internal) : [address] ? ? UR ? UA-nitri negative negative Final Nor te [facility] ab (Internal) : [address] ? ? UR ? UA-prot negative negative Final Nort h [facility] ab (Internal) : [address] ? ? UR ? UA-gluc negative negative Final Nort h [facility] ab (Internal) : [address] ? ? UR ? UA-keton negative negative Final Nor th e [facility] ab (Internal) : [address] ? ? UR ? UA-urobi normal normal Final [facility] ab (Internal) : [address] ? ? UR ? UA-bili negative negative Final [facility] : [address] ? ? UR ? UA-blood negative negative Final Nor [facility] L ab (Internal) : [address] 09/17/2016 Thyroid S ? Tsh 2.02 0.47-4.68 Final No rth [place], u[IU]/mL u[IU]/mL [facility] L ab (Internal) : [address] 09/17/2016 Magnesium, S ? mg 2.1 mg/dL 1.6-2.3 Final [place] QN, Serum or mg/dL [facility] (Internal) : [address] 09/17/2016 CMP, Serum or S High g/r 124 mg/dL 74-106 Fin al [place] Plasma mg/dL [facility] : [address] t ? ? S High Bun 25 mg/dL 7-17 Final [place] mg/dL [facility] L ab (Internal) : [address] t ? ? S ? Crea 0.90 mg/dL 0.52-1.04 Final [facility] th mg/dL [facility] L ab (Internal) : [address] t ? ? S ? Ca 9.3 mg/dL 8.4-10.2 Final [place] mg/dL [facility] ab (Internal) : [address] t ? ? S ? Na 140 mmol/L 137-145 Final [place] mmol/L [facility] (Internal) : [address] ? ? S ? K 4.3 mmol/L 3.5-5.1 Final [place] mmol/L [facility] L ab (Internal) : [address] t ? ? S ? Cl 102 mmol/L 98-107 Final [place] mmol/L [facility] (Internal) : [address] t ? ? S ? Tco2 26.0 mmol/L 22.0-30.0 Final No rth mmol/L [facility] L ab (Internal) : [address] t ? ? S ? Tp 7.7 g/dL 6.3-8.2 Final [place] g/dL [facility] L ab (Internal) : [address] t ? ? S ? Alb 4.2 g/dL 3.5-5.0 Final [place] g/dL [facility] : [address] t ? ? S ? Tbil 0.4 mg/dL 0.2-1.3 Final [place] mg/dL [facility] L ab (Internal) : [address] ? ? S ? Alp 112 U/L 38-126 Final [place] U/L [facility] (Internal) : [address] ? ? S ? Alt 25 U/L 9-52 U/L Final [place] (Sgpt) [facility] (Internal) : [address] ? ? S ? Ast 26 U/L 14-36 U/L Final [place] (Sgot) [facility] (Internal) : [address] t 09/17/2016 CBC W/ Auto BLD ? Wbc 8.0 10*3/uL 5.0-10.0 F inal [place] Diff 10*3/uL [facility] ([facility] : [address] t ? ? BLD ? Rbc 4.60 4.10-5.30 Final [place] 10*6/uL 10*6/uL [facility] ([facility]) : [address] ? ? BLD ? Hgb 14.4 g/dL 12.0-16.0 Final Nort h g/dL [facility] ([facility]) : [address] ? ? BLD ? Hct 44.0 % 37.0-47.0 Final [place] % [facility] (Internal) : [address] ? ? BLD ? Mcv 95.7 fL 80.0-96.0 Final [place] fL [facility] (Internal) : [address] t ? ? BLD ? Mch 31.3 pg 26.0-32.0 Final [place] pg [facility] (Internal) : [address] ? ? BLD ? Mchc 32.7 g/dL 31.0-35.0 Final Nort [facility] g/dL [facility] ([facility] : [address] t ? ? BLD ? Rdw 13.6 % 11.5-14.5 Final [facility] ab (Internal) : [address] ? ? BLD ? Plt 243 10*3/uL 130-450 Final Nort h 10*3/uL [facility] L ab (Internal) : [address] ? ? BLD ? Anc 6.31 ? Final [place] 10*3/uL [facility] ab (Internal) : [address] ? ? BLD High Neutro 78.7 % 40.0-75.0 Final [facility] ab (Internal) : [address] ? ? BLD Low Lymph 11.7 % 20.0-50.0 Final [facility] ab (Internal) : [address] ? ? BLD ? [place] 8.6 % 2.0-10.0 Final [facility] ab (Internal) : [address] ? ? BLD Low Eos 0.4 % 1.0-6.0 % Final [facility] ab (Internal) : [address] ? ? BLD ? Baso 0.4 % 0.0-1.0 % Final [facility] ab (Internal) : [address] ? ? BLD ? Ig 0.2 % 0.0-0.9 % Final [facility] ab (Internal) : [address] 09/09/2016 Culture, UR ? Final microbiolog ? Final [place] Urine y results [facility] ab (Internal) : [address] 09/09/2016 sensitivities MISC ? Sens* ? ? Final [place] [I] [facility] ab (Internal) : [address] 09/09/2016 Urinalysis, UR ABNORMAL UA-WBC 25-50 [hpf] 0-3 [hp f] Final [place] Microscopic Count [facility] L ab (Internal) : [address] ? ? UR ABNORMAL UA-RBC 25-50 [hpf] 0-2 [hpf] Final [facility] ab (Internal) : [address] ? ? UR ABNORMAL UA-bacte few [hpf] none seen Final [place] marilee [hpf] [facility] ab (Internal) : [address] ? ? UR ? UA-epith rare [hpf] none seen Final [place] elial [hpf] [facility] ab (Internal) : [address] [place] [address] ? ? UR ABNORMAL UA-mucus rare [hpf] none seen Final [place] [hpf] [facility] ab (Internal) : [address] ? ? UR ABNORMAL Renal rare [hpf] none seen Final N orth Cells [hpf] [facility] ab (Internal) : [address] ? ? UR ? Hyaline rare [hpf] ? [facility] [address] 09/09/2016 Urinalysis, UR ? UA-color yellow pale Final [place] Dipstick, yellow [facility]lex [facility] ital Lab (Internal) : [address] ? ? UR ABNORMAL UA-appea cloudy clear Final [facility] ab (Internal) : [address] ? ? UR ? UA-spec 1.015 1.003-1.0 Final [place] Grav 35 [facility] ab (Internal) : [address] ? ? UR ? UA-pH 7.0 [pH] 4.6-8.0 Final [place] [pH] [facility] ab (Internal) : [address] ? ? UR ABNORMAL UA-leuk large negative Final [facility] ab (Internal) : [address] ? ? UR ? UA-nitri negative negative Final Nor th te [facility] ab (Internal) : [address] ? ? UR ABNORMAL [facility]-prot trace [facility] [address] ? ? UR ? UA-gluc negative negative [facility] [address] ? ? UR ? UA-keton negative negative Final Nor th e [facility] ab (Internal) : [address] ? ? UR ? UA-urobi normal normal Final [facility] ab (Internal) : [address] ? ? UR ? UA-bili negative negative Final Nort h [facility] L ab (Internal) : [address] ? ? UR ABNORMAL UA-blood moderate negative Final N orth [facility] L ab (Internal) : [address] Past Encounters None recorded. Social History Tobacco Smoking Status Former Smoker (1/2 pack per day) Vaccine List Vaccine Type influenza, injectable, quadrivalent 04/27/2017 03/20/2018 pneumococcal polysaccharide PPV23 03/20/2018 Td(adult) unspecified formulation 03/20/2018 Plan of Care Reminders Provider Appointments None ? ? recorded. Lab None ? ? recorded. Referral None ? ? recorded. Procedures None ? ? recorded. Surgeries None ? ? recorded. Imaging None ? ? recorded. Vitals Height Weight BMI Blood Pressure 157.48 cm 62.45 kg 25.2 kg/m2 120/68 mm[Hg]
== END 2021-04-20 12:15 | disposition home or self-care (01) ==
PROVIDERS: PCP Family Medicine; Visit Provider Family Medicine
DX: J44.9 Chronic obstructive pulmonary disease, unspecified (principal)
CPT/HCPCS: 94762